=== PATIENT | female | born 1990 ===

== ENCOUNTER 2021-01-28 11:06 | Outpatient (CLI) | payer OTHER, MEDICAID ==
--- NOTE | 2021-01-28 15:09 | XRAY Report ---
PROCEDURE: Ankle 3 View RT INDICATIONS: R ANKLE PX TECHNIQUE: 3 views of the ankle were acquired. COMPARISON: None FINDINGS: Bones: No fractures or dislocations. Ankle mortise is normally aligned. No suspicious bony lesions . Tibiotalar and subtalar joint osteoarthritis. Calcaneal bone spurs. Soft tissues: No tibiotalar joint effusion. Achilles tendon appears normal. Heterotopic calcificati ons noted adjacent to the fibula and tibia. IMPRESSION: No fracture. No osseous lesion. If there are persistent symptoms or continued clinical concern for pa thology, then repeat plain film radiographs (7-10 days) or advanced imaging (CT, MR, bone scan) shoul d be considered for further evaluation. Acute Reviewed by: Cecilia Jaime MD, PhD on 01/28/2021 3:08 PM PDT Approved by: Cecilia Jaime MD, PhD on 01/28/2021 3:08 PM PDT Station ID: [id number]
== END 2021-01-28 23:59 | disposition home or self-care (01) ==
LOC: DI.N 11:06
PROVIDERS: ATTEND Family Medicine
DX: M25.571 Pain in right ankle and joints of right foot (principal)

== ENCOUNTER 2021-09-25 08:09 | Outpatient (CLI) | payer MEDICAID, OTHER ==
[2021-09-25] MEDS ORDERED: IOVERSOL 320 100 ML VIAL IVP ONE ×2 (08:35→09:01)
--- NOTE | 2021-09-25 14:04 | CT Report ---
PROCEDURE: ANGIO NECK W INDICATIONS: MIGRAINE, EPISTAXIS, MEMORY LOSS CONTRAST: IV CONTRAST: Optiray 320 ml: 80 PO CONTRAST: *NO PO CONTRAST TECHNIQUE: After the administration of intravenous contrast, 1.5 mm axial sections acquired from the aortic arch to the [place]. Coronal 3-D maximum intensity projection (MIP) and/or volume rendering ref ormats were then performed. For radiation dose reduction, the following was used: automated exposur e control, adjustment of mA and/or kV according to patient size. COMPARISON: None. FINDINGS: Image quality: Excellent. Carotid system: The great vessels demonstrate a conventional anatomy as they arise from the aortic a [facility]. The origins of the common carotid arteries appear patent. The common carotid arteries demonstr ate normal calibers and courses. The bifurcation regions appear normal bilaterally. The internal ca rotid arteries demonstrate normal caliber and course. Posterior circulation: The origins of the vertebral arteries appear patent. The more superior porti ons of the vertebral arteries demonstrate normal course and caliber. They join to form a normal appe aring basilar artery. Soft tissues: Visualized soft tissues demonstrate no mass or other significant abnormality. Parotid, semitubular, and thyroid glands are normal. No lymphadenopathy in the cervical or supraclavicular sta tions. Paranasal sinuses and mastoid air cells are clear. No gross orbital abnormality. No nasal cavi ty, oral cavity, or pharyngeal mass. Bones: No suspicious lytic or blastic osseous lesion. IMPRESSION: Normal CT angiogram of the neck. Reviewed by: Redd Ornelas MD on 09/25/2021 2:03 PM PDT Approved by: Redd Ornelas MD on 09/25/2021 2:03 PM PDT Station ID: [id number]
--- NOTE | 2021-09-25 14:05 | CT Report ---
PROCEDURE: ANGIO HEAD W/WO INDICATIONS: MIGRAINE, EPISTAXIS, MEMORY LOSS CONTRAST: IV CONTRAST: Optiray 320 ml: 80 PO CONTRAST: *NO PO CONTRAST TECHNIQUE: Precontrast 4.5 mm thick angled axial sections acquired from the foramen magnum to the vertex. Afte r the administration of intravenous contrast, 1 mm thick sections acquired through the [place] of [place] is. Postcontrast 4.5 mm thick sections then re-acquired from the foramen magnum to the vertex. 3-di mensional nhvonhr-zkqbhshoo-bqwtoepznv (MIP) and/or volume rendering reformats were acquired of the c entral intracranial vasculature. For radiation dose reduction, the following was used: automated ex posure control, adjustment of mA and/or kV according to patient size. COMPARISON: None. FINDINGS: Image quality: Excellent. Anterior circulation: Intracranial internal carotid arteries are normal in size and flow. The flow within the paired anterior cerebral arteries is normal and symmetric. The flow within the middle cer ebral arteries is normal and symmetric. The anterior communicating artery is seen. No aneurysms are seen. Posterior circulation: Visualized portions of the vertebral arteries demonstrate normal caliber, and join to form a normal appearing basilar artery. Flow within the posterior cerebral arteries is norm al and symmetric. No aneurysms are seen. CSF spaces: Ventricles are normal in size and shape. Basal cisterns are patent. No extra-axial flu id collections. Brain: No midline shift. No intracranial bleeds or masses. Lopez-white matter interface appears int act. Skull and face: Calvarium and facial bones appear intact, without suspicious lesions. Sinuses: Visualized sinuses and mastoids are clear. IMPRESSION: Normal CT of the head and CT angiogram of the head. Reviewed by: Redd Ornelas MD on 09/25/2021 2:04 PM PDT Approved by: Redd Ornelas MD on 09/25/2021 2:04 PM PDT Station ID: [id number]
== END 2021-09-25 08:10 | disposition home or self-care (01) ==
LOC: DI 08:09
PROVIDERS: ATTEND Physician Assistant
DX: G43.909 Migraine, unspecified, not intractable, without status migrainosus (principal); R04.0 Epistaxis; R41.3 Other amnesia
CPT/HCPCS: 70496; 70498; Q9967

== ENCOUNTER 2022-04-22 18:26 | Emergency (ER) | payer OTHER ==
--- OUTSIDE RECORDS SUMMARY | 2022-04-22 18:33 | EXTERNAL MEDICAL SUMMARY RPT | Continuity of Care Document ---
:1990 Author Organization [place] Address [address] [place] [address] Phone Allergies No information. Encounters No information. Functional Status No information. Immunizations No information. Medications No information. Problems No information. Procedures No information. Results/Labs test date author facility value unit interpret ation Result panel 1 (unknown) (no date) (unknown) (unknown) 698.8 miu/ml (unkn own) (unknown) (no date) (unknown) (unknown) 698.8 miu/ml (unkn own) Result panel 2 (unknown) (no date) (unknown) (unknown) 1376.4 miu/ml (unkn own) (unknown) (no date) (unknown) (unknown) 1376.4 miu/ml (unkn own) Social History No information. Vital Signs No information.
[2022-04-22 18:43] LABS: BASOPHILS % (AUTO) 0.2 %; EOSINOPHILS # (AUTO) 0.1 10^3/uL (0.0-0.7); EOSINOPHILS % (AUTO) 0.9 %; HCT - HEMATOCRIT 36.8 % (37.0-47.0); HGB - HEMOGLOBIN 12.2 g/dL (12.0-16.0); LYMPHOCYTES # (AUTO) 2.5 10^3/uL (1.5-3.5); LYMPHOCYTES % (AUTO) 23.6 %; MEAN CORPUSCULAR HEMOGLOBIN 28.8 pg (27.0-31.0); MEAN CORPUSCULAR HGB CONC 33.2 g/dL (32.0-36.0); MEAN CORPUSCULAR VOLUME 86.8 fL (81.0-99.0); MEAN PLATELET VOLUME 9.5 fL (7.9-10.8); MONOCYTES # (AUTO) 0.7 10^3/uL (0.0-1.0); MONOCYTES % (AUTO) 6.2 %; NEUTROPHILS # (AUTO) 7.4 10^3/uL (1.5-6.6); NEUTROPHILS % (AUTO) 68.6 %; PLT - PLATELET COUNT 264 10^3/uL (130-450); RED BLOOD COUNT 4.24 10^6/uL (4.20-5.40); RED CELL DISTRIBUTION WIDTH 13.8 % (12.0-15.0); WHITE BLOOD COUNT 10.7 x10^3/uL (4.8-10.8)
[2022-04-22 18:56] LABS: ALBUMIN 4.2 g/dL (3.2-5.5); ALBUMIN/GLOBULIN RATIO 1.4 (1.0-2.2); BILIRUBIN,TOTAL 0.5 mg/dL (0.2-1.0); CALCIUM 8.7 mg/dL (8.5-10.3); CREATININE 0.7 mg/dL (0.4-1.0); POTASSIUM 3.8 mmol/L (3.5-5.0); TOTAL PROTEIN 7.1 g/dL (6.7-8.2)
--- NOTE | 2022-04-22 20:00 | Ultrasound Report ---
PROCEDURE: OB First Trimester w/TV INDICATIONS: pelvic pain, 5 weeks preg OUTSIDE/PRIOR DATING DATA: Last menstrual period (LMP): Unknown. LMP-based estimated date of delivery (MADISYN): Unknown. First dating scan (date and location): 04/22/2022. Estimated date of delivery (MADISYN) from first dating scan: Estimated at 12/20/2022 based on mean gestati onal sac diameter. TECHNIQUE: Real-time scanning was performed of the fetus and maternal pelvic organs, with image documentation. Endovaginal scanning was also performed to better visualize the fetus and maternal ovaries. COMPARISON: None FINDINGS: Embryo: Intrauterine gestational sac measuring 0.68 cm. Corresponding to 5 weeks 3 days. No po le is demonstrated. Heart rate: Not detected at this time. Measurement variability in dating: +/- 4 weeks by LMP, +/- 7 days by mean sac diameter (use before 6 weeks gestation if crown-rump length not able to be measured), +/- 5 days by crown-rump length (6-12 weeks gestation). Maternal organs: Right corpus luteum. Left ovary is unremarkable. Uterine intramural fibroid measurin g 2.1 x 2 x 1.8 cm. Cervix is closed. Small nabothian cysts. IMPRESSION: 1. Intrauterine gestational sac. No pole this time. Recommend short-term follow-up OB ultrasound to document the crown-rump length. 2. No perigestational hemorrhage. 3. Right corpus luteum. Reviewed by: Master Kuo MD on 04/22/2022 7:58 PM PDT Approved by: Master Kuo MD on 04/22/2022 7:58 PM PDT Station ID: [id number]
[2022-04-22 21:37] LABS: BILIRUBIN,URINE NEGATIVE (NEGATIVE); GLUCOSE, URINE (UA) NEGATIVE (NEGATIVE); KETONES,URINE (UA) NEGATIVE (NEGATIVE); LEUKOCYTE ESTERASE, URINE NEGATIVE (NEGATIVE); NITRITE,URINE NEGATIVE (NEGATIVE); OCCULT BLOOD,URINE NEGATIVE (NEGATIVE); PH,URINE 6.5 PH (5.0-7.5); PROTEIN,URINE NEGATIVE (NEGATIVE); UROBILINOGEN,URINE 0.2 (NORMAL) E.U./dL (NORMAL)
[2022-04-22 21:38] LABS: CLARITY,URINE CLEAR (CLEAR)
--- NOTE | 2022-04-22 22:32 | ED Physician Documentation ---
History of Present Illness - Stated complaint Stated Complaint: ABD CRAMPING - Chief complaint Chief Complaint: Abd Pain - Additonal information Additional information: Patient is 31-year-old female presenting to the emergency department with abdominal cramping. Endorses for cramping along her flanks bilaterally.States recently found out she was . Endorses for some light vaginal spotting approximately 1 week ago. Denies nausea, vomiting, diarrhea, constipation. Reports a history of polycystic ovarian syndrome Review of Systems Ten Systems: 10 systems reviewed and negative Constitutional: denies: Fever Eyes: denies: Loss of vision Ears: denies: Loss of hearing Nose: denies: Rhinorrhea / runny nose Throat: denies: Dental pain / toothache Cardiac: denies: Chest pain / pressure Respiratory: denies: Dyspnea GI: reports: Abdominal Pain. denies: Nausea, Vomiting, Constipation : reports: Vaginal bleeding. denies: Dysuria PD PAST MEDICAL HISTORY - Present Medications Home Medications: Ambulatory Orders Medication Instructions Recorded Confirmed No Known Home Medications 04/22/22 04/22/22 - Allergies Allergies/Adverse Reactions: Allergies Allergy/AdvReac Type Severity Reaction Status Date / Time No Known Drug Allergies Allergy Verified 04/22/22 18:28 PD ED PE NORMAL - General General: Alert and oriented X 3, No acute distress, Well developed/nourished - HEENT HEENT: Atraumatic, PERRL, EOMI, Ears normal, Moist mucous membranes, Pharynx benign - Neck Neck: Supple, no meningeal sign, No bony TTP, No adenopathy, Thyroid normal, No JVD - Cardiac Cardiac: RRR, No gallop, Strong equal pulses - Respiratory Respiratory: No respiratory distress, Clear bilaterally - Abdomen Abdomen: Normal bowel sounds, Soft, Non tender, Non distended, No organomegaly - Female Female : Deferred - Back Back: No CVA TTP, No spinal TTP - Derm Derm: Normal color - Extremities Extremities: No deformity - Neuro Neuro: Alert and oriented X 3, system archive analyst 2-12 intact, No motor deficit, No sensory deficit, Normal speech Results - Vitals Vitals: Vital Signs - 24 hr 04/22/22 18:28 Temperature 36.5 C Heart Rate 73 Respiratory 18 Rate Blood Pressure 115/75 O2 Saturation 98 Oxygen O2 Source Room air - Labs Labs: Laboratory Tests 04/22/22 04/22/22 04/22/22 18:40 18:40 18:40 WBC 10.7 RBC 4.24 Hgb 12.2 Hct 36.8 L MCV 86.8 MCH 28.8 MCHC 33.2 RDW 13.8 Plt Count 264 MPV 9.5 Neut # (Auto) 7.4 H Lymph # (Auto) 2.5 [place] # (Auto) 0.7 Eos # (Auto) 0.1 Baso # (Auto) 0.0 Absolute Nucleated RBC 0.00 Nucleated RBC % 0.0 Sodium 133 L Potassium 3.8 Chloride 101 Carbon Dioxide 24 Anion Gap 8.0 BUN 20 Creatinine 0.7 Estimated GFR (MDRD) 97 Glucose 92 Calcium 8.7 Total Bilirubin 0.5 AST 15 ALT 19 Alkaline Phosphatase 53 Total Protein 7.1 Albumin 4.2 Globulin 2.9 Albumin/Globulin Ratio 1.4 Lipase 28 HCG, Quant 2865.00 Urine Color Urine Clarity Urine pH Ur Specific [place] Urine Protein Urine Glucose (UA) Urine Ketones Urine Occult Blood Urine Nitrite Urine Bilirubin Urine Urobilinogen Ur Leukocyte Esterase Ur Microscopic Review Urine Culture Comments 04/22/22 21:23 WBC RBC Hgb Hct MCV MCH MCHC RDW Plt Count MPV Neut # (Auto) Lymph # (Auto) [place] # (Auto) Eos # (Auto) Baso # (Auto) Absolute Nucleated RBC Nucleated RBC % Sodium Potassium Chloride Carbon Dioxide Anion Gap BUN Creatinine Estimated GFR (MDRD) Glucose Calcium Total Bilirubin AST ALT Alkaline Phosphatase Total Protein Albumin Globulin Albumin/Globulin Ratio Lipase HCG, Quant Urine Color YELLOW Urine Clarity CLEAR Urine pH 6.5 Ur Specific [place] 1.015 Urine Protein NEGATIVE Urine Glucose (UA) NEGATIVE Urine Ketones NEGATIVE Urine Occult Blood NEGATIVE Urine Nitrite NEGATIVE Urine Bilirubin NEGATIVE Urine Urobilinogen 0.2 (NORMAL) Ur Leukocyte Esterase NEGATIVE Ur Microscopic Review NOT INDICATED Urine Culture Comments NOT INDICATED PD MEDICAL DECISION MAKING - ED course Complexity details: reviewed results, d/w patient ED course: Patient 31-year-old femalePresenting withBilateral flank pain in setting of first trimester . Afebrile, hemodynamically stable. Labs obtained within normal limits or nonactionable. No specific abdominal point tenderness, specifically negative Perkins sign and no right upper quadrant tenderness appreciated on exam. Ultrasonography demonstrates a gestational sac without uterine pole. Patient monitored in the emergency department for several hours. Found to be resting comfortably and in no acute distress. Was offered medication for pain control which she declines. At this time will discharge for follow-up with [facility]. Encouraged use of acetaminophen as needed for pain control. Encouraged return to the emergency department for new or worsening symptoms. Departure - Departure Disposition: 01 Home, Self Care Clinical Impression: Threatened Instructions: ED Abdominal Pain Female Non-Specific Abdominal Pain, ED Miscarriage Poss Follow-Up: Vandana Her MD [Provider Admit Priv/Credential] - Comments: Thank you for allowing us to care for you today at [facility]. Today in the emergency department your evaluated for any possible life- threatening medical emergency. All of your blood work and your urine tests were very reassuring. There is no indication of infection, inflammation, organ dysfunction or electrolyte imbalance. Your ultrasound did show an intrauterine gestational sac However no pole or contents were identified. You early enough along in the that this is not an atypical finding however you will need very careful follow-up with [facility] and likely repeat ultrasonography in the near future. Please continue to work with your primary care doctor for referral to an [facility]. I have also included contact information for one of our local [facility] for your use as needed. I recommend regular acetaminophen at home for pain control. Please drink plenty of fluids. Please continue currently prescribed vitamin. If it anytime you develop any new or worsening symptoms please not hesitate to return.
[2022-04-22 22:51] VITALS: BP 116/72
== END 2022-04-22 22:50 | disposition home or self-care (01) ==
LOC: ED 18:26
DX: O20.0 Threatened abortion (principal); Z3A.00 Weeks of gestation of pregnancy not specified
CPT/HCPCS: 36415; 80053; 81001; 81003; 83690; 84702; 85025; 87086; 99282; 99284

== ENCOUNTER 2022-11-06 05:22 | Emergency (ER) | payer OTHER ==
--- OUTSIDE RECORDS SUMMARY | 2022-11-06 05:29 | EXTERNAL MEDICAL SUMMARY RPT | Continuity of Care Document ---
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 Role Phone Phoebe Callaway Unavailable Unavailable Allergies and Intolerances date description facility type (no date) No Known Drug Allergies [facility] ( unknown) Immunizations date description facility 2022-10-26 00:00 Tetanus, Diphtheria, Pertussis (Tdap) [facility] 2022-08-09 00:00 [place] Quad 18YR+ [facility] Medications date description facility 2022-08-12 00:00 Levothyroxine [facility] 2022-10-05 00:00 [facility] Problems date description facility 2022-08-09 08:19 Encounter for superv ision of other normal , [facility] 2022-08-09 08:19 20 weeks gestation of [facility] 2022-08-09 11:57 Encounter for superv ision of other normal , [facility] 2022-08-09 11:57 20 weeks gestation of [facility] 2022-10-07 10:08 Abnormal glucose complicating p regnancy [facility] 2022-10-10 00:00 Breech presentation [facility] 2022-10-26 10:47 Encounter for immunization [facility] Procedures date description facility 2022-08-09 00:00 Obstetrical ultrasou nd of uterus with single at 14 weeks gestation or [facility] Results/Labs test date author facility value unit interpretation Result panel 1 (unknown) (no date) (unknown) [facility] (no value) (units unknown) (unknown) Result panel 2 (unknown) (no date) (unknown) [facility] (no value) (units unknown) (unknown) Result panel 3 (unknown) (no date) (unknown) [facility] (no value) (units unknown) (unknown) Result panel 4 (unknown) (no date) (unknown) [facility] (no value) (units unknown) (unknown) Result panel 5 (unknown) (no date) (unknown) [facility] (no value) (units unknown) (unknown) Result panel 6 (unknown) (no date) (unknown) [facility] (no value) (units unknown) (unknown) Result panel 7 (unknown) (no date) (unknown) [facility] (no value) (units unknown) (unknown) Result panel 8 (unknown) (no date) (unknown) [facility] (no value) (units unknown) (unknown) Result panel 9 (unknown) (no date) (unknown) [facility] (no value) (units unknown) (unknown) Result panel 10 (unknown) (no date) (unknown) [facility] (no value) (units unknown) (unknown) Result panel 11 (unknown) (no date) (unknown) [facility] (no value) (units unknown) (unknown) Result panel 12 (unknown) (no date) (unknown) [facility] (no value) (units unknown) (unknown) Result panel 13 (unknown) (no date) (unknown) [facility] (no value) (units unknown) (unknown) Result panel 14 (unknown) (no date) (unknown) [facility] (no value) (units unknown) (unknown) Result panel 15 (unknown) (no date) (unknown) [facility] (no value) (units unknown) (unknown) Result panel 16 (unknown) (no date) (unknown) [facility] (no value) (units unknown) (unknown) Result panel 17 (unknown) (no date) (unknown) [facility] (no value) (units unknown) (unknown) Result panel 18 (unknown) (no date) (unknown) [facility] (no value) (units unknown) (unknown) Result panel 19 (unknown) (no date) (unknown) [facility] (no value) (units unknown) (unknown) Result panel 20 (unknown) (no date) (unknown) [facility] (no value) (units unknown) (unknown) Result panel 21 (unknown) (no date) (unknown) [facility] (no value) (units unknown) (unknown) Result panel 22 (unknown) (no date) (unknown) [facility] (no value) (units unknown) (unknown) Result panel 23 (unknown) (no date) (unknown) [facility] (no value) (units unknown) (unknown) Result panel 24 (unknown) (no date) (unknown) [facility] (no value) (units unknown) (unknown) Result panel 25 (unknown) (no date) (unknown) [facility] (no value) (units unknown) (unknown) Result panel 26 (unknown) (no date) (unknown) [facility] (no value) (units unknown) (unknown) Result panel 27 (unknown) (no date) (unknown) [facility] (no value) (units unknown) (unknown) Result panel 28 (unknown) (no date) (unknown) [facility] (no value) (units unknown) (unknown) Result panel 29 (unknown) (no date) (unknown) [facility] (no value) (units unknown) (unknown) Result panel 30 (unknown) (no date) (unknown) [facility] (no value) (units unknown) (unknown) Result panel 31 (unknown) (no date) (unknown) [facility] (no value) (units unknown) (unknown) Result panel 32 (unknown) (no date) (unknown) [facility] (no value) (units unknown) (unknown) Result panel 33 (unknown) (no date) (unknown) [facility] (no value) (units unknown) (unknown) Result panel 34 (unknown) (no date) (unknown) [facility] (no value) (units unknown) (unknown) Result panel 35 (unknown) (no date) (unknown) [facility] (no value) (units unknown) (unknown) Result panel 36 (unknown) (no date) (unknown) [facility] (no value) (units unknown) (unknown) Result panel 37 (unknown) (no date) (unknown) [facility] (no value) (units unknown) (unknown) Result panel 38 (unknown) (no date) (unknown) [facility] (no value) (units unknown) (unknown) Result panel 39 (unknown) (no date) (unknown) [facility] (no value) (units unknown) (unknown) Result panel 40 (unknown) (no date) (unknown) [facility] (no value) (units unknown) (unknown) Result panel 41 (unknown) (no date) (unknown) [facility] (no value) (units unknown) (unknown) Result panel 42 (unknown) (no date) (unknown) [facility] (no value) (units unknown) (unknown) Result panel 43 (unknown) (no date) (unknown) [facility] (no value) (units unknown) (unknown) Result panel 44 (unknown) (no date) (unknown) [facility] (no value) (units unknown) (unknown) Result panel 45 (unknown) (no date) (unknown) [facility] (no value) (units unknown) (unknown) Result panel 46 (unknown) (no date) (unknown) [facility] (no value) (units unknown) (unknown) Result panel 47 (unknown) (no date) (unknown) [facility] (no value) (units unknown) (unknown) Result panel 48 (unknown) (no date) (unknown) [facility] (no value) (units unknown) (unknown) Result panel 49 (unknown) (no date) (unknown) [facility] (no value) (units unknown) (unknown) Result panel 50 (unknown) (no date) (unknown) [facility] (no value) (units unknown) (unknown) Result panel 51 (unknown) (no date) (unknown) [facility] (no value) (units unknown) (unknown) Result panel 52 (unknown) (no date) (unknown) [facility] (no value) (units unknown) (unknown) Result panel 53 (unknown) (no date) (unknown) [facility] (no value) (units unknown) (unknown) Result panel 54 (unknown) (no date) (unknown) [facility] (no value) (units unknown) (unknown) Result panel 55 (unknown) (no date) (unknown) [facility] (no value) (units unknown) (unknown) Result panel 56 (unknown) (no date) (unknown) [facility] (no value) (units unknown) (unknown) Result panel 57 (unknown) (no date) (unknown) [facility] (no value) (units unknown) (unknown) Result panel 58 (unknown) (no date) (unknown) [facility] (no value) (units unknown) (unknown) Result panel 59 (unknown) (no date) (unknown) [facility] (no value) (units unknown) (unknown) Result panel 60 (unknown) (no date) (unknown) [facility] (no value) (units unknown) (unknown) Result panel 61 (unknown) (no date) (unknown) (unknown) (no value) (units unknown) (unknown) (unknown) (no date) (unknown) (unknown) 08/09/22 (units unknown) (unknown) (unknown) (no date) (unknown) (unknown) [address] (un its unknown) (unknown) (unknown) (no date) (unknown) (unknown) 7 mm in 3rd trimester. (units unknown) (unknown) (unknown) (no date) (unknown) (unknown) : [id number] (units unknown) (unknown) (unknown) (no date) (unknown) (unknown) Abdominal circumference: 14.9 cm, 20 weeks and 1 day (units unknown) (unknown) (unknown) (no date) (unknown) (unknown) Accession Numb er: [id number] (units unknown) (unknown) (unknown) (no date) (unknown) (unknown) Age/Sex: 32 / F Date of Service: (units unknown) (unknown) (unknown) (no date) (unknown) (unknown) Amniotic fluid index: 13.7 cm, normal range is 5-24 cm. (units unknown) (unknown) (unknown) (no date) (unknown) (unknown) [place] [address] (units unknown) (unknown) (unknown) (no date) (unknown) (unknown) Anatomic survey: (un its unknown) (unknown) (unknown) (no date) (unknown) (unknown) Anterior fibro id again seen measuring 2.4 x 2.9 cm. (units unknown) (unknown) (unknown) (no date) (unknown) (unknown) Approved by: Neelima Salcido M.D. on 08/09/2022 at 13:42 (units unknown) (unknown) (unknown) (no date) (unknown) (unknown) Biparietal diameter: 4.7 cm, 20 weeks and 2 days (units unknown) (unknown) (unknown) (no date) (unknown) (unknown) Bladder: Barbra l in size. (units unknown) (unknown) (unknown) (no date) (unknown) (unknown) COMPARISON: 04/28/2022, 05/08/2022 (units unknown) (unknown) (unknown) (no date) (unknown) (unknown) Clinically estimated gestational age: 20 weeks and 4 days (units unknown) (unknown) (unknown) (no date) (unknown) (unknown) Composite gestational age from present scan: 20 weeks and 2 days (units unknown) (unknown) (unknown) (no date) (unknown) (unknown) Consider follo w-up imaging to reassess. (units unknown) (unknown) (unknown) (no date) (unknown) (unknown) Cord: 3-vessel cord has orthotopic insertion. (units unknown) (unknown) (unknown) (no date) (unknown) (unknown) : 199 0 Acct:[id number] (units unknown) (unknown) (unknown) (no date) (unknown) (unknown) Diaphragm: Not well seen (units unknown) (unknown) (unknown) (no date) (unknown) (unknown) Dictated by: Neelima Salcido M.D. on 08/09/2022 at 13:33 (units unknown) (unknown) (unknown) (no date) (unknown) (unknown) Estimated date of delivery (MADISYN) from first dating scan: 12/23/2022. (units unknown) (unknown) (unknown) (no date) (unknown) (unknown) Estimated feta l weight and percentile: 28th percentile, 341 g (units unknown) (unknown) (unknown) (no date) (unknown) (unknown) Extremities: A ll 4 extremities identified. (units unknown) (unknown) (unknown) (no date) (unknown) (unknown) FINDINGS: (units unknown) (unknown) (unknown) (no date) (unknown) (unknown) Face: Nose lip s was not well seen. Profile within normal limits. (units unknown) (unknown) (unknown) (no date) (unknown) (unknown) Femur length: 3.3 cm, 20 weeks and 2 days (units unknown) (unknown) (unknown) (no date) (unknown) (unknown) biometrics: (u nits unknown) (unknown) (unknown) (no date) (unknown) (unknown) heart ra te: 152 beats per minute. (units unknown) (unknown) (unknown) (no date) (unknown) (unknown) First dating s can (date and location): 04/28/2022 (units unknown) (unknown) (unknown) (no date) (unknown) (unknown) General: A sin gle living intrauterine gestation is present. (units unknown) (unknown) (unknown) (no date) (unknown) (unknown) Head circumfer ence: 17.6 cm, 20 weeks and 1 day (units unknown) (unknown) (unknown) (no date) (unknown) (unknown) Heart: RVOT wa s not well seen. LVOT and four-chamber view within normal (units unknown) (unknown) (unknown) (no date) (unknown) (unknown) IMPRESSION: Intrauterine gestation at 20 weeks and 4 days. biometry (units unknown) (unknown) (unknown) (no date) (unknown) (unknown) INDICATIONS: 2 0 Week Anatomy Scan (units unknown) (unknown) (unknown) (no date) (unknown) (unknown) [facility] (uni ts unknown) (unknown) (unknown) (no date) (unknown) (unknown) Kidneys: No fe gerard hydronephrosis. Normal is less than 5 mm in 2nd trimester, (units unknown) (unknown) (unknown) (no date) (unknown) (unknown) Last menstrual period (LMP): Uncertain. (units unknown) (unknown) (unknown) (no date) (unknown) (unknown) Loc: [place] (units unknown) (unknown) (unknown) (no date) (unknown) (unknown) Maternal cervi renetta canal: 3.6 cm long. Normal lower limit is 2.5 cm. (units unknown) (unknown) (unknown) (no date) (unknown) (unknown) Multiple anato maureen structures not well seen on today's study, including RVOT, (units unknown) (unknown) (unknown) (no date) (unknown) (unknown) Neuro: Ventric les are non-dilated at less than 10 mm. Cisterna magna is (units unknown) (unknown) (unknown) (no date) (unknown) (unknown) Nuchal skin fo ld: Normal at less than 6 mm between 14-21 weeks gestational (units unknown) (unknown) (unknown) (no date) (unknown) (unknown) OUTSIDE/PRIOR DATING DATA: (units unknown) (unknown) (unknown) (no date) (unknown) (unknown) Ordering Provi bernardo: Olivia Marshall MD (units unknown) (unknown) (unknown) (no date) (unknown) (unknown) PROCEDURE: US OB >= 14 WEEKS FETUS (units unknown) (unknown) (unknown) (no date) (unknown) (unknown) Patient: Calin Godfrey MR# (units unknown) (unknown) (unknown) (no date) (unknown) (unknown) Placenta: Plac ental position is posterior. No previa. Placental edge is 2.8 (units unknown) (unknown) (unknown) (no date) (unknown) (unknown) Presentation: Vertex. (units unknown) (unknown) (unknown) (no date) (unknown) (unknown) Procedure: US OB >= 14 weeks Fetus (units unknown) (unknown) (unknown) (no date) (unknown) (unknown) Real-time scan raven was performed of the fetus, with image documentation and (units unknown) (unknown) (unknown) (no date) (unknown) (unknown) Signed (units unknown) (unknown) (unknown) (no date) (unknown) (unknown) Spine: Skin li ne overlying the sacrum not well seen. (units unknown) (unknown) (unknown) (no date) (unknown) (unknown) Stomach: Stoma ch appear mildly distended. (units unknown) (unknown) (unknown) (no date) (unknown) (unknown) TECHNIQUE: (units unknown) (unknown) (unknown) (no date) (unknown) (unknown) To assist (units unknown) (unknown) (unknown) (no date) (unknown) (unknown) Ultrasound Report (u nits unknown) (unknown) (unknown) (no date) (unknown) (unknown) We strive to produce accurate, complete, and clear reports of imaging services. (units unknown) (unknown) (unknown) (no date) (unknown) (unknown) age. (units unknown) (unknown) (unknown) (no date) (unknown) (unknown) and voice recognition software. Therefore, it may contain abnormal punctuation, (units unknown) (unknown) (unknown) (no date) (unknown) (unknown) biometric (units unknown) (unknown) (unknown) (no date) (unknown) (unknown) cm from (units unknown) (unknown) (unknown) (no date) (unknown) (unknown) concordant, wi th EFW at the 28th percentile. (units unknown) (unknown) (unknown) (no date) (unknown) (unknown) distended. (units unknown) (unknown) (unknown) (no date) (unknown) (unknown) inaccuracies. (units unknown) (unknown) (unknown) (no date) (unknown) (unknown) insertions and /or omissions. Occasional wrong-word or sound-alike substitutions (units unknown) (unknown) (unknown) (no date) (unknown) (unknown) less than (units unknown) (unknown) (unknown) (no date) (unknown) (unknown) limits. (units unknown) (unknown) (unknown) (no date) (unknown) (unknown) may (units unknown) (unknown) (unknown) (no date) (unknown) (unknown) measurements. (units unknown) (unknown) (unknown) (no date) (unknown) (unknown) mm. Cerebellum is normal in size and morphology. (units unknown) (unknown) (unknown) (no date) (unknown) (unknown) normal at 3-11 (unit s unknown) (unknown) (unknown) (no date) (unknown) (unknown) occur. Though we review the report and make efforts to correct it, we do (units unknown) (unknown) (unknown) (no date) (unknown) (unknown) recommend that (unit s unknown) (unknown) (unknown) (no date) (unknown) (unknown) sacral spine (units unknown) (unknown) (unknown) (no date) (unknown) (unknown) skin line, nos e lips, diaphragm. In addition, the stomach appear mildly (units unknown) (unknown) (unknown) (no date) (unknown) (unknown) templates (units unknown) (unknown) (unknown) (no date) (unknown) (unknown) the internal os. (un its unknown) (unknown) (unknown) (no date) (unknown) (unknown) the report be read carefully in proper context to recognize any text (units unknown) (unknown) (unknown) (no date) (unknown) (unknown) today is (units unknown) (unknown) (unknown) (no date) (unknown) (unknown) us in [facility] patient care, this report was composed using standard report (units unknown) (unknown) Result panel 62 (unknown) (no date) (unknown) (unknown) (no value) (units unknown) (unknown) (unknown) (no date) (unknown) (unknown) 'mama brain,' I'm worried I have early onset dementia.' Notably, pt is (units unknown) (unknown) (unknown) (no date) (unknown) (unknown) (+19 lb) 108/64 N (u nits unknown) (unknown) (unknown) (no date) (unknown) (unknown) (+26 lb) 116/64 N (u nits unknown) (unknown) (unknown) (no date) (unknown) (unknown) (+36 lb) 106/66 N (u nits unknown) (unknown) (unknown) (no date) (unknown) (unknown) (EG,TYPE 1 Diabetes, PKU), Denies Patient or baby's father had a child with (units unknown) (unknown) (unknown) (no date) (unknown) (unknown) Genetic Screening/Teratolog y Counseling - Includes patient, baby's father, or (units unknown) (unknown) (unknown) (no date) (unknown) (unknown) +CT, Tx'd. Nee ds FLETCHER. FLETCHER negative. (units unknown) (unknown) (unknown) (no date) (unknown) (unknown) -?-?-?-?-?-?-? -?-?- ?-?-? (units unknown) (unknown) (unknown) (no date) (unknown) (unknown) .COMPLEX 04/30 [History Confirmed 08/09/22] (units unknown) (unknown) (unknown) (no date) (unknown) (unknown) 07/12/22 (units unknown) (unknown) (unknown) (no date) (unknown) (unknown) 08/09/22 (units unknown) (unknown) (unknown) (no date) (unknown) (unknown) 08/09/22] (units unknown) (unknown) (unknown) (no date) (unknown) (unknown) 09/25/10 14 spontaneous (units unknown) (unknown) (unknown) (no date) (unknown) (unknown) 12/23/22 Ultra sound #2 20w 4d (units unknown) (unknown) (unknown) (no date) (unknown) (unknown) 02/25/15 41.3 5 9 lb 8 oz Male vaginal live - full term (units unknown) (unknown) (unknown) (no date) (unknown) (unknown) 10:55 (units unknown) (unknown) (unknown) (no date) (unknown) (unknown) 05/11/22 (units unknown) (unknown) (unknown) (no date) (unknown) (unknown) 11w 5d 226 lb (units unknown) (unknown) (unknown) (no date) (unknown) (unknown) 06/08/22 (units unknown) (unknown) (unknown) (no date) (unknown) (unknown) 16w 4d 236 lb (units unknown) (unknown) (unknown) (no date) (unknown) (unknown) 4 wks (units unknown) (unknown) (unknown) (no date) (unknown) (unknown) 7w 5d 219 lb (units unknown) (unknown) (unknown) (no date) (unknown) (unknown) Abnormal lab v alues 1st trimester: discussed (units unknown) (unknown) (unknown) (no date) (unknown) (unknown) Acne (units unknown) (unknown) (unknown) (no date) (unknown) (unknown) Add'l Plan Details ( units unknown) (unknown) (unknown) (no date) (unknown) (unknown) Additional Details:: Pt reports concerns about memory and word finding issues (units unknown) (unknown) (unknown) (no date) (unknown) (unknown) Additional Soc ial History (units unknown) (unknown) (unknown) (no date) (unknown) (unknown) Age/Sex: 32 / F Date of Service: (units unknown) (unknown) (unknown) (no date) (unknown) (unknown) Allergies (units unknown) (unknown) (unknown) (no date) (unknown) (unknown) [place] [address] (units unknown) (unknown) (unknown) (no date) (unknown) (unknown) Anemia (units unknown) (unknown) (unknown) (no date) (unknown) (unknown) Aneuploidy Screening Offered: Accepted (likely will do quad screen, undecided) (units unknown) (unknown) (unknown) (no date) (unknown) (unknown) Anticipated co urse of care: discussed (units unknown) (unknown) (unknown) (no date) (unknown) (unknown) Anxiety (units unknown) (unknown) (unknown) (no date) (unknown) (unknown) Anxiety/depres marcy not very well managed, has not tolerated meds in the past. (units unknown) (unknown) (unknown) (no date) (unknown) (unknown) Assessment and Plan (units unknown) (unknown) (unknown) (no date) (unknown) (unknown) Attending Dr: Frances Espinal P.A-C (units unknown) (unknown) (unknown) (no date) (unknown) (unknown) Plan/Preferences (units unknown) (unknown) (unknown) (no date) (unknown) (unknown) Planning (unit s unknown) (unknown) (unknown) (no date) (unknown) (unknown) Bleeding in fi rst trimester (units unknown) (unknown) (unknown) (no date) (unknown) (unknown) Blood transfusions?: yes (Never had but would accept) (units unknown) (unknown) (unknown) (no date) (unknown) (unknown) Breastfeed Pre g Comp Name (units unknown) (unknown) (unknown) (no date) (unknown) (unknown) Brother Alcoholism ( units unknown) (unknown) (unknown) (no date) (unknown) (unknown) Carpal tunnel syndrome (units unknown) (unknown) (unknown) (no date) (unknown) (unknown) Calin present s with her today for routine OB follow-up at 15 (units unknown) (unknown) (unknown) (no date) (unknown) (unknown) Confirmed 08/09/22] (units unknown) (unknown) (unknown) (no date) (unknown) (unknown) Current Estima te 12/23/22 Ultrasound #1 20w 4d (units unknown) (unknown) (unknown) (no date) (unknown) (unknown) Current Pregna ncy History (units unknown) (unknown) (unknown) (no date) (unknown) (unknown) : 0 Acct:[id number] (units unknown) (unknown) (unknown) (no date) (unknown) (unknown) Date of positi ve home test: 04/17/22 (units unknown) (unknown) (unknown) (no date) (unknown) (unknown) Date (units unknown) (unknown) (unknown) (no date) (unknown) (unknown) Del. Date GA/W eeks Labor Lgth Wt Sex Route Outcome Anesthesia Place (units unknown) (unknown) (unknown) (no date) (unknown) (unknown) Delivery Date: 09/25/10 Last Updated by: Krystina Lantigua RN (units unknown) (unknown) (unknown) (no date) (unknown) (unknown) Delv (units unknown) (unknown) (unknown) (no date) (unknown) (unknown) Denies Congeni gerard Heart Defect, Denies Down Syndrome, Denies Muscular Dystrophy, (units unknown) (unknown) (unknown) (no date) (unknown) (unknown) Denies Neural Tube Defect (Meningomyelocele, Spina Bifida, or Anencephaly), (units unknown) (unknown) (unknown) (no date) (unknown) (unknown) Denies Sickle Cell Disease or Trait (), Denies Hemophilia or other blood (units unknown) (unknown) (unknown) (no date) (unknown) (unknown) Denies Rodney-Sac hs (Ashkenazi Lutheran, [facility], [place]an), Denies Kayy (units unknown) (unknown) (unknown) (no date) (unknown) (unknown) Denies over th e counter medications, Reports alcohol (drank 2 bottles of wine (units unknown) (unknown) (unknown) (no date) (unknown) (unknown) Depression (units unknown) (unknown) (unknown) (no date) (unknown) (unknown) Depression: discussed (units unknown) (unknown) (unknown) (no date) (unknown) (unknown) Dept at . (units unknown) (unknown) (unknown) (no date) (unknown) (unknown) Diet and Exercise (u nits unknown) (unknown) (unknown) (no date) (unknown) (unknown) Disease (Ash[place] nazi Lutheran), Denies Familial Dysautonomia (Ashkenazi Lutheran), (units unknown) (unknown) (unknown) (no date) (unknown) (unknown) Documented By: Frances Espinal P.A-C 08/09/22 1054 (units unknown) (unknown) (unknown) (no date) (unknown) (unknown) Draft (units unknown) (unknown) (unknown) (no date) (unknown) (unknown) MADISYN Calculator (unit s unknown) (unknown) (unknown) (no date) (unknown) (unknown) EGA Weight BP UGlucose (units unknown) (unknown) (unknown) (no date) (unknown) (unknown) Eczema (units unknown) (unknown) (unknown) (no date) (unknown) (unknown) Estimated Deli very Date Method Current (units unknown) (unknown) (unknown) (no date) (unknown) (unknown) F/U 4 wks. War raven signs reviewed. (units unknown) (unknown) (unknown) (no date) (unknown) (unknown) Family History (Updated 04/30/22 @ 08:33 by Krystina Lantigua RN) (units unknown) (unknown) (unknown) (no date) (unknown) (unknown) Family/Other Neurological abnormality (units unknown) (unknown) (unknown) (no date) (unknown) (unknown) Family/Other Obsessive compulsive disorder (units unknown) (unknown) (unknown) (no date) (unknown) (unknown) Father d Alcoholism (units unknown) (unknown) (unknown) (no date) (unknown) (unknown) Father of Baby : same (units unknown) (unknown) (unknown) (no date) (unknown) (unknown) [facility] (units unknown) (unknown) (unknown) (no date) (unknown) (unknown) [facility] Education Checklist (units unknown) (unknown) (unknown) (no date) (unknown) (unknown) (units unknown) (unknown) (unknown) (no date) (unknown) (unknown) GERD (gastroesophageal reflux disease) (units unknown) (unknown) (unknown) (no date) (unknown) (unknown) Genetic Screen ing + Counseling (units unknown) (unknown) (unknown) (no date) (unknown) (unknown) Genetic Screening (u nits unknown) (unknown) (unknown) (no date) (unknown) (unknown) Grandfather No problems noted. (units unknown) (unknown) (unknown) (no date) (unknown) (unknown) Grandmother Coagulopathy (units unknown) (unknown) (unknown) (no date) (unknown) (unknown) Grandmother Leukemia (units unknown) (unknown) (unknown) (no date) (unknown) (unknown) 3 Mult iple births (units unknown) (unknown) (unknown) (no date) (unknown) (unknown) HIV risk evaluation: low risk (units unknown) (unknown) (unknown) (no date) (unknown) (unknown) HSV-1 infection (uni ts unknown) (unknown) (unknown) (no date) (unknown) (unknown) Headache (units unknown) (unknown) (unknown) (no date) (unknown) (unknown) Health Center Education (units unknown) (unknown) (unknown) (no date) (unknown) (unknown) Health center information: nature of practice discussed, personnel (units unknown) (unknown) (unknown) (no date) (unknown) (unknown) Height 5 ft 5 in (un its unknown) (unknown) (unknown) (no date) (unknown) (unknown) Hemorrhoids (units unknown) (unknown) (unknown) (no date) (unknown) (unknown) Hepatitis C ri sk evaluation: low risk (units unknown) (unknown) (unknown) (no date) (unknown) (unknown) History of Hepatitis B: No (units unknown) (unknown) (unknown) (no date) (unknown) (unknown) History of Hepatitis C: No (units unknown) (unknown) (unknown) (no date) (unknown) (unknown) History of rem oval of skin mole (units unknown) (unknown) (unknown) (no date) (unknown) (unknown) [facility] ([facility] (unknown) (unknown) (no date) (unknown) (unknown) [facility] (units unknown) (unknown) (unknown) (no date) (unknown) (unknown) Hx # Pregnancies 0 Elective abortions 0 (units unknown) (unknown) (unknown) (no date) (unknown) (unknown) Hx # Term Pregnancies 1 Ectopic pregnancies 0 (units unknown) (unknown) (unknown) (no date) (unknown) (unknown) Infant will be adopted?: no (units unknown) (unknown) (unknown) (no date) (unknown) (unknown) Infection History (u nits unknown) (unknown) (unknown) (no date) (unknown) (unknown) Infectious Dis ease Education (units unknown) (unknown) (unknown) (no date) (unknown) (unknown) Infectious dis ease exposure: chicken pox immunity discussed, hepatitis risk (units unknown) (unknown) (unknown) (no date) (unknown) (unknown) Influenza vacc ine (declines flu, undecided on Covid booster) (units unknown) (unknown) (unknown) (no date) (unknown) (unknown) Initial Weight : 200 lb (units unknown) (unknown) (unknown) (no date) (unknown) (unknown) Initials (units unknown) (unknown) (unknown) (no date) (unknown) (unknown) Intake Clinica l Staff (units unknown) (unknown) (unknown) (no date) (unknown) (unknown) Intake Note: (units unknown) (unknown) (unknown) (no date) (unknown) (unknown) Intake perform ed by: Yunier Kolb (units unknown) (unknown) (unknown) (no date) (unknown) (unknown) Intake (units unknown) (unknown) (unknown) (no date) (unknown) (unknown) LM (units unknown) (unknown) (unknown) (no date) (unknown) (unknown) Live with some one with TB or exposed to TB: No (units unknown) (unknown) (unknown) (no date) (unknown) (unknown) Loc: [facility] (units unknown) (unknown) (unknown) (no date) (unknown) (unknown) [id number] (units unknown) (unknown) (unknown) (no date) (unknown) (unknown) Marital status : (units unknown) (unknown) (unknown) (no date) (unknown) (unknown) Medical Histor y (Updated 06/07/22 @ 20:59 by Rosys Chaudhari) (units unknown) (unknown) (unknown) (no date) (unknown) (unknown) Medication use , Sauna/hot tub use, Dental care, Travel, Seatbelt use and (units unknown) (unknown) (unknown) (no date) (unknown) (unknown) Medications (units unknown) (unknown) (unknown) (no date) (unknown) (unknown) Migraine with aura ( units unknown) (unknown) (unknown) (no date) (unknown) (unknown) Migraines (units unknown) (unknown) (unknown) (no date) (unknown) (unknown) Mother d Alcoholism (units unknown) (unknown) (unknown) (no date) (unknown) (unknown) N No no 1,721 7 N/A absent long/closed (units unknown) (unknown) (unknown) (no date) (unknown) (unknown) N No no 166 12 N/A absent 4 wks (units unknown) (unknown) (unknown) (no date) (unknown) (unknown) N Yes no 151 1 8 N/A absent FLETCHER negative (units unknown) (unknown) (unknown) (no date) (unknown) (unknown) Nasal congestion (un its unknown) (unknown) (unknown) (no date) (unknown) (unknown) No Known Drug Allergies Allergy (Verified 08/09/22 10:55) (units unknown) (unknown) (unknown) (no date) (unknown) (unknown) Notes (units unknown) (unknown) (unknown) (no date) (unknown) (unknown) Number of Mandy ng Children 1 (units unknown) (unknown) (unknown) (no date) (unknown) (unknown) Number of fetu ses:: Single (units unknown) (unknown) (unknown) (no date) (unknown) (unknown) Nutrition and weight gain counseling: special diet: discussed (units unknown) (unknown) (unknown) (no date) (unknown) (unknown) OB Office Visit (uni ts unknown) (unknown) (unknown) (no date) (unknown) (unknown) OB Visit Log (units unknown) (unknown) (unknown) (no date) (unknown) (unknown) Other Estimate s 11/15/22 LMP (Uncertain) 26w 0d (units unknown) (unknown) (unknown) (no date) (unknown) (unknown) Other Substanc e abuse (units unknown) (unknown) (unknown) (no date) (unknown) (unknown) Ovarian cyst (units unknown) (unknown) (unknown) (no date) (unknown) (unknown) PCOS (polycyst ic ovarian syndrome) (units unknown) (unknown) (unknown) (no date) (unknown) (unknown) PFSH (units unknown) (unknown) (unknown) (no date) (unknown) (unknown) Painful menstr ual periods (units unknown) (unknown) (unknown) (no date) (unknown) (unknown) Para 1 Spontan eous abortions 1 (units unknown) (unknown) (unknown) (no date) (unknown) (unknown) Partner histor y of STD: denies hx (units unknown) (unknown) (unknown) (no date) (unknown) (unknown) Partner histor y of genital herpes: No (units unknown) (unknown) (unknown) (no date) (unknown) (unknown) Partner: Cheko (units unknown) (unknown) (unknown) (no date) (unknown) (unknown) Past Pregnancies (un its unknown) (unknown) (unknown) (no date) (unknown) (unknown) Patient opts f or a routine visit at 11 weeks 5 days. She is (units unknown) (unknown) (unknown) (no date) (unknown) (unknown) Patient presen ts for an NOB visit at 7 wks gestation. Had some bleeding (units unknown) (unknown) (unknown) (no date) (unknown) (unknown) Patient's age 35 years or older as of estimated date of delivery: No (units unknown) (unknown) (unknown) (no date) (unknown) (unknown) Patient: Calin Godfrey MR#: (units unknown) (unknown) (unknown) (no date) (unknown) (unknown) Technical Assistant: MELISSA Dallas (units unknown) (unknown) (unknown) (no date) (unknown) (unknown) Personal histo ry of STD: denies hx (units unknown) (unknown) (unknown) (no date) (unknown) (unknown) Personal histo ry of genital herpes: No (oral only) (units unknown) (unknown) (unknown) (no date) (unknown) (unknown) History (u nits unknown) (unknown) (unknown) (no date) (unknown) (unknown) type :: Other Normal (units unknown) (unknown) (unknown) (no date) (unknown) (unknown) Education ( units unknown) (unknown) (unknown) (no date) (unknown) (unknown) Initi al Assessment (units unknown) (unknown) (unknown) (no date) (unknown) (unknown) Speci fic Issues/Plans (units unknown) (unknown) (unknown) (no date) (unknown) (unknown) Testi ng: discussed (units unknown) (unknown) (unknown) (no date) (unknown) (unknown) Visit (unit s unknown) (unknown) (unknown) (no date) (unknown) (unknown) educa tion packet: symptoms, Vitamins and iron, Diet and (units unknown) (unknown) (unknown) (no date) (unknown) (unknown) Primary Care Provider: MELISSA Dallas (units unknown) (unknown) (unknown) (no date) (unknown) (unknown) Primary Ob Provider: Olivia Marshall (units unknown) (unknown) (unknown) (no date) (unknown) (unknown) Prior GBS-Infe cted child: No (units unknown) (unknown) (unknown) (no date) (unknown) (unknown) Providers (units unknown) (unknown) (unknown) (no date) (unknown) (unknown) Psoriasis (units unknown) (unknown) (unknown) (no date) (unknown) (unknown) Pt here for OB Check (units unknown) (unknown) (unknown) (no date) (unknown) (unknown) Rapid first delivery (units unknown) (unknown) (unknown) (no date) (unknown) (unknown) Rash or viral illness since last menstrual period: No (units unknown) (unknown) (unknown) (no date) (unknown) (unknown) Reason For Visit (un its unknown) (unknown) (unknown) (no date) (unknown) (unknown) Recent travel outside of country?: No (units unknown) (unknown) (unknown) (no date) (unknown) (unknown) Reports Mental Retardation/Autism (sister had three very disabled children); (units unknown) (unknown) (unknown) (no date) (unknown) (unknown) S/P ACL repair (unit s unknown) (unknown) (unknown) (no date) (unknown) (unknown) Safety (units unknown) (unknown) (unknown) (no date) (unknown) (unknown) Second child f or this couple (units unknown) (unknown) (unknown) (no date) (unknown) (unknown) Severe PCOS (units unknown) (unknown) (unknown) (no date) (unknown) (unknown) She reports so me right sided hip pain and sciatica. She has a history of left (units unknown) (unknown) (unknown) (no date) (unknown) (unknown) Shingles (units unknown) (unknown) (unknown) (no date) (unknown) (unknown) Shoulder pain (units unknown) (unknown) (unknown) (no date) (unknown) (unknown) Signed By: (units unknown) (unknown) (unknown) (no date) (unknown) (unknown) JAVIER Hussein 10 (u nits unknown) (unknown) (unknown) (no date) (unknown) (unknown) Smoking Status : Current some day smoker (units unknown) (unknown) (unknown) (no date) (unknown) (unknown) Social History (unit s unknown) (unknown) (unknown) (no date) (unknown) (unknown) Support Person (s):: Reagan (units unknown) (unknown) (unknown) (no date) (unknown) (unknown) Surgical Histo ry (Updated 04/30/22 @ 08:16 by Krystina Lantigua RN) (units unknown) (unknown) (unknown) (no date) (unknown) (unknown) Surrogate ?: no (units unknown) (unknown) (unknown) (no date) (unknown) (unknown) Symptoms come on randomly and based on her description seem to be related to (units unknown) (unknown) (unknown) (no date) (unknown) (unknown) Symptoms since LMP: Reports amenorrhea, nausea, fatigue, breast tenderness, (units unknown) (unknown) (unknown) (no date) (unknown) (unknown) Teratogen Expo sures since LMP/Conception: Denies prescription medications, (units unknown) (unknown) (unknown) (no date) (unknown) (unknown) Testing Education (u nits unknown) (unknown) (unknown) (no date) (unknown) (unknown) Testing educat ion completed: group B strep and Spina bifida testing (units unknown) (unknown) (unknown) (no date) (unknown) (unknown) This note may have been all or partially generated using voice recognition (units unknown) (unknown) (unknown) (no date) (unknown) (unknown) Tobacco + Subs tance Use (units unknown) (unknown) (unknown) (no date) (unknown) (unknown) Tobacco Status (unit s unknown) (unknown) (unknown) (no date) (unknown) (unknown) Trimester:: 2n d Trimester (14-<28wks) (units unknown) (unknown) (unknown) (no date) (unknown) (unknown) Type(s) of exercise: walking (-7 miles/day), weight lifting and yoga (units unknown) (unknown) (unknown) (no date) (unknown) (unknown) UProtein Movem ent PreLabor FHR Fndl Ht Pres Edema Cerv Exam US/Comment Next Appt (units unknown) (unknown) (unknown) (no date) (unknown) (unknown) Varicella/chic delonte pox status: immunized (Hx shingles) (units unknown) (unknown) (unknown) (no date) (unknown) (unknown) Vertigo (units unknown) (unknown) (unknown) (no date) (unknown) (unknown) Visit Date: 07/12/22 Last Updated by: Frances Espinal P.A-C (units unknown) (unknown) (unknown) (no date) (unknown) (unknown) Visit Date: 05/11/22 Last Updated by: Olivia Marshall MD (units unknown) (unknown) (unknown) (no date) (unknown) (unknown) Visit Date: 06/08/22 Last Updated by: Olivia Marshall MD (units unknown) (unknown) (unknown) (no date) (unknown) (unknown) Visit Reasons: OB ck (units unknown) (unknown) (unknown) (no date) (unknown) (unknown) Vitals (units unknown) (unknown) (unknown) (no date) (unknown) (unknown) WG (units unknown) (unknown) (unknown) (no date) (unknown) (unknown) Weeks gestatio n:: 20 (units unknown) (unknown) (unknown) (no date) (unknown) (unknown) Zika virus exposure: No (units unknown) (unknown) (unknown) (no date) (unknown) (unknown) [History Confi rmed 08/09/22] (units unknown) (unknown) (unknown) (no date) (unknown) (unknown) activity, work/environmental/ hazards, Sexual activity, X-ray exposure, (units unknown) (unknown) (unknown) (no date) (unknown) (unknown) additional soc ial history: Pt reports that she and her almost split up (units unknown) (unknown) (unknown) (no date) (unknown) (unknown) alcohol intake : former (very rarely when not ) (units unknown) (unknown) (unknown) (no date) (unknown) (unknown) and had an u/s on 05/08/22. Viable IUP at 7 wks. No further BRP. Plan: Pap, (units unknown) (unknown) (unknown) (no date) (unknown) (unknown) and is at a healthier size. Hx depression and anxiety, did not do well on (units unknown) (unknown) (unknown) (no date) (unknown) (unknown) antidepressant s, 'I was a zombie for a while.' Not currently medicated or (units unknown) (unknown) (unknown) (no date) (unknown) (unknown) anxiety is lik mali not particularly well controlled at present. (units unknown) (unknown) (unknown) (no date) (unknown) (unknown) anyone in [facility] family with: (units unknown) (unknown) (unknown) (no date) (unknown) (unknown) azithromycin 2 50 mg tablet 1,000 mg PO ONCE Chlamydia #4 tabs 05/17/22 [Rx (units unknown) (unknown) (unknown) (no date) (unknown) (unknown) bilingual; boby sangeeta language is Marshallese, has spoken Andorran for-18 years. Also (units unknown) (unknown) (unknown) (no date) (unknown) (unknown) defects not listed above and Denies Other (units unknown) (unknown) (unknown) (no date) (unknown) (unknown) c/o migraine w / aura 'I smell blood when I'm going to have a migraine. It used (units unknown) (unknown) (unknown) (no date) (unknown) (unknown) caffeine: Yes (aware of 200mg limit) (units unknown) (unknown) (unknown) (no date) (unknown) (unknown) carbon monox detector in home: Yes (units unknown) (unknown) (unknown) (no date) (unknown) (unknown) caregiver/supp ort person: Yes (units unknown) (unknown) (unknown) (no date) (unknown) (unknown) cf DNA and MSA FP ordered. (units unknown) (unknown) (unknown) (no date) (unknown) (unknown) cramping and contractions. Chlamydia test of cure from last visit was negative. (units unknown) (unknown) (unknown) (no date) (unknown) (unknown) current occupational exposures/hazards: No (units unknown) (unknown) (unknown) (no date) (unknown) (unknown) daily servings fruits/ve or more times/day (units unknown) (unknown) (unknown) (no date) (unknown) (unknown) described, vis it schedule reviewed, ultrasounds policy reviewed, coverage 24 (units unknown) (unknown) (unknown) (no date) (unknown) (unknown) desires to hav e genetic testing so cell free DNA testing and MSAFP were ordered (units unknown) (unknown) (unknown) (no date) (unknown) (unknown) discussed, tuberculosis exposure discussed, CMV discussed, Toxoplasmosis (units unknown) (unknown) (unknown) (no date) (unknown) (unknown) disorders, Den ies Cystic Fibrosis, Denies Terrell's Chorea, Denies Other (units unknown) (unknown) (unknown) (no date) (unknown) (unknown) do you feel sa fe at home: Yes (units unknown) (unknown) (unknown) (no date) (unknown) (unknown) does complain of left breast tenderness. Plan: Test of cure for chlamydia (units unknown) (unknown) (unknown) (no date) (unknown) (unknown) drug abuse and pt is very concerned about how this may affect her children. (units unknown) (unknown) (unknown) (no date) (unknown) (unknown) during the pas t year weight has: decreased > 10 lbs (intentional w/ diet and (units unknown) (unknown) (unknown) (no date) (unknown) (unknown) education leve l: college (some college) (units unknown) (unknown) (unknown) (no date) (unknown) (unknown) exercise) (units unknown) (unknown) (unknown) (no date) (unknown) (unknown) wali/religious : [place] (units unknown) (unknown) (unknown) (no date) (unknown) (unknown) ferrous sulfat e 325 mg (65 mg iron) tablet (Feosol) 325 mg PO DAILY 04/30/22 (units unknown) (unknown) (unknown) (no date) (unknown) (unknown) fire extinguis her in home: Yes (units unknown) (unknown) (unknown) (no date) (unknown) (unknown) firearms in ho me: No (units unknown) (unknown) (unknown) (no date) (unknown) (unknown) fluconazole 15 0 mg tablet (Diflucan) 150 mg PO DAILY #1 tab 07/30/22 [Rx (units unknown) (unknown) (unknown) (no date) (unknown) (unknown) folic acid 400 mcg tablet 0.4 mg PO DAILY 04/30/22 [History Confirmed 08/09/22] (units unknown) (unknown) (unknown) (no date) (unknown) (unknown) for about the last 3 years, has not ever discussed this w/ her PCP so far. (units unknown) (unknown) (unknown) (no date) (unknown) (unknown) frequency: daily (un its unknown) (unknown) (unknown) (no date) (unknown) (unknown) have occurred. If there are any questions, please contact the Medical Records (units unknown) (unknown) (unknown) (no date) (unknown) (unknown) home, no flo rns about violence or infidelity. Long family Hx of alcohol and (units unknown) (unknown) (unknown) (no date) (unknown) (unknown) hours a day an d participation of father in care and office visits (units unknown) (unknown) (unknown) (no date) (unknown) (unknown) household memb ers: spouse, family (brother) and children (units unknown) (unknown) (unknown) (no date) (unknown) (unknown) housing: apartment ( units unknown) (unknown) (unknown) (no date) (unknown) (unknown) inherited gene tic or chromosomal disorder, Denies Maternal Metabolic Disorder (units unknown) (unknown) (unknown) (no date) (unknown) (unknown) kag (units unknown) (unknown) (unknown) (no date) (unknown) (unknown) lives independently: Yes (units unknown) (unknown) (unknown) (no date) (unknown) (unknown) marital status : (units unknown) (unknown) (unknown) (no date) (unknown) (unknown) may occur. Occasional wrong-word or 'sound-alike' substitutions may have (units unknown) (unknown) (unknown) (no date) (unknown) (unknown) months none [place] ( units unknown) (unknown) (unknown) (no date) (unknown) (unknown) number of chil dren: 3 (includes 2 stepchildren) (units unknown) (unknown) (unknown) (no date) (unknown) (unknown) occupational status: employed (desk/office job) (units unknown) (unknown) (unknown) (no date) (unknown) (unknown) occurred due t o the inherent limitations of voice recognition software. Please (units unknown) (unknown) (unknown) (no date) (unknown) (unknown) omega 9-tjs-ozc-fish oil 100 mg-160 mg-1,000 mg capsule (Fish Oil) 1 cap PO (units unknown) (unknown) (unknown) (no date) (unknown) (unknown) oxymetazoline 0.05 % nasal spray 1 spray intranasal BID 04/30/22 [History (units unknown) (unknown) (unknown) (no date) (unknown) (unknown) pets and anima ls: No (units unknown) (unknown) (unknown) (no date) (unknown) (unknown) precautions, Listeriosis prevention and Rubella Immunization (units unknown) (unknown) (unknown) (no date) (unknown) (unknown) prenat.vits,ca l,min -iron-folic 1 tab PO DAILY 04/30/22 [History Confirmed (units unknown) (unknown) (unknown) (no date) (unknown) (unknown) read the note carefully and recognize, using context, where these substitutions (units unknown) (unknown) (unknown) (no date) (unknown) (unknown) recently but madi diana decided to stay together in light of this . She (units unknown) (unknown) (unknown) (no date) (unknown) (unknown) reports that is nervous and excited, confirms that she is safe in her (units unknown) (unknown) (unknown) (no date) (unknown) (unknown) required D+C (units unknown) (unknown) (unknown) (no date) (unknown) (unknown) reviewed. Foll ow-up in 4 weeks or as needed. (units unknown) (unknown) (unknown) (no date) (unknown) (unknown) seatbelt use: always (units unknown) (unknown) (unknown) (no date) (unknown) (unknown) second hand exposure: Yes ( also smokes) (units unknown) (unknown) (unknown) (no date) (unknown) (unknown) seeing funeral counselor or, although her affect during intake call indicates that her (units unknown) (unknown) (unknown) (no date) (unknown) (unknown) shot but we wi ll consider getting 1 next visit. Warning precautions were (units unknown) (unknown) (unknown) (no date) (unknown) (unknown) sided sciatica . She desires PT referral for hip pain. Referral sent. She (units unknown) (unknown) (unknown) (no date) (unknown) (unknown) software. Alth ough every effort is made to edit content, direct service professional errors (units unknown) (unknown) (unknown) (no date) (unknown) (unknown) special wali needs: No (units unknown) (unknown) (unknown) (no date) (unknown) (unknown) still having s ome nausea and vomiting. She does not want any medication for (units unknown) (unknown) (unknown) (no date) (unknown) (unknown) stress and anx iety. Worse since she has been , 'This is much worse than (units unknown) (unknown) (unknown) (no date) (unknown) (unknown) substance use type: does not use (units unknown) (unknown) (unknown) (no date) (unknown) (unknown) the week befor e she found out), Denies illicit drugs and Denies other (units unknown) (unknown) (unknown) (no date) (unknown) (unknown) this. Her Pap smear came back positive for chlamydia. She was treated. She (units unknown) (unknown) (unknown) (no date) (unknown) (unknown) to be a sweet smell, but the last few years it's been blood.' Migraines appear (units unknown) (unknown) (unknown) (no date) (unknown) (unknown) to be largely hormonal and are worse when pt is heavy than when she loses weight (units unknown) (unknown) (unknown) (no date) (unknown) (unknown) today. Follow- up in 4-5 weeks. Warning signs reviewed. (units unknown) (unknown) (unknown) (no date) (unknown) (unknown) today. Ordered 20 week anatomy ultrasound. She is unsure if she wants a flu (units unknown) (unknown) (unknown) (no date) (unknown) (unknown) travel history : recent (domestic only) (units unknown) (unknown) (unknown) (no date) (unknown) (unknown) urinary freque ncy, irritability and other (headaches, heartburn) (units unknown) (unknown) (unknown) (no date) (unknown) (unknown) water heater t emp set < 120 deg: Yes (units unknown) (unknown) (unknown) (no date) (unknown) (unknown) weeks 4 days. She reports some fluttering movement and denies VB, LOF, (units unknown) (unknown) (unknown) (no date) (unknown) (unknown) weight gain, F marci and mercury intake, Smoking, Caffeine use, Exercise and (units unknown) (unknown) (unknown) (no date) (unknown) (unknown) well-balanced diet: daily or most days (units unknown) (unknown) (unknown) (no date) (unknown) (unknown) working smoke detector in home: Yes (units unknown) (unknown) Result panel 63 (unknown) (no date) (unknown) (unknown) (no value) (units unknown) (unknown) (unknown) (no date) (unknown) (unknown) 'mama brain,' I'm worried I have early onset dementia.' Notably, pt is (units unknown) (unknown) (unknown) (no date) (unknown) (unknown) (+19 lb) 108/64 N (u nits unknown) (unknown) (unknown) (no date) (unknown) (unknown) (+26 lb) 116/64 N (u nits unknown) (unknown) (unknown) (no date) (unknown) (unknown) (+36 lb) 106/66 N (u nits unknown) (unknown) (unknown) (no date) (unknown) (unknown) (+42 lb) 120/66 N (u nits unknown) (unknown) (unknown) (no date) (unknown) (unknown) (EG,TYPE 1 Diabetes, PKU), Denies Patient or baby's father had a child with (units unknown) (unknown) (unknown) (no date) (unknown) (unknown) Genetic Screening/Teratolog y Counseling - Includes patient, baby's father, or (units unknown) (unknown) (unknown) (no date) (unknown) (unknown) +CT, Tx'd. Nee ds FLETCHER. FLETCHER negative. (units unknown) (unknown) (unknown) (no date) (unknown) (unknown) - Nonscarring hair loss, unspecified, R53.83 - Other fatigue (units unknown) (unknown) (unknown) (no date) (unknown) (unknown) -?-?-?-?-?-?-? -?-?- ?-?-? (units unknown) (unknown) (unknown) (no date) (unknown) (unknown) .COMPLEX 04/30 [History Confirmed 08/09/22] (units unknown) (unknown) (unknown) (no date) (unknown) (unknown) 0.5 mL IM Righ t Deltoid [id number] 12/24/22 [id number] SANOFI-PASTEUR (units unknown) (unknown) (unknown) (no date) (unknown) (unknown) 07/12/22 (units unknown) (unknown) (unknown) (no date) (unknown) (unknown) 08/09/22 Singl e Vaccine 21 (units unknown) (unknown) (unknown) (no date) (unknown) (unknown) 08/09/22 (units unknown) (unknown) (unknown) (no date) (unknown) (unknown) 08/09/22] (units unknown) (unknown) (unknown) (no date) (unknown) (unknown) 09/25/10 14 spontaneous (units unknown) (unknown) (unknown) (no date) (unknown) (unknown) 12/23/22 Ultra sound #2 20w 4d (units unknown) (unknown) (unknown) (no date) (unknown) (unknown) 02/25/15 41.3 5 9 lb 8 oz Male vaginal live - full term (units unknown) (unknown) (unknown) (no date) (unknown) (unknown) 10:55 (units unknown) (unknown) (unknown) (no date) (unknown) (unknown) 05/11/22 (units unknown) (unknown) (unknown) (no date) (unknown) (unknown) 11w 5d 226 lb (units unknown) (unknown) (unknown) (no date) (unknown) (unknown) 06/08/22 (units unknown) (unknown) (unknown) (no date) (unknown) (unknown) 16w 4d 236 lb (units unknown) (unknown) (unknown) (no date) (unknown) (unknown) 20w 4d 242 lb (units unknown) (unknown) (unknown) (no date) (unknown) (unknown) 4 wks (units unknown) (unknown) (unknown) (no date) (unknown) (unknown) 7w 5d 219 lb (units unknown) (unknown) (unknown) (no date) (unknown) (unknown) Abnormal lab v alues 1st trimester: discussed (units unknown) (unknown) (unknown) (no date) (unknown) (unknown) Acne (units unknown) (unknown) (unknown) (no date) (unknown) (unknown) Add'l Plan Details ( units unknown) (unknown) (unknown) (no date) (unknown) (unknown) Additional Details:: Pt reports concerns about memory and word finding issues (units unknown) (unknown) (unknown) (no date) (unknown) (unknown) Additional Soc ial History (units unknown) (unknown) (unknown) (no date) (unknown) (unknown) Administered b y: Noelle Cain MA on 08/09/22 11:39 (units unknown) (unknown) (unknown) (no date) (unknown) (unknown) Age/Sex: 32 / F Date of Service: (units unknown) (unknown) (unknown) (no date) (unknown) (unknown) Allergies (units unknown) (unknown) (unknown) (no date) (unknown) (unknown) [place] [address] (units unknown) (unknown) (unknown) (no date) (unknown) (unknown) Anemia (units unknown) (unknown) (unknown) (no date) (unknown) (unknown) Aneuploidy Screening Offered: Accepted (likely will do quad screen, undecided) (units unknown) (unknown) (unknown) (no date) (unknown) (unknown) Anticipated co urse of care: discussed (units unknown) (unknown) (unknown) (no date) (unknown) (unknown) Anxiety (units unknown) (unknown) (unknown) (no date) (unknown) (unknown) Anxiety/depres marcy not very well managed, has not tolerated meds in the past. (units unknown) (unknown) (unknown) (no date) (unknown) (unknown) Assessment and Plan (units unknown) (unknown) (unknown) (no date) (unknown) (unknown) Attending Dr: Frances Espinal P.A-C (units unknown) (unknown) (unknown) (no date) (unknown) (unknown) BMI 40.2 (units unknown) (unknown) (unknown) (no date) (unknown) (unknown) BP 120/66 (units unknown) (unknown) (unknown) (no date) (unknown) (unknown) Plan/Preferences (units unknown) (unknown) (unknown) (no date) (unknown) (unknown) Planning (unit s unknown) (unknown) (unknown) (no date) (unknown) (unknown) Bleeding in fi rst trimester (units unknown) (unknown) (unknown) (no date) (unknown) (unknown) Blood Pressure Location Rt brachial (units unknown) (unknown) (unknown) (no date) (unknown) (unknown) Blood transfusions?: yes (Never had but would accept) (units unknown) (unknown) (unknown) (no date) (unknown) (unknown) Breastfeed Pre g Comp Name (units unknown) (unknown) (unknown) (no date) (unknown) (unknown) Brother Alcoholism ( units unknown) (unknown) (unknown) (no date) (unknown) (unknown) Carpal tunnel syndrome (units unknown) (unknown) (unknown) (no date) (unknown) (unknown) Calin present s with her today for routine OB follow-up at 15 (units unknown) (unknown) (unknown) (no date) (unknown) (unknown) Complete Blood Count AUTO DIFF 1 Day E04.9 - Nontoxic goiter, unspecified, 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 (units unknown) (unknown) (unknown) (no date) (unknown) (unknown) Confirmed 08/09/22] (units unknown) (unknown) (unknown) (no date) (unknown) (unknown) Current Estima te 12/23/22 Ultrasound #1 20w 4d (units unknown) (unknown) (unknown) (no date) (unknown) (unknown) Current Pregna ncy History (units unknown) (unknown) (unknown) (no date) (unknown) (unknown) : 199 0 Acct:[id number] (units unknown) (unknown) (unknown) (no date) (unknown) (unknown) Date of positi ve home test: 04/17/22 (units unknown) (unknown) (unknown) (no date) (unknown) (unknown) Date (units unknown) (unknown) (unknown) (no date) (unknown) (unknown) Del. Date GA/W eeks Labor Lgth Wt Sex Route Outcome Anesthesia Place (units unknown) (unknown) (unknown) (no date) (unknown) (unknown) Delivery Date: 09/25/10 Last Updated by: Krystina Lantigua RN (units unknown) (unknown) (unknown) (no date) (unknown) (unknown) Delv (units unknown) (unknown) (unknown) (no date) (unknown) (unknown) Denies Congeni gerard Heart Defect, Denies Down Syndrome, Denies Muscular Dystrophy, (units unknown) (unknown) (unknown) (no date) (unknown) (unknown) Denies Neural Tube Defect (Meningomyelocele, Spina Bifida, or Anencephaly), (units unknown) (unknown) (unknown) (no date) (unknown) (unknown) Denies Sickle Cell Disease or Trait (), Denies Hemophilia or other blood (units unknown) (unknown) (unknown) (no date) (unknown) (unknown) Denies Rodney-Sac hs (Ashkenazi Lutheran, Cajun, [place] Islander Singaporean), Denies Kayy (units unknown) (unknown) (unknown) (no date) (unknown) (unknown) Denies over th e counter medications, Reports alcohol (drank 2 bottles of wine (units unknown) (unknown) (unknown) (no date) (unknown) (unknown) Depression (units unknown) (unknown) (unknown) (no date) (unknown) (unknown) Depression: discussed (units unknown) (unknown) (unknown) (no date) (unknown) (unknown) Dept at . (units unknown) (unknown) (unknown) (no date) (unknown) (unknown) Diet and Exercise (u nits unknown) (unknown) (unknown) (no date) (unknown) (unknown) Disease (Ashke nazi Lutheran), Denies Familial Dysautonomia (Ashkenazi Lutheran), (units unknown) (unknown) (unknown) (no date) (unknown) (unknown) Documented By: Frances Espinal P.A-C 08/09/22 1054 (units unknown) (unknown) (unknown) (no date) (unknown) (unknown) Dose Route Adm in Location Lot Number Expiration Date NDC (units unknown) (unknown) (unknown) (no date) (unknown) (unknown) Draft (units unknown) (unknown) (unknown) (no date) (unknown) (unknown) MADISYN Calculator (unit s unknown) (unknown) (unknown) (no date) (unknown) (unknown) EGA Weight BP UGlucose (units unknown) (unknown) (unknown) (no date) (unknown) (unknown) Eczema (units unknown) (unknown) (unknown) (no date) (unknown) (unknown) Eligibility Eligibility Date Funding Source (units unknown) (unknown) (unknown) (no date) (unknown) (unknown) Estimated Deli very Date Method Current (units unknown) (unknown) (unknown) (no date) (unknown) (unknown) F/U 4 wks. Haresh carbajal signs reviewed. (units unknown) (unknown) (unknown) (no date) (unknown) (unknown) Family History (Updated 04/30/22 @ 08:33 by Krystina Lantigua RN) (units unknown) (unknown) (unknown) (no date) (unknown) (unknown) Family/Other Neurological abnormality (units unknown) (unknown) (unknown) (no date) (unknown) (unknown) Family/Other Obsessive compulsive disorder (units unknown) (unknown) (unknown) (no date) (unknown) (unknown) Father d Alcoholism (units unknown) (unknown) (unknown) (no date) (unknown) (unknown) Father of Baby : same (units unknown) (unknown) (unknown) (no date) (unknown) (unknown) [facility] (units unknown) (unknown) (unknown) (no date) (unknown) (unknown) [employer] [place] [employer] Education Checklist (units unknown) (unknown) (unknown) (no date) (unknown) (unknown) Noé Today Z23 - Encounter for immunization (units unknown) (unknown) (unknown) (no date) (unknown) (unknown) (units unknown) (unknown) (unknown) (no date) (unknown) (unknown) GERD (gastroesophageal reflux disease) (units unknown) (unknown) (unknown) (no date) (unknown) (unknown) Genetic Screen ing + Counseling (units unknown) (unknown) (unknown) (no date) (unknown) (unknown) Genetic Screening (u nits unknown) (unknown) (unknown) (no date) (unknown) (unknown) Grandfather No problems noted. (units unknown) (unknown) (unknown) (no date) (unknown) (unknown) Grandmother Coagulopathy (units unknown) (unknown) (unknown) (no date) (unknown) (unknown) Grandmother Leukemia (units unknown) (unknown) (unknown) (no date) (unknown) (unknown) 3 Mult iple births (units unknown) (unknown) (unknown) (no date) (unknown) (unknown) HIV risk evaluation: low risk (units unknown) (unknown) (unknown) (no date) (unknown) (unknown) HSV-1 infection (uni ts unknown) (unknown) (unknown) (no date) (unknown) (unknown) Headache (units unknown) (unknown) (unknown) (no date) (unknown) (unknown) Health Center Education (units unknown) (unknown) (unknown) (no date) (unknown) (unknown) Health center information: nature of practice discussed, personnel (units unknown) (unknown) (unknown) (no date) (unknown) (unknown) Height 5 ft 5 in (un its unknown) (unknown) (unknown) (no date) (unknown) (unknown) Hemorrhoids (units unknown) (unknown) (unknown) (no date) (unknown) (unknown) Hepatitis C ri sk evaluation: low risk (units unknown) (unknown) (unknown) (no date) (unknown) (unknown) History of Hepatitis B: No (units unknown) (unknown) (unknown) (no date) (unknown) (unknown) History of Hepatitis C: No (units unknown) (unknown) (unknown) (no date) (unknown) (unknown) History of rem oval of skin mole (units unknown) (unknown) (unknown) (no date) (unknown) (unknown) [facility] ([facility] unknown) (unknown) (unknown) (no date) (unknown) (unknown) [facility] (units unknown) (unknown) (unknown) (no date) (unknown) (unknown) Hx # Pregnancies 0 Elective abortions 0 (units unknown) (unknown) (unknown) (no date) (unknown) (unknown) Hx # Term Pregnancies 1 Ectopic pregnancies 0 (units unknown) (unknown) (unknown) (no date) (unknown) (unknown) Immunizations (units unknown) (unknown) (unknown) (no date) (unknown) (unknown) will be adopted?: no (units unknown) (unknown) (unknown) (no date) (unknown) (unknown) Infection History (u nits unknown) (unknown) (unknown) (no date) (unknown) (unknown) Infectious Dis ease Education (units unknown) (unknown) (unknown) (no date) (unknown) (unknown) Infectious dis ease exposure: chicken pox immunity discussed, hepatitis risk (units unknown) (unknown) (unknown) (no date) (unknown) (unknown) Influenza vacc ine (declines flu, undecided on Covid booster) (units unknown) (unknown) (unknown) (no date) (unknown) (unknown) Initial Weight : 200 lb (units unknown) (unknown) (unknown) (no date) (unknown) (unknown) Initials (units unknown) (unknown) (unknown) (no date) (unknown) (unknown) Intake Clinica l Staff (units unknown) (unknown) (unknown) (no date) (unknown) (unknown) Intake Note: (units unknown) (unknown) (unknown) (no date) (unknown) (unknown) Intake perform ed by: Yunier Kolb (units unknown) (unknown) (unknown) (no date) (unknown) (unknown) Intake (units unknown) (unknown) (unknown) (no date) (unknown) (unknown) LM (units unknown) (unknown) (unknown) (no date) (unknown) (unknown) Live with some one with TB or exposed to TB: No (units unknown) (unknown) (unknown) (no date) (unknown) (unknown) Loc: [facility] (units unknown) (unknown) (unknown) (no date) (unknown) (unknown) [id number] (units unknown) (unknown) (unknown) (no date) (unknown) (unknown) Manager Nicu (units unknown) (unknown) (unknown) (no date) (unknown) (unknown) Marital status : (units unknown) (unknown) (unknown) (no date) (unknown) (unknown) Medical Histor y (Updated 06/07/22 @ 20:59 by Rossy Chaudhari) (units unknown) (unknown) (unknown) (no date) (unknown) (unknown) Medication use , Sauna/hot tub use, Dental care, Travel, Seatbelt use and (units unknown) (unknown) (unknown) (no date) (unknown) (unknown) Medications (units unknown) (unknown) (unknown) (no date) (unknown) (unknown) Migraine with aura ( units unknown) (unknown) (unknown) (no date) (unknown) (unknown) Migraines (units unknown) (unknown) (unknown) (no date) (unknown) (unknown) Mother d Alcoholism (units unknown) (unknown) (unknown) (no date) (unknown) (unknown) N No no 1,661 7 N/A absent long/closed (units unknown) (unknown) (unknown) (no date) (unknown) (unknown) N No no 166 12 N/A absent 4 wks (units unknown) (unknown) (unknown) (no date) (unknown) (unknown) N Yes no 151 1 8 N/A absent FLETCHER negative (units unknown) (unknown) (unknown) (no date) (unknown) (unknown) N (units unknown) (unknown) (unknown) (no date) (unknown) (unknown) Nasal congestion (un its unknown) (unknown) (unknown) (no date) (unknown) (unknown) No Known Drug Allergies Allergy (Verified 08/09/22 10:55) (units unknown) (unknown) (unknown) (no date) (unknown) (unknown) Nonscarring reich ir loss, unspecified, R53.83 - Other fatigue (units unknown) (unknown) (unknown) (no date) (unknown) (unknown) Not VFC Elib le 08/09/22 Private Funds (units unknown) (unknown) (unknown) (no date) (unknown) (unknown) Notes (units unknown) (unknown) (unknown) (no date) (unknown) (unknown) Number of Mandy ng Children 1 (units unknown) (unknown) (unknown) (no date) (unknown) (unknown) Number of fetu ses:: Single (units unknown) (unknown) (unknown) (no date) (unknown) (unknown) Nutrition and weight gain counseling: special diet: discussed (units unknown) (unknown) (unknown) (no date) (unknown) (unknown) OB Office Visit (uni ts unknown) (unknown) (unknown) (no date) (unknown) (unknown) OB Visit Log (units unknown) (unknown) (unknown) (no date) (unknown) (unknown) Orders (units unknown) (unknown) (unknown) (no date) (unknown) (unknown) Orders: (units unknown) (unknown) (unknown) (no date) (unknown) (unknown) Other Estimate s 11/15/22 LMP (Uncertain) 26w 0d (units unknown) (unknown) (unknown) (no date) (unknown) (unknown) Other Substanc e abuse (units unknown) (unknown) (unknown) (no date) (unknown) (unknown) Ovarian cyst (units unknown) (unknown) (unknown) (no date) (unknown) (unknown) PCOS (polycyst ic ovarian syndrome) (units unknown) (unknown) (unknown) (no date) (unknown) (unknown) PFSH (units unknown) (unknown) (unknown) (no date) (unknown) (unknown) Painful menstr ual periods (units unknown) (unknown) (unknown) (no date) (unknown) (unknown) Para 1 Spontan eous abortions 1 (units unknown) (unknown) (unknown) (no date) (unknown) (unknown) Partner histor y of STD: denies hx (units unknown) (unknown) (unknown) (no date) (unknown) (unknown) Partner histor y of genital herpes: No (units unknown) (unknown) (unknown) (no date) (unknown) (unknown) Partner: Cheko (units unknown) (unknown) (unknown) (no date) (unknown) (unknown) Past Pregnancies (un its unknown) (unknown) (unknown) (no date) (unknown) (unknown) Patient opts f or a routine visit at 11 weeks 5 days. She is (units unknown) (unknown) (unknown) (no date) (unknown) (unknown) Patient presen ts for an NOB visit at 7 wks gestation. Had some bleeding (units unknown) (unknown) (unknown) (no date) (unknown) (unknown) Patient's age 35 years or older as of estimated date of delivery: No (units unknown) (unknown) (unknown) (no date) (unknown) (unknown) Patient: Calin Godfrey MR#: (units unknown) (unknown) (unknown) (no date) (unknown) (unknown) Technical Assistant: MELISSA Dallas (units unknown) (unknown) (unknown) (no date) (unknown) (unknown) Performing Provider: Frances Espinal PA-C (units unknown) (unknown) (unknown) (no date) (unknown) (unknown) Personal histo ry of STD: denies hx (units unknown) (unknown) (unknown) (no date) (unknown) (unknown) Personal histo ry of genital herpes: No (oral only) (units unknown) (unknown) (unknown) (no date) (unknown) (unknown) Position Sitting (un its unknown) (unknown) (unknown) (no date) (unknown) (unknown) History (u nits unknown) (unknown) (unknown) (no date) (unknown) (unknown) type :: Other Normal (units unknown) (unknown) (unknown) (no date) (unknown) (unknown) Education ( units unknown) (unknown) (unknown) (no date) (unknown) (unknown) Initi al Assessment (units unknown) (unknown) (unknown) (no date) (unknown) (unknown) Speci fic Issues/Plans (units unknown) (unknown) (unknown) (no date) (unknown) (unknown) Testi ng: discussed (units unknown) (unknown) (unknown) (no date) (unknown) (unknown) Visit (unit s unknown) (unknown) (unknown) (no date) (unknown) (unknown) educa tion packet: symptoms, Vitamins and iron, Diet and (units unknown) (unknown) (unknown) (no date) (unknown) (unknown) Primary Care Provider: MELISSA Dallas (units unknown) (unknown) (unknown) (no date) (unknown) (unknown) Primary Ob Provider: Olivia Marshall (units unknown) (unknown) (unknown) (no date) (unknown) (unknown) Prior GBS-Infe cted child: No (units unknown) (unknown) (unknown) (no date) (unknown) (unknown) Providers (units unknown) (unknown) (unknown) (no date) (unknown) (unknown) Psoriasis (units unknown) (unknown) (unknown) (no date) (unknown) (unknown) Pt here for OB Check (units unknown) (unknown) (unknown) (no date) (unknown) (unknown) Rapid first delivery (units unknown) (unknown) (unknown) (no date) (unknown) (unknown) Rash or viral illness since last menstrual period: No (units unknown) (unknown) (unknown) (no date) (unknown) (unknown) Reason For Visit (un its unknown) (unknown) (unknown) (no date) (unknown) (unknown) Recent travel outside of country?: No (units unknown) (unknown) (unknown) (no date) (unknown) (unknown) Reports Mental Retardation/Autism (sister had three very disabled children); (units unknown) (unknown) (unknown) (no date) (unknown) (unknown) S/P ACL repair (unit s unknown) (unknown) (unknown) (no date) (unknown) (unknown) Safety (units unknown) (unknown) (unknown) (no date) (unknown) (unknown) Second child f or this couple (units unknown) (unknown) (unknown) (no date) (unknown) (unknown) Severe PCOS (units unknown) (unknown) (unknown) (no date) (unknown) (unknown) She reports so me right sided hip pain and sciatica. She has a history of left (units unknown) (unknown) (unknown) (no date) (unknown) (unknown) Shingles (units unknown) (unknown) (unknown) (no date) (unknown) (unknown) Shoulder pain (units unknown) (unknown) (unknown) (no date) (unknown) (unknown) Signed By: (units unknown) (unknown) (unknown) (no date) (unknown) (unknown) JAVIER Hussein 10 (u nits unknown) (unknown) (unknown) (no date) (unknown) (unknown) Smoking Status : Current some day smoker (units unknown) (unknown) (unknown) (no date) (unknown) (unknown) Social History (unit s unknown) (unknown) (unknown) (no date) (unknown) (unknown) Support Person (s):: Reagan (units unknown) (unknown) (unknown) (no date) (unknown) (unknown) Surgical Histo ry (Updated 04/30/22 @ 08:16 by Krystina Lantigua RN) (units unknown) (unknown) (unknown) (no date) (unknown) (unknown) Surrogate ?: no (units unknown) (unknown) (unknown) (no date) (unknown) (unknown) Symptoms come on randomly and based on her description seem to be related to (units unknown) (unknown) (unknown) (no date) (unknown) (unknown) Symptoms since LMP: Reports amenorrhea, nausea, fatigue, breast tenderness, (units unknown) (unknown) (unknown) (no date) (unknown) (unknown) TSH w/ Reflex to FT4 1 Day E04.9 - Nontoxic goiter, unspecified, 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 (units unknown) (unknown) (unknown) (no date) (unknown) (unknown) Teratogen Expo sures since LMP/Conception: Denies prescription medications, (units unknown) (unknown) (unknown) (no date) (unknown) (unknown) Testing Education (u nits unknown) (unknown) (unknown) (no date) (unknown) (unknown) Testing educat ion completed: group B strep and Spina bifida testing (units unknown) (unknown) (unknown) (no date) (unknown) (unknown) This note may have been all or partially generated using voice recognition (units unknown) (unknown) (unknown) (no date) (unknown) (unknown) Tobacco + Subs tance Use (units unknown) (unknown) (unknown) (no date) (unknown) (unknown) Tobacco Status (unit s unknown) (unknown) (unknown) (no date) (unknown) (unknown) Trimester:: 2n d Trimester (14-<28wks) (units unknown) (unknown) (unknown) (no date) (unknown) (unknown) Type(s) of exercise: walking (-7 miles/day), weight lifting and yoga (units unknown) (unknown) (unknown) (no date) (unknown) (unknown) UProtein Movem ent PreLabor FHR Fndl Ht Pres Edema Cerv Exam US/Comment Next Appt (units unknown) (unknown) (unknown) (no date) (unknown) (unknown) VIS Given Date VIS Provided VIS Publication Date (units unknown) (unknown) (unknown) (no date) (unknown) (unknown) Varicella/chic delonte pox status: immunized (Hx shingles) (units unknown) (unknown) (unknown) (no date) (unknown) (unknown) Vertigo (units unknown) (unknown) (unknown) (no date) (unknown) (unknown) Visit Date: 07/12/22 Last Updated by: Frances Espinal P.A-C (units unknown) (unknown) (unknown) (no date) (unknown) (unknown) Visit Date: 05/11/22 Last Updated by: Olivia Marsahll MD (units unknown) (unknown) (unknown) (no date) (unknown) (unknown) Visit Date: 06/08/22 Last Updated by: Olivia Marshall MD (units unknown) (unknown) (unknown) (no date) (unknown) (unknown) Visit Reasons: OB ck (units unknown) (unknown) (unknown) (no date) (unknown) (unknown) Vitals (units unknown) (unknown) (unknown) (no date) (unknown) (unknown) WG (units unknown) (unknown) (unknown) (no date) (unknown) (unknown) Weeks gestatio n:: 20 (units unknown) (unknown) (unknown) (no date) (unknown) (unknown) Weight 242 lb (units unknown) (unknown) (unknown) (no date) (unknown) (unknown) Zika virus exposure: No (units unknown) (unknown) (unknown) (no date) (unknown) (unknown) [History Confi rmed 08/09/22] (units unknown) (unknown) (unknown) (no date) (unknown) (unknown) activity, work/environmental/ hazards, Sexual activity, X-ray exposure, (units unknown) (unknown) (unknown) (no date) (unknown) (unknown) additional soc ial history: Pt reports that she and her almost split up (units unknown) (unknown) (unknown) (no date) (unknown) (unknown) alcohol intake : former (very rarely when not ) (units unknown) (unknown) (unknown) (no date) (unknown) (unknown) and had an u/s on 05/08/22. Viable IUP at 7 wks. No further BRP. Plan: Pap, (units unknown) (unknown) (unknown) (no date) (unknown) (unknown) and is at a healthier size. Hx depression and anxiety, did not do well on (units unknown) (unknown) (unknown) (no date) (unknown) (unknown) antidepressant s, 'I was a zombie for a while.' Not currently medicated or (units unknown) (unknown) (unknown) (no date) (unknown) (unknown) anxiety is lik mali not particularly well controlled at present. (units unknown) (unknown) (unknown) (no date) (unknown) (unknown) [facility] with: (units unknown) (unknown) (unknown) (no date) (unknown) (unknown) azithromycin 2 50 mg tablet 1,000 mg PO ONCE Chlamydia #4 tabs 05/17/22 [Rx (units unknown) (unknown) (unknown) (no date) (unknown) (unknown) bilingual; boby [place] language is Marshallese, has spoken Andorran for-18 years. Also (units unknown) (unknown) (unknown) (no date) (unknown) (unknown) defects not listed above and Denies Other (units unknown) (unknown) (unknown) (no date) (unknown) (unknown) c/o migraine w / aura 'I smell blood when I'm going to have a migraine. It used (units unknown) (unknown) (unknown) (no date) (unknown) (unknown) caffeine: Yes (aware of 200mg limit) (units unknown) (unknown) (unknown) (no date) (unknown) (unknown) carbon monox detector in home: Yes (units unknown) (unknown) (unknown) (no date) (unknown) (unknown) caregiver/supp ort person: Yes (units unknown) (unknown) (unknown) (no date) (unknown) (unknown) cf DNA and MSA FP ordered. (units unknown) (unknown) (unknown) (no date) (unknown) (unknown) cramping and contractions. Chlamydia test of cure from last visit was negative. (units unknown) (unknown) (unknown) (no date) (unknown) (unknown) current occupational exposures/hazards: No (units unknown) (unknown) (unknown) (no date) (unknown) (unknown) daily servings fruits/ve or more times/day (units unknown) (unknown) (unknown) (no date) (unknown) (unknown) described, vis it schedule reviewed, ultrasounds policy reviewed, coverage 24 (units unknown) (unknown) (unknown) (no date) (unknown) (unknown) desires to hav e genetic testing so cell free DNA testing and MSAFP were ordered (units unknown) (unknown) (unknown) (no date) (unknown) (unknown) discussed, tuberculosis exposure discussed, CMV discussed, Toxoplasmosis (units unknown) (unknown) (unknown) (no date) (unknown) (unknown) disorders, Den ies Cystic Fibrosis, Denies Terrell's Chorea, Denies Other (units unknown) (unknown) (unknown) (no date) (unknown) (unknown) do you feel sa fe at home: Yes (units unknown) (unknown) (unknown) (no date) (unknown) (unknown) does complain of left breast tenderness. Plan: Test of cure for chlamydia (units unknown) (unknown) (unknown) (no date) (unknown) (unknown) drug abuse and pt is very concerned about how this may affect her children. (units unknown) (unknown) (unknown) (no date) (unknown) (unknown) during the pas t year weight has: decreased > 10 lbs (intentional w/ diet and (units unknown) (unknown) (unknown) (no date) (unknown) (unknown) education leve l: college (some college) (units unknown) (unknown) (unknown) (no date) (unknown) (unknown) exercise) (units unknown) (unknown) (unknown) (no date) (unknown) (unknown) wali/religious : [place] (units unknown) (unknown) (unknown) (no date) (unknown) (unknown) ferrous sulfat e 325 mg (65 mg iron) tablet (Feosol) 325 mg PO DAILY 04/30/22 (units unknown) (unknown) (unknown) (no date) (unknown) (unknown) fire extinguis her in home: Yes (units unknown) (unknown) (unknown) (no date) (unknown) (unknown) firearms in ho me: No (units unknown) (unknown) (unknown) (no date) (unknown) (unknown) flu vac qv 2021(18yr up)rcm-PF (units unknown) (unknown) (unknown) (no date) (unknown) (unknown) fluconazole 15 0 mg tablet (Diflucan) 150 mg PO DAILY #1 tab 07/30/22 [Rx (units unknown) (unknown) (unknown) (no date) (unknown) (unknown) folic acid 400 mcg tablet 0.4 mg PO DAILY 04/30/22 [History Confirmed 08/09/22] (units unknown) (unknown) (unknown) (no date) (unknown) (unknown) for about the last 3 years, has not ever discussed this w/ her PCP so far. (units unknown) (unknown) (unknown) (no date) (unknown) (unknown) frequency: daily (un its unknown) (unknown) (unknown) (no date) (unknown) (unknown) have occurred. If there are any questions, please contact the Medical Records (units unknown) (unknown) (unknown) (no date) (unknown) (unknown) home, no flo rns about violence or infidelity. Long family Hx of alcohol and (units unknown) (unknown) (unknown) (no date) (unknown) (unknown) hours a day an d participation of father in care and office visits (units unknown) (unknown) (unknown) (no date) (unknown) (unknown) household memb ers: spouse, family (brother) and children (units unknown) (unknown) (unknown) (no date) (unknown) (unknown) housing: apartment ( units unknown) (unknown) (unknown) (no date) (unknown) (unknown) inherited gene tic or chromosomal disorder, Denies Maternal Metabolic Disorder (units unknown) (unknown) (unknown) (no date) (unknown) (unknown) kag (units unknown) (unknown) (unknown) (no date) (unknown) (unknown) lives independently: Yes (units unknown) (unknown) (unknown) (no date) (unknown) (unknown) marital status : (units unknown) (unknown) (unknown) (no date) (unknown) (unknown) may occur. Occasional wrong-word or 'sound-alike' substitutions may have (units unknown) (unknown) (unknown) (no date) (unknown) (unknown) months none [place] ( units unknown) (unknown) (unknown) (no date) (unknown) (unknown) number of chil dren: 3 (includes 2 stepchildren) (units unknown) (unknown) (unknown) (no date) (unknown) (unknown) occupational status: employed (desk/office job) (units unknown) (unknown) (unknown) (no date) (unknown) (unknown) occurred due t o the inherent limitations of voice recognition software. Please (units unknown) (unknown) (unknown) (no date) (unknown) (unknown) omega 0-hsg-okf-fish oil 100 mg-160 mg-1,000 mg capsule (Fish Oil) 1 cap PO (units unknown) (unknown) (unknown) (no date) (unknown) (unknown) oxymetazoline 0.05 % nasal spray 1 spray intranasal BID 04/30/22 [History (units unknown) (unknown) (unknown) (no date) (unknown) (unknown) pets and anima ls: No (units unknown) (unknown) (unknown) (no date) (unknown) (unknown) precautions, Listeriosis prevention and Rubella Immunization (units unknown) (unknown) (unknown) (no date) (unknown) (unknown) prenat.vits,ca l,min -iron-folic 1 tab PO DAILY 04/30/22 [History Confirmed (units unknown) (unknown) (unknown) (no date) (unknown) (unknown) read the note carefully and recognize, using context, where these substitutions (units unknown) (unknown) (unknown) (no date) (unknown) (unknown) recently but madi carranzauri decided to stay together in light of this . She (units unknown) (unknown) (unknown) (no date) (unknown) (unknown) reports that is nervous and excited, confirms that she is safe in her (units unknown) (unknown) (unknown) (no date) (unknown) (unknown) required D+C (units unknown) (unknown) (unknown) (no date) (unknown) (unknown) reviewed. Foll ow-up in 4 weeks or as needed. (units unknown) (unknown) (unknown) (no date) (unknown) (unknown) seatbelt use: always (units unknown) (unknown) (unknown) (no date) (unknown) (unknown) second hand exposure: Yes ( also smokes) (units unknown) (unknown) (unknown) (no date) (unknown) (unknown) seeing funeral counselor or, although her affect during intake call indicates that her (units unknown) (unknown) (unknown) (no date) (unknown) (unknown) shot but we wi ll consider getting 1 next visit. Warning precautions were (units unknown) (unknown) (unknown) (no date) (unknown) (unknown) sided sciatica . She desires PT referral for hip pain. Referral sent. She (units unknown) (unknown) (unknown) (no date) (unknown) (unknown) software. Alth ough every effort is made to edit content, direct service professional errors (units unknown) (unknown) (unknown) (no date) (unknown) (unknown) special wali needs: No (units unknown) (unknown) (unknown) (no date) (unknown) (unknown) still having s ome nausea and vomiting. She does not want any medication for (units unknown) (unknown) (unknown) (no date) (unknown) (unknown) stress and anx iety. Worse since she has been , 'This is much worse than (units unknown) (unknown) (unknown) (no date) (unknown) (unknown) substance use type: does not use (units unknown) (unknown) (unknown) (no date) (unknown) (unknown) the week befor e she found out), Denies illicit drugs and Denies other (units unknown) (unknown) (unknown) (no date) (unknown) (unknown) this. Her Pap smear came back positive for chlamydia. She was treated. She (units unknown) (unknown) (unknown) (no date) (unknown) (unknown) to be a sweet smell, but the last few years it's been blood.' Migraines appear (units unknown) (unknown) (unknown) (no date) (unknown) (unknown) to be largely hormonal and are worse when pt is heavy than when she loses weight (units unknown) (unknown) (unknown) (no date) (unknown) (unknown) today. Follow- up in 4-5 weeks. Warning signs reviewed. (units unknown) (unknown) (unknown) (no date) (unknown) (unknown) today. Ordered 20 week anatomy ultrasound. She is unsure if she wants a flu (units unknown) (unknown) (unknown) (no date) (unknown) (unknown) travel history : recent (domestic only) (units unknown) (unknown) (unknown) (no date) (unknown) (unknown) urinary freque ncy, irritability and other (headaches, heartburn) (units unknown) (unknown) (unknown) (no date) (unknown) (unknown) water heater t emp set < 120 deg: Yes (units unknown) (unknown) (unknown) (no date) (unknown) (unknown) weeks 4 days. She reports some fluttering movement and denies VB, LOF, (units unknown) (unknown) (unknown) (no date) (unknown) (unknown) weight gain, F marci and mercury intake, Smoking, Caffeine use, Exercise and (units unknown) (unknown) (unknown) (no date) (unknown) (unknown) well-balanced diet: daily or most days (units unknown) (unknown) (unknown) (no date) (unknown) (unknown) working smoke detector in home: Yes (units unknown) (unknown) Result panel 64 (unknown) (no date) (unknown) (unknown) 0 /ul (unknown ) (unknown) (no date) (unknown) (unknown) 0.1 % (unknown ) (unknown) (no date) (unknown) (unknown) 1.1 % (unknown ) (unknown) (no date) (unknown) (unknown) 100 /ul (unknown ) (unknown) (no date) (unknown) (unknown) 12.3 g/dl (unknown ) (unknown) (no date) (unknown) (unknown) 13.3 % (unknown ) (unknown) (no date) (unknown) (unknown) 1500 /ul (unknown ) (unknown) (no date) (unknown) (unknown) 16.4 % (unknown ) (unknown) (no date) (unknown) (unknown) 213 x10 3/ul (unknow n) (unknown) (no date) (unknown) (unknown) 29.7 pg (unknown ) (unknown) (no date) (unknown) (unknown) 35.0 % (unknown ) (unknown) (no date) (unknown) (unknown) 35.0 % (unknown ) (unknown) (no date) (unknown) (unknown) 4.12 x10 6/ul (unknow n) (unknown) (no date) (unknown) (unknown) 4.5 % (unknown ) (unknown) (no date) (unknown) (unknown) 400 /ul (unknown ) (unknown) (no date) (unknown) (unknown) 7100 /ul (unknown ) (unknown) (no date) (unknown) (unknown) 77.9 % (unknown ) (unknown) (no date) (unknown) (unknown) 84.8 fl (unknown ) (unknown) (no date) (unknown) (unknown) 9.1 x10 3/ul (unknow n) Result panel 65 (unknown) (no date) (unknown) (unknown) (no value) (units unknown) (unknown) (unknown) (no date) (unknown) (unknown) 'mama brain,' I'm worried I have early onset dementia.' Notably, pt is (units unknown) (unknown) (unknown) (no date) (unknown) (unknown) (+19 lb) 108/64 N (u nits unknown) (unknown) (unknown) (no date) (unknown) (unknown) (+26 lb) 116/64 N (u nits unknown) (unknown) (unknown) (no date) (unknown) (unknown) (+36 lb) 106/66 N (u nits unknown) (unknown) (unknown) (no date) (unknown) (unknown) (+42 lb) 120/66 N (u nits unknown) (unknown) (unknown) (no date) (unknown) (unknown) (1) 20 weeks gestation of : (units unknown) (unknown) (unknown) (no date) (unknown) (unknown) (2) Thyromegaly: (un its unknown) (unknown) (unknown) (no date) (unknown) (unknown) (3) Fatigue: (units unknown) (unknown) (unknown) (no date) (unknown) (unknown) (4) Hair loss: (unit s unknown) (unknown) (unknown) (no date) (unknown) (unknown) (5) Right flan k pain: (units unknown) (unknown) (unknown) (no date) (unknown) (unknown) (EG,TYPE 1 Diabetes, PKU), Denies Patient or baby's father had a child with (units unknown) (unknown) (unknown) (no date) (unknown) (unknown) Genetic Screening/Teratolog y Counseling - Includes patient, baby's father, or (units unknown) (unknown) (unknown) (no date) (unknown) (unknown) +CTElizabeth ds FLETCHER. FLETCHER negative. (units unknown) (unknown) (unknown) (no date) (unknown) (unknown) - Nonscarring hair loss, unspecified, R53.83 - Other fatigue (units unknown) (unknown) (unknown) (no date) (unknown) (unknown) -?-?-?-?-?-?-? -?-?- ?-?-? (units unknown) (unknown) (unknown) (no date) (unknown) (unknown) .COMPLEX 04/30 [History Confirmed 08/09/22] (units unknown) (unknown) (unknown) (no date) (unknown) (unknown) 0.5 mL IM Righ t Deltoid [id number] 12/24/22 [id number] SANOFI-PASTEUR (units unknown) (unknown) (unknown) (no date) (unknown) (unknown) 07/12/22 (units unknown) (unknown) (unknown) (no date) (unknown) (unknown) 08/09/22 1253 (units unknown) (unknown) (unknown) (no date) (unknown) (unknown) 08/09/22 Singl e Vaccine 21 (units unknown) (unknown) (unknown) (no date) (unknown) (unknown) 08/09/22 (units unknown) (unknown) (unknown) (no date) (unknown) (unknown) 08/09/22] (units unknown) (unknown) (unknown) (no date) (unknown) (unknown) 09/25/10 14 spontaneous (units unknown) (unknown) (unknown) (no date) (unknown) (unknown) 12/23/22 Ultra sound #2 20w 4d (units unknown) (unknown) (unknown) (no date) (unknown) (unknown) 02/25/15 41.3 5 9 lb 8 oz Male vaginal live - full term (units unknown) (unknown) (unknown) (no date) (unknown) (unknown) 10:55 (units unknown) (unknown) (unknown) (no date) (unknown) (unknown) 05/11/22 (units unknown) (unknown) (unknown) (no date) (unknown) (unknown) 11w 5d 226 lb (units unknown) (unknown) (unknown) (no date) (unknown) (unknown) 06/08/22 (units unknown) (unknown) (unknown) (no date) (unknown) (unknown) 16w 4d 236 lb (units unknown) (unknown) (unknown) (no date) (unknown) (unknown) 20w 4d 242 lb (units unknown) (unknown) (unknown) (no date) (unknown) (unknown) 4 wks (units unknown) (unknown) (unknown) (no date) (unknown) (unknown) 7w 5d 219 lb (units unknown) (unknown) (unknown) (no date) (unknown) (unknown) Abnormal lab v alues 1st trimester: discussed (units unknown) (unknown) (unknown) (no date) (unknown) (unknown) Acne (units unknown) (unknown) (unknown) (no date) (unknown) (unknown) Add'l Plan Details ( units unknown) (unknown) (unknown) (no date) (unknown) (unknown) Additional Details:: Pt reports concerns about memory and word finding issues (units unknown) (unknown) (unknown) (no date) (unknown) (unknown) Additional Soc ial History (units unknown) (unknown) (unknown) (no date) (unknown) (unknown) Administered b y: Noelle Cain MA on 08/09/22 11:39 (units unknown) (unknown) (unknown) (no date) (unknown) (unknown) Age/Sex: 32 / F Date of Service: (units unknown) (unknown) (unknown) (no date) (unknown) (unknown) Allergies (units unknown) (unknown) (unknown) (no date) (unknown) (unknown) JAVIER Harding [id number] (units unknown) (unknown) (unknown) (no date) (unknown) (unknown) Anemia (units unknown) (unknown) (unknown) (no date) (unknown) (unknown) Aneuploidy Screening Offered: Accepted (likely will do quad screen, undecided) (units unknown) (unknown) (unknown) (no date) (unknown) (unknown) Anticipated co urse of care: discussed (units unknown) (unknown) (unknown) (no date) (unknown) (unknown) Anxiety (units unknown) (unknown) (unknown) (no date) (unknown) (unknown) Anxiety/depres marcy not very well managed, has not tolerated meds in the past. (units unknown) (unknown) (unknown) (no date) (unknown) (unknown) Assessment and Plan (units unknown) (unknown) (unknown) (no date) (unknown) (unknown) Attending Dr: Frances Espinal P.A-C (units unknown) (unknown) (unknown) (no date) (unknown) (unknown) BMI 40.2 (units unknown) (unknown) (unknown) (no date) (unknown) (unknown) BP 120/66 (units unknown) (unknown) (unknown) (no date) (unknown) (unknown) Plan/Preferences (units unknown) (unknown) (unknown) (no date) (unknown) (unknown) Planning (unit s unknown) (unknown) (unknown) (no date) (unknown) (unknown) Bleeding in fi rst trimester (units unknown) (unknown) (unknown) (no date) (unknown) (unknown) Blood Pressure Location Rt brachial (units unknown) (unknown) (unknown) (no date) (unknown) (unknown) Blood transfusions?: yes (Never had but would accept) (units unknown) (unknown) (unknown) (no date) (unknown) (unknown) Breastfeed Pre g Comp Name (units unknown) (unknown) (unknown) (no date) (unknown) (unknown) Brother Alcoholism ( units unknown) (unknown) (unknown) (no date) (unknown) (unknown) Carpal tunnel syndrome (units unknown) (unknown) (unknown) (no date) (unknown) (unknown) Calin present s today for routine OB f/u at 20w4d. She reports good (units unknown) (unknown) (unknown) (no date) (unknown) (unknown) Calin present s with her today for routine OB follow-up at 16 (units unknown) (unknown) (unknown) (no date) (unknown) (unknown) Code(s): O26.8 12 - related exhaustion and fatigue, second trimester (units unknown) (unknown) (unknown) (no date) (unknown) (unknown) Complete Blood Count AUTO DIFF Today E04.9 - Nontoxic goiter, unspecified, L65.9 (units unknown) (unknown) (unknown) (no date) (unknown) (unknown) Confirmed 08/09/22] (units unknown) (unknown) (unknown) (no date) (unknown) (unknown) Current Estima te 12/23/22 Ultrasound #1 20w 4d (units unknown) (unknown) (unknown) (no date) (unknown) (unknown) Current Pregna ncy History (units unknown) (unknown) (unknown) (no date) (unknown) (unknown) : 0 Acct:[id number] (units unknown) (unknown) (unknown) (no date) (unknown) (unknown) Date of positi ve home test: 04/17/22 (units unknown) (unknown) (unknown) (no date) (unknown) (unknown) Date (units unknown) (unknown) (unknown) (no date) (unknown) (unknown) Del. Date GA/W eeks Labor Lgth Wt Sex Route Outcome Anesthesia Place (units unknown) (unknown) (unknown) (no date) (unknown) (unknown) Delivery Date: 09/25/10 Last Updated by: Krystina Lantigua RN (units unknown) (unknown) (unknown) (no date) (unknown) (unknown) Delv (units unknown) (unknown) (unknown) (no date) (unknown) (unknown) Denies Congeni gerard Heart Defect, Denies Down Syndrome, Denies Muscular Dystrophy, (units unknown) (unknown) (unknown) (no date) (unknown) (unknown) Denies Neural Tube Defect (Meningomyelocele, Spina Bifida, or Anencephaly), (units unknown) (unknown) (unknown) (no date) (unknown) (unknown) Denies Sickle Cell Disease or Trait (), Denies Hemophilia or other blood (units unknown) (unknown) (unknown) (no date) (unknown) (unknown) Denies Rodney-Sac hs (Ashkenazi Lutheran, Cajun, [place] Islander Singaporean), Denies Kayy (units unknown) (unknown) (unknown) (no date) (unknown) (unknown) Denies over th e counter medications, Reports alcohol (drank 2 bottles of wine (units unknown) (unknown) (unknown) (no date) (unknown) (unknown) Depression (units unknown) (unknown) (unknown) (no date) (unknown) (unknown) Depression: discussed (units unknown) (unknown) (unknown) (no date) (unknown) (unknown) Dept at . (units unknown) (unknown) (unknown) (no date) (unknown) (unknown) Diet and Exercise (u nits unknown) (unknown) (unknown) (no date) (unknown) (unknown) Diflucan. cfDN A and AFP were normal. Anatomy US was done today, but report not (units unknown) (unknown) (unknown) (no date) (unknown) (unknown) Disease (Ashke nazi Lutheran), Denies Familial Dysautonomia (Ashkenazi Lutheran), (units unknown) (unknown) (unknown) (no date) (unknown) (unknown) Documented By: Frances Espinal P.A-C 08/09/22 1054 (units unknown) (unknown) (unknown) (no date) (unknown) (unknown) Dose Route Adm in Location Lot Number Expiration Date NDC (units unknown) (unknown) (unknown) (no date) (unknown) (unknown) MADISYN Calculator (unit s unknown) (unknown) (unknown) (no date) (unknown) (unknown) EGA Weight BP UGlucose (units unknown) (unknown) (unknown) (no date) (unknown) (unknown) Eczema (units unknown) (unknown) (unknown) (no date) (unknown) (unknown) Eligibility Eligibility Date Funding Source (units unknown) (unknown) (unknown) (no date) (unknown) (unknown) Estimated Deli very Date Method Current (units unknown) (unknown) (unknown) (no date) (unknown) (unknown) F/U 4 wks. War raven signs reviewed. (units unknown) (unknown) (unknown) (no date) (unknown) (unknown) Family History (Updated 04/30/22 @ 08:33 by Krystina Lantigua RN) (units unknown) (unknown) (unknown) (no date) (unknown) (unknown) Family/Other Neurological abnormality (units unknown) (unknown) (unknown) (no date) (unknown) (unknown) Family/Other Obsessive compulsive disorder (units unknown) (unknown) (unknown) (no date) (unknown) (unknown) Father d Alcoholism (units unknown) (unknown) (unknown) (no date) (unknown) (unknown) Father of Baby : same (units unknown) (unknown) (unknown) (no date) (unknown) (unknown) Fatigue type: -related Trimester: second trimester Qualified (units unknown) (unknown) (unknown) (no date) (unknown) (unknown) [facility] (units unknown) (unknown) (unknown) (no date) (unknown) (unknown) First Trimeste r Education Checklist (units unknown) (unknown) (unknown) (no date) (unknown) (unknown) Noé Today Z23 - Encounter for immunization (units unknown) (unknown) (unknown) (no date) (unknown) (unknown) (units unknown) (unknown) (unknown) (no date) (unknown) (unknown) GERD (gastroesophageal reflux disease) (units unknown) (unknown) (unknown) (no date) (unknown) (unknown) Genetic Screen ing + Counseling (units unknown) (unknown) (unknown) (no date) (unknown) (unknown) Genetic Screening (u nits unknown) (unknown) (unknown) (no date) (unknown) (unknown) Grandfather No problems noted. (units unknown) (unknown) (unknown) (no date) (unknown) (unknown) Grandmother Coagulopathy (units unknown) (unknown) (unknown) (no date) (unknown) (unknown) Grandmother Leukemia (units unknown) (unknown) (unknown) (no date) (unknown) (unknown) 3 Mult iple births (units unknown) (unknown) (unknown) (no date) (unknown) (unknown) HIV risk evaluation: low risk (units unknown) (unknown) (unknown) (no date) (unknown) (unknown) HSV-1 infection (uni ts unknown) (unknown) (unknown) (no date) (unknown) (unknown) Headache (units unknown) (unknown) (unknown) (no date) (unknown) (unknown) Health Center Education (units unknown) (unknown) (unknown) (no date) (unknown) (unknown) Health center information: nature of practice discussed, personnel (units unknown) (unknown) (unknown) (no date) (unknown) (unknown) Height 5 ft 5 in (un its unknown) (unknown) (unknown) (no date) (unknown) (unknown) Hemorrhoids (units unknown) (unknown) (unknown) (no date) (unknown) (unknown) Hepatitis C ri sk evaluation: low risk (units unknown) (unknown) (unknown) (no date) (unknown) (unknown) History of Hepatitis B: No (units unknown) (unknown) (unknown) (no date) (unknown) (unknown) History of Hepatitis C: No (units unknown) (unknown) (unknown) (no date) (unknown) (unknown) History of rem oval of skin mole (units unknown) (unknown) (unknown) (no date) (unknown) (unknown) Hospital: [facility] (units unknown) (unknown) (unknown) (no date) (unknown) (unknown) [facility] (units unknown) (unknown) (unknown) (no date) (unknown) (unknown) Hx # Pregnancies 0 Elective abortions 0 (units unknown) (unknown) (unknown) (no date) (unknown) (unknown) Hx # Term Pregnancies 1 Ectopic pregnancies 0 (units unknown) (unknown) (unknown) (no date) (unknown) (unknown) Immunizations (units unknown) (unknown) (unknown) (no date) (unknown) (unknown) will be adopted?: no (units unknown) (unknown) (unknown) (no date) (unknown) (unknown) Infection History (u nits unknown) (unknown) (unknown) (no date) (unknown) (unknown) Infectious Dis ease Education (units unknown) (unknown) (unknown) (no date) (unknown) (unknown) Infectious dis ease exposure: chicken pox immunity discussed, hepatitis risk (units unknown) (unknown) (unknown) (no date) (unknown) (unknown) Initial Weight : 200 lb (units unknown) (unknown) (unknown) (no date) (unknown) (unknown) Initials (units unknown) (unknown) (unknown) (no date) (unknown) (unknown) Intake Clinica l Staff (units unknown) (unknown) (unknown) (no date) (unknown) (unknown) Intake Note: (units unknown) (unknown) (unknown) (no date) (unknown) (unknown) Intake perform ed by: Yunier Kolb (units unknown) (unknown) (unknown) (no date) (unknown) (unknown) Intake (units unknown) (unknown) (unknown) (no date) (unknown) (unknown) LM (units unknown) (unknown) (unknown) (no date) (unknown) (unknown) Live with some one with TB or exposed to TB: No (units unknown) (unknown) (unknown) (no date) (unknown) (unknown) Loc: [facility] (units unknown) (unknown) (unknown) (no date) (unknown) (unknown) [id number] (units unknown) (unknown) (unknown) (no date) (unknown) (unknown) Manager Nicu (units unknown) (unknown) (unknown) (no date) (unknown) (unknown) Marital status : (units unknown) (unknown) (unknown) (no date) (unknown) (unknown) Medical Histor y (Updated 06/07/22 @ 20:59 by Rossy Chaudhari) (units unknown) (unknown) (unknown) (no date) (unknown) (unknown) Medications (units unknown) (unknown) (unknown) (no date) (unknown) (unknown) Migraine with aura ( units unknown) (unknown) (unknown) (no date) (unknown) (unknown) Migraines (units unknown) (unknown) (unknown) (no date) (unknown) (unknown) Mother d Alcoholism (units unknown) (unknown) (unknown) (no date) (unknown) (unknown) N No no 1,661 7 N/A absent long/closed (units unknown) (unknown) (unknown) (no date) (unknown) (unknown) N No no 166 12 N/A absent 4 wks (units unknown) (unknown) (unknown) (no date) (unknown) (unknown) N Yes no 146 2 0 N/A absent flu shot given (units unknown) (unknown) (unknown) (no date) (unknown) (unknown) N Yes no 151 1 8 N/A absent FLETCHER negative (units unknown) (unknown) (unknown) (no date) (unknown) (unknown) Nasal congestion (un its unknown) (unknown) (unknown) (no date) (unknown) (unknown) No Known Drug Allergies Allergy (Verified 08/09/22 10:55) (units unknown) (unknown) (unknown) (no date) (unknown) (unknown) Nonscarring reich ir loss, unspecified, R53.83 - Other fatigue (units unknown) (unknown) (unknown) (no date) (unknown) (unknown) Not VFC Eligib le 08/09/22 Private Funds (units unknown) (unknown) (unknown) (no date) (unknown) (unknown) Notes (units unknown) (unknown) (unknown) (no date) (unknown) (unknown) Number of Mandy ng Children 1 (units unknown) (unknown) (unknown) (no date) (unknown) (unknown) Number of fetu ses:: Single (units unknown) (unknown) (unknown) (no date) (unknown) (unknown) Nutrition and weight gain counseling: special diet: discussed (units unknown) (unknown) (unknown) (no date) (unknown) (unknown) OB Office Visit (uni ts unknown) (unknown) (unknown) (no date) (unknown) (unknown) OB Visit Log (units unknown) (unknown) (unknown) (no date) (unknown) (unknown) Orders (units unknown) (unknown) (unknown) (no date) (unknown) (unknown) Orders: (units unknown) (unknown) (unknown) (no date) (unknown) (unknown) Other Estimate s 11/15/22 LMP (Uncertain) 26w 0d (units unknown) (unknown) (unknown) (no date) (unknown) (unknown) Other Substanc e abuse (units unknown) (unknown) (unknown) (no date) (unknown) (unknown) Ovarian cyst (units unknown) (unknown) (unknown) (no date) (unknown) (unknown) PCOS (polycyst ic ovarian syndrome) (units unknown) (unknown) (unknown) (no date) (unknown) (unknown) PFSH (units unknown) (unknown) (unknown) (no date) (unknown) (unknown) Painful menstr ual periods (units unknown) (unknown) (unknown) (no date) (unknown) (unknown) Para 1 Spontan eous abortions 1 (units unknown) (unknown) (unknown) (no date) (unknown) (unknown) Partner histor y of STD: denies hx (units unknown) (unknown) (unknown) (no date) (unknown) (unknown) Partner histor y of genital herpes: No (units unknown) (unknown) (unknown) (no date) (unknown) (unknown) Partner: Cheko (units unknown) (unknown) (unknown) (no date) (unknown) (unknown) Past Pregnancies (un its unknown) (unknown) (unknown) (no date) (unknown) (unknown) Patient opts f or a routine visit at 11 weeks 5 days. She is (units unknown) (unknown) (unknown) (no date) (unknown) (unknown) Patient presen ts for an NOB visit at 7 wks gestation. Had some bleeding (units unknown) (unknown) (unknown) (no date) (unknown) (unknown) Patient's age 35 years or older as of estimated date of delivery: No (units unknown) (unknown) (unknown) (no date) (unknown) (unknown) Patient: Calin Godfrey MR#: (units unknown) (unknown) (unknown) (no date) (unknown) (unknown) Technical Assistant: MELISSA [place] (units unknown) (unknown) (unknown) (no date) (unknown) (unknown) Performing Provider: Frances Espinal PA-C (units unknown) (unknown) (unknown) (no date) (unknown) (unknown) Personal histo ry of STD: denies hx (units unknown) (unknown) (unknown) (no date) (unknown) (unknown) Personal histo ry of genital herpes: No (oral only) (units unknown) (unknown) (unknown) (no date) (unknown) (unknown) Position Sitting (un its unknown) (unknown) (unknown) (no date) (unknown) (unknown) History (u nits unknown) (unknown) (unknown) (no date) (unknown) (unknown) type :: Other Normal (units unknown) (unknown) (unknown) (no date) (unknown) (unknown) Education ( units unknown) (unknown) (unknown) (no date) (unknown) (unknown) Initi al Assessment (units unknown) (unknown) (unknown) (no date) (unknown) (unknown) Speci fic Issues/Plans (units unknown) (unknown) (unknown) (no date) (unknown) (unknown) Testi ng: discussed (units unknown) (unknown) (unknown) (no date) (unknown) (unknown) Visit (unit s unknown) (unknown) (unknown) (no date) (unknown) (unknown) educa tion packet: symptoms, Vitamins and iron, Diet and (units unknown) (unknown) (unknown) (no date) (unknown) (unknown) Primary Care Provider: MELISSA [place] (units unknown) (unknown) (unknown) (no date) (unknown) (unknown) Primary Ob Provider: Olivia Marshall (units unknown) (unknown) (unknown) (no date) (unknown) (unknown) Prior GBS-Infe cted child: No (units unknown) (unknown) (unknown) (no date) (unknown) (unknown) Providers (units unknown) (unknown) (unknown) (no date) (unknown) (unknown) Psoriasis (units unknown) (unknown) (unknown) (no date) (unknown) (unknown) Pt here for OB Check (units unknown) (unknown) (unknown) (no date) (unknown) (unknown) Qualifiers: (units unknown) (unknown) (unknown) (no date) (unknown) (unknown) Rapid first delivery (units unknown) (unknown) (unknown) (no date) (unknown) (unknown) Rash or viral illness since last menstrual period: No (units unknown) (unknown) (unknown) (no date) (unknown) (unknown) Reason For Visit (un its unknown) (unknown) (unknown) (no date) (unknown) (unknown) Recent travel outside of country?: No (units unknown) (unknown) (unknown) (no date) (unknown) (unknown) Reports Mental Retardation/Autism (sister had three very disabled children); (units unknown) (unknown) (unknown) (no date) (unknown) (unknown) S/P ACL repair (unit s unknown) (unknown) (unknown) (no date) (unknown) (unknown) Safety (units unknown) (unknown) (unknown) (no date) (unknown) (unknown) Second child f or this couple (units unknown) (unknown) (unknown) (no date) (unknown) (unknown) Severe PCOS (units unknown) (unknown) (unknown) (no date) (unknown) (unknown) She reports so me right sided hip pain and sciatica. She has a history of left (units unknown) (unknown) (unknown) (no date) (unknown) (unknown) She reports ur inary frequency, but denies painful urination, bladder pain, (units unknown) (unknown) (unknown) (no date) (unknown) (unknown) Shingles (units unknown) (unknown) (unknown) (no date) (unknown) (unknown) Shoulder pain (units unknown) (unknown) (unknown) (no date) (unknown) (unknown) Signed By: <Electronically signed by Frances Espinal> (units unknown) (unknown) (unknown) (no date) (unknown) (unknown) Signed (units unknown) (unknown) (unknown) (no date) (unknown) (unknown) [place] 10 (u nits unknown) (unknown) (unknown) (no date) (unknown) (unknown) Smoking Status : Current some day smoker (units unknown) (unknown) (unknown) (no date) (unknown) (unknown) Social History (unit s unknown) (unknown) (unknown) (no date) (unknown) (unknown) Support Person (s):: Reagan (units unknown) (unknown) (unknown) (no date) (unknown) (unknown) Surgical Histo ry (Updated 04/30/22 @ 08:16 by Krystina Lantigua RN) (units unknown) (unknown) (unknown) (no date) (unknown) (unknown) Surrogate ?: no (units unknown) (unknown) (unknown) (no date) (unknown) (unknown) Symptoms come on randomly and based on her description seem to be related to (units unknown) (unknown) (unknown) (no date) (unknown) (unknown) Symptoms since LMP: Reports amenorrhea, nausea, fatigue, breast tenderness, (units unknown) (unknown) (unknown) (no date) (unknown) (unknown) TSH w/ Reflex to FT4 Today E04.9 - Nontoxic goiter, unspecified, 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 (units unknown) (unknown) (unknown) (no date) (unknown) (unknown) Teratogen Expo sures since LMP/Conception: Denies prescription medications, (units unknown) (unknown) (unknown) (no date) (unknown) (unknown) Testing Education (u nits unknown) (unknown) (unknown) (no date) (unknown) (unknown) Testing educat ion completed: group B strep and Spina bifida testing (units unknown) (unknown) (unknown) (no date) (unknown) (unknown) This note may have been all or partially generated using voice recognition (units unknown) (unknown) (unknown) (no date) (unknown) (unknown) Tobacco + Subs tance Use (units unknown) (unknown) (unknown) (no date) (unknown) (unknown) Tobacco Status (unit s unknown) (unknown) (unknown) (no date) (unknown) (unknown) Trimester:: 2n d Trimester (14-<28wks) (units unknown) (unknown) (unknown) (no date) (unknown) (unknown) Type(s) of exercise: walking (-7 miles/day), weight lifting and yoga (units unknown) (unknown) (unknown) (no date) (unknown) (unknown) UProtein Movem ent PreLabor FHR Fndl Ht Pres Edema Cerv Exam US/Comment Next Appt (units unknown) (unknown) (unknown) (no date) (unknown) (unknown) VIS Given Date VIS Provided VIS Publication Date (units unknown) (unknown) (unknown) (no date) (unknown) (unknown) Varicella/[place] pox status: immunized (Hx shingles) (units unknown) (unknown) (unknown) (no date) (unknown) (unknown) Vertigo (units unknown) (unknown) (unknown) (no date) (unknown) (unknown) Visit Date: 07/12/22 Last Updated by: Frances Espinal P.A-C (units unknown) (unknown) (unknown) (no date) (unknown) (unknown) Visit Date: 08/09/22 Last Updated by: Frances Espinal P.A-C (units unknown) (unknown) (unknown) (no date) (unknown) (unknown) Visit Date: 05/11/22 Last Updated by: Olivia Marshall MD (units unknown) (unknown) (unknown) (no date) (unknown) (unknown) Visit Date: 06/08/22 Last Updated by: Olivia Marshall MD (units unknown) (unknown) (unknown) (no date) (unknown) (unknown) Visit Reasons: OB ck (units unknown) (unknown) (unknown) (no date) (unknown) (unknown) Vitals (units unknown) (unknown) (unknown) (no date) (unknown) (unknown) WG (units unknown) (unknown) (unknown) (no date) (unknown) (unknown) Weeks gestatio n:: 20 (units unknown) (unknown) (unknown) (no date) (unknown) (unknown) Weight 242 lb (units unknown) (unknown) (unknown) (no date) (unknown) (unknown) Zika virus exposure: No (units unknown) (unknown) (unknown) (no date) (unknown) (unknown) [History Confi rmed 08/09/22] (units unknown) (unknown) (unknown) (no date) (unknown) (unknown) activity, work/environmental/ hazards, Sexual activity, X-ray exposure, Medi (units unknown) (unknown) (unknown) (no date) (unknown) (unknown) additional soc ial history: Pt reports that she and her almost split up (units unknown) (unknown) (unknown) (no date) (unknown) (unknown) alcohol intake : former (very rarely when not ) (units unknown) (unknown) (unknown) (no date) (unknown) (unknown) and had an u/s on 05/08/22. Viable IUP at 7 wks. No further BRP. Plan: Pap, (units unknown) (unknown) (unknown) (no date) (unknown) (unknown) and is at a healthier size. Hx depression and anxiety, did not do well on (units unknown) (unknown) (unknown) (no date) (unknown) (unknown) antidepressant s, 'I was a zombie for a while.' Not currently medicated or (units unknown) (unknown) (unknown) (no date) (unknown) (unknown) anxiety is lik mali not particularly well controlled at present. (units unknown) (unknown) (unknown) (no date) (unknown) (unknown) [facility] in [facility] family with: (units unknown) (unknown) (unknown) (no date) (unknown) (unknown) azithromycin 2 50 mg tablet 1,000 mg PO ONCE Chlamydia #4 tabs 05/17/22 [Rx (units unknown) (unknown) (unknown) (no date) (unknown) (unknown) bilingual; boby sangeeta language is Marshallese, has spoken Andorran for-18 years. Also (units unknown) (unknown) (unknown) (no date) (unknown) (unknown) defects not listed above and Denies Other (units unknown) (unknown) (unknown) (no date) (unknown) (unknown) c/o migraine w / aura 'I smell blood when I'm going to have a migraine. It used (units unknown) (unknown) (unknown) (no date) (unknown) (unknown) caffeine: Yes (aware of 200mg limit) (units unknown) (unknown) (unknown) (no date) (unknown) (unknown) carbon monox detector in home: Yes (units unknown) (unknown) (unknown) (no date) (unknown) (unknown) caregiver/supp ort person: Yes (units unknown) (unknown) (unknown) (no date) (unknown) (unknown) cation use, Sauna/hot tub use, Dental care, Travel, Seatbelt use and Influenza (units unknown) (unknown) (unknown) (no date) (unknown) (unknown) cf DNA and MSA FP ordered. NRL female, AFP negative (units unknown) (unknown) (unknown) (no date) (unknown) (unknown) cramping and contractions. Chlamydia test of cure from last visit was negative. (units unknown) (unknown) (unknown) (no date) (unknown) (unknown) current occupational exposures/hazards: No (units unknown) (unknown) (unknown) (no date) (unknown) (unknown) daily servings fruits/ve or more times/day (units unknown) (unknown) (unknown) (no date) (unknown) (unknown) described, vis it schedule reviewed, ultrasounds policy reviewed, coverage 24 (units unknown) (unknown) (unknown) (no date) (unknown) (unknown) desires to hav e genetic testing so cell free DNA testing and MSAFP were ordered (units unknown) (unknown) (unknown) (no date) (unknown) (unknown) discussed, tuberculosis exposure discussed, CMV discussed, Toxoplasmosis (units unknown) (unknown) (unknown) (no date) (unknown) (unknown) disorders, Den ies Cystic Fibrosis, Denies Brynn's Chorea, Denies Other (units unknown) (unknown) (unknown) (no date) (unknown) (unknown) do you feel sa fe at home: Yes (units unknown) (unknown) (unknown) (no date) (unknown) (unknown) does complain of left breast tenderness. Plan: Test of cure for chlamydia (units unknown) (unknown) (unknown) (no date) (unknown) (unknown) drug abuse and pt is very concerned about how this may affect her children. (units unknown) (unknown) (unknown) (no date) (unknown) (unknown) during the pas t year weight has: decreased > 10 lbs (intentional w/ diet and (units unknown) (unknown) (unknown) (no date) (unknown) (unknown) education leve l: college (some college) (units unknown) (unknown) (unknown) (no date) (unknown) (unknown) exercise) (units unknown) (unknown) (unknown) (no date) (unknown) (unknown) wali/religious : U[place] (units unknown) (unknown) (unknown) (no date) (unknown) (unknown) ferrous sulfat e 325 mg (65 mg iron) tablet (Feosol) 325 mg PO DAILY 04/30/22 (units unknown) (unknown) (unknown) (no date) (unknown) (unknown) fevers. UA was normal in the office today. No nit or leuks. Very mild CVAT on (units unknown) (unknown) (unknown) (no date) (unknown) (unknown) fire extinguis her in home: Yes (units unknown) (unknown) (unknown) (no date) (unknown) (unknown) firearms in me: No (units unknown) (unknown) (unknown) (no date) (unknown) (unknown) flu vac qv 2021(18yr up)rcm-PF (units unknown) (unknown) (unknown) (no date) (unknown) (unknown) fluconazole 15 0 mg tablet (Diflucan) 150 mg PO DAILY #1 tab 07/30/22 [Rx (units unknown) (unknown) (unknown) (no date) (unknown) (unknown) folic acid 400 mcg tablet 0.4 mg PO DAILY 04/30/22 [History Confirmed 08/09/22] (units unknown) (unknown) (unknown) (no date) (unknown) (unknown) for about the last 3 years, has not ever discussed this w/ her PCP so far. (units unknown) (unknown) (unknown) (no date) (unknown) (unknown) frequency: daily (un its unknown) (unknown) (unknown) (no date) (unknown) (unknown) have occurred. If there are any questions, please contact the Medical Records (units unknown) (unknown) (unknown) (no date) (unknown) (unknown) home, no flo rns about violence or infidelity. Long family Hx of alcohol and (units unknown) (unknown) (unknown) (no date) (unknown) (unknown) hours a day an d participation of father in care and office visits (units unknown) (unknown) (unknown) (no date) (unknown) (unknown) household memb ers: spouse, family (brother) and children (units unknown) (unknown) (unknown) (no date) (unknown) (unknown) housing: apartment ( units unknown) (unknown) (unknown) (no date) (unknown) (unknown) inherited gene tic or chromosomal disorder, Denies Maternal Metabolic Disorder (units unknown) (unknown) (unknown) (no date) (unknown) (unknown) intake. Kathie berman precautions reviewed. F/u in 4 wks. (units unknown) (unknown) (unknown) (no date) (unknown) (unknown) kag (units unknown) (unknown) (unknown) (no date) (unknown) (unknown) lives independently: Yes (units unknown) (unknown) (unknown) (no date) (unknown) (unknown) marital status : (units unknown) (unknown) (unknown) (no date) (unknown) (unknown) may occur. Occasional wrong-word or 'sound-alike' substitutions may have (units unknown) (unknown) (unknown) (no date) (unknown) (unknown) months none [place] ( units unknown) (unknown) (unknown) (no date) (unknown) (unknown) movement and d enies VB, LOF, cramping, contractions and abnormal discharge. She (units unknown) (unknown) (unknown) (no date) (unknown) (unknown) number of chil dren: 3 (includes 2 stepchildren) (units unknown) (unknown) (unknown) (no date) (unknown) (unknown) occupational status: employed (desk/office job) (units unknown) (unknown) (unknown) (no date) (unknown) (unknown) occurred due t o the inherent limitations of voice recognition software. Please (units unknown) (unknown) (unknown) (no date) (unknown) (unknown) omega 0-lvq-evk-fish oil 100 mg-160 mg-1,000 mg capsule (Fish Oil) 1 cap PO (units unknown) (unknown) (unknown) (no date) (unknown) (unknown) oxymetazoline 0.05 % nasal spray 1 spray intranasal BID 04/30/22 [History (units unknown) (unknown) (unknown) (no date) (unknown) (unknown) pets and anima ls: No (units unknown) (unknown) (unknown) (no date) (unknown) (unknown) precautions, Listeriosis prevention and Rubella Immunization (units unknown) (unknown) (unknown) (no date) (unknown) (unknown) prenat.vits,ca l,min -iron-folic 1 tab PO DAILY 04/30/22 [History Confirmed (units unknown) (unknown) (unknown) (no date) (unknown) (unknown) r/o kidney pathology. ED precautions reviewed. Advised to increase fluid (units unknown) (unknown) (unknown) (no date) (unknown) (unknown) read the note carefully and recognize, using context, where these substitutions (units unknown) (unknown) (unknown) (no date) (unknown) (unknown) recently but madi diana decided to stay together in light of this . She (units unknown) (unknown) (unknown) (no date) (unknown) (unknown) reports some r ight sided flank pain x 4 days. She reports it is achy and dull. (units unknown) (unknown) (unknown) (no date) (unknown) (unknown) reports that is nervous and excited, confirms that she is safe in her (units unknown) (unknown) (unknown) (no date) (unknown) (unknown) required D+C (units unknown) (unknown) (unknown) (no date) (unknown) (unknown) reviewed. Foll ow-up in 4 weeks or as needed. (units unknown) (unknown) (unknown) (no date) (unknown) (unknown) seatbelt use: always (units unknown) (unknown) (unknown) (no date) (unknown) (unknown) second hand exposure: Yes ( also smokes) (units unknown) (unknown) (unknown) (no date) (unknown) (unknown) seeing funeral counselor or, although her affect during intake call indicates that her (units unknown) (unknown) (unknown) (no date) (unknown) (unknown) shot but we wi ll consider getting 1 next visit. Warning precautions were (units unknown) (unknown) (unknown) (no date) (unknown) (unknown) sided sciatica . She desires PT referral for hip pain. Referral sent. She (units unknown) (unknown) (unknown) (no date) (unknown) (unknown) skin and scalp . Slightly enlarged thyroid on exam. CBC and TSH refulx to T4 (units unknown) (unknown) (unknown) (no date) (unknown) (unknown) software. Alth ough every effort is made to edit content, direct service professional errors (units unknown) (unknown) (unknown) (no date) (unknown) (unknown) special wali needs: No (units unknown) (unknown) (unknown) (no date) (unknown) (unknown) still having s ome nausea and vomiting. She does not want any medication for (units unknown) (unknown) (unknown) (no date) (unknown) (unknown) stress and anx iety. Worse since she has been , 'This is much worse than (units unknown) (unknown) (unknown) (no date) (unknown) (unknown) substance use type: does not use (units unknown) (unknown) (unknown) (no date) (unknown) (unknown) the right on e xam. Discussed MSK cause vs kidney stones. Ordered kidney US to (units unknown) (unknown) (unknown) (no date) (unknown) (unknown) the week befor e she found out), Denies illicit drugs and Denies other (units unknown) (unknown) (unknown) (no date) (unknown) (unknown) this. Her Pap smear came back positive for chlamydia. She was treated. She (units unknown) (unknown) (unknown) (no date) (unknown) (unknown) to be a sweet smell, but the last few years it's been blood.' Migraines appear (units unknown) (unknown) (unknown) (no date) (unknown) (unknown) to be largely hormonal and are worse when pt is heavy than when she loses weight (units unknown) (unknown) (unknown) (no date) (unknown) (unknown) today. Follow- up in 4-5 weeks. Warning signs reviewed. (units unknown) (unknown) (unknown) (no date) (unknown) (unknown) today. Ordered 20 week anatomy ultrasound. She is unsure if she wants a flu (units unknown) (unknown) (unknown) (no date) (unknown) (unknown) travel history : recent (domestic only) (units unknown) (unknown) (unknown) (no date) (unknown) (unknown) urinary freque ncy, irritability and other (headaches, heartburn) (units unknown) (unknown) (unknown) (no date) (unknown) (unknown) vaccine (decli so flu, undecided on Covid booster) (units unknown) (unknown) (unknown) (no date) (unknown) (unknown) was recently treated for a yeast infection and reports it resolved with (units unknown) (unknown) (unknown) (no date) (unknown) (unknown) water heater t emp set < 120 deg: Yes (units unknown) (unknown) (unknown) (no date) (unknown) (unknown) weeks 4 days. She reports some fluttering movement and denies VB, LOF, (units unknown) (unknown) (unknown) (no date) (unknown) (unknown) weight gain, F marci and mercury intake, Smoking, Caffeine use, Exercise and (units unknown) (unknown) (unknown) (no date) (unknown) (unknown) well-balanced diet: daily or most days (units unknown) (unknown) (unknown) (no date) (unknown) (unknown) were ordered. Pt will have labs drawn after the visit. Flu shot given. She also (units unknown) (unknown) (unknown) (no date) (unknown) (unknown) working smoke detector in home: Yes (units unknown) (unknown) (unknown) (no date) (unknown) (unknown) yet available. She reports hair loss, brittle hair and nails, fatigue, and dry (units unknown) (unknown) Result panel 66 (unknown) (no date) (unknown) (unknown) 0.44 uiu/ml (unknown ) Result panel 67 (unknown) (no date) (unknown) (unknown) 0.44 uiu/ml (unknown ) (unknown) (no date) (unknown) (unknown) 0.73 ng/dl (unknown ) Result panel 68 (unknown) (no date) (unknown) (unknown) (no value) (units unknown) (unknown) (unknown) (no date) (unknown) (unknown) 'mama brain,' I'm worried I have early onset dementia.' Notably, pt is (units unknown) (unknown) (unknown) (no date) (unknown) (unknown) (+19 lb) 108/64 N (u nits unknown) (unknown) (unknown) (no date) (unknown) (unknown) (+26 lb) 116/64 N (u nits unknown) (unknown) (unknown) (no date) (unknown) (unknown) (+36 lb) 106/66 N (u nits unknown) (unknown) (unknown) (no date) (unknown) (unknown) (+42 lb) 120/66 N (u nits unknown) (unknown) (unknown) (no date) (unknown) (unknown) (EG,TYPE 1 Diabetes, PKU), Denies Patient or baby's father had a child with (units unknown) (unknown) (unknown) (no date) (unknown) (unknown) Genetic Screening/Teratolog y Counseling - Includes patient, baby's father, or (units unknown) (unknown) (unknown) (no date) (unknown) (unknown) +CT, Tx'd. Nee ds FLETCHER. FLETCHER negative. (units unknown) (unknown) (unknown) (no date) (unknown) (unknown) -?-?-?-?-?-?-? -?-?- ?-?-? (units unknown) (unknown) (unknown) (no date) (unknown) (unknown) .COMPLEX 04/30 [History Confirmed 08/31/22] (units unknown) (unknown) (unknown) (no date) (unknown) (unknown) 07/12/22 (units unknown) (unknown) (unknown) (no date) (unknown) (unknown) 08/09/22 (units unknown) (unknown) (unknown) (no date) (unknown) (unknown) 08/31/22 (units unknown) (unknown) (unknown) (no date) (unknown) (unknown) 08/31/22] (units unknown) (unknown) (unknown) (no date) (unknown) (unknown) 09/25/10 14 spontaneous (units unknown) (unknown) (unknown) (no date) (unknown) (unknown) 12/23/22 Ultra sound #2 23w 5d (units unknown) (unknown) (unknown) (no date) (unknown) (unknown) 08:23 (units unknown) (unknown) (unknown) (no date) (unknown) (unknown) 02/25/15 41.3 5 9 lb 8 oz Male vaginal live - full term (units unknown) (unknown) (unknown) (no date) (unknown) (unknown) 05/11/22 (units unknown) (unknown) (unknown) (no date) (unknown) (unknown) 11w 5d 226 lb (units unknown) (unknown) (unknown) (no date) (unknown) (unknown) 06/08/22 (units unknown) (unknown) (unknown) (no date) (unknown) (unknown) 16w 4d 236 lb (units unknown) (unknown) (unknown) (no date) (unknown) (unknown) 20w 4d 242 lb (units unknown) (unknown) (unknown) (no date) (unknown) (unknown) 4 wks (units unknown) (unknown) (unknown) (no date) (unknown) (unknown) 7w 5d 219 lb (units unknown) (unknown) (unknown) (no date) (unknown) (unknown) Abnormal lab v alues 1st trimester: discussed (units unknown) (unknown) (unknown) (no date) (unknown) (unknown) Acne (units unknown) (unknown) (unknown) (no date) (unknown) (unknown) Add'l Plan Details ( units unknown) (unknown) (unknown) (no date) (unknown) (unknown) Additional Details:: Pt reports concerns about memory and word finding issues (units unknown) (unknown) (unknown) (no date) (unknown) (unknown) Additional Soc ial History (units unknown) (unknown) (unknown) (no date) (unknown) (unknown) Age/Sex: 32 / F Date of Service: (units unknown) (unknown) (unknown) (no date) (unknown) (unknown) Allergies (units unknown) (unknown) (unknown) (no date) (unknown) (unknown) JAVIER Harding [id number] (units unknown) (unknown) (unknown) (no date) (unknown) (unknown) Anemia (units unknown) (unknown) (unknown) (no date) (unknown) (unknown) Aneuploidy Screening Offered: Accepted (likely will do quad screen, undecided) (units unknown) (unknown) (unknown) (no date) (unknown) (unknown) Anticipated co urse of care: discussed (units unknown) (unknown) (unknown) (no date) (unknown) (unknown) Anxiety (units unknown) (unknown) (unknown) (no date) (unknown) (unknown) Anxiety/depres marcy not very well managed, has not tolerated meds in the past. (units unknown) (unknown) (unknown) (no date) (unknown) (unknown) Assessment and Plan (units unknown) (unknown) (unknown) (no date) (unknown) (unknown) Attending Dr: Bert Roque MD (units unknown) (unknown) (unknown) (no date) (unknown) (unknown) BMI 41.2 (units unknown) (unknown) (unknown) (no date) (unknown) (unknown) BP 118/72 (units unknown) (unknown) (unknown) (no date) (unknown) (unknown) Plan/Preferences (units unknown) (unknown) (unknown) (no date) (unknown) (unknown) Planning (unit s unknown) (unknown) (unknown) (no date) (unknown) (unknown) Bleeding in fi rst trimester (units unknown) (unknown) (unknown) (no date) (unknown) (unknown) Blood Pressure Location Rt brachial (units unknown) (unknown) (unknown) (no date) (unknown) (unknown) Blood transfusions?: yes (Never had but would accept) (units unknown) (unknown) (unknown) (no date) (unknown) (unknown) Breastfeed Pre g Comp Name (units unknown) (unknown) (unknown) (no date) (unknown) (unknown) Brother Alcoholism ( units unknown) (unknown) (unknown) (no date) (unknown) (unknown) Carpal tunnel syndrome (units unknown) (unknown) (unknown) (no date) (unknown) (unknown) Calin present s today for routine OB f/u at 20w4d. She reports good (units unknown) (unknown) (unknown) (no date) (unknown) (unknown) Calin present s with her today for routine OB follow-up at 16 (units unknown) (unknown) (unknown) (no date) (unknown) (unknown) Confirmed 08/31/22] (units unknown) (unknown) (unknown) (no date) (unknown) (unknown) Current Estima te 12/23/22 Ultrasound #1 23w 5d (units unknown) (unknown) (unknown) (no date) (unknown) (unknown) Current Pregna ncy History (units unknown) (unknown) (unknown) (no date) (unknown) (unknown) : 0 Acct:[id number] (units unknown) (unknown) (unknown) (no date) (unknown) (unknown) Date of positi ve home test: 04/17/22 (units unknown) (unknown) (unknown) (no date) (unknown) (unknown) Date (units unknown) (unknown) (unknown) (no date) (unknown) (unknown) Del. Date GA/W eeks Labor Lgth Wt Sex Route Outcome Anesthesia Place (units unknown) (unknown) (unknown) (no date) (unknown) (unknown) Delivery Date: 09/25/10 Last Updated by: Krystina Lantigua RN (units unknown) (unknown) (unknown) (no date) (unknown) (unknown) Delv (units unknown) (unknown) (unknown) (no date) (unknown) (unknown) Denies Congeni gerard Heart Defect, Denies Down Syndrome, Denies Muscular Dystrophy, (units unknown) (unknown) (unknown) (no date) (unknown) (unknown) Denies Neural Tube Defect (Meningomyelocele, Spina Bifida, or Anencephaly), (units unknown) (unknown) (unknown) (no date) (unknown) (unknown) Denies Sickle Cell Disease or Trait (), Denies Hemophilia or other blood (units unknown) (unknown) (unknown) (no date) (unknown) (unknown) Denies Rodney-Sac hs (Ashkenazi Lutheran, Cajun, [place] Islander Singaporean), Denies Kayy (units unknown) (unknown) (unknown) (no date) (unknown) (unknown) Denies over th e counter medications, Reports alcohol (drank 2 bottles of wine (units unknown) (unknown) (unknown) (no date) (unknown) (unknown) Depression (units unknown) (unknown) (unknown) (no date) (unknown) (unknown) Depression: discussed (units unknown) (unknown) (unknown) (no date) (unknown) (unknown) Dept at . (units unknown) (unknown) (unknown) (no date) (unknown) (unknown) Diet and Exercise (u nits unknown) (unknown) (unknown) (no date) (unknown) (unknown) Diflucan. cfDN A and AFP were normal. Anatomy US was done today, but report not (units unknown) (unknown) (unknown) (no date) (unknown) (unknown) Disease (Ashke nazi Lutheran), Denies Familial Dysautonomia (Ashkenazi Lutheran), (units unknown) (unknown) (unknown) (no date) (unknown) (unknown) Documented By: Bert Roque MD 08/31/22 0822 (units unknown) (unknown) (unknown) (no date) (unknown) (unknown) Draft (units unknown) (unknown) (unknown) (no date) (unknown) (unknown) MADISYN Calculator (unit s unknown) (unknown) (unknown) (no date) (unknown) (unknown) EGA Weight BP UGlucose (units unknown) (unknown) (unknown) (no date) (unknown) (unknown) Eczema (units unknown) (unknown) (unknown) (no date) (unknown) (unknown) Estimated Deli very Date Method Current (units unknown) (unknown) (unknown) (no date) (unknown) (unknown) F/U 4 wks. War raven signs reviewed. (units unknown) (unknown) (unknown) (no date) (unknown) (unknown) Family History (Updated 04/30/22 @ 08:33 by Krystina Lantigua RN) (units unknown) (unknown) (unknown) (no date) (unknown) (unknown) Family/Other Neurological abnormality (units unknown) (unknown) (unknown) (no date) (unknown) (unknown) Family/Other Obsessive compulsive disorder (units unknown) (unknown) (unknown) (no date) (unknown) (unknown) Father d Alcoholism (units unknown) (unknown) (unknown) (no date) (unknown) (unknown) Father of Baby : same (units unknown) (unknown) (unknown) (no date) (unknown) (unknown) [facility] (units unknown) (unknown) (unknown) (no date) (unknown) (unknown) First Trimeste r Education Checklist (units unknown) (unknown) (unknown) (no date) (unknown) (unknown) (units unknown) (unknown) (unknown) (no date) (unknown) (unknown) GERD (gastroesophageal reflux disease) (units unknown) (unknown) (unknown) (no date) (unknown) (unknown) GTT (PREG) 1 H our PP 50gm Dose 4 Weeks Z34.82 - Encounter for supervision of (units unknown) (unknown) (unknown) (no date) (unknown) (unknown) Joanna pt here for OB Check (units unknown) (unknown) (unknown) (no date) (unknown) (unknown) Genetic Screen ing + Counseling (units unknown) (unknown) (unknown) (no date) (unknown) (unknown) Genetic Screening (u nits unknown) (unknown) (unknown) (no date) (unknown) (unknown) Grandfather No problems noted. (units unknown) (unknown) (unknown) (no date) (unknown) (unknown) Grandmother Coagulopathy (units unknown) (unknown) (unknown) (no date) (unknown) (unknown) Grandmother Leukemia (units unknown) (unknown) (unknown) (no date) (unknown) (unknown) 3 Mult iple births (units unknown) (unknown) (unknown) (no date) (unknown) (unknown) HIV risk evaluation: low risk (units unknown) (unknown) (unknown) (no date) (unknown) (unknown) HSV-1 infection (uni ts unknown) (unknown) (unknown) (no date) (unknown) (unknown) Headache (units unknown) (unknown) (unknown) (no date) (unknown) (unknown) Health Center Education (units unknown) (unknown) (unknown) (no date) (unknown) (unknown) Health center information: nature of practice discussed, personnel (units unknown) (unknown) (unknown) (no date) (unknown) (unknown) Height 5 ft 5 in (un its unknown) (unknown) (unknown) (no date) (unknown) (unknown) Hemoglobin and Hematocrit 4 Weeks Z34.82 - Encounter for supervision of other (units unknown) (unknown) (unknown) (no date) (unknown) (unknown) Hemorrhoids (units unknown) (unknown) (unknown) (no date) (unknown) (unknown) Hepatitis C ri sk evaluation: low risk (units unknown) (unknown) (unknown) (no date) (unknown) (unknown) History of Hepatitis B: No (units unknown) (unknown) (unknown) (no date) (unknown) (unknown) History of Hepatitis C: No (units unknown) (unknown) (unknown) (no date) (unknown) (unknown) History of rem oval of skin mole (units unknown) (unknown) (unknown) (no date) (unknown) (unknown) [facility] ([facility]) (unknown) (unknown) (no date) (unknown) (unknown) [facility] (units unknown) (unknown) (unknown) (no date) (unknown) (unknown) Hx # Pregnancies 0 Elective abortions 0 (units unknown) (unknown) (unknown) (no date) (unknown) (unknown) Hx # Term Pregnancies 1 Ectopic pregnancies 0 (units unknown) (unknown) (unknown) (no date) (unknown) (unknown) Infant will be adopted?: no (units unknown) (unknown) (unknown) (no date) (unknown) (unknown) Infection History (u nits unknown) (unknown) (unknown) (no date) (unknown) (unknown) Infectious Dis ease Education (units unknown) (unknown) (unknown) (no date) (unknown) (unknown) Infectious dis ease exposure: chicken pox immunity discussed, hepatitis risk (units unknown) (unknown) (unknown) (no date) (unknown) (unknown) Initial Weight : 200 lb (units unknown) (unknown) (unknown) (no date) (unknown) (unknown) Initials (units unknown) (unknown) (unknown) (no date) (unknown) (unknown) Intake Clinica l Staff (units unknown) (unknown) (unknown) (no date) (unknown) (unknown) Intake Note: (units unknown) (unknown) (unknown) (no date) (unknown) (unknown) Intake perform ed by: Yunier Kolb (units unknown) (unknown) (unknown) (no date) (unknown) (unknown) Intake (units unknown) (unknown) (unknown) (no date) (unknown) (unknown) LM (units unknown) (unknown) (unknown) (no date) (unknown) (unknown) Live with some one with TB or exposed to TB: No (units unknown) (unknown) (unknown) (no date) (unknown) (unknown) Loc: [facility] (units unknown) (unknown) (unknown) (no date) (unknown) (unknown) [id number] (units unknown) (unknown) (unknown) (no date) (unknown) (unknown) Marital status : (units unknown) (unknown) (unknown) (no date) (unknown) (unknown) Medical Histor y (Updated 06/07/22 @ 20:59 by Rossy Chaudhari) (units unknown) (unknown) (unknown) (no date) (unknown) (unknown) Medications (units unknown) (unknown) (unknown) (no date) (unknown) (unknown) Migraine with aura ( units unknown) (unknown) (unknown) (no date) (unknown) (unknown) Migraines (units unknown) (unknown) (unknown) (no date) (unknown) (unknown) Mother d Alcoholism (units unknown) (unknown) (unknown) (no date) (unknown) (unknown) N No no 1,661 7 N/A absent long/closed (units unknown) (unknown) (unknown) (no date) (unknown) (unknown) N No no 166 12 N/A absent 4 wks (units unknown) (unknown) (unknown) (no date) (unknown) (unknown) N Yes no 146 2 0 N/A absent flu shot given (units unknown) (unknown) (unknown) (no date) (unknown) (unknown) N Yes no 151 1 8 N/A absent FLETCHER negative (units unknown) (unknown) (unknown) (no date) (unknown) (unknown) Nasal congestion (un its unknown) (unknown) (unknown) (no date) (unknown) (unknown) No Known Drug Allergies Allergy (Verified 08/31/22 08:23) (units unknown) (unknown) (unknown) (no date) (unknown) (unknown) Notes (units unknown) (unknown) (unknown) (no date) (unknown) (unknown) Number of Mandy ng Children 1 (units unknown) (unknown) (unknown) (no date) (unknown) (unknown) Number of fetu ses:: Single (units unknown) (unknown) (unknown) (no date) (unknown) (unknown) Nutrition and weight gain counseling: special diet: discussed (units unknown) (unknown) (unknown) (no date) (unknown) (unknown) OB Office Visit (uni ts unknown) (unknown) (unknown) (no date) (unknown) (unknown) OB Visit Log (units unknown) (unknown) (unknown) (no date) (unknown) (unknown) Orders (units unknown) (unknown) (unknown) (no date) (unknown) (unknown) Orders: (units unknown) (unknown) (unknown) (no date) (unknown) (unknown) Other Estimate s 11/15/22 LMP (Uncertain) 29w 1d (units unknown) (unknown) (unknown) (no date) (unknown) (unknown) Other Substanc e abuse (units unknown) (unknown) (unknown) (no date) (unknown) (unknown) Ovarian cyst (units unknown) (unknown) (unknown) (no date) (unknown) (unknown) PCOS (polycyst ic ovarian syndrome) (units unknown) (unknown) (unknown) (no date) (unknown) (unknown) PFSH (units unknown) (unknown) (unknown) (no date) (unknown) (unknown) Painful menstr ual periods (units unknown) (unknown) (unknown) (no date) (unknown) (unknown) Para 1 Spontan eous abortions 1 (units unknown) (unknown) (unknown) (no date) (unknown) (unknown) Partner histor y of STD: denies hx (units unknown) (unknown) (unknown) (no date) (unknown) (unknown) Partner histor y of genital herpes: No (units unknown) (unknown) (unknown) (no date) (unknown) (unknown) Partner: Cheko (units unknown) (unknown) (unknown) (no date) (unknown) (unknown) Past Pregnancies (un its unknown) (unknown) (unknown) (no date) (unknown) (unknown) Patient opts f or a routine visit at 11 weeks 5 days. She is (units unknown) (unknown) (unknown) (no date) (unknown) (unknown) Patient presen ts for an NOB visit at 7 wks gestation. Had some bleeding (units unknown) (unknown) (unknown) (no date) (unknown) (unknown) Patient's age 35 years or older as of estimated date of delivery: No (units unknown) (unknown) (unknown) (no date) (unknown) (unknown) Patient: Calin Godfrey MR#: (units unknown) (unknown) (unknown) (no date) (unknown) (unknown) Technical Assistant: MELISSA [place] (units unknown) (unknown) (unknown) (no date) (unknown) (unknown) Personal histo ry of STD: denies hx (units unknown) (unknown) (unknown) (no date) (unknown) (unknown) Personal histo ry of genital herpes: No (oral only) (units unknown) (unknown) (unknown) (no date) (unknown) (unknown) Position Sitting (un its unknown) (unknown) (unknown) (no date) (unknown) (unknown) History (u nits unknown) (unknown) (unknown) (no date) (unknown) (unknown) type :: Other Normal (units unknown) (unknown) (unknown) (no date) (unknown) (unknown) Education ( units unknown) (unknown) (unknown) (no date) (unknown) (unknown) Initi al Assessment (units unknown) (unknown) (unknown) (no date) (unknown) (unknown) Speci fic Issues/Plans (units unknown) (unknown) (unknown) (no date) (unknown) (unknown) Testi ng: discussed (units unknown) (unknown) (unknown) (no date) (unknown) (unknown) Visit (unit s unknown) (unknown) (unknown) (no date) (unknown) (unknown) educa tion packet: symptoms, Vitamins and iron, Diet and (units unknown) (unknown) (unknown) (no date) (unknown) (unknown) Primary Care Provider: MELISSA [place] (units unknown) (unknown) (unknown) (no date) (unknown) (unknown) Primary Ob Provider: Olivia Marshall (units unknown) (unknown) (unknown) (no date) (unknown) (unknown) Prior GBS-Infe cted child: No (units unknown) (unknown) (unknown) (no date) (unknown) (unknown) Providers (units unknown) (unknown) (unknown) (no date) (unknown) (unknown) Psoriasis (units unknown) (unknown) (unknown) (no date) (unknown) (unknown) Rapid first delivery (units unknown) (unknown) (unknown) (no date) (unknown) (unknown) Rash or viral illness since last menstrual period: No (units unknown) (unknown) (unknown) (no date) (unknown) (unknown) Reason For Visit (un its unknown) (unknown) (unknown) (no date) (unknown) (unknown) Recent travel outside of country?: No (units unknown) (unknown) (unknown) (no date) (unknown) (unknown) Reports Mental Retardation/Autism (sister had three very disabled children); (units unknown) (unknown) (unknown) (no date) (unknown) (unknown) S/P ACL repair (unit s unknown) (unknown) (unknown) (no date) (unknown) (unknown) Safety (units unknown) (unknown) (unknown) (no date) (unknown) (unknown) Second child f or this couple (units unknown) (unknown) (unknown) (no date) (unknown) (unknown) Severe PCOS (units unknown) (unknown) (unknown) (no date) (unknown) (unknown) She reports so me right sided hip pain and sciatica. She has a history of left (units unknown) (unknown) (unknown) (no date) (unknown) (unknown) She reports ur inary frequency, but denies painful urination, bladder pain, (units unknown) (unknown) (unknown) (no date) (unknown) (unknown) Shingles (units unknown) (unknown) (unknown) (no date) (unknown) (unknown) Shoulder pain (units unknown) (unknown) (unknown) (no date) (unknown) (unknown) Signed By: (units unknown) (unknown) (unknown) (no date) (unknown) (unknown) [place], [place] [address] (u nits unknown) (unknown) (unknown) (no date) (unknown) (unknown) Smoking Status : Current some day smoker (units unknown) (unknown) (unknown) (no date) (unknown) (unknown) Social History (unit s unknown) (unknown) (unknown) (no date) (unknown) (unknown) Support Person (s):: Reagan (units unknown) (unknown) (unknown) (no date) (unknown) (unknown) Surgical Histo ry (Updated 04/30/22 @ 08:16 by Krystina Lantigua RN) (units unknown) (unknown) (unknown) (no date) (unknown) (unknown) Surrogate ?: no (units unknown) (unknown) (unknown) (no date) (unknown) (unknown) Symptoms come on randomly and based on her description seem to be related to (units unknown) (unknown) (unknown) (no date) (unknown) (unknown) Symptoms since LMP: Reports amenorrhea, nausea, fatigue, breast tenderness, (units unknown) (unknown) (unknown) (no date) (unknown) (unknown) Teratogen Expo sures since LMP/Conception: Denies prescription medications, (units unknown) (unknown) (unknown) (no date) (unknown) (unknown) Testing Education (u nits unknown) (unknown) (unknown) (no date) (unknown) (unknown) Testing educat ion completed: group B strep and Spina bifida testing (units unknown) (unknown) (unknown) (no date) (unknown) (unknown) This note may have been all or partially generated using voice recognition (units unknown) (unknown) (unknown) (no date) (unknown) (unknown) Tobacco + Subs tance Use (units unknown) (unknown) (unknown) (no date) (unknown) (unknown) Tobacco Status (unit s unknown) (unknown) (unknown) (no date) (unknown) (unknown) Trimester:: 2n d Trimester (14-<28wks) (units unknown) (unknown) (unknown) (no date) (unknown) (unknown) Type(s) of exercise: walking (-7 miles/day), weight lifting and yoga (units unknown) (unknown) (unknown) (no date) (unknown) (unknown) UProtein Movem ent PreLabor FHR Fndl Ht Pres Edema Cerv Exam US/Comment Next Appt (units unknown) (unknown) (unknown) (no date) (unknown) (unknown) Varicella/chic delonte pox status: immunized (Hx shingles) (units unknown) (unknown) (unknown) (no date) (unknown) (unknown) Vertigo (units unknown) (unknown) (unknown) (no date) (unknown) (unknown) Visit Date: 07/12/22 Last Updated by: Frances Espinal P.A-C (units unknown) (unknown) (unknown) (no date) (unknown) (unknown) Visit Date: 08/09/22 Last Updated by: Frances Espinal P.A-C (units unknown) (unknown) (unknown) (no date) (unknown) (unknown) Visit Date: 05/11/22 Last Updated by: Olivia Marshall MD (units unknown) (unknown) (unknown) (no date) (unknown) (unknown) Visit Date: 06/08/22 Last Updated by: Olivia Marshall MD (units unknown) (unknown) (unknown) (no date) (unknown) (unknown) Visit Reasons: OB *Garde (units unknown) (unknown) (unknown) (no date) (unknown) (unknown) Vitals (units unknown) (unknown) (unknown) (no date) (unknown) (unknown) WG (units unknown) (unknown) (unknown) (no date) (unknown) (unknown) Weeks gestatio n:: 23 (units unknown) (unknown) (unknown) (no date) (unknown) (unknown) Weight 248 lb (units unknown) (unknown) (unknown) (no date) (unknown) (unknown) Zika virus exposure: No (units unknown) (unknown) (unknown) (no date) (unknown) (unknown) [History Confi rmed 08/31/22] (units unknown) (unknown) (unknown) (no date) (unknown) (unknown) activity, work/environmental/ hazards, Sexual activity, X-ray exposure, Medi (units unknown) (unknown) (unknown) (no date) (unknown) (unknown) additional soc ial history: Pt reports that she and her almost split up (units unknown) (unknown) (unknown) (no date) (unknown) (unknown) alcohol intake : former (very rarely when not ) (units unknown) (unknown) (unknown) (no date) (unknown) (unknown) and had an u/s on 05/08/22. Viable IUP at 7 wks. No further BRP. Plan: Pap, (units unknown) (unknown) (unknown) (no date) (unknown) (unknown) and is at a healthier size. Hx depression and anxiety, did not do well on (units unknown) (unknown) (unknown) (no date) (unknown) (unknown) antidepressant s, 'I was a zombie for a while.' Not currently medicated or (units unknown) (unknown) (unknown) (no date) (unknown) (unknown) anxiety is lik mali not particularly well controlled at present. (units unknown) (unknown) (unknown) (no date) (unknown) (unknown) [facility] with: (units unknown) (unknown) (unknown) (no date) (unknown) (unknown) azithromycin 2 50 mg tablet 1,000 mg PO ONCE Chlamydia #4 tabs 05/17/22 [Rx (units unknown) (unknown) (unknown) (no date) (unknown) (unknown) bilingual; boby [place] language is Marshallese, has spoken Andorran for-18 years. Also (units unknown) (unknown) (unknown) (no date) (unknown) (unknown) defects not listed above and Denies Other (units unknown) (unknown) (unknown) (no date) (unknown) (unknown) c/o migraine w / aura 'I smell blood when I'm going to have a migraine. It used (units unknown) (unknown) (unknown) (no date) (unknown) (unknown) caffeine: Yes (aware of 200mg limit) (units unknown) (unknown) (unknown) (no date) (unknown) (unknown) carbon monox detector in home: Yes (units unknown) (unknown) (unknown) (no date) (unknown) (unknown) caregiver/supp ort person: Yes (units unknown) (unknown) (unknown) (no date) (unknown) (unknown) cation use, Sauna/hot tub use, Dental care, Travel, Seatbelt use and Influenza (units unknown) (unknown) (unknown) (no date) (unknown) (unknown) cf DNA and MSA FP ordered. NRL female, AFP negative (units unknown) (unknown) (unknown) (no date) (unknown) (unknown) cramping and contractions. Chlamydia test of cure from last visit was negative. (units unknown) (unknown) (unknown) (no date) (unknown) (unknown) current occupational exposures/hazards: No (units unknown) (unknown) (unknown) (no date) (unknown) (unknown) daily servings fruits/ve or more times/day (units unknown) (unknown) (unknown) (no date) (unknown) (unknown) described, vis it schedule reviewed, ultrasounds policy reviewed, coverage 24 (units unknown) (unknown) (unknown) (no date) (unknown) (unknown) desires to hav e genetic testing so cell free DNA testing and MSAFP were ordered (units unknown) (unknown) (unknown) (no date) (unknown) (unknown) discussed, tuberculosis exposure discussed, CMV discussed, Toxoplasmosis (units unknown) (unknown) (unknown) (no date) (unknown) (unknown) disorders, Den ies Cystic Fibrosis, Denies Terrell's Chorea, Denies Other (units unknown) (unknown) (unknown) (no date) (unknown) (unknown) do you feel sa fe at home: Yes (units unknown) (unknown) (unknown) (no date) (unknown) (unknown) does complain of left breast tenderness. Plan: Test of cure for chlamydia (units unknown) (unknown) (unknown) (no date) (unknown) (unknown) drug abuse and pt is very concerned about how this may affect her children. (units unknown) (unknown) (unknown) (no date) (unknown) (unknown) during the pas t year weight has: decreased > 10 lbs (intentional w/ diet and (units unknown) (unknown) (unknown) (no date) (unknown) (unknown) education leve l: college (some college) (units unknown) (unknown) (unknown) (no date) (unknown) (unknown) exercise) (units unknown) (unknown) (unknown) (no date) (unknown) (unknown) wali/religious : [place] (units unknown) (unknown) (unknown) (no date) (unknown) (unknown) ferrous sulfat e 325 mg (65 mg iron) tablet (Feosol) 325 mg PO DAILY 04/30/22 (units unknown) (unknown) (unknown) (no date) (unknown) (unknown) fevers. UA was normal in the office today. No nit or leuks. Very mild CVAT on (units unknown) (unknown) (unknown) (no date) (unknown) (unknown) fire extinguis her in home: Yes (units unknown) (unknown) (unknown) (no date) (unknown) (unknown) firearms in me: No (units unknown) (unknown) (unknown) (no date) (unknown) (unknown) fluconazole 15 0 mg tablet (Diflucan) 150 mg PO DAILY #1 tab 07/30/22 [Rx (units unknown) (unknown) (unknown) (no date) (unknown) (unknown) folic acid 400 mcg tablet 0.4 mg PO DAILY 04/30/22 [History Confirmed 08/31/22] (units unknown) (unknown) (unknown) (no date) (unknown) (unknown) for about the last 3 years, has not ever discussed this w/ her PCP so far. (units unknown) (unknown) (unknown) (no date) (unknown) (unknown) frequency: daily (un its unknown) (unknown) (unknown) (no date) (unknown) (unknown) have occurred. If there are any questions, please contact the Medical Records (units unknown) (unknown) (unknown) (no date) (unknown) (unknown) home, no flo rns about violence or infidelity. Long family Hx of alcohol and (units unknown) (unknown) (unknown) (no date) (unknown) (unknown) hours a day an d participation of father in care and office visits (units unknown) (unknown) (unknown) (no date) (unknown) (unknown) household memb ers: spouse, family (brother) and children (units unknown) (unknown) (unknown) (no date) (unknown) (unknown) housing: apartment ( units unknown) (unknown) (unknown) (no date) (unknown) (unknown) inherited gene tic or chromosomal disorder, Denies Maternal Metabolic Disorder (units unknown) (unknown) (unknown) (no date) (unknown) (unknown) intake. Kathie berman precautions reviewed. F/u in 4 wks. (units unknown) (unknown) (unknown) (no date) (unknown) (unknown) kag (units unknown) (unknown) (unknown) (no date) (unknown) (unknown) levothyroxine 50 mcg capsule 50 mcg PO DAILY #90 caps 08/12/22 [Rx Confirmed (units unknown) (unknown) (unknown) (no date) (unknown) (unknown) lives independently: Yes (units unknown) (unknown) (unknown) (no date) (unknown) (unknown) marital status : (units unknown) (unknown) (unknown) (no date) (unknown) (unknown) may occur. Occasional wrong-word or 'sound-alike' substitutions may have (units unknown) (unknown) (unknown) (no date) (unknown) (unknown) months none [place] ( units unknown) (unknown) (unknown) (no date) (unknown) (unknown) movement and d enies VB, LOF, cramping, contractions and abnormal discharge. She (units unknown) (unknown) (unknown) (no date) (unknown) (unknown) normal pregnan cy, second trimester, Z3A.23 - 23 weeks gestation of (units unknown) (unknown) (unknown) (no date) (unknown) (unknown) number of chil dren: 3 (includes 2 stepchildren) (units unknown) (unknown) (unknown) (no date) (unknown) (unknown) occupational status: employed (desk/office job) (units unknown) (unknown) (unknown) (no date) (unknown) (unknown) occurred due t o the inherent limitations of voice recognition software. Please (units unknown) (unknown) (unknown) (no date) (unknown) (unknown) omega 0-gch-sps-fish oil 100 mg-160 mg-1,000 mg capsule (Fish Oil) 1 cap PO (units unknown) (unknown) (unknown) (no date) (unknown) (unknown) other normal , second trimester, Z3A.23 - 23 weeks gestation of (units unknown) (unknown) (unknown) (no date) (unknown) (unknown) oxymetazoline 0.05 % nasal spray 1 spray intranasal BID 04/30/22 [History (units unknown) (unknown) (unknown) (no date) (unknown) (unknown) pets and anima ls: No (units unknown) (unknown) (unknown) (no date) (unknown) (unknown) precautions, Listeriosis prevention and Rubella Immunization (units unknown) (unknown) (unknown) (no date) (unknown) (unknown) (units unknown) (unknown) (unknown) (no date) (unknown) (unknown) prenat.vits,ca l,min -iron-folic 1 tab PO DAILY 04/30/22 [History Confirmed (units unknown) (unknown) (unknown) (no date) (unknown) (unknown) r/o kidney pathology. ED precautions reviewed. Advised to increase fluid (units unknown) (unknown) (unknown) (no date) (unknown) (unknown) read the note carefully and recognize, using context, where these substitutions (units unknown) (unknown) (unknown) (no date) (unknown) (unknown) recently but madi diana decided to stay together in light of this . She (units unknown) (unknown) (unknown) (no date) (unknown) (unknown) reports some r ight sided flank pain x 4 days. She reports it is achy and dull. (units unknown) (unknown) (unknown) (no date) (unknown) (unknown) reports that is nervous and excited, confirms that she is safe in her (units unknown) (unknown) (unknown) (no date) (unknown) (unknown) required D+C (units unknown) (unknown) (unknown) (no date) (unknown) (unknown) reviewed. Foll ow-up in 4 weeks or as needed. (units unknown) (unknown) (unknown) (no date) (unknown) (unknown) seatbelt use: always (units unknown) (unknown) (unknown) (no date) (unknown) (unknown) second hand exposure: Yes ( also smokes) (units unknown) (unknown) (unknown) (no date) (unknown) (unknown) seeing funeral counselor or, although her affect during intake call indicates that her (units unknown) (unknown) (unknown) (no date) (unknown) (unknown) shot but we wi ll consider getting 1 next visit. Warning precautions were (units unknown) (unknown) (unknown) (no date) (unknown) (unknown) sided sciatica . She desires PT referral for hip pain. Referral sent. She (units unknown) (unknown) (unknown) (no date) (unknown) (unknown) skin and scalp . Slightly enlarged thyroid on exam. CBC and TSH refulx to T4 (units unknown) (unknown) (unknown) (no date) (unknown) (unknown) software. Alth ough every effort is made to edit content, direct service professional errors (units unknown) (unknown) (unknown) (no date) (unknown) (unknown) special wali needs: No (units unknown) (unknown) (unknown) (no date) (unknown) (unknown) still having s ome nausea and vomiting. She does not want any medication for (units unknown) (unknown) (unknown) (no date) (unknown) (unknown) stress and anx iety. Worse since she has been , 'This is much worse than (units unknown) (unknown) (unknown) (no date) (unknown) (unknown) substance use type: does not use (units unknown) (unknown) (unknown) (no date) (unknown) (unknown) the right on e xam. Discussed MSK cause vs kidney stones. Ordered kidney US to (units unknown) (unknown) (unknown) (no date) (unknown) (unknown) the week befor e she found out), Denies illicit drugs and Denies other (units unknown) (unknown) (unknown) (no date) (unknown) (unknown) this. Her Pap smear came back positive for chlamydia. She was treated. She (units unknown) (unknown) (unknown) (no date) (unknown) (unknown) to be a sweet smell, but the last few years it's been blood.' Migraines appear (units unknown) (unknown) (unknown) (no date) (unknown) (unknown) to be largely hormonal and are worse when pt is heavy than when she loses weight (units unknown) (unknown) (unknown) (no date) (unknown) (unknown) today. Follow- up in 4-5 weeks. Warning signs reviewed. (units unknown) (unknown) (unknown) (no date) (unknown) (unknown) today. Ordered 20 week anatomy ultrasound. She is unsure if she wants a flu (units unknown) (unknown) (unknown) (no date) (unknown) (unknown) travel history : recent (domestic only) (units unknown) (unknown) (unknown) (no date) (unknown) (unknown) urinary freque ncy, irritability and other (headaches, heartburn) (units unknown) (unknown) (unknown) (no date) (unknown) (unknown) vaccine (decli so flu, undecided on Covid booster) (units unknown) (unknown) (unknown) (no date) (unknown) (unknown) was recently treated for a yeast infection and reports it resolved with (units unknown) (unknown) (unknown) (no date) (unknown) (unknown) water heater t emp set < 120 deg: Yes (units unknown) (unknown) (unknown) (no date) (unknown) (unknown) weeks 4 days. She reports some fluttering movement and denies VB, LOF, (units unknown) (unknown) (unknown) (no date) (unknown) (unknown) weight gain, F marci and mercury intake, Smoking, Caffeine use, Exercise and (units unknown) (unknown) (unknown) (no date) (unknown) (unknown) well-balanced diet: daily or most days (units unknown) (unknown) (unknown) (no date) (unknown) (unknown) were ordered. Pt will have labs drawn after the visit. Flu shot given. She also (units unknown) (unknown) (unknown) (no date) (unknown) (unknown) working smoke detector in home: Yes (units unknown) (unknown) (unknown) (no date) (unknown) (unknown) yet available. She reports hair loss, brittle hair and nails, fatigue, and dry (units unknown) (unknown) Result panel 69 (unknown) (no date) (unknown) (unknown) (no value) (units unknown) (unknown) (unknown) (no date) (unknown) (unknown) 'mama brain,' I'm worried I have early onset dementia.' Notably, pt is (units unknown) (unknown) (unknown) (no date) (unknown) (unknown) (+19 lb) 108/64 N (u nits unknown) (unknown) (unknown) (no date) (unknown) (unknown) (+26 lb) 116/64 N (u nits unknown) (unknown) (unknown) (no date) (unknown) (unknown) (+36 lb) 106/66 N (u nits unknown) (unknown) (unknown) (no date) (unknown) (unknown) (+42 lb) 120/66 N (u nits unknown) (unknown) (unknown) (no date) (unknown) (unknown) (EG,TYPE 1 Diabetes, PKU), Denies Patient or baby's father had a child with (units unknown) (unknown) (unknown) (no date) (unknown) (unknown) Genetic Screening/Teratolog y Counseling - Includes patient, baby's father, or (units unknown) (unknown) (unknown) (no date) (unknown) (unknown) +CT, Tx'd. Nee ds FLETCHER. FLETCHER negative. (units unknown) (unknown) (unknown) (no date) (unknown) (unknown) -?-?-?-?-?-?-? -?-?- ?-?-? (units unknown) (unknown) (unknown) (no date) (unknown) (unknown) .COMPLEX 04/30 [History Confirmed 08/31/22] (units unknown) (unknown) (unknown) (no date) (unknown) (unknown) 07/12/22 (units unknown) (unknown) (unknown) (no date) (unknown) (unknown) 08/09/22 (units unknown) (unknown) (unknown) (no date) (unknown) (unknown) 08/31/22 (units unknown) (unknown) (unknown) (no date) (unknown) (unknown) 08/31/22] (units unknown) (unknown) (unknown) (no date) (unknown) (unknown) 09/25/10 14 spontaneous (units unknown) (unknown) (unknown) (no date) (unknown) (unknown) 12/23/22 Ultra sound #2 23w 5d (units unknown) (unknown) (unknown) (no date) (unknown) (unknown) 08:23 (units unknown) (unknown) (unknown) (no date) (unknown) (unknown) 02/25/15 41.3 5 9 lb 8 oz Male vaginal live - full term (units unknown) (unknown) (unknown) (no date) (unknown) (unknown) 05/11/22 (units unknown) (unknown) (unknown) (no date) (unknown) (unknown) 11w 5d 226 lb (units unknown) (unknown) (unknown) (no date) (unknown) (unknown) 06/08/ (units unknown) (unknown) (unknown) (no date) (unknown) (unknown) 16w 4d 236 lb (units unknown) (unknown) (unknown) (no date) (unknown) (unknown) 20w 4d 242 lb (units unknown) (unknown) (unknown) (no date) (unknown) (unknown) 4 wks (units unknown) (unknown) (unknown) (no date) (unknown) (unknown) 7w 5d 219 lb (units unknown) (unknown) (unknown) (no date) (unknown) (unknown) Abnormal lab v alues 1st trimester: discussed (units unknown) (unknown) (unknown) (no date) (unknown) (unknown) Acne (units unknown) (unknown) (unknown) (no date) (unknown) (unknown) Add'l Plan Details ( units unknown) (unknown) (unknown) (no date) (unknown) (unknown) Additional Details:: Pt reports concerns about memory and word finding issues (units unknown) (unknown) (unknown) (no date) (unknown) (unknown) Additional Soc ial History (units unknown) (unknown) (unknown) (no date) (unknown) (unknown) Age/Sex: 32 / F Date of Service: (units unknown) (unknown) (unknown) (no date) (unknown) (unknown) Allergies (units unknown) (unknown) (unknown) (no date) (unknown) (unknown) [place] [id number] (units unknown) (unknown) (unknown) (no date) (unknown) (unknown) Anemia (units unknown) (unknown) (unknown) (no date) (unknown) (unknown) Aneuploidy Screening Offered: Accepted (likely will do quad screen, undecided) (units unknown) (unknown) (unknown) (no date) (unknown) (unknown) Anticipated co urse of care: discussed (units unknown) (unknown) (unknown) (no date) (unknown) (unknown) Anxiety (units unknown) (unknown) (unknown) (no date) (unknown) (unknown) Anxiety/depres marcy not very well managed, has not tolerated meds in the past. (units unknown) (unknown) (unknown) (no date) (unknown) (unknown) Assessment and Plan (units unknown) (unknown) (unknown) (no date) (unknown) (unknown) Attending Dr: Bert Roque MD (units unknown) (unknown) (unknown) (no date) (unknown) (unknown) BMI 41.2 (units unknown) (unknown) (unknown) (no date) (unknown) (unknown) BP 118/72 (units unknown) (unknown) (unknown) (no date) (unknown) (unknown) Plan/Preferences (units unknown) (unknown) (unknown) (no date) (unknown) (unknown) Planning (unit s unknown) (unknown) (unknown) (no date) (unknown) (unknown) Bleeding in fi rst trimester (units unknown) (unknown) (unknown) (no date) (unknown) (unknown) Blood Pressure Location Rt brachial (units unknown) (unknown) (unknown) (no date) (unknown) (unknown) Blood transfusions?: yes (Never had but would accept) (units unknown) (unknown) (unknown) (no date) (unknown) (unknown) Breastfeed Pre g Comp Name (units unknown) (unknown) (unknown) (no date) (unknown) (unknown) Brother Alcoholism ( units unknown) (unknown) (unknown) (no date) (unknown) (unknown) Carpal tunnel syndrome (units unknown) (unknown) (unknown) (no date) (unknown) (unknown) Calin present s today for routine OB f/u at 20w4d. She reports good (units unknown) (unknown) (unknown) (no date) (unknown) (unknown) Calin present s with her today for routine OB follow-up at 16 (units unknown) (unknown) (unknown) (no date) (unknown) (unknown) Confirmed 08/31/22] (units unknown) (unknown) (unknown) (no date) (unknown) (unknown) Current Estima te 12/23/22 Ultrasound #1 23w 5d (units unknown) (unknown) (unknown) (no date) (unknown) (unknown) Current Pregna ncy History (units unknown) (unknown) (unknown) (no date) (unknown) (unknown) : 199 0 Acct:[id number] (units unknown) (unknown) (unknown) (no date) (unknown) (unknown) Date of positi ve home test: 04/17/22 (units unknown) (unknown) (unknown) (no date) (unknown) (unknown) Date (units unknown) (unknown) (unknown) (no date) (unknown) (unknown) Del. Date GA/W eeks Labor Lgth Wt Sex Route Outcome Anesthesia Place (units unknown) (unknown) (unknown) (no date) (unknown) (unknown) Delivery Date: 09/25/10 Last Updated by: Krystina Lantigua RN (units unknown) (unknown) (unknown) (no date) (unknown) (unknown) Delv (units unknown) (unknown) (unknown) (no date) (unknown) (unknown) Denies Congeni gerard Heart Defect, Denies Down Syndrome, Denies Muscular Dystrophy, (units unknown) (unknown) (unknown) (no date) (unknown) (unknown) Denies Neural Tube Defect (Meningomyelocele, Spina Bifida, or Anencephaly), (units unknown) (unknown) (unknown) (no date) (unknown) (unknown) Denies Sickle Cell Disease or Trait (), Denies Hemophilia or other blood (units unknown) (unknown) (unknown) (no date) (unknown) (unknown) Denies Rodney-Sac hs (Ashkenazi Lutheran, [facility], [place] Island[place]an), Denies Kayy (units unknown) (unknown) (unknown) (no date) (unknown) (unknown) Denies over th e counter medications, Reports alcohol (drank 2 bottles of wine (units unknown) (unknown) (unknown) (no date) (unknown) (unknown) Depression (units unknown) (unknown) (unknown) (no date) (unknown) (unknown) Depression: discussed (units unknown) (unknown) (unknown) (no date) (unknown) (unknown) Dept at . (units unknown) (unknown) (unknown) (no date) (unknown) (unknown) Diet and Exercise (u nits unknown) (unknown) (unknown) (no date) (unknown) (unknown) Diflucan. cfDN A and AFP were normal. Anatomy US was done today, but report not (units unknown) (unknown) (unknown) (no date) (unknown) (unknown) Disease (Ash[place] nazi Lutheran), Denies Familial Dysautonomia (Ashkenazi Lutheran), (units unknown) (unknown) (unknown) (no date) (unknown) (unknown) Documented By: Bert Roque MD 08/31/22 0822 (units unknown) (unknown) (unknown) (no date) (unknown) (unknown) Draft (units unknown) (unknown) (unknown) (no date) (unknown) (unknown) MADISYN Calculator (unit s unknown) (unknown) (unknown) (no date) (unknown) (unknown) EGA Weight BP UGlucose (units unknown) (unknown) (unknown) (no date) (unknown) (unknown) Eczema (units unknown) (unknown) (unknown) (no date) (unknown) (unknown) Estimated Deli very Date Method Current (units unknown) (unknown) (unknown) (no date) (unknown) (unknown) F/U 4 wks. Haresh carbajal signs reviewed. (units unknown) (unknown) (unknown) (no date) (unknown) (unknown) Family History (Updated 04/30/22 @ 08:33 by Krystina Lantigua RN) (units unknown) (unknown) (unknown) (no date) (unknown) (unknown) Family/Other Neurological abnormality (units unknown) (unknown) (unknown) (no date) (unknown) (unknown) Family/Other Obsessive compulsive disorder (units unknown) (unknown) (unknown) (no date) (unknown) (unknown) Father d Alcoholism (units unknown) (unknown) (unknown) (no date) (unknown) (unknown) Father of Baby : same (units unknown) (unknown) (unknown) (no date) (unknown) (unknown) [facility] (units unknown) (unknown) (unknown) (no date) (unknown) (unknown) First Trimeste r Education Checklist (units unknown) (unknown) (unknown) (no date) (unknown) (unknown) (units unknown) (unknown) (unknown) (no date) (unknown) (unknown) GERD (gastroesophageal reflux disease) (units unknown) (unknown) (unknown) (no date) (unknown) (unknown) GTT (PREG) 1 H our PP 50gm Dose 4 Weeks Z34.82 - Encounter for supervision of (units unknown) (unknown) (unknown) (no date) (unknown) (unknown) Garde pt here for OB Check (units unknown) (unknown) (unknown) (no date) (unknown) (unknown) Genetic Screen ing + Counseling (units unknown) (unknown) (unknown) (no date) (unknown) (unknown) Genetic Screening (u nits unknown) (unknown) (unknown) (no date) (unknown) (unknown) Grandfather No problems noted. (units unknown) (unknown) (unknown) (no date) (unknown) (unknown) Grandmother Coagulopathy (units unknown) (unknown) (unknown) (no date) (unknown) (unknown) Grandmother Leukemia (units unknown) (unknown) (unknown) (no date) (unknown) (unknown) 3 Mult iple births (units unknown) (unknown) (unknown) (no date) (unknown) (unknown) HIV risk evaluation: low risk (units unknown) (unknown) (unknown) (no date) (unknown) (unknown) HSV-1 infection (uni ts unknown) (unknown) (unknown) (no date) (unknown) (unknown) Headache (units unknown) (unknown) (unknown) (no date) (unknown) (unknown) Health Center Education (units unknown) (unknown) (unknown) (no date) (unknown) (unknown) Health center information: nature of practice discussed, personnel (units unknown) (unknown) (unknown) (no date) (unknown) (unknown) Height 5 ft 5 in (un its unknown) (unknown) (unknown) (no date) (unknown) (unknown) Hemoglobin and Hematocrit 4 Weeks Z34.82 - Encounter for supervision of other (units unknown) (unknown) (unknown) (no date) (unknown) (unknown) Hemorrhoids (units unknown) (unknown) (unknown) (no date) (unknown) (unknown) Hepatitis C ri sk evaluation: low risk (units unknown) (unknown) (unknown) (no date) (unknown) (unknown) History of Hepatitis B: No (units unknown) (unknown) (unknown) (no date) (unknown) (unknown) History of Hepatitis C: No (units unknown) (unknown) (unknown) (no date) (unknown) (unknown) History of rem oval of skin mole (units unknown) (unknown) (unknown) (no date) (unknown) (unknown) Hospital: [facility] (units unknown) (unknown) (unknown) (no date) (unknown) (unknown) [facility] (units unknown) (unknown) (unknown) (no date) (unknown) (unknown) Hx # Pregnancies 0 Elective abortions 0 (units unknown) (unknown) (unknown) (no date) (unknown) (unknown) Hx # Term Pregnancies 1 Ectopic pregnancies 0 (units unknown) (unknown) (unknown) (no date) (unknown) (unknown) will be adopted?: no (units unknown) (unknown) (unknown) (no date) (unknown) (unknown) Infection History (u nits unknown) (unknown) (unknown) (no date) (unknown) (unknown) Infectious Dis ease Education (units unknown) (unknown) (unknown) (no date) (unknown) (unknown) Infectious dis ease exposure: chicken pox immunity discussed, hepatitis risk (units unknown) (unknown) (unknown) (no date) (unknown) (unknown) Initial Weight : 200 lb (units unknown) (unknown) (unknown) (no date) (unknown) (unknown) Initials (units unknown) (unknown) (unknown) (no date) (unknown) (unknown) Intake Clinica l Staff (units unknown) (unknown) (unknown) (no date) (unknown) (unknown) Intake Note: (units unknown) (unknown) (unknown) (no date) (unknown) (unknown) Intake perform ed by: Yunier Kolb (units unknown) (unknown) (unknown) (no date) (unknown) (unknown) Intake (units unknown) (unknown) (unknown) (no date) (unknown) (unknown) LM (units unknown) (unknown) (unknown) (no date) (unknown) (unknown) Live with some one with TB or exposed to TB: No (units unknown) (unknown) (unknown) (no date) (unknown) (unknown) Loc: [facility] (units unknown) (unknown) (unknown) (no date) (unknown) (unknown) [id number] (units unknown) (unknown) (unknown) (no date) (unknown) (unknown) Marital status : (units unknown) (unknown) (unknown) (no date) (unknown) (unknown) Medical Histor y (Updated 06/07/22 @ 20:59 by Rossy Chaudhari) (units unknown) (unknown) (unknown) (no date) (unknown) (unknown) Medications (units unknown) (unknown) (unknown) (no date) (unknown) (unknown) Migraine with aura ( units unknown) (unknown) (unknown) (no date) (unknown) (unknown) Migraines (units unknown) (unknown) (unknown) (no date) (unknown) (unknown) Mother d Alcoholism (units unknown) (unknown) (unknown) (no date) (unknown) (unknown) N No no 1,661 7 N/A absent long/closed (units unknown) (unknown) (unknown) (no date) (unknown) (unknown) N No no 166 12 N/A absent 4 wks (units unknown) (unknown) (unknown) (no date) (unknown) (unknown) N Yes no 146 2 0 N/A absent flu shot given (units unknown) (unknown) (unknown) (no date) (unknown) (unknown) N Yes no 151 1 8 N/A absent FLETCHER negative (units unknown) (unknown) (unknown) (no date) (unknown) (unknown) Nasal congestion (un its unknown) (unknown) (unknown) (no date) (unknown) (unknown) No Known Drug Allergies Allergy (Verified 08/31/22 08:23) (units unknown) (unknown) (unknown) (no date) (unknown) (unknown) Notes (units unknown) (unknown) (unknown) (no date) (unknown) (unknown) Number of Mandy ng Children 1 (units unknown) (unknown) (unknown) (no date) (unknown) (unknown) Number of fetu ses:: Single (units unknown) (unknown) (unknown) (no date) (unknown) (unknown) Nutrition and weight gain counseling: special diet: discussed (units unknown) (unknown) (unknown) (no date) (unknown) (unknown) OB Office Visit (uni ts unknown) (unknown) (unknown) (no date) (unknown) (unknown) OB Visit Log (units unknown) (unknown) (unknown) (no date) (unknown) (unknown) Orders (units unknown) (unknown) (unknown) (no date) (unknown) (unknown) Orders: (units unknown) (unknown) (unknown) (no date) (unknown) (unknown) Other Estimate s 11/15/22 LMP (Uncertain) 29w 1d (units unknown) (unknown) (unknown) (no date) (unknown) (unknown) Other Substanc e abuse (units unknown) (unknown) (unknown) (no date) (unknown) (unknown) Ovarian cyst (units unknown) (unknown) (unknown) (no date) (unknown) (unknown) PCOS (polycyst ic ovarian syndrome) (units unknown) (unknown) (unknown) (no date) (unknown) (unknown) PFSH (units unknown) (unknown) (unknown) (no date) (unknown) (unknown) Painful menstr ual periods (units unknown) (unknown) (unknown) (no date) (unknown) (unknown) Para 1 Spontan eous abortions 1 (units unknown) (unknown) (unknown) (no date) (unknown) (unknown) Partner histor y of STD: denies hx (units unknown) (unknown) (unknown) (no date) (unknown) (unknown) Partner histor y of genital herpes: No (units unknown) (unknown) (unknown) (no date) (unknown) (unknown) Partner: Cheko (units unknown) (unknown) (unknown) (no date) (unknown) (unknown) Past Pregnancies (un its unknown) (unknown) (unknown) (no date) (unknown) (unknown) Patient opts f or a routine visit at 11 weeks 5 days. She is (units unknown) (unknown) (unknown) (no date) (unknown) (unknown) Patient presen ts for an NOB visit at 7 wks gestation. Had some bleeding (units unknown) (unknown) (unknown) (no date) (unknown) (unknown) Patient's age 35 years or older as of estimated date of delivery: No (units unknown) (unknown) (unknown) (no date) (unknown) (unknown) Patient: Calin Godfrey MR#: (units unknown) (unknown) (unknown) (no date) (unknown) (unknown) Technical Assistant: MELISSA [place] (units unknown) (unknown) (unknown) (no date) (unknown) (unknown) Personal histo ry of STD: denies hx (units unknown) (unknown) (unknown) (no date) (unknown) (unknown) Personal histo ry of genital herpes: No (oral only) (units unknown) (unknown) (unknown) (no date) (unknown) (unknown) Position Sitting (un its unknown) (unknown) (unknown) (no date) (unknown) (unknown) History (u nits unknown) (unknown) (unknown) (no date) (unknown) (unknown) type :: Other Normal (units unknown) (unknown) (unknown) (no date) (unknown) (unknown) Education ( units unknown) (unknown) (unknown) (no date) (unknown) (unknown) Initi al Assessment (units unknown) (unknown) (unknown) (no date) (unknown) (unknown) Speci fic Issues/Plans (units unknown) (unknown) (unknown) (no date) (unknown) (unknown) Testi ng: discussed (units unknown) (unknown) (unknown) (no date) (unknown) (unknown) Visit (unit s unknown) (unknown) (unknown) (no date) (unknown) (unknown) educa tion packet: symptoms, Vitamins and iron, Diet and (units unknown) (unknown) (unknown) (no date) (unknown) (unknown) Primary Care Provider: MELISSA [place] (units unknown) (unknown) (unknown) (no date) (unknown) (unknown) Primary Ob Provider: Olivia Marshall (units unknown) (unknown) (unknown) (no date) (unknown) (unknown) Prior GBS-Infe cted child: No (units unknown) (unknown) (unknown) (no date) (unknown) (unknown) Providers (units unknown) (unknown) (unknown) (no date) (unknown) (unknown) Psoriasis (units unknown) (unknown) (unknown) (no date) (unknown) (unknown) Rapid first delivery (units unknown) (unknown) (unknown) (no date) (unknown) (unknown) Rash or viral illness since last menstrual period: No (units unknown) (unknown) (unknown) (no date) (unknown) (unknown) Reason For Visit (un its unknown) (unknown) (unknown) (no date) (unknown) (unknown) Recent travel outside of country?: No (units unknown) (unknown) (unknown) (no date) (unknown) (unknown) Reports Mental Retardation/Autism (sister had three very disabled children); (units unknown) (unknown) (unknown) (no date) (unknown) (unknown) S/P ACL repair (unit s unknown) (unknown) (unknown) (no date) (unknown) (unknown) Safety (units unknown) (unknown) (unknown) (no date) (unknown) (unknown) Second child f or this couple (units unknown) (unknown) (unknown) (no date) (unknown) (unknown) Severe PCOS (units unknown) (unknown) (unknown) (no date) (unknown) (unknown) She reports so me right sided hip pain and sciatica. She has a history of left (units unknown) (unknown) (unknown) (no date) (unknown) (unknown) She reports ur inary frequency, but denies painful urination, bladder pain, (units unknown) (unknown) (unknown) (no date) (unknown) (unknown) Shingles (units unknown) (unknown) (unknown) (no date) (unknown) (unknown) Shoulder pain (units unknown) (unknown) (unknown) (no date) (unknown) (unknown) Signed By: (units unknown) (unknown) (unknown) (no date) (unknown) (unknown) JAVIER Hussein 10 (u nits unknown) (unknown) (unknown) (no date) (unknown) (unknown) Smoking Status : Current some day smoker (units unknown) (unknown) (unknown) (no date) (unknown) (unknown) Social History (unit s unknown) (unknown) (unknown) (no date) (unknown) (unknown) Support Person (s):: Reagan (units unknown) (unknown) (unknown) (no date) (unknown) (unknown) Surgical Histo ry (Updated 04/30/22 @ 08:16 by Krystina Lantigua RN) (units unknown) (unknown) (unknown) (no date) (unknown) (unknown) Surrogate ?: no (units unknown) (unknown) (unknown) (no date) (unknown) (unknown) Symptoms come on randomly and based on her description seem to be related to (units unknown) (unknown) (unknown) (no date) (unknown) (unknown) Symptoms since LMP: Reports amenorrhea, nausea, fatigue, breast tenderness, (units unknown) (unknown) (unknown) (no date) (unknown) (unknown) Teratogen Expo sures since LMP/Conception: Denies prescription medications, (units unknown) (unknown) (unknown) (no date) (unknown) (unknown) Testing Education (u nits unknown) (unknown) (unknown) (no date) (unknown) (unknown) Testing educat ion completed: group B strep and Spina bifida testing (units unknown) (unknown) (unknown) (no date) (unknown) (unknown) This note may have been all or partially generated using voice recognition (units unknown) (unknown) (unknown) (no date) (unknown) (unknown) Tobacco + Subs tance Use (units unknown) (unknown) (unknown) (no date) (unknown) (unknown) Tobacco Status (unit s unknown) (unknown) (unknown) (no date) (unknown) (unknown) Trimester:: 2n d Trimester (14-<28wks) (units unknown) (unknown) (unknown) (no date) (unknown) (unknown) Type(s) of exercise: walking (-7 miles/day), weight lifting and yoga (units unknown) (unknown) (unknown) (no date) (unknown) (unknown) UProtein Movem ent PreLabor FHR Fndl Ht Pres Edema Cerv Exam US/Comment Next Appt (units unknown) (unknown) (unknown) (no date) (unknown) (unknown) Varicella/chic [place] pox status: immunized (Hx shingles) (units unknown) (unknown) (unknown) (no date) (unknown) (unknown) Vertigo (units unknown) (unknown) (unknown) (no date) (unknown) (unknown) Visit Date: 07/12/22 Last Updated by: Frances Espinal P.A-C (units unknown) (unknown) (unknown) (no date) (unknown) (unknown) Visit Date: 08/09/22 Last Updated by: Frances Espinal P.A-C (units unknown) (unknown) (unknown) (no date) (unknown) (unknown) Visit Date: 05/11/22 Last Updated by: Olivia Marshall MD (units unknown) (unknown) (unknown) (no date) (unknown) (unknown) Visit Date: 06/08/22 Last Updated by: Olivia Marshall MD (units unknown) (unknown) (unknown) (no date) (unknown) (unknown) Visit Reasons: OB *Joanna (units unknown) (unknown) (unknown) (no date) (unknown) (unknown) Vitals (units unknown) (unknown) (unknown) (no date) (unknown) (unknown) WG (units unknown) (unknown) (unknown) (no date) (unknown) (unknown) Weeks gestatio n:: 23 (units unknown) (unknown) (unknown) (no date) (unknown) (unknown) Weight 248 lb (units unknown) (unknown) (unknown) (no date) (unknown) (unknown) Zika virus exposure: No (units unknown) (unknown) (unknown) (no date) (unknown) (unknown) [History Confi rmed 08/31/22] (units unknown) (unknown) (unknown) (no date) (unknown) (unknown) activity, work/environmental/ hazards, Sexual activity, X-ray exposure, Medi (units unknown) (unknown) (unknown) (no date) (unknown) (unknown) additional soc ial history: Pt reports that she and her almost split up (units unknown) (unknown) (unknown) (no date) (unknown) (unknown) alcohol intake : former (very rarely when not ) (units unknown) (unknown) (unknown) (no date) (unknown) (unknown) and had an u/s on 05/08/22. Viable IUP at 7 wks. No further BRP. Plan: Pap, (units unknown) (unknown) (unknown) (no date) (unknown) (unknown) and is at a healthier size. Hx depression and anxiety, did not do well on (units unknown) (unknown) (unknown) (no date) (unknown) (unknown) antidepressant s, 'I was a zombie for a while.' Not currently medicated or (units unknown) (unknown) (unknown) (no date) (unknown) (unknown) anxiety is lik mali not particularly well controlled at present. (units unknown) (unknown) (unknown) (no date) (unknown) (unknown) anyone in eith er family with: (units unknown) (unknown) (unknown) (no date) (unknown) (unknown) azithromycin 2 50 mg tablet 1,000 mg PO ONCE Chlamydia #4 tabs 05/17/22 [Rx (units unknown) (unknown) (unknown) (no date) (unknown) (unknown) bilingual; boby sangeeta language is Marshallese, has spoken Andorran for-18 years. Also (units unknown) (unknown) (unknown) (no date) (unknown) (unknown) defects not listed above and Denies Other (units unknown) (unknown) (unknown) (no date) (unknown) (unknown) c/o migraine w / aura 'I smell blood when I'm going to have a migraine. It used (units unknown) (unknown) (unknown) (no date) (unknown) (unknown) caffeine: Yes (aware of 200mg limit) (units unknown) (unknown) (unknown) (no date) (unknown) (unknown) carbon monox detector in home: Yes (units unknown) (unknown) (unknown) (no date) (unknown) (unknown) caregiver/supp ort person: Yes (units unknown) (unknown) (unknown) (no date) (unknown) (unknown) cation use, Sauna/hot tub use, Dental care, Travel, Seatbelt use and Influenza (units unknown) (unknown) (unknown) (no date) (unknown) (unknown) cf DNA and MSA FP ordered. NRL female, AFP negative (units unknown) (unknown) (unknown) (no date) (unknown) (unknown) cramping and contractions. Chlamydia test of cure from last visit was negative. (units unknown) (unknown) (unknown) (no date) (unknown) (unknown) current occupational exposures/hazards: No (units unknown) (unknown) (unknown) (no date) (unknown) (unknown) daily servings fruits/ve or more times/day (units unknown) (unknown) (unknown) (no date) (unknown) (unknown) described, vis it schedule reviewed, ultrasounds policy reviewed, coverage 24 (units unknown) (unknown) (unknown) (no date) (unknown) (unknown) desires to hav e genetic testing so cell free DNA testing and MSAFP were ordered (units unknown) (unknown) (unknown) (no date) (unknown) (unknown) discussed, tuberculosis exposure discussed, CMV discussed, Toxoplasmosis (units unknown) (unknown) (unknown) (no date) (unknown) (unknown) disorders, Den ies Cystic Fibrosis, Denies Terrell's Chorea, Denies Other (units unknown) (unknown) (unknown) (no date) (unknown) (unknown) do you feel sa fe at home: Yes (units unknown) (unknown) (unknown) (no date) (unknown) (unknown) does complain of left breast tenderness. Plan: Test of cure for chlamydia (units unknown) (unknown) (unknown) (no date) (unknown) (unknown) drug abuse and pt is very concerned about how this may affect her children. (units unknown) (unknown) (unknown) (no date) (unknown) (unknown) during the pas t year weight has: decreased > 10 lbs (intentional w/ diet and (units unknown) (unknown) (unknown) (no date) (unknown) (unknown) education leve l: college (some college) (units unknown) (unknown) (unknown) (no date) (unknown) (unknown) exercise) (units unknown) (unknown) (unknown) (no date) (unknown) (unknown) wali/religious : U[place]din (units unknown) (unknown) (unknown) (no date) (unknown) (unknown) ferrous sulfat e 325 mg (65 mg iron) tablet (Feosol) 325 mg PO DAILY 04/30/22 (units unknown) (unknown) (unknown) (no date) (unknown) (unknown) fevers. UA was normal in the office today. No nit or leuks. Very mild CVAT on (units unknown) (unknown) (unknown) (no date) (unknown) (unknown) fire extinguis her in home: Yes (units unknown) (unknown) (unknown) (no date) (unknown) (unknown) firearms in ho me: No (units unknown) (unknown) (unknown) (no date) (unknown) (unknown) fluconazole 15 0 mg tablet (Diflucan) 150 mg PO DAILY #1 tab 07/30/22 [Rx (units unknown) (unknown) (unknown) (no date) (unknown) (unknown) folic acid 400 mcg tablet 0.4 mg PO DAILY 04/30/22 [History Confirmed 08/31/22] (units unknown) (unknown) (unknown) (no date) (unknown) (unknown) for about the last 3 years, has not ever discussed this w/ her PCP so far. (units unknown) (unknown) (unknown) (no date) (unknown) (unknown) frequency: daily (un its unknown) (unknown) (unknown) (no date) (unknown) (unknown) have occurred. If there are any questions, please contact the Medical Records (units unknown) (unknown) (unknown) (no date) (unknown) (unknown) home, no flo rns about violence or infidelity. Long family Hx of alcohol and (units unknown) (unknown) (unknown) (no date) (unknown) (unknown) hours a day an d participation of father in care and office visits (units unknown) (unknown) (unknown) (no date) (unknown) (unknown) household memb ers: spouse, family (brother) and children (units unknown) (unknown) (unknown) (no date) (unknown) (unknown) housing: apartment ( units unknown) (unknown) (unknown) (no date) (unknown) (unknown) inherited gene tic or chromosomal disorder, Denies Maternal Metabolic Disorder (units unknown) (unknown) (unknown) (no date) (unknown) (unknown) intake. Kathie berman precautions reviewed. F/u in 4 wks. (units unknown) (unknown) (unknown) (no date) (unknown) (unknown) kag (units unknown) (unknown) (unknown) (no date) (unknown) (unknown) levothyroxine 50 mcg capsule 50 mcg PO DAILY #90 caps 08/12/22 [Rx Confirmed (units unknown) (unknown) (unknown) (no date) (unknown) (unknown) lives independently: Yes (units unknown) (unknown) (unknown) (no date) (unknown) (unknown) marital status : (units unknown) (unknown) (unknown) (no date) (unknown) (unknown) may occur. Occasional wrong-word or 'sound-alike' substitutions may have (units unknown) (unknown) (unknown) (no date) (unknown) (unknown) months none [place] ( units unknown) (unknown) (unknown) (no date) (unknown) (unknown) movement and d enies VB, LOF, cramping, contractions and abnormal discharge. She (units unknown) (unknown) (unknown) (no date) (unknown) (unknown) normal pregnan cy, second trimester, Z3A.23 - 23 weeks gestation of (units unknown) (unknown) (unknown) (no date) (unknown) (unknown) number of chil dren: 3 (includes 2 stepchildren) (units unknown) (unknown) (unknown) (no date) (unknown) (unknown) occupational status: employed (desk/office job) (units unknown) (unknown) (unknown) (no date) (unknown) (unknown) occurred due t o the inherent limitations of voice recognition software. Please (units unknown) (unknown) (unknown) (no date) (unknown) (unknown) omega 6-rtg-maf-fish oil 100 mg-160 mg-1,000 mg capsule (Fish Oil) 1 cap PO (units unknown) (unknown) (unknown) (no date) (unknown) (unknown) other normal , second trimester, Z3A.23 - 23 weeks gestation of (units unknown) (unknown) (unknown) (no date) (unknown) (unknown) oxymetazoline 0.05 % nasal spray 1 spray intranasal BID 04/30/22 [History (units unknown) (unknown) (unknown) (no date) (unknown) (unknown) pets and anima ls: No (units unknown) (unknown) (unknown) (no date) (unknown) (unknown) precautions, Listeriosis prevention and Rubella Immunization (units unknown) (unknown) (unknown) (no date) (unknown) (unknown) (units unknown) (unknown) (unknown) (no date) (unknown) (unknown) prenat.vits,ca l,min -iron-folic 1 tab PO DAILY 04/30/22 [History Confirmed (units unknown) (unknown) (unknown) (no date) (unknown) (unknown) r/o kidney pathology. ED precautions reviewed. Advised to increase fluid (units unknown) (unknown) (unknown) (no date) (unknown) (unknown) read the note carefully and recognize, using context, where these substitutions (units unknown) (unknown) (unknown) (no date) (unknown) (unknown) recently but madi diana decided to stay together in light of this . She (units unknown) (unknown) (unknown) (no date) (unknown) (unknown) reports some r ight sided flank pain x 4 days. She reports it is achy and dull. (units unknown) (unknown) (unknown) (no date) (unknown) (unknown) reports that is nervous and excited, confirms that she is safe in her (units unknown) (unknown) (unknown) (no date) (unknown) (unknown) required D+C (units unknown) (unknown) (unknown) (no date) (unknown) (unknown) reviewed. Foll ow-up in 4 weeks or as needed. (units unknown) (unknown) (unknown) (no date) (unknown) (unknown) seatbelt use: always (units unknown) (unknown) (unknown) (no date) (unknown) (unknown) second hand exposure: Yes ( also smokes) (units unknown) (unknown) (unknown) (no date) (unknown) (unknown) seeing funeral counselor or, although her affect during intake call indicates that her (units unknown) (unknown) (unknown) (no date) (unknown) (unknown) shot but we wi ll consider getting 1 next visit. Warning precautions were (units unknown) (unknown) (unknown) (no date) (unknown) (unknown) sided sciatica . She desires PT referral for hip pain. Referral sent. She (units unknown) (unknown) (unknown) (no date) (unknown) (unknown) skin and scalp . Slightly enlarged thyroid on exam. CBC and TSH refulx to T4 (units unknown) (unknown) (unknown) (no date) (unknown) (unknown) software. Alth ough every effort is made to edit content, direct service professional errors (units unknown) (unknown) (unknown) (no date) (unknown) (unknown) special wali needs: No (units unknown) (unknown) (unknown) (no date) (unknown) (unknown) still having s ome nausea and vomiting. She does not want any medication for (units unknown) (unknown) (unknown) (no date) (unknown) (unknown) stress and anx iety. Worse since she has been , 'This is much worse than (units unknown) (unknown) (unknown) (no date) (unknown) (unknown) substance use type: does not use (units unknown) (unknown) (unknown) (no date) (unknown) (unknown) the right on e xam. Discussed MSK cause vs kidney stones. Ordered kidney US to (units unknown) (unknown) (unknown) (no date) (unknown) (unknown) the week befor e she found out), Denies illicit drugs and Denies other (units unknown) (unknown) (unknown) (no date) (unknown) (unknown) this. Her Pap smear came back positive for chlamydia. She was treated. She (units unknown) (unknown) (unknown) (no date) (unknown) (unknown) to be a sweet smell, but the last few years it's been blood.' Migraines appear (units unknown) (unknown) (unknown) (no date) (unknown) (unknown) to be largely hormonal and are worse when pt is heavy than when she loses weight (units unknown) (unknown) (unknown) (no date) (unknown) (unknown) today. Follow- up in 4-5 weeks. Warning signs reviewed. (units unknown) (unknown) (unknown) (no date) (unknown) (unknown) today. Ordered 20 week anatomy ultrasound. She is unsure if she wants a flu (units unknown) (unknown) (unknown) (no date) (unknown) (unknown) travel history : recent (domestic only) (units unknown) (unknown) (unknown) (no date) (unknown) (unknown) urinary freque ncy, irritability and other (headaches, heartburn) (units unknown) (unknown) (unknown) (no date) (unknown) (unknown) vaccine (decli so flu, undecided on Covid booster) (units unknown) (unknown) (unknown) (no date) (unknown) (unknown) was recently treated for a yeast infection and reports it resolved with (units unknown) (unknown) (unknown) (no date) (unknown) (unknown) water heater t emp set < 120 deg: Yes (units unknown) (unknown) (unknown) (no date) (unknown) (unknown) weeks 4 days. She reports some fluttering movement and denies VB, LOF, (units unknown) (unknown) (unknown) (no date) (unknown) (unknown) weight gain, F marci and mercury intake, Smoking, Caffeine use, Exercise and (units unknown) (unknown) (unknown) (no date) (unknown) (unknown) well-balanced diet: daily or most days (units unknown) (unknown) (unknown) (no date) (unknown) (unknown) were ordered. Pt will have labs drawn after the visit. Flu shot given. She also (units unknown) (unknown) (unknown) (no date) (unknown) (unknown) working smoke detector in home: Yes (units unknown) (unknown) (unknown) (no date) (unknown) (unknown) yet available. She reports hair loss, brittle hair and nails, fatigue, and dry (units unknown) (unknown) Result panel 70 (unknown) (no date) (unknown) (unknown) (no value) (units unknown) (unknown) (unknown) (no date) (unknown) (unknown) 'mama brain,' I'm worried I have early onset dementia.' Notably, pt is (units unknown) (unknown) (unknown) (no date) (unknown) (unknown) (+19 lb) 108/64 N (u nits unknown) (unknown) (unknown) (no date) (unknown) (unknown) (+26 lb) 116/64 N (u nits unknown) (unknown) (unknown) (no date) (unknown) (unknown) (+36 lb) 106/66 N (u nits unknown) (unknown) (unknown) (no date) (unknown) (unknown) (+42 lb) 120/66 N (u nits unknown) (unknown) (unknown) (no date) (unknown) (unknown) (+48 lb) 118/72 (uni ts unknown) (unknown) (unknown) (no date) (unknown) (unknown) (EG,TYPE 1 Diabetes, PKU), Denies Patient or baby's father had a child with (units unknown) (unknown) (unknown) (no date) (unknown) (unknown) Genetic Screening/Teratolog y Counseling - Includes patient, baby's father, or (units unknown) (unknown) (unknown) (no date) (unknown) (unknown) +CT, Tx'd. Nee ds FLETCHER. FLETCHER negative. (units unknown) (unknown) (unknown) (no date) (unknown) (unknown) -?-?-?-?-?-?-? -?-?- ?-?-? (units unknown) (unknown) (unknown) (no date) (unknown) (unknown) .COMPLEX 04/30 [History Confirmed 08/31/22] (units unknown) (unknown) (unknown) (no date) (unknown) (unknown) 07/12/22 (units unknown) (unknown) (unknown) (no date) (unknown) (unknown) 08/09/22 (units unknown) (unknown) (unknown) (no date) (unknown) (unknown) 08/31/22 0903 (units unknown) (unknown) (unknown) (no date) (unknown) (unknown) 08/31/22 (units unknown) (unknown) (unknown) (no date) (unknown) (unknown) 08/31/22] (units unknown) (unknown) (unknown) (no date) (unknown) (unknown) 09/25/10 14 spontaneous (units unknown) (unknown) (unknown) (no date) (unknown) (unknown) 12/23/22 Ultra sound #2 23w 5d (units unknown) (unknown) (unknown) (no date) (unknown) (unknown) 08:23 (units unknown) (unknown) (unknown) (no date) (unknown) (unknown) 02/25/15 41.3 5 9 lb 8 oz Male vaginal live - full term (units unknown) (unknown) (unknown) (no date) (unknown) (unknown) 05/11/22 (units unknown) (unknown) (unknown) (no date) (unknown) (unknown) 11w 5d 226 lb (units unknown) (unknown) (unknown) (no date) (unknown) (unknown) 06/08/22 (units unknown) (unknown) (unknown) (no date) (unknown) (unknown) 16w 4d 236 lb (units unknown) (unknown) (unknown) (no date) (unknown) (unknown) 20w 4d 242 lb (units unknown) (unknown) (unknown) (no date) (unknown) (unknown) 23w 5d 248 lb (units unknown) (unknown) (unknown) (no date) (unknown) (unknown) 39 weeks and t hat this can be most likely arranged closer to her due date (units unknown) (unknown) (unknown) (no date) (unknown) (unknown) 4 wks (units unknown) (unknown) (unknown) (no date) (unknown) (unknown) 7w 5d 219 lb (units unknown) (unknown) (unknown) (no date) (unknown) (unknown) Abnormal lab v alues 1st trimester: discussed (units unknown) (unknown) (unknown) (no date) (unknown) (unknown) Acne (units unknown) (unknown) (unknown) (no date) (unknown) (unknown) Add'l Plan Details ( units unknown) (unknown) (unknown) (no date) (unknown) (unknown) Additional Details:: Pt reports concerns about memory and word finding issues (units unknown) (unknown) (unknown) (no date) (unknown) (unknown) Additional Soc ial History (units unknown) (unknown) (unknown) (no date) (unknown) (unknown) Age/Sex: 32 / F Date of Service: (units unknown) (unknown) (unknown) (no date) (unknown) (unknown) Allergies (units unknown) (unknown) (unknown) (no date) (unknown) (unknown) [place] [address] (units unknown) (unknown) (unknown) (no date) (unknown) (unknown) Anemia (units unknown) (unknown) (unknown) (no date) (unknown) (unknown) Aneuploidy Screening Offered: Accepted (likely will do quad screen, undecided) (units unknown) (unknown) (unknown) (no date) (unknown) (unknown) Anticipated co urse of care: discussed (units unknown) (unknown) (unknown) (no date) (unknown) (unknown) Anxiety (units unknown) (unknown) (unknown) (no date) (unknown) (unknown) Anxiety/depres marcy not very well managed, has not tolerated meds in the past. (units unknown) (unknown) (unknown) (no date) (unknown) (unknown) Assessment and Plan (units unknown) (unknown) (unknown) (no date) (unknown) (unknown) Attending Dr: Bert Roque MD (units unknown) (unknown) (unknown) (no date) (unknown) (unknown) BMI 41.2 (units unknown) (unknown) (unknown) (no date) (unknown) (unknown) BP 118/72 (units unknown) (unknown) (unknown) (no date) (unknown) (unknown) Plan/Preferences (units unknown) (unknown) (unknown) (no date) (unknown) (unknown) Planning (unit s unknown) (unknown) (unknown) (no date) (unknown) (unknown) Bleeding in fi rst trimester (units unknown) (unknown) (unknown) (no date) (unknown) (unknown) Blood Pressure Location Rt brachial (units unknown) (unknown) (unknown) (no date) (unknown) (unknown) Blood transfusions?: yes (Never had but would accept) (units unknown) (unknown) (unknown) (no date) (unknown) (unknown) Breastfeed Pre g Comp Name (units unknown) (unknown) (unknown) (no date) (unknown) (unknown) Brother Alcoholism ( units unknown) (unknown) (unknown) (no date) (unknown) (unknown) Carpal tunnel syndrome (units unknown) (unknown) (unknown) (no date) (unknown) (unknown) Calin present s today for routine OB f/u at 20w4d. She reports good (units unknown) (unknown) (unknown) (no date) (unknown) (unknown) Calin present s with her today for routine OB follow-up at 16 (units unknown) (unknown) (unknown) (no date) (unknown) (unknown) Confirmed 08/31/22] (units unknown) (unknown) (unknown) (no date) (unknown) (unknown) Current Estima te 12/23/22 Ultrasound #1 23w 5d (units unknown) (unknown) (unknown) (no date) (unknown) (unknown) Current Pregna ncy History (units unknown) (unknown) (unknown) (no date) (unknown) (unknown) : 199 0 Acct:[id number] (units unknown) (unknown) (unknown) (no date) (unknown) (unknown) Date of positi ve home test: 04/17/22 (units unknown) (unknown) (unknown) (no date) (unknown) (unknown) Date (units unknown) (unknown) (unknown) (no date) (unknown) (unknown) Del. Date GA/W eeks Labor Lgth Wt Sex Route Outcome Anesthesia Place (units unknown) (unknown) (unknown) (no date) (unknown) (unknown) Delivery Date: 09/25/10 Last Updated by: Krystina Lantigua RN (units unknown) (unknown) (unknown) (no date) (unknown) (unknown) Delv (units unknown) (unknown) (unknown) (no date) (unknown) (unknown) Denies Congeni gerard Heart Defect, Denies Down Syndrome, Denies Muscular Dystrophy, (units unknown) (unknown) (unknown) (no date) (unknown) (unknown) Denies Neural Tube Defect (Meningomyelocele, Spina Bifida, or Anencephaly), (units unknown) (unknown) (unknown) (no date) (unknown) (unknown) Denies Sickle Cell Disease or Trait (), Denies Hemophilia or other blood (units unknown) (unknown) (unknown) (no date) (unknown) (unknown) Denies Rodney-Sac hs (Ashkenazi Lutheran, [facility], [place] Islander Singaporean), Denies Kayy (units unknown) (unknown) (unknown) (no date) (unknown) (unknown) Denies over th e counter medications, Reports alcohol (drank 2 bottles of wine (units unknown) (unknown) (unknown) (no date) (unknown) (unknown) Depression (units unknown) (unknown) (unknown) (no date) (unknown) (unknown) Depression: discussed (units unknown) (unknown) (unknown) (no date) (unknown) (unknown) Dept at . (units unknown) (unknown) (unknown) (no date) (unknown) (unknown) Diet and Exercise (u nits unknown) (unknown) (unknown) (no date) (unknown) (unknown) Diflucan. cfDN A and AFP were normal. Anatomy US was done today, but report not (units unknown) (unknown) (unknown) (no date) (unknown) (unknown) Disease (Ashke nazi Lutheran), Denies Familial Dysautonomia (Ashkenazi Lutheran), (units unknown) (unknown) (unknown) (no date) (unknown) (unknown) Documented By: Bert Rouqe MD 08/31/22 0822 (units unknown) (unknown) (unknown) (no date) (unknown) (unknown) MADISYN Calculator (unit s unknown) (unknown) (unknown) (no date) (unknown) (unknown) EGA Weight BP UGlucose (units unknown) (unknown) (unknown) (no date) (unknown) (unknown) Eczema (units unknown) (unknown) (unknown) (no date) (unknown) (unknown) Estimated Deli very Date Method Current (units unknown) (unknown) (unknown) (no date) (unknown) (unknown) F/U 4 wks. War raven signs reviewed. (units unknown) (unknown) (unknown) (no date) (unknown) (unknown) Family History (Updated 04/30/22 @ 08:33 by Krystina Lantigua RN) (units unknown) (unknown) (unknown) (no date) (unknown) (unknown) Family/Other Neurological abnormality (units unknown) (unknown) (unknown) (no date) (unknown) (unknown) Family/Other Obsessive compulsive disorder (units unknown) (unknown) (unknown) (no date) (unknown) (unknown) Father d Alcoholism (units unknown) (unknown) (unknown) (no date) (unknown) (unknown) Father of Baby : same (units unknown) (unknown) (unknown) (no date) (unknown) (unknown) [facility] (units unknown) (unknown) (unknown) (no date) (unknown) (unknown) First Trimeste r Education Checklist (units unknown) (unknown) (unknown) (no date) (unknown) (unknown) (units unknown) (unknown) (unknown) (no date) (unknown) (unknown) GERD (gastroesophageal reflux disease) (units unknown) (unknown) (unknown) (no date) (unknown) (unknown) GTT (PREG) 1 H our PP 50gm Dose 4 Weeks Z34.82 - Encounter for supervision of (units unknown) (unknown) (unknown) (no date) (unknown) (unknown) Joanna pt here for OB Check (units unknown) (unknown) (unknown) (no date) (unknown) (unknown) Genetic Screen ing + Counseling (units unknown) (unknown) (unknown) (no date) (unknown) (unknown) Genetic Screening (u nits unknown) (unknown) (unknown) (no date) (unknown) (unknown) Grandfather No problems noted. (units unknown) (unknown) (unknown) (no date) (unknown) (unknown) Grandmother Coagulopathy (units unknown) (unknown) (unknown) (no date) (unknown) (unknown) Grandmother Leukemia (units unknown) (unknown) (unknown) (no date) (unknown) (unknown) 3 Mult iple births (units unknown) (unknown) (unknown) (no date) (unknown) (unknown) HIV risk evaluation: low risk (units unknown) (unknown) (unknown) (no date) (unknown) (unknown) HSV-1 infection (uni ts unknown) (unknown) (unknown) (no date) (unknown) (unknown) Headache (units unknown) (unknown) (unknown) (no date) (unknown) (unknown) Health Center Education (units unknown) (unknown) (unknown) (no date) (unknown) (unknown) Health center information: nature of practice discussed, personnel (units unknown) (unknown) (unknown) (no date) (unknown) (unknown) Height 5 ft 5 in (un its unknown) (unknown) (unknown) (no date) (unknown) (unknown) Hemoglobin and Hematocrit 4 Weeks Z34.82 - Encounter for supervision of other (units unknown) (unknown) (unknown) (no date) (unknown) (unknown) Hemorrhoids (units unknown) (unknown) (unknown) (no date) (unknown) (unknown) Hepatitis C ri sk evaluation: low risk (units unknown) (unknown) (unknown) (no date) (unknown) (unknown) History of Hepatitis B: No (units unknown) (unknown) (unknown) (no date) (unknown) (unknown) History of Hepatitis C: No (units unknown) (unknown) (unknown) (no date) (unknown) (unknown) History of rem oval of skin mole (units unknown) (unknown) (unknown) (no date) (unknown) (unknown) Hospital: (units unknown) (unknown) (unknown) (no date) (unknown) (unknown) Reagan stationed in [facility], and requests IOL between 39-40 wks, so (units unknown) (unknown) (unknown) (no date) (unknown) (unknown) Hx # Pregnancies 0 Elective abortions 0 (units unknown) (unknown) (unknown) (no date) (unknown) (unknown) Hx # Term Pregnancies 1 Ectopic pregnancies 0 (units unknown) (unknown) (unknown) (no date) (unknown) (unknown) Infant will be adopted?: no (units unknown) (unknown) (unknown) (no date) (unknown) (unknown) Infection History (u nits unknown) (unknown) (unknown) (no date) (unknown) (unknown) Infectious Dis ease Education (units unknown) (unknown) (unknown) (no date) (unknown) (unknown) Infectious dis ease exposure: chicken pox immunity discussed, hepatitis risk (units unknown) (unknown) (unknown) (no date) (unknown) (unknown) Influenza vacc ine (declines flu, undecided on Covid booster) (units unknown) (unknown) (unknown) (no date) (unknown) (unknown) Initial Weight : 200 lb (units unknown) (unknown) (unknown) (no date) (unknown) (unknown) Initials (units unknown) (unknown) (unknown) (no date) (unknown) (unknown) Intake Clinica l Staff (units unknown) (unknown) (unknown) (no date) (unknown) (unknown) Intake Note: (units unknown) (unknown) (unknown) (no date) (unknown) (unknown) Intake perform ed by: Yunier Kolb (units unknown) (unknown) (unknown) (no date) (unknown) (unknown) Intake (units unknown) (unknown) (unknown) (no date) (unknown) (unknown) LM (units unknown) (unknown) (unknown) (no date) (unknown) (unknown) Live with some one with TB or exposed to TB: No (units unknown) (unknown) (unknown) (no date) (unknown) (unknown) Loc: [facility] (units unknown) (unknown) (unknown) (no date) (unknown) (unknown) [id number] (units unknown) (unknown) (unknown) (no date) (unknown) (unknown) Marital status : (units unknown) (unknown) (unknown) (no date) (unknown) (unknown) Medical Histor y (Updated 06/07/22 @ 20:59 by Rossy Chaudhari) (units unknown) (unknown) (unknown) (no date) (unknown) (unknown) Medication use , Sauna/hot tub use, Dental care, Travel, Seatbelt use and (units unknown) (unknown) (unknown) (no date) (unknown) (unknown) Medications (units unknown) (unknown) (unknown) (no date) (unknown) (unknown) Migraine with aura ( units unknown) (unknown) (unknown) (no date) (unknown) (unknown) Migraines (units unknown) (unknown) (unknown) (no date) (unknown) (unknown) Mother d Alcoholism (units unknown) (unknown) (unknown) (no date) (unknown) (unknown) N No no 1,661 7 N/A absent long/closed (units unknown) (unknown) (unknown) (no date) (unknown) (unknown) N No no 166 12 N/A absent 4 wks (units unknown) (unknown) (unknown) (no date) (unknown) (unknown) N Yes no 146 2 0 N/A absent flu shot given (units unknown) (unknown) (unknown) (no date) (unknown) (unknown) N Yes no 151 1 8 N/A absent FLETCHER negative (units unknown) (unknown) (unknown) (no date) (unknown) (unknown) Nasal congestion (un its unknown) (unknown) (unknown) (no date) (unknown) (unknown) No Known Drug Allergies Allergy (Verified 08/31/22 08:23) (units unknown) (unknown) (unknown) (no date) (unknown) (unknown) Notes (units unknown) (unknown) (unknown) (no date) (unknown) (unknown) Number of Mandy ng Children 1 (units unknown) (unknown) (unknown) (no date) (unknown) (unknown) Number of fetu ses:: Single (units unknown) (unknown) (unknown) (no date) (unknown) (unknown) Nutrition and weight gain counseling: special diet: discussed (units unknown) (unknown) (unknown) (no date) (unknown) (unknown) OB Office Visit (uni ts unknown) (unknown) (unknown) (no date) (unknown) (unknown) OB Visit Log (units unknown) (unknown) (unknown) (no date) (unknown) (unknown) Orders (units unknown) (unknown) (unknown) (no date) (unknown) (unknown) Orders: (units unknown) (unknown) (unknown) (no date) (unknown) (unknown) Other Estimate s 11/15/22 LMP (Uncertain) 29w 1d (units unknown) (unknown) (unknown) (no date) (unknown) (unknown) Other Substanc e abuse (units unknown) (unknown) (unknown) (no date) (unknown) (unknown) Ovarian cyst (units unknown) (unknown) (unknown) (no date) (unknown) (unknown) PCOS (polycyst ic ovarian syndrome) (units unknown) (unknown) (unknown) (no date) (unknown) (unknown) PFSH (units unknown) (unknown) (unknown) (no date) (unknown) (unknown) Painful menstr ual periods (units unknown) (unknown) (unknown) (no date) (unknown) (unknown) Para 1 Spontan eous abortions 1 (units unknown) (unknown) (unknown) (no date) (unknown) (unknown) Partner histor y of STD: denies hx (units unknown) (unknown) (unknown) (no date) (unknown) (unknown) Partner histor y of genital herpes: No (units unknown) (unknown) (unknown) (no date) (unknown) (unknown) Partner: Cheko (units unknown) (unknown) (unknown) (no date) (unknown) (unknown) Past Pregnancies (un its unknown) (unknown) (unknown) (no date) (unknown) (unknown) Patient has be en on levothyroxine 50 mcg now for 2-1/2 weeks and is (units unknown) (unknown) (unknown) (no date) (unknown) (unknown) Patient is bhargavi y concerned about having a scheduled induction of labor as (units unknown) (unknown) (unknown) (no date) (unknown) (unknown) Patient opts f or a routine visit at 11 weeks 5 days. She is (units unknown) (unknown) (unknown) (no date) (unknown) (unknown) Patient presen ts for an NOB visit at 7 wks gestation. Had some bleeding (units unknown) (unknown) (unknown) (no date) (unknown) (unknown) Patient's age 35 years or older as of estimated date of delivery: No (units unknown) (unknown) (unknown) (no date) (unknown) (unknown) Patient: ShalomirmaFennimore M MR#: (units unknown) (unknown) (unknown) (no date) (unknown) (unknown) Technical Assistant: MELISSA Dallas (units unknown) (unknown) (unknown) (no date) (unknown) (unknown) Personal histo ry of STD: denies hx (units unknown) (unknown) (unknown) (no date) (unknown) (unknown) Personal histo ry of genital herpes: No (oral only) (units unknown) (unknown) (unknown) (no date) (unknown) (unknown) Position Sitting (un its unknown) (unknown) (unknown) (no date) (unknown) (unknown) History (u nits unknown) (unknown) (unknown) (no date) (unknown) (unknown) type :: Other Normal (units unknown) (unknown) (unknown) (no date) (unknown) (unknown) Education ( units unknown) (unknown) (unknown) (no date) (unknown) (unknown) Initi al Assessment (units unknown) (unknown) (unknown) (no date) (unknown) (unknown) Speci fic Issues/Plans (units unknown) (unknown) (unknown) (no date) (unknown) (unknown) Testi ng: discussed (units unknown) (unknown) (unknown) (no date) (unknown) (unknown) Visit (unit s unknown) (unknown) (unknown) (no date) (unknown) (unknown) educa tion packet: symptoms, Vitamins and iron, Diet and (units unknown) (unknown) (unknown) (no date) (unknown) (unknown) Primary Care Provider: MELISSA Dallas (units unknown) (unknown) (unknown) (no date) (unknown) (unknown) Primary Ob Provider: Olivia Marshall (units unknown) (unknown) (unknown) (no date) (unknown) (unknown) Prior GBS-Infe cted child: No (units unknown) (unknown) (unknown) (no date) (unknown) (unknown) Providers (units unknown) (unknown) (unknown) (no date) (unknown) (unknown) Psoriasis (units unknown) (unknown) (unknown) (no date) (unknown) (unknown) Rapid first delivery (units unknown) (unknown) (unknown) (no date) (unknown) (unknown) Rash or viral illness since last menstrual period: No (units unknown) (unknown) (unknown) (no date) (unknown) (unknown) Reason For Visit (un its unknown) (unknown) (unknown) (no date) (unknown) (unknown) Recent travel outside of country?: No (units unknown) (unknown) (unknown) (no date) (unknown) (unknown) Reports Mental Retardation/Autism (sister had three very disabled children); (units unknown) (unknown) (unknown) (no date) (unknown) (unknown) S/P ACL repair (unit s unknown) (unknown) (unknown) (no date) (unknown) (unknown) Safety (units unknown) (unknown) (unknown) (no date) (unknown) (unknown) Second child f or this couple (units unknown) (unknown) (unknown) (no date) (unknown) (unknown) Severe PCOS (units unknown) (unknown) (unknown) (no date) (unknown) (unknown) She reports so me right sided hip pain and sciatica. She has a history of left (units unknown) (unknown) (unknown) (no date) (unknown) (unknown) She reports ur inary frequency, but denies painful urination, bladder pain, (units unknown) (unknown) (unknown) (no date) (unknown) (unknown) Shingles (units unknown) (unknown) (unknown) (no date) (unknown) (unknown) Shoulder pain (units unknown) (unknown) (unknown) (no date) (unknown) (unknown) Signed By: <Electronically signed by Bert Roque MD> (units unknown) (unknown) (unknown) (no date) (unknown) (unknown) Signed (units unknown) (unknown) (unknown) (no date) (unknown) (unknown) JAVIER Hussein 10 (u nits unknown) (unknown) (unknown) (no date) (unknown) (unknown) Smoking Status : Current some day smoker (units unknown) (unknown) (unknown) (no date) (unknown) (unknown) Social History (unit s unknown) (unknown) (unknown) (no date) (unknown) (unknown) Support Person (s):: Reagan (units unknown) (unknown) (unknown) (no date) (unknown) (unknown) Surgical Histo ry (Updated 04/30/22 @ 08:16 by Krystina Lantigua RN) (units unknown) (unknown) (unknown) (no date) (unknown) (unknown) Surrogate ?: no (units unknown) (unknown) (unknown) (no date) (unknown) (unknown) Symptoms come on randomly and based on her description seem to be related to (units unknown) (unknown) (unknown) (no date) (unknown) (unknown) Symptoms since LMP: Reports amenorrhea, nausea, fatigue, breast tenderness, (units unknown) (unknown) (unknown) (no date) (unknown) (unknown) Teratogen Expo sures since LMP/Conception: Denies prescription medications, (units unknown) (unknown) (unknown) (no date) (unknown) (unknown) Testing Education (u nits unknown) (unknown) (unknown) (no date) (unknown) (unknown) Testing educat ion completed: group B strep and Spina bifida testing (units unknown) (unknown) (unknown) (no date) (unknown) (unknown) This note may have been all or partially generated using voice recognition (units unknown) (unknown) (unknown) (no date) (unknown) (unknown) Tobacco + Subs tance Use (units unknown) (unknown) (unknown) (no date) (unknown) (unknown) Tobacco Status (unit s unknown) (unknown) (unknown) (no date) (unknown) (unknown) Trimester:: 2n d Trimester (14-<28wks) (units unknown) (unknown) (unknown) (no date) (unknown) (unknown) Type(s) of exercise: walking (-7 miles/day), weight lifting and yoga (units unknown) (unknown) (unknown) (no date) (unknown) (unknown) UProtein Movem ent PreLabor FHR Fndl Ht Pres Edema Cerv Exam US/Comment Next Appt (units unknown) (unknown) (unknown) (no date) (unknown) (unknown) Varicella/chic delonte pox status: immunized (Hx shingles) (units unknown) (unknown) (unknown) (no date) (unknown) (unknown) Vertigo (units unknown) (unknown) (unknown) (no date) (unknown) (unknown) Visit Date: 07/12/22 Last Updated by: Frances Espinal P.A-C (units unknown) (unknown) (unknown) (no date) (unknown) (unknown) Visit Date: 08/09/22 Last Updated by: Frances Espinal P.A-C (units unknown) (unknown) (unknown) (no date) (unknown) (unknown) Visit Date: 08/31/22 Last Updated by: Bert Roque MD (units unknown) (unknown) (unknown) (no date) (unknown) (unknown) Visit Date: 05/11/22 Last Updated by: Olivia Marshall MD (units unknown) (unknown) (unknown) (no date) (unknown) (unknown) Visit Date: 06/08/22 Last Updated by: Olivia Marshall MD (units unknown) (unknown) (unknown) (no date) (unknown) (unknown) Visit Reasons: OB *Garde (units unknown) (unknown) (unknown) (no date) (unknown) (unknown) Vitals (units unknown) (unknown) (unknown) (no date) (unknown) (unknown) WG (units unknown) (unknown) (unknown) (no date) (unknown) (unknown) Weeks gestatio n:: 23 (units unknown) (unknown) (unknown) (no date) (unknown) (unknown) Weight 248 lb (units unknown) (unknown) (unknown) (no date) (unknown) (unknown) Yes no 144 25 Breech 1+ Feels better since (units unknown) (unknown) (unknown) (no date) (unknown) (unknown) Zika virus exposure: No (units unknown) (unknown) (unknown) (no date) (unknown) (unknown) [History Confi rmed 08/31/22] (units unknown) (unknown) (unknown) (no date) (unknown) (unknown) activity, work/environmental/ hazards, Sexual activity, X-ray exposure, (units unknown) (unknown) (unknown) (no date) (unknown) (unknown) additional soc ial history: Pt reports that she and her almost split up (units unknown) (unknown) (unknown) (no date) (unknown) (unknown) alcohol intake : former (very rarely when not ) (units unknown) (unknown) (unknown) (no date) (unknown) (unknown) and had an u/s on 05/08/22. Viable IUP at 7 wks. No further BRP. Plan: Pap, (units unknown) (unknown) (unknown) (no date) (unknown) (unknown) and is at a healthier size. Hx depression and anxiety, did not do well on (units unknown) (unknown) (unknown) (no date) (unknown) (unknown) antidepressant s, 'I was a zombie for a while.' Not currently medicated or (units unknown) (unknown) (unknown) (no date) (unknown) (unknown) anxiety is lik mali not particularly well controlled at present. (units unknown) (unknown) (unknown) (no date) (unknown) (unknown) [facility] family with: (units unknown) (unknown) (unknown) (no date) (unknown) (unknown) azithromycin 2 50 mg tablet 1,000 mg PO ONCE Chlamydia #4 tabs 05/17/22 [Rx (units unknown) (unknown) (unknown) (no date) (unknown) (unknown) bilingual; boby sangeeta language is Marshallese, has spoken Andorran for-18 years. Also (units unknown) (unknown) (unknown) (no date) (unknown) (unknown) defects not listed above and Denies Other (units unknown) (unknown) (unknown) (no date) (unknown) (unknown) c/o migraine w / aura 'I smell blood when I'm going to have a migraine. It used (units unknown) (unknown) (unknown) (no date) (unknown) (unknown) cab attend (units unknown) (unknown) (unknown) (no date) (unknown) (unknown) caffeine: Yes (aware of 200mg limit) (units unknown) (unknown) (unknown) (no date) (unknown) (unknown) carbon monox detector in home: Yes (units unknown) (unknown) (unknown) (no date) (unknown) (unknown) caregiver/supp ort person: Yes (units unknown) (unknown) (unknown) (no date) (unknown) (unknown) cf DNA and MSA FP ordered. NRL female, AFP negative (units unknown) (unknown) (unknown) (no date) (unknown) (unknown) cramping and contractions. Chlamydia test of cure from last visit was negative. (units unknown) (unknown) (unknown) (no date) (unknown) (unknown) current occupational exposures/hazards: No (units unknown) (unknown) (unknown) (no date) (unknown) (unknown) daily servings fruits/ve or more times/day (units unknown) (unknown) (unknown) (no date) (unknown) (unknown) described, vis it schedule reviewed, ultrasounds policy reviewed, coverage 24 (units unknown) (unknown) (unknown) (no date) (unknown) (unknown) desires to hav e genetic testing so cell free DNA testing and MSAFP were ordered (units unknown) (unknown) (unknown) (no date) (unknown) (unknown) discussed, tuberculosis exposure discussed, CMV discussed, Toxoplasmosis (units unknown) (unknown) (unknown) (no date) (unknown) (unknown) disorders, Den ies Cystic Fibrosis, Denies Terrell's Chorea, Denies Other (units unknown) (unknown) (unknown) (no date) (unknown) (unknown) do you feel sa fe at home: Yes (units unknown) (unknown) (unknown) (no date) (unknown) (unknown) does complain of left breast tenderness. Plan: Test of cure for chlamydia (units unknown) (unknown) (unknown) (no date) (unknown) (unknown) drug abuse and pt is very concerned about how this may affect her children. (units unknown) (unknown) (unknown) (no date) (unknown) (unknown) during the pas t year weight has: decreased > 10 lbs (intentional w/ diet and (units unknown) (unknown) (unknown) (no date) (unknown) (unknown) education leve l: college (some college) (units unknown) (unknown) (unknown) (no date) (unknown) (unknown) erk (units unknown) (unknown) (unknown) (no date) (unknown) (unknown) exercise) (units unknown) (unknown) (unknown) (no date) (unknown) (unknown) wali/religious : U[place]din (units unknown) (unknown) (unknown) (no date) (unknown) (unknown) feeling much b vikas with less hair loss fatigue and dry skin (units unknown) (unknown) (unknown) (no date) (unknown) (unknown) ferrous sulfat e 325 mg (65 mg iron) tablet (Feosol) 325 mg PO DAILY 04/30/22 (units unknown) (unknown) (unknown) (no date) (unknown) (unknown) fevers. UA was normal in the office today. No nit or leuks. Very mild CVAT on (units unknown) (unknown) (unknown) (no date) (unknown) (unknown) fire extinguis her in home: Yes (units unknown) (unknown) (unknown) (no date) (unknown) (unknown) firearms in me: No (units unknown) (unknown) (unknown) (no date) (unknown) (unknown) fluconazole 15 0 mg tablet (Diflucan) 150 mg PO DAILY #1 tab 07/30/22 [Rx (units unknown) (unknown) (unknown) (no date) (unknown) (unknown) folic acid 400 mcg tablet 0.4 mg PO DAILY 04/30/22 [History Confirmed 08/31/22] (units unknown) (unknown) (unknown) (no date) (unknown) (unknown) for about the last 3 years, has not ever discussed this w/ her PCP so far. (units unknown) (unknown) (unknown) (no date) (unknown) (unknown) frequency: daily (un its unknown) (unknown) (unknown) (no date) (unknown) (unknown) have occurred. If there are any questions, please contact the Medical Records (units unknown) (unknown) (unknown) (no date) (unknown) (unknown) her wi ll be stationed in [facility]. We discussed that she would need to be (units unknown) (unknown) (unknown) (no date) (unknown) (unknown) home, no flo rns about violence or infidelity. Long family Hx of alcohol and (units unknown) (unknown) (unknown) (no date) (unknown) (unknown) hours a day an d participation of father in care and office visits (units unknown) (unknown) (unknown) (no date) (unknown) (unknown) household memb ers: spouse, family (brother) and children (units unknown) (unknown) (unknown) (no date) (unknown) (unknown) housing: apartment ( units unknown) (unknown) (unknown) (no date) (unknown) (unknown) inherited gene tic or chromosomal disorder, Denies Maternal Metabolic Disorder (units unknown) (unknown) (unknown) (no date) (unknown) (unknown) intake. Kathie berman precautions reviewed. F/u in 4 wks. (units unknown) (unknown) (unknown) (no date) (unknown) (unknown) kag (units unknown) (unknown) (unknown) (no date) (unknown) (unknown) levothyroxine 50 mcg capsule 50 mcg PO DAILY #90 caps 08/12/22 [Rx Confirmed (units unknown) (unknown) (unknown) (no date) (unknown) (unknown) lives independently: Yes (units unknown) (unknown) (unknown) (no date) (unknown) (unknown) marital status : (units unknown) (unknown) (unknown) (no date) (unknown) (unknown) may occur. Occasional wrong-word or 'sound-alike' substitutions may have (units unknown) (unknown) (unknown) (no date) (unknown) (unknown) months none [place] ( units unknown) (unknown) (unknown) (no date) (unknown) (unknown) movement and d enies VB, LOF, cramping, contractions and abnormal discharge. She (units unknown) (unknown) (unknown) (no date) (unknown) (unknown) normal pregnan cy, second trimester, Z3A.23 - 23 weeks gestation of (units unknown) (unknown) (unknown) (no date) (unknown) (unknown) number of chil dren: 3 (includes 2 stepchildren) (units unknown) (unknown) (unknown) (no date) (unknown) (unknown) occupational status: employed (desk/office job) (units unknown) (unknown) (unknown) (no date) (unknown) (unknown) occurred due t o the inherent limitations of voice recognition software. Please (units unknown) (unknown) (unknown) (no date) (unknown) (unknown) omega 1-sso-pmw-fish oil 100 mg-160 mg-1,000 mg capsule (Fish Oil) 1 cap PO (units unknown) (unknown) (unknown) (no date) (unknown) (unknown) other normal , second trimester, Z3A.23 - 23 weeks gestation of (units unknown) (unknown) (unknown) (no date) (unknown) (unknown) oxymetazoline 0.05 % nasal spray 1 spray intranasal BID 04/30/22 [History (units unknown) (unknown) (unknown) (no date) (unknown) (unknown) pets and anima ls: No (units unknown) (unknown) (unknown) (no date) (unknown) (unknown) precautions, Listeriosis prevention and Rubella Immunization (units unknown) (unknown) (unknown) (no date) (unknown) (unknown) (units unknown) (unknown) (unknown) (no date) (unknown) (unknown) prenat.vits,ca l,min -iron-folic 1 tab PO DAILY 04/30/22 [History Confirmed (units unknown) (unknown) (unknown) (no date) (unknown) (unknown) r/o kidney pathology. ED precautions reviewed. Advised to increase fluid (units unknown) (unknown) (unknown) (no date) (unknown) (unknown) read the note carefully and recognize, using context, where these substitutions (units unknown) (unknown) (unknown) (no date) (unknown) (unknown) recently but madi lebron decided to stay together in light of this . She (units unknown) (unknown) (unknown) (no date) (unknown) (unknown) reports some r ight sided flank pain x 4 days. She reports it is achy and dull. (units unknown) (unknown) (unknown) (no date) (unknown) (unknown) reports that is nervous and excited, confirms that she is safe in her (units unknown) (unknown) (unknown) (no date) (unknown) (unknown) required D+C (units unknown) (unknown) (unknown) (no date) (unknown) (unknown) reviewed. Foll ow-up in 4 weeks or as needed. (units unknown) (unknown) (unknown) (no date) (unknown) (unknown) s 4wks (units unknown) (unknown) (unknown) (no date) (unknown) (unknown) seatbelt use: always (units unknown) (unknown) (unknown) (no date) (unknown) (unknown) second hand exposure: Yes ( also smokes) (units unknown) (unknown) (unknown) (no date) (unknown) (unknown) seeing funeral counselor or, although her affect during intake call indicates that her (units unknown) (unknown) (unknown) (no date) (unknown) (unknown) shot but we wi ll consider getting 1 next visit. Warning precautions were (units unknown) (unknown) (unknown) (no date) (unknown) (unknown) sided sciatica . She desires PT referral for hip pain. Referral sent. She (units unknown) (unknown) (unknown) (no date) (unknown) (unknown) skin and scalp . Slightly enlarged thyroid on exam. CBC and TSH refulx to T4 (units unknown) (unknown) (unknown) (no date) (unknown) (unknown) software. Alth ough every effort is made to edit content, direct service professional errors (units unknown) (unknown) (unknown) (no date) (unknown) (unknown) special wali needs: No (units unknown) (unknown) (unknown) (no date) (unknown) (unknown) still having s ome nausea and vomiting. She does not want any medication for (units unknown) (unknown) (unknown) (no date) (unknown) (unknown) stress and anx iety. Worse since she has been , 'This is much worse than (units unknown) (unknown) (unknown) (no date) (unknown) (unknown) substance use type: does not use (units unknown) (unknown) (unknown) (no date) (unknown) (unknown) the right on e xam. Discussed MSK cause vs kidney stones. Ordered kidney US to (units unknown) (unknown) (unknown) (no date) (unknown) (unknown) the week befor e she found out), Denies illicit drugs and Denies other (units unknown) (unknown) (unknown) (no date) (unknown) (unknown) this. Her Pap smear came back positive for chlamydia. She was treated. She (units unknown) (unknown) (unknown) (no date) (unknown) (unknown) to be a sweet smell, but the last few years it's been blood.' Migraines appear (units unknown) (unknown) (unknown) (no date) (unknown) (unknown) to be largely hormonal and are worse when pt is heavy than when she loses weight (units unknown) (unknown) (unknown) (no date) (unknown) (unknown) today. Follow- up in 4-5 weeks. Warning signs reviewed. (units unknown) (unknown) (unknown) (no date) (unknown) (unknown) today. Ordered 20 week anatomy ultrasound. She is unsure if she wants a flu (units unknown) (unknown) (unknown) (no date) (unknown) (unknown) travel history : recent (domestic only) (units unknown) (unknown) (unknown) (no date) (unknown) (unknown) urinary freque ncy, irritability and other (headaches, heartburn) (units unknown) (unknown) (unknown) (no date) (unknown) (unknown) was recently treated for a yeast infection and reports it resolved with (units unknown) (unknown) (unknown) (no date) (unknown) (unknown) water heater t emp set < 120 deg: Yes (units unknown) (unknown) (unknown) (no date) (unknown) (unknown) weeks 4 days. She reports some fluttering movement and denies VB, LOF, (units unknown) (unknown) (unknown) (no date) (unknown) (unknown) weight gain, F marci and mercury intake, Smoking, Caffeine use, Exercise and (units unknown) (unknown) (unknown) (no date) (unknown) (unknown) well-balanced diet: daily or most days (units unknown) (unknown) (unknown) (no date) (unknown) (unknown) were ordered. Pt will have labs drawn after the visit. Flu shot given. She also (units unknown) (unknown) (unknown) (no date) (unknown) (unknown) working smoke detector in home: Yes (units unknown) (unknown) (unknown) (no date) (unknown) (unknown) yet available. She reports hair loss, brittle hair and nails, fatigue, and dry (units unknown) (unknown) Result panel 71 (unknown) (no date) (unknown) (unknown) (no value) (units unknown) (unknown) (unknown) (no date) (unknown) (unknown) 'mama brain,' I'm worried I have early onset dementia.' Notably, pt is (units unknown) (unknown) (unknown) (no date) (unknown) (unknown) (+19 lb) 108/64 N (u nits unknown) (unknown) (unknown) (no date) (unknown) (unknown) (+26 lb) 116/64 N (u nits unknown) (unknown) (unknown) (no date) (unknown) (unknown) (+36 lb) 106/66 N (u nits unknown) (unknown) (unknown) (no date) (unknown) (unknown) (+42 lb) 120/66 N (u nits unknown) (unknown) (unknown) (no date) (unknown) (unknown) (+48 lb) 118/72 (uni ts unknown) (unknown) (unknown) (no date) (unknown) (unknown) (EG,TYPE 1 Diabetes, PKU), Denies Patient or baby's father had a child with (units unknown) (unknown) (unknown) (no date) (unknown) (unknown) ADDENDUM (units unknown) (unknown) (unknown) (no date) (unknown) (unknown) Genetic Screening/Teratolog y Counseling - Includes patient, baby's father, or (units unknown) (unknown) (unknown) (no date) (unknown) (unknown) +CT, Tx'd. Nee ds FLETCHER. FLETCHER negative. (units unknown) (unknown) (unknown) (no date) (unknown) (unknown) -?-?-?-?-?-?-? -?-?- ?-?-? (units unknown) (unknown) (unknown) (no date) (unknown) (unknown) .COMPLEX 04/30 [History Confirmed 08/31/22] (units unknown) (unknown) (unknown) (no date) (unknown) (unknown) 07/12/22 (units unknown) (unknown) (unknown) (no date) (unknown) (unknown) 08/09/22 (units unknown) (unknown) (unknown) (no date) (unknown) (unknown) 08/31/22 0903 (units unknown) (unknown) (unknown) (no date) (unknown) (unknown) 08/31/22 0905 (units unknown) (unknown) (unknown) (no date) (unknown) (unknown) 08/31/22 (units unknown) (unknown) (unknown) (no date) (unknown) (unknown) 08/31/22] (units unknown) (unknown) (unknown) (no date) (unknown) (unknown) 09/25/10 14 spontaneous (units unknown) (unknown) (unknown) (no date) (unknown) (unknown) 12/23/22 Ultra sound #2 23w 5d (units unknown) (unknown) (unknown) (no date) (unknown) (unknown) 08:23 (units unknown) (unknown) (unknown) (no date) (unknown) (unknown) 02/25/15 41.3 5 9 lb 8 oz Male vaginal live - full term (units unknown) (unknown) (unknown) (no date) (unknown) (unknown) 05/11/22 (units unknown) (unknown) (unknown) (no date) (unknown) (unknown) 11w 5d 226 lb (units unknown) (unknown) (unknown) (no date) (unknown) (unknown) 06/08/22 (units unknown) (unknown) (unknown) (no date) (unknown) (unknown) 16w 4d 236 lb (units unknown) (unknown) (unknown) (no date) (unknown) (unknown) 20w 4d 242 lb (units unknown) (unknown) (unknown) (no date) (unknown) (unknown) 23w 5d 248 lb (units unknown) (unknown) (unknown) (no date) (unknown) (unknown) 39 weeks and t hat this can be most likely arranged closer to her due date (units unknown) (unknown) (unknown) (no date) (unknown) (unknown) 4 wks (units unknown) (unknown) (unknown) (no date) (unknown) (unknown) 7w 5d 219 lb (units unknown) (unknown) (unknown) (no date) (unknown) (unknown) Abnormal lab v alues 1st trimester: discussed (units unknown) (unknown) (unknown) (no date) (unknown) (unknown) Acne (units unknown) (unknown) (unknown) (no date) (unknown) (unknown) Add'l Plan Details ( units unknown) (unknown) (unknown) (no date) (unknown) (unknown) Addendum Docum ented By: Bert Roque MD (units unknown) (unknown) (unknown) (no date) (unknown) (unknown) Addendum Shira d By: <Electronically signed by Bert Roque MD> (units unknown) (unknown) (unknown) (no date) (unknown) (unknown) Additional Details:: Pt reports concerns about memory and word finding issues (units unknown) (unknown) (unknown) (no date) (unknown) (unknown) Additional Soc ial History (units unknown) (unknown) (unknown) (no date) (unknown) (unknown) Age/Sex: 32 / F Date of Service: (units unknown) (unknown) (unknown) (no date) (unknown) (unknown) Allergies (units unknown) (unknown) (unknown) (no date) (unknown) (unknown) [place] [id number] (units unknown) (unknown) (unknown) (no date) (unknown) (unknown) Anemia (units unknown) (unknown) (unknown) (no date) (unknown) (unknown) Aneuploidy Screening Offered: Accepted (likely will do quad screen, undecided) (units unknown) (unknown) (unknown) (no date) (unknown) (unknown) Anticipated co urse of care: discussed (units unknown) (unknown) (unknown) (no date) (unknown) (unknown) Anxiety (units unknown) (unknown) (unknown) (no date) (unknown) (unknown) Anxiety/depres marcy not very well managed, has not tolerated meds in the past. (units unknown) (unknown) (unknown) (no date) (unknown) (unknown) Assessment and Plan (units unknown) (unknown) (unknown) (no date) (unknown) (unknown) Attending Dr: Bert Roque MD (units unknown) (unknown) (unknown) (no date) (unknown) (unknown) BMI 41.2 (units unknown) (unknown) (unknown) (no date) (unknown) (unknown) BP 118/72 (units unknown) (unknown) (unknown) (no date) (unknown) (unknown) Plan/Preferences (units unknown) (unknown) (unknown) (no date) (unknown) (unknown) Planning (unit s unknown) (unknown) (unknown) (no date) (unknown) (unknown) Bleeding in fi rst trimester (units unknown) (unknown) (unknown) (no date) (unknown) (unknown) Blood Pressure Location Rt brachial (units unknown) (unknown) (unknown) (no date) (unknown) (unknown) Blood transfusions?: yes (Never had but would accept) (units unknown) (unknown) (unknown) (no date) (unknown) (unknown) Breastfeed Pre g Comp Name (units unknown) (unknown) (unknown) (no date) (unknown) (unknown) Brother Alcoholism ( units unknown) (unknown) (unknown) (no date) (unknown) (unknown) Carpal tunnel syndrome (units unknown) (unknown) (unknown) (no date) (unknown) (unknown) Calin present s today for routine OB f/u at 20w4d. She reports good (units unknown) (unknown) (unknown) (no date) (unknown) (unknown) Calin present s with her today for routine OB follow-up at 16 (units unknown) (unknown) (unknown) (no date) (unknown) (unknown) Confirmed 08/31/22] (units unknown) (unknown) (unknown) (no date) (unknown) (unknown) Current Estima te 12/23/22 Ultrasound #1 23w 5d (units unknown) (unknown) (unknown) (no date) (unknown) (unknown) Current Pregna ncy History (units unknown) (unknown) (unknown) (no date) (unknown) (unknown) : 199 0 Acct:[id number] (units unknown) (unknown) (unknown) (no date) (unknown) (unknown) Date of positi ve home test: 04/17/22 (units unknown) (unknown) (unknown) (no date) (unknown) (unknown) Date (units unknown) (unknown) (unknown) (no date) (unknown) (unknown) Del. Date GA/W eeks Labor Lgth Wt Sex Route Outcome Anesthesia Place (units unknown) (unknown) (unknown) (no date) (unknown) (unknown) Delivery Date: 09/25/10 Last Updated by: Krystina Lantigua RN (units unknown) (unknown) (unknown) (no date) (unknown) (unknown) Delv (units unknown) (unknown) (unknown) (no date) (unknown) (unknown) Denies Congeni gerard Heart Defect, Denies Down Syndrome, Denies Muscular Dystrophy, (units unknown) (unknown) (unknown) (no date) (unknown) (unknown) Denies Neural Tube Defect (Meningomyelocele, Spina Bifida, or Anencephaly), (units unknown) (unknown) (unknown) (no date) (unknown) (unknown) Denies Sickle Cell Disease or Trait (), Denies Hemophilia or other blood (units unknown) (unknown) (unknown) (no date) (unknown) (unknown) Denies Rodney-Sac hs (Ashkenazi Lutheran, Cajun, [place] Islander Singaporean), Denies Kayy (units unknown) (unknown) (unknown) (no date) (unknown) (unknown) Denies over th e counter medications, Reports alcohol (drank 2 bottles of wine (units unknown) (unknown) (unknown) (no date) (unknown) (unknown) Depression (units unknown) (unknown) (unknown) (no date) (unknown) (unknown) Depression: discussed (units unknown) (unknown) (unknown) (no date) (unknown) (unknown) Dept at . (units unknown) (unknown) (unknown) (no date) (unknown) (unknown) Diagnosis toda y is 23 week gestation (units unknown) (unknown) (unknown) (no date) (unknown) (unknown) Diet and Exercise (u nits unknown) (unknown) (unknown) (no date) (unknown) (unknown) Diflucan. cfDN A and AFP were normal. Anatomy US was done today, but report not (units unknown) (unknown) (unknown) (no date) (unknown) (unknown) Disease (Ashke nazi Lutheran), Denies Familial Dysautonomia (Ashkenazi Lutheran), (units unknown) (unknown) (unknown) (no date) (unknown) (unknown) Documented By: Bert Roque MD 08/31/22 0822 (units unknown) (unknown) (unknown) (no date) (unknown) (unknown) MADISYN Calculator (unit s unknown) (unknown) (unknown) (no date) (unknown) (unknown) EGA Weight BP UGlucose (units unknown) (unknown) (unknown) (no date) (unknown) (unknown) Eczema (units unknown) (unknown) (unknown) (no date) (unknown) (unknown) Estimated Deli very Date Method Current (units unknown) (unknown) (unknown) (no date) (unknown) (unknown) F/U 4 wks. War raven signs reviewed. (units unknown) (unknown) (unknown) (no date) (unknown) (unknown) Family History (Updated 04/30/22 @ 08:33 by Krystina Lantigua RN) (units unknown) (unknown) (unknown) (no date) (unknown) (unknown) Family/Other Neurological abnormality (units unknown) (unknown) (unknown) (no date) (unknown) (unknown) Family/Other Obsessive compulsive disorder (units unknown) (unknown) (unknown) (no date) (unknown) (unknown) Father d Alcoholism (units unknown) (unknown) (unknown) (no date) (unknown) (unknown) Father of Baby : same (units unknown) (unknown) (unknown) (no date) (unknown) (unknown) [facility] (units unknown) (unknown) (unknown) (no date) (unknown) (unknown) First Trimeste r Education Checklist (units unknown) (unknown) (unknown) (no date) (unknown) (unknown) (units unknown) (unknown) (unknown) (no date) (unknown) (unknown) GERD (gastroesophageal reflux disease) (units unknown) (unknown) (unknown) (no date) (unknown) (unknown) GTT (PREG) 1 H our PP 50gm Dose 4 Weeks Z34.82 - Encounter for supervision of (units unknown) (unknown) (unknown) (no date) (unknown) (unknown) Joanna pt here for OB Check (units unknown) (unknown) (unknown) (no date) (unknown) (unknown) Genetic Screen ing + Counseling (units unknown) (unknown) (unknown) (no date) (unknown) (unknown) Genetic Screening (u nits unknown) (unknown) (unknown) (no date) (unknown) (unknown) Grandfather No problems noted. (units unknown) (unknown) (unknown) (no date) (unknown) (unknown) Grandmother Coagulopathy (units unknown) (unknown) (unknown) (no date) (unknown) (unknown) Grandmother Leukemia (units unknown) (unknown) (unknown) (no date) (unknown) (unknown) 3 Mult iple births (units unknown) (unknown) (unknown) (no date) (unknown) (unknown) HIV risk evaluation: low risk (units unknown) (unknown) (unknown) (no date) (unknown) (unknown) HSV-1 infection (uni ts unknown) (unknown) (unknown) (no date) (unknown) (unknown) Headache (units unknown) (unknown) (unknown) (no date) (unknown) (unknown) Health Center Education (units unknown) (unknown) (unknown) (no date) (unknown) (unknown) Health center information: nature of practice discussed, personnel (units unknown) (unknown) (unknown) (no date) (unknown) (unknown) Height 5 ft 5 in (un its unknown) (unknown) (unknown) (no date) (unknown) (unknown) Hemoglobin and Hematocrit 4 Weeks Z34.82 - Encounter for supervision of other (units unknown) (unknown) (unknown) (no date) (unknown) (unknown) Hemorrhoids (units unknown) (unknown) (unknown) (no date) (unknown) (unknown) Hepatitis C ri sk evaluation: low risk (units unknown) (unknown) (unknown) (no date) (unknown) (unknown) History of Hepatitis B: No (units unknown) (unknown) (unknown) (no date) (unknown) (unknown) History of Hepatitis C: No (units unknown) (unknown) (unknown) (no date) (unknown) (unknown) History of rem oval of skin mole (units unknown) (unknown) (unknown) (no date) (unknown) (unknown) [facility] (units unknown) (unknown) (unknown) (no date) (unknown) (unknown) Reagan stationed in [facility], and requests IOL between 39-40 wks, so (units unknown) (unknown) (unknown) (no date) (unknown) (unknown) Hx # Pregnancies 0 Elective abortions 0 (units unknown) (unknown) (unknown) (no date) (unknown) (unknown) Hx # Term Pregnancies 1 Ectopic pregnancies 0 (units unknown) (unknown) (unknown) (no date) (unknown) (unknown) Infant will be adopted?: no (units unknown) (unknown) (unknown) (no date) (unknown) (unknown) Infection History (u nits unknown) (unknown) (unknown) (no date) (unknown) (unknown) Infectious Dis ease Education (units unknown) (unknown) (unknown) (no date) (unknown) (unknown) Infectious dis ease exposure: chicken pox immunity discussed, hepatitis risk (units unknown) (unknown) (unknown) (no date) (unknown) (unknown) Influenza vacc ine (declines flu, undecided on Covid booster) (units unknown) (unknown) (unknown) (no date) (unknown) (unknown) Initial Weight : 200 lb (units unknown) (unknown) (unknown) (no date) (unknown) (unknown) Initials (units unknown) (unknown) (unknown) (no date) (unknown) (unknown) Intake Clinica l Staff (units unknown) (unknown) (unknown) (no date) (unknown) (unknown) Intake Note: (units unknown) (unknown) (unknown) (no date) (unknown) (unknown) Intake perform ed by: Yunier Kolb (units unknown) (unknown) (unknown) (no date) (unknown) (unknown) Intake (units unknown) (unknown) (unknown) (no date) (unknown) (unknown) LM (units unknown) (unknown) (unknown) (no date) (unknown) (unknown) Live with some one with TB or exposed to TB: No (units unknown) (unknown) (unknown) (no date) (unknown) (unknown) Loc: [facility] (units unknown) (unknown) (unknown) (no date) (unknown) (unknown) [id number] (units unknown) (unknown) (unknown) (no date) (unknown) (unknown) Marital status : (units unknown) (unknown) (unknown) (no date) (unknown) (unknown) Medical Histor y (Updated 06/07/22 @ 20:59 by Rossy Chaudhari) (units unknown) (unknown) (unknown) (no date) (unknown) (unknown) Medication use , Sauna/hot tub use, Dental care, Travel, Seatbelt use and (units unknown) (unknown) (unknown) (no date) (unknown) (unknown) Medications (units unknown) (unknown) (unknown) (no date) (unknown) (unknown) Migraine with aura ( units unknown) (unknown) (unknown) (no date) (unknown) (unknown) Migraines (units unknown) (unknown) (unknown) (no date) (unknown) (unknown) Mother d Alcoholism (units unknown) (unknown) (unknown) (no date) (unknown) (unknown) N No no 1,661 7 N/A absent long/closed (units unknown) (unknown) (unknown) (no date) (unknown) (unknown) N No no 166 12 N/A absent 4 wks (units unknown) (unknown) (unknown) (no date) (unknown) (unknown) N Yes no 146 2 0 N/A absent flu shot given (units unknown) (unknown) (unknown) (no date) (unknown) (unknown) N Yes no 151 1 8 N/A absent FLETCHER negative (units unknown) (unknown) (unknown) (no date) (unknown) (unknown) Nasal congestion (un its unknown) (unknown) (unknown) (no date) (unknown) (unknown) No Known Drug Allergies Allergy (Verified 08/31/22 08:23) (units unknown) (unknown) (unknown) (no date) (unknown) (unknown) Notes (units unknown) (unknown) (unknown) (no date) (unknown) (unknown) Number of Mandy ng Children 1 (units unknown) (unknown) (unknown) (no date) (unknown) (unknown) Number of fetu ses:: Single (units unknown) (unknown) (unknown) (no date) (unknown) (unknown) Nutrition and weight gain counseling: special diet: discussed (units unknown) (unknown) (unknown) (no date) (unknown) (unknown) OB Office Visit (uni ts unknown) (unknown) (unknown) (no date) (unknown) (unknown) OB Visit Log (units unknown) (unknown) (unknown) (no date) (unknown) (unknown) Orders (units unknown) (unknown) (unknown) (no date) (unknown) (unknown) Orders: (units unknown) (unknown) (unknown) (no date) (unknown) (unknown) Other Estimate s 11/15/22 LMP (Uncertain) 29w 1d (units unknown) (unknown) (unknown) (no date) (unknown) (unknown) Other Substanc e abuse (units unknown) (unknown) (unknown) (no date) (unknown) (unknown) Ovarian cyst (units unknown) (unknown) (unknown) (no date) (unknown) (unknown) PCOS (polycyst ic ovarian syndrome) (units unknown) (unknown) (unknown) (no date) (unknown) (unknown) PFSH (units unknown) (unknown) (unknown) (no date) (unknown) (unknown) Painful menstr ual periods (units unknown) (unknown) (unknown) (no date) (unknown) (unknown) Para 1 Spontan eous abortions 1 (units unknown) (unknown) (unknown) (no date) (unknown) (unknown) Partner histor y of STD: denies hx (units unknown) (unknown) (unknown) (no date) (unknown) (unknown) Partner histor y of genital herpes: No (units unknown) (unknown) (unknown) (no date) (unknown) (unknown) Partner: [employer] (units unknown) (unknown) (unknown) (no date) (unknown) (unknown) Past Pregnancies (un its unknown) (unknown) (unknown) (no date) (unknown) (unknown) Patient has be en on levothyroxine 50 mcg now for 2-1/2 weeks and is (units unknown) (unknown) (unknown) (no date) (unknown) (unknown) Patient is bhargavi y concerned about having a scheduled induction of labor as (units unknown) (unknown) (unknown) (no date) (unknown) (unknown) Patient opts f or a routine visit at 11 weeks 5 days. She is (units unknown) (unknown) (unknown) (no date) (unknown) (unknown) Patient presen ts for an NOB visit at 7 wks gestation. Had some bleeding (units unknown) (unknown) (unknown) (no date) (unknown) (unknown) Patient's age 35 years or older as of estimated date of delivery: No (units unknown) (unknown) (unknown) (no date) (unknown) (unknown) Patient: Calin Godfrey MR#: (units unknown) (unknown) (unknown) (no date) (unknown) (unknown) Technical Assistant: MELISSA Dallas (units unknown) (unknown) (unknown) (no date) (unknown) (unknown) Personal histo ry of STD: denies hx (units unknown) (unknown) (unknown) (no date) (unknown) (unknown) Personal histo ry of genital herpes: No (oral only) (units unknown) (unknown) (unknown) (no date) (unknown) (unknown) Position Sitting (un its unknown) (unknown) (unknown) (no date) (unknown) (unknown) History (u nits unknown) (unknown) (unknown) (no date) (unknown) (unknown) type :: Other Normal (units unknown) (unknown) (unknown) (no date) (unknown) (unknown) Education ( units unknown) (unknown) (unknown) (no date) (unknown) (unknown) Initi al Assessment (units unknown) (unknown) (unknown) (no date) (unknown) (unknown) Speci fic Issues/Plans (units unknown) (unknown) (unknown) (no date) (unknown) (unknown) Testi ng: discussed (units unknown) (unknown) (unknown) (no date) (unknown) (unknown) Visit (unit s unknown) (unknown) (unknown) (no date) (unknown) (unknown) educa tion packet: symptoms, Vitamins and iron, Diet and (units unknown) (unknown) (unknown) (no date) (unknown) (unknown) Primary Care Provider: [facility] (units unknown) (unknown) (unknown) (no date) (unknown) (unknown) Primary Ob Provider: Olivia Marshall (units unknown) (unknown) (unknown) (no date) (unknown) (unknown) Prior GBS-Infe cted child: No (units unknown) (unknown) (unknown) (no date) (unknown) (unknown) Providers (units unknown) (unknown) (unknown) (no date) (unknown) (unknown) Psoriasis (units unknown) (unknown) (unknown) (no date) (unknown) (unknown) Rapid first delivery (units unknown) (unknown) (unknown) (no date) (unknown) (unknown) Rash or viral illness since last menstrual period: No (units unknown) (unknown) (unknown) (no date) (unknown) (unknown) Reason For Visit (un its unknown) (unknown) (unknown) (no date) (unknown) (unknown) Recent travel outside of country?: No (units unknown) (unknown) (unknown) (no date) (unknown) (unknown) Reports Mental Retardation/Autism (sister had three very disabled children); (units unknown) (unknown) (unknown) (no date) (unknown) (unknown) S/P ACL repair (unit s unknown) (unknown) (unknown) (no date) (unknown) (unknown) Safety (units unknown) (unknown) (unknown) (no date) (unknown) (unknown) Second child f or this couple (units unknown) (unknown) (unknown) (no date) (unknown) (unknown) Severe PCOS (units unknown) (unknown) (unknown) (no date) (unknown) (unknown) She reports so me right sided hip pain and sciatica. She has a history of left (units unknown) (unknown) (unknown) (no date) (unknown) (unknown) She reports ur inary frequency, but denies painful urination, bladder pain, (units unknown) (unknown) (unknown) (no date) (unknown) (unknown) Shingles (units unknown) (unknown) (unknown) (no date) (unknown) (unknown) Shoulder pain (units unknown) (unknown) (unknown) (no date) (unknown) (unknown) Signed By: <Electronically signed by Bert Roque MD> (units unknown) (unknown) (unknown) (no date) (unknown) (unknown) Signed with Adriano (units unknown) (unknown) (unknown) (no date) (unknown) (unknown) [place] 10 (u nits unknown) (unknown) (unknown) (no date) (unknown) (unknown) Smoking Status : Current some day smoker (units unknown) (unknown) (unknown) (no date) (unknown) (unknown) Social History (unit s unknown) (unknown) (unknown) (no date) (unknown) (unknown) Support Person (s):: Reagan (units unknown) (unknown) (unknown) (no date) (unknown) (unknown) Surgical Histo ry (Updated 04/30/22 @ 08:16 by Krystina Lantigua RN) (units unknown) (unknown) (unknown) (no date) (unknown) (unknown) Surrogate ?: no (units unknown) (unknown) (unknown) (no date) (unknown) (unknown) Symptoms come on randomly and based on her description seem to be related to (units unknown) (unknown) (unknown) (no date) (unknown) (unknown) Symptoms since LMP: Reports amenorrhea, nausea, fatigue, breast tenderness, (units unknown) (unknown) (unknown) (no date) (unknown) (unknown) Teratogen Expo sures since LMP/Conception: Denies prescription medications, (units unknown) (unknown) (unknown) (no date) (unknown) (unknown) Testing Education (u nits unknown) (unknown) (unknown) (no date) (unknown) (unknown) Testing educat ion completed: group B strep and Spina bifida testing (units unknown) (unknown) (unknown) (no date) (unknown) (unknown) This note may have been all or partially generated using voice recognition (units unknown) (unknown) (unknown) (no date) (unknown) (unknown) Tobacco + Subs tance Use (units unknown) (unknown) (unknown) (no date) (unknown) (unknown) Tobacco Status (unit s unknown) (unknown) (unknown) (no date) (unknown) (unknown) Trimester:: 2n d Trimester (14-<28wks) (units unknown) (unknown) (unknown) (no date) (unknown) (unknown) Type(s) of exercise: walking (-7 miles/day), weight lifting and yoga (units unknown) (unknown) (unknown) (no date) (unknown) (unknown) UProtein Movem ent PreLabor FHR Fndl Ht Pres Edema Cerv Exam US/Comment Next Appt (units unknown) (unknown) (unknown) (no date) (unknown) (unknown) Varicella/chic delonte pox status: immunized (Hx shingles) (units unknown) (unknown) (unknown) (no date) (unknown) (unknown) Vertigo (units unknown) (unknown) (unknown) (no date) (unknown) (unknown) Visit Date: 07/12/22 Last Updated by: Frances Espinal P.A-C (units unknown) (unknown) (unknown) (no date) (unknown) (unknown) Visit Date: 08/09/22 Last Updated by: Frances Espinal P.A-C (units unknown) (unknown) (unknown) (no date) (unknown) (unknown) Visit Date: 08/31/22 Last Updated by: Bert Roque MD (units unknown) (unknown) (unknown) (no date) (unknown) (unknown) Visit Date: 05/11/22 Last Updated by: Olivia Marshall MD (units unknown) (unknown) (unknown) (no date) (unknown) (unknown) Visit Date: 06/08/22 Last Updated by: Olivia Marshall MD (units unknown) (unknown) (unknown) (no date) (unknown) (unknown) Visit Reasons: OB *Joanna (units unknown) (unknown) (unknown) (no date) (unknown) (unknown) Vitals (units unknown) (unknown) (unknown) (no date) (unknown) (unknown) WG (units unknown) (unknown) (unknown) (no date) (unknown) (unknown) Weeks gestatio n:: 23 (units unknown) (unknown) (unknown) (no date) (unknown) (unknown) Weight 248 lb (units unknown) (unknown) (unknown) (no date) (unknown) (unknown) Yes no 144 25 Breech 1+ Feels better since (units unknown) (unknown) (unknown) (no date) (unknown) (unknown) Zika virus exposure: No (units unknown) (unknown) (unknown) (no date) (unknown) (unknown) [History Confi rmed 08/31/22] (units unknown) (unknown) (unknown) (no date) (unknown) (unknown) activity, work/environmental/ hazards, Sexual activity, X-ray exposure, (units unknown) (unknown) (unknown) (no date) (unknown) (unknown) additional soc ial history: Pt reports that she and her almost split up (units unknown) (unknown) (unknown) (no date) (unknown) (unknown) alcohol intake : former (very rarely when not ) (units unknown) (unknown) (unknown) (no date) (unknown) (unknown) and had an u/s on 05/08/22. Viable IUP at 7 wks. No further BRP. Plan: Pap, (units unknown) (unknown) (unknown) (no date) (unknown) (unknown) and is at a healthier size. Hx depression and anxiety, did not do well on (units unknown) (unknown) (unknown) (no date) (unknown) (unknown) antidepressant s, 'I was a zombie for a while.' Not currently medicated or (units unknown) (unknown) (unknown) (no date) (unknown) (unknown) anxiety is lik mali not particularly well controlled at present. (units unknown) (unknown) (unknown) (no date) (unknown) (unknown) [facility] with: (units unknown) (unknown) (unknown) (no date) (unknown) (unknown) azithromycin 2 50 mg tablet 1,000 mg PO ONCE Chlamydia #4 tabs 05/17/22 [Rx (units unknown) (unknown) (unknown) (no date) (unknown) (unknown) bilingual; boby sangeeta language is Marshallese, has spoken Andorran for-18 years. Also (units unknown) (unknown) (unknown) (no date) (unknown) (unknown) defects not listed above and Denies Other (units unknown) (unknown) (unknown) (no date) (unknown) (unknown) c/o migraine w / aura 'I smell blood when I'm going to have a migraine. It used (units unknown) (unknown) (unknown) (no date) (unknown) (unknown) cab attend (units unknown) (unknown) (unknown) (no date) (unknown) (unknown) caffeine: Yes (aware of 200mg limit) (units unknown) (unknown) (unknown) (no date) (unknown) (unknown) carbon monox detector in home: Yes (units unknown) (unknown) (unknown) (no date) (unknown) (unknown) caregiver/supp ort person: Yes (units unknown) (unknown) (unknown) (no date) (unknown) (unknown) cf DNA and MSA FP ordered. NRL female, AFP negative (units unknown) (unknown) (unknown) (no date) (unknown) (unknown) cramping and contractions. Chlamydia test of cure from last visit was negative. (units unknown) (unknown) (unknown) (no date) (unknown) (unknown) current occupational exposures/hazards: No (units unknown) (unknown) (unknown) (no date) (unknown) (unknown) daily servings fruits/ve or more times/day (units unknown) (unknown) (unknown) (no date) (unknown) (unknown) described, vis it schedule reviewed, ultrasounds policy reviewed, coverage 24 (units unknown) (unknown) (unknown) (no date) (unknown) (unknown) desires to hav e genetic testing so cell free DNA testing and MSAFP were ordered (units unknown) (unknown) (unknown) (no date) (unknown) (unknown) discussed, tuberculosis exposure discussed, CMV discussed, Toxoplasmosis (units unknown) (unknown) (unknown) (no date) (unknown) (unknown) disorders, Den ies Cystic Fibrosis, Denies Brynn's Chorea, Denies Other (units unknown) (unknown) (unknown) (no date) (unknown) (unknown) do you feel sa fe at home: Yes (units unknown) (unknown) (unknown) (no date) (unknown) (unknown) does complain of left breast tenderness. Plan: Test of cure for chlamydia (units unknown) (unknown) (unknown) (no date) (unknown) (unknown) drug abuse and pt is very concerned about how this may affect her children. (units unknown) (unknown) (unknown) (no date) (unknown) (unknown) during the pas t year weight has: decreased > 10 lbs (intentional w/ diet and (units unknown) (unknown) (unknown) (no date) (unknown) (unknown) education leve l: college (some college) (units unknown) (unknown) (unknown) (no date) (unknown) (unknown) erk (units unknown) (unknown) (unknown) (no date) (unknown) (unknown) exercise) (units unknown) (unknown) (unknown) (no date) (unknown) (unknown) wali/religious : Uatsdin (units unknown) (unknown) (unknown) (no date) (unknown) (unknown) feeling much b vikas with less hair loss fatigue and dry skin (units unknown) (unknown) (unknown) (no date) (unknown) (unknown) ferrous sulfat e 325 mg (65 mg iron) tablet (Feosol) 325 mg PO DAILY 04/30/22 (units unknown) (unknown) (unknown) (no date) (unknown) (unknown) fevers. UA was normal in the office today. No nit or leuks. Very mild CVAT on (units unknown) (unknown) (unknown) (no date) (unknown) (unknown) fire extinguis her in home: Yes (units unknown) (unknown) (unknown) (no date) (unknown) (unknown) firearms in ho me: No (units unknown) (unknown) (unknown) (no date) (unknown) (unknown) fluconazole 15 0 mg tablet (Diflucan) 150 mg PO DAILY #1 tab 07/30/22 [Rx (units unknown) (unknown) (unknown) (no date) (unknown) (unknown) folic acid 400 mcg tablet 0.4 mg PO DAILY 04/30/22 [History Confirmed 08/31/22] (units unknown) (unknown) (unknown) (no date) (unknown) (unknown) for about the last 3 years, has not ever discussed this w/ her PCP so far. (units unknown) (unknown) (unknown) (no date) (unknown) (unknown) frequency: daily (un its unknown) (unknown) (unknown) (no date) (unknown) (unknown) have occurred. If there are any questions, please contact the Medical Records (units unknown) (unknown) (unknown) (no date) (unknown) (unknown) her wi ll be stationed in [facility]. We discussed that she would need to be (units unknown) (unknown) (unknown) (no date) (unknown) (unknown) home, no flo rns about violence or infidelity. Long family Hx of alcohol and (units unknown) (unknown) (unknown) (no date) (unknown) (unknown) hours a day an d participation of father in care and office visits (units unknown) (unknown) (unknown) (no date) (unknown) (unknown) household memb ers: spouse, family (brother) and children (units unknown) (unknown) (unknown) (no date) (unknown) (unknown) housing: apartment ( units unknown) (unknown) (unknown) (no date) (unknown) (unknown) inherited gene tic or chromosomal disorder, Denies Maternal Metabolic Disorder (units unknown) (unknown) (unknown) (no date) (unknown) (unknown) intake. Kathie berman precautions reviewed. F/u in 4 wks. (units unknown) (unknown) (unknown) (no date) (unknown) (unknown) kag (units unknown) (unknown) (unknown) (no date) (unknown) (unknown) levothyroxine 50 mcg capsule 50 mcg PO DAILY #90 caps 08/12/22 [Rx Confirmed (units unknown) (unknown) (unknown) (no date) (unknown) (unknown) lives independently: Yes (units unknown) (unknown) (unknown) (no date) (unknown) (unknown) marital status : (units unknown) (unknown) (unknown) (no date) (unknown) (unknown) may occur. Occasional wrong-word or 'sound-alike' substitutions may have (units unknown) (unknown) (unknown) (no date) (unknown) (unknown) months none [place] ( units unknown) (unknown) (unknown) (no date) (unknown) (unknown) movement and d enies VB, LOF, cramping, contractions and abnormal discharge. She (units unknown) (unknown) (unknown) (no date) (unknown) (unknown) normal pregnan cy, second trimester, Z3A.23 - 23 weeks gestation of (units unknown) (unknown) (unknown) (no date) (unknown) (unknown) number of chil dren: 3 (includes 2 stepchildren) (units unknown) (unknown) (unknown) (no date) (unknown) (unknown) occupational status: employed (desk/office job) (units unknown) (unknown) (unknown) (no date) (unknown) (unknown) occurred due t o the inherent limitations of voice recognition software. Please (units unknown) (unknown) (unknown) (no date) (unknown) (unknown) omega 8-cin-vir-fish oil 100 mg-160 mg-1,000 mg capsule (Fish Oil) 1 cap PO (units unknown) (unknown) (unknown) (no date) (unknown) (unknown) other normal , second trimester, Z3A.23 - 23 weeks gestation of (units unknown) (unknown) (unknown) (no date) (unknown) (unknown) oxymetazoline 0.05 % nasal spray 1 spray intranasal BID 04/30/22 [History (units unknown) (unknown) (unknown) (no date) (unknown) (unknown) pets and anima ls: No (units unknown) (unknown) (unknown) (no date) (unknown) (unknown) precautions, Listeriosis prevention and Rubella Immunization (units unknown) (unknown) (unknown) (no date) (unknown) (unknown) (units unknown) (unknown) (unknown) (no date) (unknown) (unknown) prenat.vits,ca l,min -iron-folic 1 tab PO DAILY 04/30/22 [History Confirmed (units unknown) (unknown) (unknown) (no date) (unknown) (unknown) r/o kidney pathology. ED precautions reviewed. Advised to increase fluid (units unknown) (unknown) (unknown) (no date) (unknown) (unknown) read the note carefully and recognize, using context, where these substitutions (units unknown) (unknown) (unknown) (no date) (unknown) (unknown) recently but madi diana decided to stay together in light of this . She (units unknown) (unknown) (unknown) (no date) (unknown) (unknown) reports some r ight sided flank pain x 4 days. She reports it is achy and dull. (units unknown) (unknown) (unknown) (no date) (unknown) (unknown) reports that is nervous and excited, confirms that she is safe in her (units unknown) (unknown) (unknown) (no date) (unknown) (unknown) required D+C (units unknown) (unknown) (unknown) (no date) (unknown) (unknown) reviewed. Foll ow-up in 4 weeks or as needed. (units unknown) (unknown) (unknown) (no date) (unknown) (unknown) s 4wks (units unknown) (unknown) (unknown) (no date) (unknown) (unknown) seatbelt use: always (units unknown) (unknown) (unknown) (no date) (unknown) (unknown) second hand exposure: Yes ( also smokes) (units unknown) (unknown) (unknown) (no date) (unknown) (unknown) seeing funeral counselor or, although her affect during intake call indicates that her (units unknown) (unknown) (unknown) (no date) (unknown) (unknown) shot but we wi ll consider getting 1 next visit. Warning precautions were (units unknown) (unknown) (unknown) (no date) (unknown) (unknown) sided sciatica . She desires PT referral for hip pain. Referral sent. She (units unknown) (unknown) (unknown) (no date) (unknown) (unknown) skin and scalp . Slightly enlarged thyroid on exam. CBC and TSH refulx to T4 (units unknown) (unknown) (unknown) (no date) (unknown) (unknown) software. Alth ough every effort is made to edit content, direct service professional errors (units unknown) (unknown) (unknown) (no date) (unknown) (unknown) special wali needs: No (units unknown) (unknown) (unknown) (no date) (unknown) (unknown) still having s ome nausea and vomiting. She does not want any medication for (units unknown) (unknown) (unknown) (no date) (unknown) (unknown) stress and anx iety. Worse since she has been , 'This is much worse than (units unknown) (unknown) (unknown) (no date) (unknown) (unknown) substance use type: does not use (units unknown) (unknown) (unknown) (no date) (unknown) (unknown) the right on e xam. Discussed MSK cause vs kidney stones. Ordered kidney US to (units unknown) (unknown) (unknown) (no date) (unknown) (unknown) the week befor e she found out), Denies illicit drugs and Denies other (units unknown) (unknown) (unknown) (no date) (unknown) (unknown) this. Her Pap smear came back positive for chlamydia. She was treated. She (units unknown) (unknown) (unknown) (no date) (unknown) (unknown) to be a sweet smell, but the last few years it's been blood.' Migraines appear (units unknown) (unknown) (unknown) (no date) (unknown) (unknown) to be largely hormonal and are worse when pt is heavy than when she loses weight (units unknown) (unknown) (unknown) (no date) (unknown) (unknown) today. Follow- up in 4-5 weeks. Warning signs reviewed. (units unknown) (unknown) (unknown) (no date) (unknown) (unknown) today. Ordered 20 week anatomy ultrasound. She is unsure if she wants a flu (units unknown) (unknown) (unknown) (no date) (unknown) (unknown) travel history : recent (domestic only) (units unknown) (unknown) (unknown) (no date) (unknown) (unknown) urinary freque ncy, irritability and other (headaches, heartburn) (units unknown) (unknown) (unknown) (no date) (unknown) (unknown) was recently treated for a yeast infection and reports it resolved with (units unknown) (unknown) (unknown) (no date) (unknown) (unknown) water heater t emp set < 120 deg: Yes (units unknown) (unknown) (unknown) (no date) (unknown) (unknown) weeks 4 days. She reports some fluttering movement and denies VB, LOF, (units unknown) (unknown) (unknown) (no date) (unknown) (unknown) weight gain, F marci and mercury intake, Smoking, Caffeine use, Exercise and (units unknown) (unknown) (unknown) (no date) (unknown) (unknown) well-balanced diet: daily or most days (units unknown) (unknown) (unknown) (no date) (unknown) (unknown) were ordered. Pt will have labs drawn after the visit. Flu shot given. She also (units unknown) (unknown) (unknown) (no date) (unknown) (unknown) working smoke detector in home: Yes (units unknown) (unknown) (unknown) (no date) (unknown) (unknown) yet available. She reports hair loss, brittle hair and nails, fatigue, and dry (units unknown) (unknown) Result panel 72 (unknown) (no date) (unknown) (unknown) (no value) (units unknown) (unknown) (unknown) (no date) (unknown) (unknown) 'mama brain,' I'm worried I have early onset dementia.' Notably, pt is (units unknown) (unknown) (unknown) (no date) (unknown) (unknown) (+19 lb) 108/64 N (u nits unknown) (unknown) (unknown) (no date) (unknown) (unknown) (+26 lb) 116/64 N (u nits unknown) (unknown) (unknown) (no date) (unknown) (unknown) (+36 lb) 106/66 N (u nits unknown) (unknown) (unknown) (no date) (unknown) (unknown) (+42 lb) 120/66 N (u nits unknown) (unknown) (unknown) (no date) (unknown) (unknown) (+48 lb) 118/72 N (u nits unknown) (unknown) (unknown) (no date) (unknown) (unknown) (EG,TYPE 1 Diabetes, PKU), Denies Patient or baby's father had a child with (units unknown) (unknown) (unknown) (no date) (unknown) (unknown) Genetic Screening/Teratolog y Counseling - Includes patient, baby's father, or (units unknown) (unknown) (unknown) (no date) (unknown) (unknown) +CT, Elizabeth Dill ds FLETCHER. FLETCHER negative. (units unknown) (unknown) (unknown) (no date) (unknown) (unknown) -?-?-?-?-?-?-? -?-?- ?-?-? (units unknown) (unknown) (unknown) (no date) (unknown) (unknown) .COMPLEX 04/30 [History Confirmed 10/05/22] (units unknown) (unknown) (unknown) (no date) (unknown) (unknown) /U 4 wks. Warn ing signs reviewed. (units unknown) (unknown) (unknown) (no date) (unknown) (unknown) 07/12/22 (units unknown) (unknown) (unknown) (no date) (unknown) (unknown) 08/09/22 (units unknown) (unknown) (unknown) (no date) (unknown) (unknown) 08/31/22 (units unknown) (unknown) (unknown) (no date) (unknown) (unknown) 09/25/10 14 spontaneous (units unknown) (unknown) (unknown) (no date) (unknown) (unknown) 10/05/22 (units unknown) (unknown) (unknown) (no date) (unknown) (unknown) 10/05/22] (units unknown) (unknown) (unknown) (no date) (unknown) (unknown) 12/23/22 Ultra sound #2 28w 5d (units unknown) (unknown) (unknown) (no date) (unknown) (unknown) 02/25/15 41.3 5 9 lb 8 oz Male vaginal live - full term (units unknown) (unknown) (unknown) (no date) (unknown) (unknown) 09:48 (units unknown) (unknown) (unknown) (no date) (unknown) (unknown) 05/11/22 (units unknown) (unknown) (unknown) (no date) (unknown) (unknown) 11w 5d 226 lb (units unknown) (unknown) (unknown) (no date) (unknown) (unknown) 06/08/22 (units unknown) (unknown) (unknown) (no date) (unknown) (unknown) 16w 4d 236 lb (units unknown) (unknown) (unknown) (no date) (unknown) (unknown) 20w 4d 242 lb (units unknown) (unknown) (unknown) (no date) (unknown) (unknown) 23w 5d 248 lb (units unknown) (unknown) (unknown) (no date) (unknown) (unknown) 39 weeks and t hat this can be most likely arranged closer to her due date (units unknown) (unknown) (unknown) (no date) (unknown) (unknown) 4 wks (units unknown) (unknown) (unknown) (no date) (unknown) (unknown) 7w 5d 219 lb (units unknown) (unknown) (unknown) (no date) (unknown) (unknown) Abnormal lab v alues 1st trimester: discussed (units unknown) (unknown) (unknown) (no date) (unknown) (unknown) Acne (units unknown) (unknown) (unknown) (no date) (unknown) (unknown) Add'l Plan Details ( units unknown) (unknown) (unknown) (no date) (unknown) (unknown) Additional Details:: Pt reports concerns about memory and word finding issues (units unknown) (unknown) (unknown) (no date) (unknown) (unknown) Additional Soc ial History (units unknown) (unknown) (unknown) (no date) (unknown) (unknown) Age/Sex: 32 / F Date of Service: (units unknown) (unknown) (unknown) (no date) (unknown) (unknown) Allergies (units unknown) (unknown) (unknown) (no date) (unknown) (unknown) [place] [id number] (units unknown) (unknown) (unknown) (no date) (unknown) (unknown) Anemia (units unknown) (unknown) (unknown) (no date) (unknown) (unknown) Aneuploidy Screening Offered: Accepted (likely will do quad screen, undecided) (units unknown) (unknown) (unknown) (no date) (unknown) (unknown) Anticipated co urse of care: discussed (units unknown) (unknown) (unknown) (no date) (unknown) (unknown) Anxiety (units unknown) (unknown) (unknown) (no date) (unknown) (unknown) Anxiety/depres marcy not very well managed, has not tolerated meds in the past. (units unknown) (unknown) (unknown) (no date) (unknown) (unknown) Assessment and Plan (units unknown) (unknown) (unknown) (no date) (unknown) (unknown) Attending Dr: Olivia Marshall MD (units unknown) (unknown) (unknown) (no date) (unknown) (unknown) BMI 42.7 (units unknown) (unknown) (unknown) (no date) (unknown) (unknown) BP 112/72 (units unknown) (unknown) (unknown) (no date) (unknown) (unknown) Plan/Preferences (units unknown) (unknown) (unknown) (no date) (unknown) (unknown) Planning (unit s unknown) (unknown) (unknown) (no date) (unknown) (unknown) Bleeding in fi rst trimester (units unknown) (unknown) (unknown) (no date) (unknown) (unknown) Blood Pressure Location Lt brachial (units unknown) (unknown) (unknown) (no date) (unknown) (unknown) Blood transfusions?: yes (Never had but would accept) (units unknown) (unknown) (unknown) (no date) (unknown) (unknown) Breastfeed Pre g Comp Name (units unknown) (unknown) (unknown) (no date) (unknown) (unknown) Brother Alcoholism ( units unknown) (unknown) (unknown) (no date) (unknown) (unknown) Carpal tunnel syndrome (units unknown) (unknown) (unknown) (no date) (unknown) (unknown) Calin present s today for routine OB f/u at 20w4d. She reports good (units unknown) (unknown) (unknown) (no date) (unknown) (unknown) Calin present s with her today for routine OB follow-up at 16 (units unknown) (unknown) (unknown) (no date) (unknown) (unknown) Confirmed 10/05/22] (units unknown) (unknown) (unknown) (no date) (unknown) (unknown) Current Estima te 12/23/22 Ultrasound #1 28w 5d (units unknown) (unknown) (unknown) (no date) (unknown) (unknown) Current Pregna ncy History (units unknown) (unknown) (unknown) (no date) (unknown) (unknown) : 199 0 Acct:[id number] (units unknown) (unknown) (unknown) (no date) (unknown) (unknown) Date of positi ve home test: 04/17/22 (units unknown) (unknown) (unknown) (no date) (unknown) (unknown) Date (units unknown) (unknown) (unknown) (no date) (unknown) (unknown) Del. Date GA/W eeks Labor Lgth Wt Sex Route Outcome Anesthesia Place (units unknown) (unknown) (unknown) (no date) (unknown) (unknown) Delivery Date: 09/25/10 Last Updated by: Krystina Lantigua RN (units unknown) (unknown) (unknown) (no date) (unknown) (unknown) Delv (units unknown) (unknown) (unknown) (no date) (unknown) (unknown) Denies Congeni gerard Heart Defect, Denies Down Syndrome, Denies Muscular Dystrophy, (units unknown) (unknown) (unknown) (no date) (unknown) (unknown) Denies Neural Tube Defect (Meningomyelocele, Spina Bifida, or Anencephaly), (units unknown) (unknown) (unknown) (no date) (unknown) (unknown) Denies Sickle Cell Disease or Trait (), Denies Hemophilia or other blood (units unknown) (unknown) (unknown) (no date) (unknown) (unknown) Denies Rodney-Sac hs (Ashkenazi Lutheran, Cajun, [place] Islander Singaporean), Denies Kayy (units unknown) (unknown) (unknown) (no date) (unknown) (unknown) Denies over th e counter medications, Reports alcohol (drank 2 bottles of wine (units unknown) (unknown) (unknown) (no date) (unknown) (unknown) Depression (units unknown) (unknown) (unknown) (no date) (unknown) (unknown) Depression: discussed (units unknown) (unknown) (unknown) (no date) (unknown) (unknown) Dept at . (units unknown) (unknown) (unknown) (no date) (unknown) (unknown) Diet and Exercise (u nits unknown) (unknown) (unknown) (no date) (unknown) (unknown) Diflucan. cfDN A and AFP were normal. Anatomy US was done today, but report not (units unknown) (unknown) (unknown) (no date) (unknown) (unknown) Disease (Ashke nazi Lutheran), Denies Familial Dysautonomia (Ashkenazi Lutheran), (units unknown) (unknown) (unknown) (no date) (unknown) (unknown) Documented By: Olivia Marshall MD 10/05/22 0946 (units unknown) (unknown) (unknown) (no date) (unknown) (unknown) Draft (units unknown) (unknown) (unknown) (no date) (unknown) (unknown) MADISYN Calculator (unit s unknown) (unknown) (unknown) (no date) (unknown) (unknown) EGA Weight BP UGlucose (units unknown) (unknown) (unknown) (no date) (unknown) (unknown) Eczema (units unknown) (unknown) (unknown) (no date) (unknown) (unknown) Estimated Deli very Date Method Current (units unknown) (unknown) (unknown) (no date) (unknown) (unknown) Family History (Updated 04/30/22 @ 08:33 by Krystina Lantigua RN) (units unknown) (unknown) (unknown) (no date) (unknown) (unknown) Family/Other Neurological abnormality (units unknown) (unknown) (unknown) (no date) (unknown) (unknown) Family/Other Obsessive compulsive disorder (units unknown) (unknown) (unknown) (no date) (unknown) (unknown) Father d Alcoholism (units unknown) (unknown) (unknown) (no date) (unknown) (unknown) Father of Baby : same (units unknown) (unknown) (unknown) (no date) (unknown) (unknown) [facility] (units unknown) (unknown) (unknown) (no date) (unknown) (unknown) First Trimeste r Education Checklist (units unknown) (unknown) (unknown) (no date) (unknown) (unknown) (units unknown) (unknown) (unknown) (no date) (unknown) (unknown) GERD (gastroesophageal reflux disease) (units unknown) (unknown) (unknown) (no date) (unknown) (unknown) Genetic Screen ing + Counseling (units unknown) (unknown) (unknown) (no date) (unknown) (unknown) Genetic Screening (u nits unknown) (unknown) (unknown) (no date) (unknown) (unknown) Grandfather No problems noted. (units unknown) (unknown) (unknown) (no date) (unknown) (unknown) Grandmother Coagulopathy (units unknown) (unknown) (unknown) (no date) (unknown) (unknown) Grandmother Leukemia (units unknown) (unknown) (unknown) (no date) (unknown) (unknown) 3 Mult iple births (units unknown) (unknown) (unknown) (no date) (unknown) (unknown) HIV risk evaluation: low risk (units unknown) (unknown) (unknown) (no date) (unknown) (unknown) HSV-1 infection (uni ts unknown) (unknown) (unknown) (no date) (unknown) (unknown) Headache (units unknown) (unknown) (unknown) (no date) (unknown) (unknown) Health Center Education (units unknown) (unknown) (unknown) (no date) (unknown) (unknown) Health center information: nature of practice discussed, personnel (units unknown) (unknown) (unknown) (no date) (unknown) (unknown) Height 5 ft 5 in (un its unknown) (unknown) (unknown) (no date) (unknown) (unknown) Hemorrhoids (units unknown) (unknown) (unknown) (no date) (unknown) (unknown) Hepatitis C ri sk evaluation: low risk (units unknown) (unknown) (unknown) (no date) (unknown) (unknown) History of Hepatitis B: No (units unknown) (unknown) (unknown) (no date) (unknown) (unknown) History of Hepatitis C: No (units unknown) (unknown) (unknown) (no date) (unknown) (unknown) History of rem oval of skin mole (units unknown) (unknown) (unknown) (no date) (unknown) (unknown) [facility] ([facility]) (unknown) (unknown) (no date) (unknown) (unknown) Reagan stationed in [facility], and requests IOL between 39-40 wks, so (units unknown) (unknown) (unknown) (no date) (unknown) (unknown) Hx # Pregnancies 0 Elective abortions 0 (units unknown) (unknown) (unknown) (no date) (unknown) (unknown) Hx # Term Pregnancies 1 Ectopic pregnancies 0 (units unknown) (unknown) (unknown) (no date) (unknown) (unknown) will be adopted?: no (units unknown) (unknown) (unknown) (no date) (unknown) (unknown) Infection History (u nits unknown) (unknown) (unknown) (no date) (unknown) (unknown) Infectious Dis ease Education (units unknown) (unknown) (unknown) (no date) (unknown) (unknown) Infectious dis ease exposure: chicken pox immunity discussed, hepatitis risk (units unknown) (unknown) (unknown) (no date) (unknown) (unknown) Influenza vacc ine (declines flu, undecided on Covid booster) (units unknown) (unknown) (unknown) (no date) (unknown) (unknown) Initial Weight : 200 lb (units unknown) (unknown) (unknown) (no date) (unknown) (unknown) Initials (units unknown) (unknown) (unknown) (no date) (unknown) (unknown) Intake Clinica l Staff (units unknown) (unknown) (unknown) (no date) (unknown) (unknown) Intake Note: (units unknown) (unknown) (unknown) (no date) (unknown) (unknown) Intake perform ed by: Noelle Cain (units unknown) (unknown) (unknown) (no date) (unknown) (unknown) Intake (units unknown) (unknown) (unknown) (no date) (unknown) (unknown) LM (units unknown) (unknown) (unknown) (no date) (unknown) (unknown) Live with some one with TB or exposed to TB: No (units unknown) (unknown) (unknown) (no date) (unknown) (unknown) Loc: [facility] (units unknown) (unknown) (unknown) (no date) (unknown) (unknown) [id number] (units unknown) (unknown) (unknown) (no date) (unknown) (unknown) Marital status : (units unknown) (unknown) (unknown) (no date) (unknown) (unknown) Medical Histor y (Updated 06/07/22 @ 20:59 by Rossy Chaudhari) (units unknown) (unknown) (unknown) (no date) (unknown) (unknown) Medication use , Sauna/hot tub use, Dental care, Travel, Seatbelt use and (units unknown) (unknown) (unknown) (no date) (unknown) (unknown) Medications (units unknown) (unknown) (unknown) (no date) (unknown) (unknown) Migraine with aura ( units unknown) (unknown) (unknown) (no date) (unknown) (unknown) Migraines (units unknown) (unknown) (unknown) (no date) (unknown) (unknown) Mother d Alcoholism (units unknown) (unknown) (unknown) (no date) (unknown) (unknown) N No no 1,661 7 N/A absent long/closed (units unknown) (unknown) (unknown) (no date) (unknown) (unknown) N No no 166 12 N/A absent 4 wks (units unknown) (unknown) (unknown) (no date) (unknown) (unknown) N Yes no 144 2 5 Breech 1+ Feels better sin (units unknown) (unknown) (unknown) (no date) (unknown) (unknown) N Yes no 146 2 0 N/A absent flu shot given (units unknown) (unknown) (unknown) (no date) (unknown) (unknown) N Yes no 151 1 8 N/A absent FLETCHER negative (units unknown) (unknown) (unknown) (no date) (unknown) (unknown) Nasal congestion (un its unknown) (unknown) (unknown) (no date) (unknown) (unknown) No Known Drug Allergies Allergy (Verified 10/05/22 09:48) (units unknown) (unknown) (unknown) (no date) (unknown) (unknown) Notes (units unknown) (unknown) (unknown) (no date) (unknown) (unknown) Number of Mandy ng Children 1 (units unknown) (unknown) (unknown) (no date) (unknown) (unknown) Number of fetu ses:: Single (units unknown) (unknown) (unknown) (no date) (unknown) (unknown) Nutrition and weight gain counseling: special diet: discussed (units unknown) (unknown) (unknown) (no date) (unknown) (unknown) OB Office Visit (uni ts unknown) (unknown) (unknown) (no date) (unknown) (unknown) OB Visit Log (units unknown) (unknown) (unknown) (no date) (unknown) (unknown) OB check (units unknown) (unknown) (unknown) (no date) (unknown) (unknown) Other Estimate s 11/15/22 LMP (Uncertain) 34w 1d (units unknown) (unknown) (unknown) (no date) (unknown) (unknown) Other Substanc e abuse (units unknown) (unknown) (unknown) (no date) (unknown) (unknown) Ovarian cyst (units unknown) (unknown) (unknown) (no date) (unknown) (unknown) PCOS (polycyst ic ovarian syndrome) (units unknown) (unknown) (unknown) (no date) (unknown) (unknown) PFSH (units unknown) (unknown) (unknown) (no date) (unknown) (unknown) Painful menstr ual periods (units unknown) (unknown) (unknown) (no date) (unknown) (unknown) Pap performed?: No ( units unknown) (unknown) (unknown) (no date) (unknown) (unknown) Para 1 Spontan eous abortions 1 (units unknown) (unknown) (unknown) (no date) (unknown) (unknown) Partner histor y of STD: denies hx (units unknown) (unknown) (unknown) (no date) (unknown) (unknown) Partner histor y of genital herpes: No (units unknown) (unknown) (unknown) (no date) (unknown) (unknown) Partner: Cheko (units unknown) (unknown) (unknown) (no date) (unknown) (unknown) Past Pregnancies (un its unknown) (unknown) (unknown) (no date) (unknown) (unknown) Patient has be en on levothyroxine 50 mcg now for 2-1/2 weeks and is (units unknown) (unknown) (unknown) (no date) (unknown) (unknown) Patient is bhargavi y concerned about having a scheduled induction of labor as (units unknown) (unknown) (unknown) (no date) (unknown) (unknown) Patient opts f or a routine visit at 11 weeks 5 days. She is (units unknown) (unknown) (unknown) (no date) (unknown) (unknown) Patient presen ts for an NOB visit at 7 wks gestation. Had some bleeding (units unknown) (unknown) (unknown) (no date) (unknown) (unknown) Patient's age 35 years or older as of estimated date of delivery: No (units unknown) (unknown) (unknown) (no date) (unknown) (unknown) Patient: Calin Godfrey MR#: (units unknown) (unknown) (unknown) (no date) (unknown) (unknown) Technical Assistant: [place]ELISSA [place] (units unknown) (unknown) (unknown) (no date) (unknown) (unknown) Personal histo ry of STD: denies hx (units unknown) (unknown) (unknown) (no date) (unknown) (unknown) Personal histo ry of genital herpes: No (oral only) (units unknown) (unknown) (unknown) (no date) (unknown) (unknown) Position Sitting (un its unknown) (unknown) (unknown) (no date) (unknown) (unknown) History (u nits unknown) (unknown) (unknown) (no date) (unknown) (unknown) type :: Other Normal (units unknown) (unknown) (unknown) (no date) (unknown) (unknown) Education ( units unknown) (unknown) (unknown) (no date) (unknown) (unknown) Initi al Assessment (units unknown) (unknown) (unknown) (no date) (unknown) (unknown) Speci fic Issues/Plans (units unknown) (unknown) (unknown) (no date) (unknown) (unknown) Testi ng: discussed (units unknown) (unknown) (unknown) (no date) (unknown) (unknown) Visit (unit s unknown) (unknown) (unknown) (no date) (unknown) (unknown) educa tion packet: symptoms, Vitamins and iron, Diet and (units unknown) (unknown) (unknown) (no date) (unknown) (unknown) Primary Care Provider: [facility] (units unknown) (unknown) (unknown) (no date) (unknown) (unknown) Primary Ob Provider: Olivia Marshall (units unknown) (unknown) (unknown) (no date) (unknown) (unknown) Prior GBS-Infe cted child: No (units unknown) (unknown) (unknown) (no date) (unknown) (unknown) Providers (units unknown) (unknown) (unknown) (no date) (unknown) (unknown) Psoriasis (units unknown) (unknown) (unknown) (no date) (unknown) (unknown) Rapid first delivery (units unknown) (unknown) (unknown) (no date) (unknown) (unknown) Rash or viral illness since last menstrual period: No (units unknown) (unknown) (unknown) (no date) (unknown) (unknown) Reason For Visit (un its unknown) (unknown) (unknown) (no date) (unknown) (unknown) Recent travel outside of country?: No (units unknown) (unknown) (unknown) (no date) (unknown) (unknown) Reports Mental Retardation/Autism (sister had three very disabled children); (units unknown) (unknown) (unknown) (no date) (unknown) (unknown) S/P ACL repair (unit s unknown) (unknown) (unknown) (no date) (unknown) (unknown) Safety (units unknown) (unknown) (unknown) (no date) (unknown) (unknown) Second child f or this couple (units unknown) (unknown) (unknown) (no date) (unknown) (unknown) Severe PCOS (units unknown) (unknown) (unknown) (no date) (unknown) (unknown) She reports so me right sided hip pain and sciatica. She has a history of left (units unknown) (unknown) (unknown) (no date) (unknown) (unknown) She reports ur inary frequency, but denies painful urination, bladder pain, (units unknown) (unknown) (unknown) (no date) (unknown) (unknown) Shingles (units unknown) (unknown) (unknown) (no date) (unknown) (unknown) Shoulder pain (units unknown) (unknown) (unknown) (no date) (unknown) (unknown) Signed By: (units unknown) (unknown) (unknown) (no date) (unknown) (unknown) JAVIER Hussein 10 (u nits unknown) (unknown) (unknown) (no date) (unknown) (unknown) Smoking Status : Current some day smoker (units unknown) (unknown) (unknown) (no date) (unknown) (unknown) Social History (unit s unknown) (unknown) (unknown) (no date) (unknown) (unknown) Support Person (s):: Reagan (units unknown) (unknown) (unknown) (no date) (unknown) (unknown) Surgical Histo ry (Updated 04/30/22 @ 08:16 by Krystina Lantigua RN) (units unknown) (unknown) (unknown) (no date) (unknown) (unknown) Surrogate ?: no (units unknown) (unknown) (unknown) (no date) (unknown) (unknown) Symptoms come on randomly and based on her description seem to be related to (units unknown) (unknown) (unknown) (no date) (unknown) (unknown) Symptoms since LMP: Reports amenorrhea, nausea, fatigue, breast tenderness, (units unknown) (unknown) (unknown) (no date) (unknown) (unknown) Teratogen Expo sures since LMP/Conception: Denies prescription medications, (units unknown) (unknown) (unknown) (no date) (unknown) (unknown) Testing Education (u nits unknown) (unknown) (unknown) (no date) (unknown) (unknown) Testing educat ion completed: group B strep and Spina bifida testing (units unknown) (unknown) (unknown) (no date) (unknown) (unknown) This note may have been all or partially generated using voice recognition (units unknown) (unknown) (unknown) (no date) (unknown) (unknown) Tobacco + Subs tance Use (units unknown) (unknown) (unknown) (no date) (unknown) (unknown) Tobacco Status (unit s unknown) (unknown) (unknown) (no date) (unknown) (unknown) Trimester:: 3r d Trimester (28wks-Del) (units unknown) (unknown) (unknown) (no date) (unknown) (unknown) Type(s) of exercise: walking (-7 miles/day), weight lifting and yoga (units unknown) (unknown) (unknown) (no date) (unknown) (unknown) UProtein Movem ent PreLabor FHR Fndl Ht Pres Edema Cerv Exam US/Comment Next Appt (units unknown) (unknown) (unknown) (no date) (unknown) (unknown) Ultrasound performed?: Yes (units unknown) (unknown) (unknown) (no date) (unknown) (unknown) Varicella/chic delonte pox status: immunized (Hx shingles) (units unknown) (unknown) (unknown) (no date) (unknown) (unknown) Vertigo (units unknown) (unknown) (unknown) (no date) (unknown) (unknown) Visit Date: 07/12/22 Last Updated by: Frances Espinal P.A-C (units unknown) (unknown) (unknown) (no date) (unknown) (unknown) Visit Date: 08/09/22 Last Updated by: Frances Espinal P.A-C (units unknown) (unknown) (unknown) (no date) (unknown) (unknown) Visit Date: 08/31/22 Last Updated by: Bert Roque MD (units unknown) (unknown) (unknown) (no date) (unknown) (unknown) Visit Date: 05/11/22 Last Updated by: Olivia Marshall MD (units unknown) (unknown) (unknown) (no date) (unknown) (unknown) Visit Date: 06/08/22 Last Updated by: Olivia Marshall MD (units unknown) (unknown) (unknown) (no date) (unknown) (unknown) Visit Reasons: OB w/3D (units unknown) (unknown) (unknown) (no date) (unknown) (unknown) Vitals (units unknown) (unknown) (unknown) (no date) (unknown) (unknown) WG (units unknown) (unknown) (unknown) (no date) (unknown) (unknown) Weeks gestatio n:: 28 (units unknown) (unknown) (unknown) (no date) (unknown) (unknown) Weight 257 lb (units unknown) (unknown) (unknown) (no date) (unknown) (unknown) Zika virus exposure: No (units unknown) (unknown) (unknown) (no date) (unknown) (unknown) [History Confi rmed 10/05/22] (units unknown) (unknown) (unknown) (no date) (unknown) (unknown) activity, work/environmental/ hazards, Sexual activity, X-ray exposure, (units unknown) (unknown) (unknown) (no date) (unknown) (unknown) additional soc ial history: Pt reports that she and her almost split up (units unknown) (unknown) (unknown) (no date) (unknown) (unknown) alcohol intake : former (very rarely when not ) (units unknown) (unknown) (unknown) (no date) (unknown) (unknown) and had an u/s on 05/08/22. Viable IUP at 7 wks. No further BRP. Plan: Pap, F (units unknown) (unknown) (unknown) (no date) (unknown) (unknown) and is at a healthier size. Hx depression and anxiety, did not do well on (units unknown) (unknown) (unknown) (no date) (unknown) (unknown) antidepressant s, 'I was a zombie for a while.' Not currently medicated or (units unknown) (unknown) (unknown) (no date) (unknown) (unknown) anxiety is lik mali not particularly well controlled at present. (units unknown) (unknown) (unknown) (no date) (unknown) (unknown) [facility] family with: (units unknown) (unknown) (unknown) (no date) (unknown) (unknown) azithromycin 2 50 mg tablet 1,000 mg PO ONCE Chlamydia #4 tabs 05/17/22 [Rx (units unknown) (unknown) (unknown) (no date) (unknown) (unknown) bilingual; boby s[place] language is Marshallese, has spoken Andorran for-18 years. Also (units unknown) (unknown) (unknown) (no date) (unknown) (unknown) defects not listed above and Denies Other (units unknown) (unknown) (unknown) (no date) (unknown) (unknown) c/o migraine w / aura 'I smell blood when I'm going to have a migraine. It used (units unknown) (unknown) (unknown) (no date) (unknown) (unknown) cab attend (units unknown) (unknown) (unknown) (no date) (unknown) (unknown) caffeine: Yes (aware of 200mg limit) (units unknown) (unknown) (unknown) (no date) (unknown) (unknown) carbon monox detector in home: Yes (units unknown) (unknown) (unknown) (no date) (unknown) (unknown) caregiver/supp ort person: Yes (units unknown) (unknown) (unknown) (no date) (unknown) (unknown) ce s 4wks (units unknown) (unknown) (unknown) (no date) (unknown) (unknown) cf DNA and MSA FP ordered. NRL female, AFP negative (units unknown) (unknown) (unknown) (no date) (unknown) (unknown) cramping and contractions. Chlamydia test of cure from last visit was negative. (units unknown) (unknown) (unknown) (no date) (unknown) (unknown) current occupational exposures/hazards: No (units unknown) (unknown) (unknown) (no date) (unknown) (unknown) daily servings fruits/ve or more times/day (units unknown) (unknown) (unknown) (no date) (unknown) (unknown) described, vis it schedule reviewed, ultrasounds policy reviewed, coverage 24 (units unknown) (unknown) (unknown) (no date) (unknown) (unknown) desires to hav e genetic testing so cell free DNA testing and MSAFP were ordered (units unknown) (unknown) (unknown) (no date) (unknown) (unknown) discussed, tuberculosis exposure discussed, CMV discussed, Toxoplasmosis (units unknown) (unknown) (unknown) (no date) (unknown) (unknown) disorders, Den ies Cystic Fibrosis, Denies Terrell's Chorea, Denies Other (units unknown) (unknown) (unknown) (no date) (unknown) (unknown) do you feel sa fe at home: Yes (units unknown) (unknown) (unknown) (no date) (unknown) (unknown) does complain of left breast tenderness. Plan: Test of cure for chlamydia (units unknown) (unknown) (unknown) (no date) (unknown) (unknown) drug abuse and pt is very concerned about how this may affect her children. (units unknown) (unknown) (unknown) (no date) (unknown) (unknown) during the pas t year weight has: decreased > 10 lbs (intentional w/ diet and (units unknown) (unknown) (unknown) (no date) (unknown) (unknown) education leve l: college (some college) (units unknown) (unknown) (unknown) (no date) (unknown) (unknown) erk (units unknown) (unknown) (unknown) (no date) (unknown) (unknown) exercise) (units unknown) (unknown) (unknown) (no date) (unknown) (unknown) wali/religious : [place] (units unknown) (unknown) (unknown) (no date) (unknown) (unknown) feeling much b vikas with less hair loss fatigue and dry skin (units unknown) (unknown) (unknown) (no date) (unknown) (unknown) ferrous sulfat e 325 mg (65 mg iron) tablet (Feosol) 325 mg PO DAILY 04/30/22 (units unknown) (unknown) (unknown) (no date) (unknown) (unknown) fevers. UA was normal in the office today. No nit or leuks. Very mild CVAT on (units unknown) (unknown) (unknown) (no date) (unknown) (unknown) fire extinguis her in home: Yes (units unknown) (unknown) (unknown) (no date) (unknown) (unknown) firearms in me: No (units unknown) (unknown) (unknown) (no date) (unknown) (unknown) fluconazole 15 0 mg tablet (Diflucan) 150 mg PO DAILY #1 tab 07/30/22 [Rx (units unknown) (unknown) (unknown) (no date) (unknown) (unknown) folic acid 400 mcg tablet 0.4 mg PO DAILY 04/30/22 [History Confirmed 10/05/22] (units unknown) (unknown) (unknown) (no date) (unknown) (unknown) for about the last 3 years, has not ever discussed this w/ her PCP so far. (units unknown) (unknown) (unknown) (no date) (unknown) (unknown) frequency: daily (un its unknown) (unknown) (unknown) (no date) (unknown) (unknown) have occurred. If there are any questions, please contact the Medical Records (units unknown) (unknown) (unknown) (no date) (unknown) (unknown) her wi ll be stationed in [facility]. We discussed that she would need to be (units unknown) (unknown) (unknown) (no date) (unknown) (unknown) home, no flo rns about violence or infidelity. Long family Hx of alcohol and (units unknown) (unknown) (unknown) (no date) (unknown) (unknown) hours a day an d participation of father in care and office visits (units unknown) (unknown) (unknown) (no date) (unknown) (unknown) household memb ers: spouse, family (brother) and children (units unknown) (unknown) (unknown) (no date) (unknown) (unknown) housing: apartment ( units unknown) (unknown) (unknown) (no date) (unknown) (unknown) inherited gene tic or chromosomal disorder, Denies Maternal Metabolic Disorder (units unknown) (unknown) (unknown) (no date) (unknown) (unknown) intake. Kathie berman precautions reviewed. F/u in 4 wks. (units unknown) (unknown) (unknown) (no date) (unknown) (unknown) kag (units unknown) (unknown) (unknown) (no date) (unknown) (unknown) levothyroxine 50 mcg capsule 50 mcg PO DAILY #90 caps 08/12/22 [Rx Confirmed (units unknown) (unknown) (unknown) (no date) (unknown) (unknown) lives independently: Yes (units unknown) (unknown) (unknown) (no date) (unknown) (unknown) marital status : (units unknown) (unknown) (unknown) (no date) (unknown) (unknown) may occur. Occasional wrong-word or 'sound-alike' substitutions may have (units unknown) (unknown) (unknown) (no date) (unknown) (unknown) months none [place] ( units unknown) (unknown) (unknown) (no date) (unknown) (unknown) movement and d enies VB, LOF, cramping, contractions and abnormal discharge. She (units unknown) (unknown) (unknown) (no date) (unknown) (unknown) number of chil dren: 3 (includes 2 stepchildren) (units unknown) (unknown) (unknown) (no date) (unknown) (unknown) occupational status: employed (desk/office job) (units unknown) (unknown) (unknown) (no date) (unknown) (unknown) occurred due t o the inherent limitations of voice recognition software. Please (units unknown) (unknown) (unknown) (no date) (unknown) (unknown) omega 6-sed-ilu-fish oil 100 mg-160 mg-1,000 mg capsule (Fish Oil) 1 cap PO (units unknown) (unknown) (unknown) (no date) (unknown) (unknown) oxymetazoline 0.05 % nasal spray 1 spray intranasal BID 04/30/22 [History (units unknown) (unknown) (unknown) (no date) (unknown) (unknown) pets and anima ls: No (units unknown) (unknown) (unknown) (no date) (unknown) (unknown) precautions, Listeriosis prevention and Rubella Immunization (units unknown) (unknown) (unknown) (no date) (unknown) (unknown) prenat.vits,ca l,min -iron-folic 1 tab PO DAILY 04/30/22 [History Confirmed (units unknown) (unknown) (unknown) (no date) (unknown) (unknown) r/o kidney pathology. ED precautions reviewed. Advised to increase fluid (units unknown) (unknown) (unknown) (no date) (unknown) (unknown) read the note carefully and recognize, using context, where these substitutions (units unknown) (unknown) (unknown) (no date) (unknown) (unknown) recently but madi diana decided to stay together in light of this . She (units unknown) (unknown) (unknown) (no date) (unknown) (unknown) reports some r ight sided flank pain x 4 days. She reports it is achy and dull. (units unknown) (unknown) (unknown) (no date) (unknown) (unknown) reports that is nervous and excited, confirms that she is safe in her (units unknown) (unknown) (unknown) (no date) (unknown) (unknown) required D+C (units unknown) (unknown) (unknown) (no date) (unknown) (unknown) reviewed. Foll ow-up in 4 weeks or as needed. (units unknown) (unknown) (unknown) (no date) (unknown) (unknown) seatbelt use: always (units unknown) (unknown) (unknown) (no date) (unknown) (unknown) second hand exposure: Yes ( also smokes) (units unknown) (unknown) (unknown) (no date) (unknown) (unknown) seeing funeral counselor or, although her affect during intake call indicates that her (units unknown) (unknown) (unknown) (no date) (unknown) (unknown) shot but we wi ll consider getting 1 next visit. Warning precautions were (units unknown) (unknown) (unknown) (no date) (unknown) (unknown) sided sciatica . She desires PT referral for hip pain. Referral sent. She (units unknown) (unknown) (unknown) (no date) (unknown) (unknown) skin and scalp . Slightly enlarged thyroid on exam. CBC and TSH refulx to T4 (units unknown) (unknown) (unknown) (no date) (unknown) (unknown) software. Alth ough every effort is made to edit content, direct service professional errors (units unknown) (unknown) (unknown) (no date) (unknown) (unknown) special wali needs: No (units unknown) (unknown) (unknown) (no date) (unknown) (unknown) still having s ome nausea and vomiting. She does not want any medication for (units unknown) (unknown) (unknown) (no date) (unknown) (unknown) stress and anx iety. Worse since she has been , 'This is much worse than (units unknown) (unknown) (unknown) (no date) (unknown) (unknown) substance use type: does not use (units unknown) (unknown) (unknown) (no date) (unknown) (unknown) the right on e xam. Discussed MSK cause vs kidney stones. Ordered kidney US to (units unknown) (unknown) (unknown) (no date) (unknown) (unknown) the week befor e she found out), Denies illicit drugs and Denies other (units unknown) (unknown) (unknown) (no date) (unknown) (unknown) this. Her Pap smear came back positive for chlamydia. She was treated. She (units unknown) (unknown) (unknown) (no date) (unknown) (unknown) to be a sweet smell, but the last few years it's been blood.' Migraines appear (units unknown) (unknown) (unknown) (no date) (unknown) (unknown) to be largely hormonal and are worse when pt is heavy than when she loses weight (units unknown) (unknown) (unknown) (no date) (unknown) (unknown) today. Follow- up in 4-5 weeks. Warning signs reviewed. (units unknown) (unknown) (unknown) (no date) (unknown) (unknown) today. Ordered 20 week anatomy ultrasound. She is unsure if she wants a flu (units unknown) (unknown) (unknown) (no date) (unknown) (unknown) travel history : recent (domestic only) (units unknown) (unknown) (unknown) (no date) (unknown) (unknown) urinary freque ncy, irritability and other (headaches, heartburn) (units unknown) (unknown) (unknown) (no date) (unknown) (unknown) was recently treated for a yeast infection and reports it resolved with (units unknown) (unknown) (unknown) (no date) (unknown) (unknown) water heater t emp set < 120 deg: Yes (units unknown) (unknown) (unknown) (no date) (unknown) (unknown) weeks 4 days. She reports some fluttering movement and denies VB, LOF, (units unknown) (unknown) (unknown) (no date) (unknown) (unknown) weight gain, F marci and mercury intake, Smoking, Caffeine use, Exercise and (units unknown) (unknown) (unknown) (no date) (unknown) (unknown) well-balanced diet: daily or most days (units unknown) (unknown) (unknown) (no date) (unknown) (unknown) were ordered. Pt will have labs drawn after the visit. Flu shot given. She also (units unknown) (unknown) (unknown) (no date) (unknown) (unknown) working smoke detector in home: Yes (units unknown) (unknown) (unknown) (no date) (unknown) (unknown) yet available. She reports hair loss, brittle hair and nails, fatigue, and dry (units unknown) (unknown) Result panel 73 (unknown) (no date) (unknown) (unknown) 10.9 g/dl (unknown ) (unknown) (no date) (unknown) (unknown) 31.4 % (unknown ) Result panel 74 (unknown) (no date) (unknown) (unknown) 140 mg/dl (unknown ) (unknown) (no date) (unknown) (unknown) 140 mg/dl (unknown ) Result panel 75 (unknown) (no date) (unknown) (unknown) 0.73 ng/dl (unknown ) Result panel 76 (unknown) (no date) (unknown) (unknown) 0.070 uiu/ml (unknown ) (unknown) (no date) (unknown) (unknown) 0.73 ng/dl (unknown ) Result panel 77 (unknown) (no date) (unknown) (unknown) 75 mg/dl (unknown ) (unknown) (no date) (unknown) (unknown) 75 mg/dl (unknown ) Result panel 78 (unknown) (no date) (unknown) (unknown) 169 mg/dl (unknown ) (unknown) (no date) (unknown) (unknown) 169 mg/dl (unknown ) Result panel 79 (unknown) (no date) (unknown) (unknown) INTERPRETATION (unit s unknown) (unknown) (unknown) (no date) (unknown) (unknown) INTERPRETATION (unit s unknown) (unknown) Result panel 80 (unknown) (no date) (unknown) (unknown) 88 mg/dl (unknown ) (unknown) (no date) (unknown) (unknown) 88 mg/dl (unknown ) (unknown) (no date) (unknown) (unknown) INTERPRETATION (unit s unknown) (unknown) (unknown) (no date) (unknown) (unknown) INTERPRETATION (unit s unknown) (unknown) Result panel 81 (unknown) (no date) (unknown) (unknown) 154 mg/dl (unknown ) (unknown) (no date) (unknown) (unknown) 154 mg/dl (unknown ) Result panel 82 (unknown) (no date) (unknown) (unknown) (no value) (units unknown) (unknown) (unknown) (no date) (unknown) (unknown) 'mama brain,' I'm worried I have early onset dementia.' Notably, pt is (units unknown) (unknown) (unknown) (no date) (unknown) (unknown) (+19 lb) 108/64 N (u nits unknown) (unknown) (unknown) (no date) (unknown) (unknown) (+26 lb) 116/64 N (u nits unknown) (unknown) (unknown) (no date) (unknown) (unknown) (+36 lb) 106/66 N (u nits unknown) (unknown) (unknown) (no date) (unknown) (unknown) (+42 lb) 120/66 N (u nits unknown) (unknown) (unknown) (no date) (unknown) (unknown) (+48 lb) 118/72 N (u nits unknown) (unknown) (unknown) (no date) (unknown) (unknown) (+57 lb) 112/72 N (u nits unknown) (unknown) (unknown) (no date) (unknown) (unknown) (1) Breech presentation: (units unknown) (unknown) (unknown) (no date) (unknown) (unknown) (2) 29 weeks gestation of : (units unknown) (unknown) (unknown) (no date) (unknown) (unknown) (EG,TYPE 1 Diabetes, PKU), Denies Patient or baby's father had a child with (units unknown) (unknown) (unknown) (no date) (unknown) (unknown) Genetic Screening/Teratolog y Counseling - Includes patient, baby's father, or (units unknown) (unknown) (unknown) (no date) (unknown) (unknown) +CT, Tx'd. Nee ds FLETCHER. FLETCHER negative. (units unknown) (unknown) (unknown) (no date) (unknown) (unknown) -?-?-?-?-?-?-? -?-?- ?-?-? (units unknown) (unknown) (unknown) (no date) (unknown) (unknown) .COMPLEX 04/30 [History Confirmed 10/05/22] (units unknown) (unknown) (unknown) (no date) (unknown) (unknown) 07/12/22 (units unknown) (unknown) (unknown) (no date) (unknown) (unknown) 08/09/22 (units unknown) (unknown) (unknown) (no date) (unknown) (unknown) 08/31/22 (units unknown) (unknown) (unknown) (no date) (unknown) (unknown) 09/25/10 14 spontaneous (units unknown) (unknown) (unknown) (no date) (unknown) (unknown) 10/05/22 (units unknown) (unknown) (unknown) (no date) (unknown) (unknown) 10/05/22] (units unknown) (unknown) (unknown) (no date) (unknown) (unknown) 10/10/22 1402 (units unknown) (unknown) (unknown) (no date) (unknown) (unknown) 12/23/22 Ultra sound #2 29w 3d (units unknown) (unknown) (unknown) (no date) (unknown) (unknown) 02/25/15 41.3 5 9 lb 8 oz Male vaginal live - full term (units unknown) (unknown) (unknown) (no date) (unknown) (unknown) 09:48 (units unknown) (unknown) (unknown) (no date) (unknown) (unknown) 05/11/22 (units unknown) (unknown) (unknown) (no date) (unknown) (unknown) 11w 5d 226 lb (units unknown) (unknown) (unknown) (no date) (unknown) (unknown) 06/08/ (units unknown) (unknown) (unknown) (no date) (unknown) (unknown) 16w 4d 236 lb (units unknown) (unknown) (unknown) (no date) (unknown) (unknown) 20w 4d 242 lb (units unknown) (unknown) (unknown) (no date) (unknown) (unknown) 23w 5d 248 lb (units unknown) (unknown) (unknown) (no date) (unknown) (unknown) 28w 5d 257 lb (units unknown) (unknown) (unknown) (no date) (unknown) (unknown) 39 weeks and t hat this can be most likely arranged closer to her due date (units unknown) (unknown) (unknown) (no date) (unknown) (unknown) 4 wks (units unknown) (unknown) (unknown) (no date) (unknown) (unknown) 7w 5d 219 lb (units unknown) (unknown) (unknown) (no date) (unknown) (unknown) Abnormal lab v alues 1st trimester: discussed (units unknown) (unknown) (unknown) (no date) (unknown) (unknown) Acne (units unknown) (unknown) (unknown) (no date) (unknown) (unknown) Add'l Plan Details ( units unknown) (unknown) (unknown) (no date) (unknown) (unknown) Additional Details:: Pt reports concerns about memory and word finding issues (units unknown) (unknown) (unknown) (no date) (unknown) (unknown) Additional Soc ial History (units unknown) (unknown) (unknown) (no date) (unknown) (unknown) Age/Sex: 32 / F Date of Service: (units unknown) (unknown) (unknown) (no date) (unknown) (unknown) Allergies (units unknown) (unknown) (unknown) (no date) (unknown) (unknown) JAVIER Harding [id number] (units unknown) (unknown) (unknown) (no date) (unknown) (unknown) Anemia (units unknown) (unknown) (unknown) (no date) (unknown) (unknown) Aneuploidy Screening Offered: Accepted (likely will do quad screen, undecided) (units unknown) (unknown) (unknown) (no date) (unknown) (unknown) Anticipated co urse of care: discussed (units unknown) (unknown) (unknown) (no date) (unknown) (unknown) Anxiety (units unknown) (unknown) (unknown) (no date) (unknown) (unknown) Anxiety/depres marcy not very well managed, has not tolerated meds in the past. (units unknown) (unknown) (unknown) (no date) (unknown) (unknown) Assessment and Plan (units unknown) (unknown) (unknown) (no date) (unknown) (unknown) Attending Dr: Olivia Marshall MD (units unknown) (unknown) (unknown) (no date) (unknown) (unknown) BMI 42.7 (units unknown) (unknown) (unknown) (no date) (unknown) (unknown) BP 112/72 (units unknown) (unknown) (unknown) (no date) (unknown) (unknown) Plan/Preferences (units unknown) (unknown) (unknown) (no date) (unknown) (unknown) Planning (unit s unknown) (unknown) (unknown) (no date) (unknown) (unknown) Bleeding in fi rst trimester (units unknown) (unknown) (unknown) (no date) (unknown) (unknown) Blood Pressure Location Lt brachial (units unknown) (unknown) (unknown) (no date) (unknown) (unknown) Blood transfusions?: yes (Never had but would accept) (units unknown) (unknown) (unknown) (no date) (unknown) (unknown) Breastfeed Pre g Comp Name (units unknown) (unknown) (unknown) (no date) (unknown) (unknown) Brother Alcoholism ( units unknown) (unknown) (unknown) (no date) (unknown) (unknown) Carpal tunnel syndrome (units unknown) (unknown) (unknown) (no date) (unknown) (unknown) Calin present s today for routine OB f/u at 20w4d. She reports good (units unknown) (unknown) (unknown) (no date) (unknown) (unknown) Calin present s with her today for routine OB follow-up at 16 (units unknown) (unknown) (unknown) (no date) (unknown) (unknown) Confirmed 10/05/22] (units unknown) (unknown) (unknown) (no date) (unknown) (unknown) Current Estima te 12/23/22 Ultrasound #1 29w 3d (units unknown) (unknown) (unknown) (no date) (unknown) (unknown) Current Pregna ncy History (units unknown) (unknown) (unknown) (no date) (unknown) (unknown) : 0 Acct:[id number] (units unknown) (unknown) (unknown) (no date) (unknown) (unknown) Date of positi ve home test: 04/17/22 (units unknown) (unknown) (unknown) (no date) (unknown) (unknown) Date (units unknown) (unknown) (unknown) (no date) (unknown) (unknown) Del. Date GA/W eeks Labor Lgth Wt Sex Route Outcome Anesthesia Place (units unknown) (unknown) (unknown) (no date) (unknown) (unknown) Delivery Date: 09/25/10 Last Updated by: Krystina Lantigua RN (units unknown) (unknown) (unknown) (no date) (unknown) (unknown) Delv (units unknown) (unknown) (unknown) (no date) (unknown) (unknown) Denies Congeni gerard Heart Defect, Denies Down Syndrome, Denies Muscular Dystrophy, (units unknown) (unknown) (unknown) (no date) (unknown) (unknown) Denies Neural Tube Defect (Meningomyelocele, Spina Bifida, or Anencephaly), (units unknown) (unknown) (unknown) (no date) (unknown) (unknown) Denies Sickle Cell Disease or Trait (), Denies Hemophilia or other blood (units unknown) (unknown) (unknown) (no date) (unknown) (unknown) Denies Rodney-Sac hs (Ashkenazi Lutheran, Cajun, [place] Islander Singaporean), Denies Kayy (units unknown) (unknown) (unknown) (no date) (unknown) (unknown) Denies over th e counter medications, Reports alcohol (drank 2 bottles of wine (units unknown) (unknown) (unknown) (no date) (unknown) (unknown) Depression (units unknown) (unknown) (unknown) (no date) (unknown) (unknown) Depression: discussed (units unknown) (unknown) (unknown) (no date) (unknown) (unknown) Dept at . (units unknown) (unknown) (unknown) (no date) (unknown) (unknown) Diet and Exercise (u nits unknown) (unknown) (unknown) (no date) (unknown) (unknown) Diflucan. cfDN A and AFP were normal. Anatomy US was done today, but report not (units unknown) (unknown) (unknown) (no date) (unknown) (unknown) Disease (Ashke nazi Lutheran), Denies Familial Dysautonomia (Ashkenazi Lutheran), (units unknown) (unknown) (unknown) (no date) (unknown) (unknown) Documented By: Olivia Marshall MD 10/05/22 0935 (units unknown) (unknown) (unknown) (no date) (unknown) (unknown) MADISYN Calculator (unit s unknown) (unknown) (unknown) (no date) (unknown) (unknown) EGA Weight BP UGlucose (units unknown) (unknown) (unknown) (no date) (unknown) (unknown) Eczema (units unknown) (unknown) (unknown) (no date) (unknown) (unknown) Estimated Deli very Date Method Current (units unknown) (unknown) (unknown) (no date) (unknown) (unknown) F/U 4 wks. War raven signs reviewed. (units unknown) (unknown) (unknown) (no date) (unknown) (unknown) Family History (Updated 04/30/22 @ 08:33 by Krystina Lantigua RN) (units unknown) (unknown) (unknown) (no date) (unknown) (unknown) Family/Other Neurological abnormality (units unknown) (unknown) (unknown) (no date) (unknown) (unknown) Family/Other Obsessive compulsive disorder (units unknown) (unknown) (unknown) (no date) (unknown) (unknown) Father d Alcoholism (units unknown) (unknown) (unknown) (no date) (unknown) (unknown) Father of Baby : same (units unknown) (unknown) (unknown) (no date) (unknown) (unknown) Fetus number: single or unspecified fetus Qualified Code(s): O32.1XX0 (units unknown) (unknown) (unknown) (no date) (unknown) (unknown) [facility] (units unknown) (unknown) (unknown) (no date) (unknown) (unknown) First Trimeste r Education Checklist (units unknown) (unknown) (unknown) (no date) (unknown) (unknown) (units unknown) (unknown) (unknown) (no date) (unknown) (unknown) GERD (gastroesophageal reflux disease) (units unknown) (unknown) (unknown) (no date) (unknown) (unknown) Genetic Screen ing + Counseling (units unknown) (unknown) (unknown) (no date) (unknown) (unknown) Genetic Screening (u nits unknown) (unknown) (unknown) (no date) (unknown) (unknown) Good movement. No leakage of fluid or vaginal bleeding. She requests (units unknown) (unknown) (unknown) (no date) (unknown) (unknown) Grandfather No problems noted. (units unknown) (unknown) (unknown) (no date) (unknown) (unknown) Grandmother Coagulopathy (units unknown) (unknown) (unknown) (no date) (unknown) (unknown) Grandmother Leukemia (units unknown) (unknown) (unknown) (no date) (unknown) (unknown) 3 Mult iple births (units unknown) (unknown) (unknown) (no date) (unknown) (unknown) HIV risk evaluation: low risk (units unknown) (unknown) (unknown) (no date) (unknown) (unknown) HSV-1 infection (uni ts unknown) (unknown) (unknown) (no date) (unknown) (unknown) Headache (units unknown) (unknown) (unknown) (no date) (unknown) (unknown) Health Center Education (units unknown) (unknown) (unknown) (no date) (unknown) (unknown) Health center information: nature of practice discussed, personnel (units unknown) (unknown) (unknown) (no date) (unknown) (unknown) Height 5 ft 5 in (un its unknown) (unknown) (unknown) (no date) (unknown) (unknown) Hemorrhoids (units unknown) (unknown) (unknown) (no date) (unknown) (unknown) Hepatitis C ri sk evaluation: low risk (units unknown) (unknown) (unknown) (no date) (unknown) (unknown) History of Hepatitis B: No (units unknown) (unknown) (unknown) (no date) (unknown) (unknown) History of Hepatitis C: No (units unknown) (unknown) (unknown) (no date) (unknown) (unknown) History of rem oval of skin mole (units unknown) (unknown) (unknown) (no date) (unknown) (unknown) Hospital: [facility] (units unknown) (unknown) (unknown) (no date) (unknown) (unknown) Reagan stationed in [facility], and requests IOL between 39-40 wks, so (units unknown) (unknown) (unknown) (no date) (unknown) (unknown) Hx # Pregnancies 0 Elective abortions 0 (units unknown) (unknown) (unknown) (no date) (unknown) (unknown) Hx # Term Pregnancies 1 Ectopic pregnancies 0 (units unknown) (unknown) (unknown) (no date) (unknown) (unknown) Hypothyroid, Levothyroxine 25mcg (units unknown) (unknown) (unknown) (no date) (unknown) (unknown) Infant will be adopted?: no (units unknown) (unknown) (unknown) (no date) (unknown) (unknown) Infection History (u nits unknown) (unknown) (unknown) (no date) (unknown) (unknown) Infectious Dis ease Education (units unknown) (unknown) (unknown) (no date) (unknown) (unknown) Infectious dis ease exposure: chicken pox immunity discussed, hepatitis risk (units unknown) (unknown) (unknown) (no date) (unknown) (unknown) Influenza vacc ine (declines flu, undecided on Covid booster) (units unknown) (unknown) (unknown) (no date) (unknown) (unknown) Initial Weight : 200 lb (units unknown) (unknown) (unknown) (no date) (unknown) (unknown) Initials (units unknown) (unknown) (unknown) (no date) (unknown) (unknown) Intake Clinica l Staff (units unknown) (unknown) (unknown) (no date) (unknown) (unknown) Intake Note: (units unknown) (unknown) (unknown) (no date) (unknown) (unknown) Intake perform ed by: Noelle Cain (units unknown) (unknown) (unknown) (no date) (unknown) (unknown) Intake (units unknown) (unknown) (unknown) (no date) (unknown) (unknown) LM (units unknown) (unknown) (unknown) (no date) (unknown) (unknown) Live with some one with TB or exposed to TB: No (units unknown) (unknown) (unknown) (no date) (unknown) (unknown) Loc: [facility] (units unknown) (unknown) (unknown) (no date) (unknown) (unknown) [id number] (units unknown) (unknown) (unknown) (no date) (unknown) (unknown) Marital status : (units unknown) (unknown) (unknown) (no date) (unknown) (unknown) Maternal care for breech presentation, not applicable or unspecified (units unknown) (unknown) (unknown) (no date) (unknown) (unknown) Medical Histor y (Updated 10/10/22 @ 14:02 by Olivia Marshall MD) (units unknown) (unknown) (unknown) (no date) (unknown) (unknown) Medication use , Sauna/hot tub use, Dental care, Travel, Seatbelt use and (units unknown) (unknown) (unknown) (no date) (unknown) (unknown) Medications (units unknown) (unknown) (unknown) (no date) (unknown) (unknown) Migraine with aura ( units unknown) (unknown) (unknown) (no date) (unknown) (unknown) Migraines (units unknown) (unknown) (unknown) (no date) (unknown) (unknown) Mother d Alcoholism (units unknown) (unknown) (unknown) (no date) (unknown) (unknown) N No no 1,661 7 N/A absent long/closed (units unknown) (unknown) (unknown) (no date) (unknown) (unknown) N No no 166 12 N/A absent 4 wks (units unknown) (unknown) (unknown) (no date) (unknown) (unknown) N Yes no 140 2 9 Breech 1+ 3 wks (units unknown) (unknown) (unknown) (no date) (unknown) (unknown) N Yes no 144 2 5 Breech 1+ Feels better sin (units unknown) (unknown) (unknown) (no date) (unknown) (unknown) N Yes no 146 2 0 N/A absent flu shot given (units unknown) (unknown) (unknown) (no date) (unknown) (unknown) N Yes no 151 1 8 N/A absent FLETCHER negative (units unknown) (unknown) (unknown) (no date) (unknown) (unknown) Nasal congestion (un its unknown) (unknown) (unknown) (no date) (unknown) (unknown) No Known Drug Allergies Allergy (Verified 10/05/22 09:48) (units unknown) (unknown) (unknown) (no date) (unknown) (unknown) Notes (units unknown) (unknown) (unknown) (no date) (unknown) (unknown) Number of Mandy ng Children 1 (units unknown) (unknown) (unknown) (no date) (unknown) (unknown) Number of fetu ses:: Single (units unknown) (unknown) (unknown) (no date) (unknown) (unknown) Nutrition and weight gain counseling: special diet: discussed (units unknown) (unknown) (unknown) (no date) (unknown) (unknown) OB Office Visit (uni ts unknown) (unknown) (unknown) (no date) (unknown) (unknown) OB Visit Log (units unknown) (unknown) (unknown) (no date) (unknown) (unknown) OB check (units unknown) (unknown) (unknown) (no date) (unknown) (unknown) Other Estimate s 11/15/22 LMP (Uncertain) 34w 6d (units unknown) (unknown) (unknown) (no date) (unknown) (unknown) Other Substanc e abuse (units unknown) (unknown) (unknown) (no date) (unknown) (unknown) Ovarian cyst (units unknown) (unknown) (unknown) (no date) (unknown) (unknown) PCOS (polycyst ic ovarian syndrome) (units unknown) (unknown) (unknown) (no date) (unknown) (unknown) PFSH (units unknown) (unknown) (unknown) (no date) (unknown) (unknown) Painful menstr ual periods (units unknown) (unknown) (unknown) (no date) (unknown) (unknown) Pap performed?: No ( units unknown) (unknown) (unknown) (no date) (unknown) (unknown) Para 1 Spontan eous abortions 1 (units unknown) (unknown) (unknown) (no date) (unknown) (unknown) Partner histor y of STD: denies hx (units unknown) (unknown) (unknown) (no date) (unknown) (unknown) Partner histor y of genital herpes: No (units unknown) (unknown) (unknown) (no date) (unknown) (unknown) Partner: Cheko (units unknown) (unknown) (unknown) (no date) (unknown) (unknown) Past Pregnancies (un its unknown) (unknown) (unknown) (no date) (unknown) (unknown) Patient has be en on levothyroxine 50 mcg now for 2-1/2 weeks and is (units unknown) (unknown) (unknown) (no date) (unknown) (unknown) Patient is bhargavi y concerned about having a scheduled induction of labor as (units unknown) (unknown) (unknown) (no date) (unknown) (unknown) Patient opts f or a routine visit at 11 weeks 5 days. She is (units unknown) (unknown) (unknown) (no date) (unknown) (unknown) Patient presen ts for a routine visit at 28 weeks and 5 days. (units unknown) (unknown) (unknown) (no date) (unknown) (unknown) Patient presen ts for an NOB visit at 7 wks gestation. Had some bleeding (units unknown) (unknown) (unknown) (no date) (unknown) (unknown) Patient's age 35 years or older as of estimated date of delivery: No (units unknown) (unknown) (unknown) (no date) (unknown) (unknown) Patient: Calin Godfrey MR#: (units unknown) (unknown) (unknown) (no date) (unknown) (unknown) Technical Assistant: MELISSA Dallas (units unknown) (unknown) (unknown) (no date) (unknown) (unknown) Personal histo ry of STD: denies hx (units unknown) (unknown) (unknown) (no date) (unknown) (unknown) Personal histo ry of genital herpes: No (oral only) (units unknown) (unknown) (unknown) (no date) (unknown) (unknown) Position Sitting (un its unknown) (unknown) (unknown) (no date) (unknown) (unknown) History (u nits unknown) (unknown) (unknown) (no date) (unknown) (unknown) type :: Other Normal (units unknown) (unknown) (unknown) (no date) (unknown) (unknown) Education ( units unknown) (unknown) (unknown) (no date) (unknown) (unknown) Initi al Assessment (units unknown) (unknown) (unknown) (no date) (unknown) (unknown) Speci fic Issues/Plans (units unknown) (unknown) (unknown) (no date) (unknown) (unknown) Testi ng: discussed (units unknown) (unknown) (unknown) (no date) (unknown) (unknown) Visit (unit s unknown) (unknown) (unknown) (no date) (unknown) (unknown) educa tion packet: symptoms, Vitamins and iron, Diet and (units unknown) (unknown) (unknown) (no date) (unknown) (unknown) Primary Care Provider: [place]ELISSA [place] (units unknown) (unknown) (unknown) (no date) (unknown) (unknown) Primary Ob Provider: Olivia Marshall (units unknown) (unknown) (unknown) (no date) (unknown) (unknown) Prior GBS-Infe cted child: No (units unknown) (unknown) (unknown) (no date) (unknown) (unknown) Providers (units unknown) (unknown) (unknown) (no date) (unknown) (unknown) Psoriasis (units unknown) (unknown) (unknown) (no date) (unknown) (unknown) Qualifiers: (units unknown) (unknown) (unknown) (no date) (unknown) (unknown) Rapid first delivery (units unknown) (unknown) (unknown) (no date) (unknown) (unknown) Rash or viral illness since last menstrual period: No (units unknown) (unknown) (unknown) (no date) (unknown) (unknown) Reason For Visit (un its unknown) (unknown) (unknown) (no date) (unknown) (unknown) Recent travel outside of country?: No (units unknown) (unknown) (unknown) (no date) (unknown) (unknown) Reports Mental Retardation/Autism (sister had three very disabled children); (units unknown) (unknown) (unknown) (no date) (unknown) (unknown) S/P ACL repair (unit s unknown) (unknown) (unknown) (no date) (unknown) (unknown) Safety (units unknown) (unknown) (unknown) (no date) (unknown) (unknown) Second child f or this couple (units unknown) (unknown) (unknown) (no date) (unknown) (unknown) Severe PCOS (units unknown) (unknown) (unknown) (no date) (unknown) (unknown) She reports so me right sided hip pain and sciatica. She has a history of left (units unknown) (unknown) (unknown) (no date) (unknown) (unknown) She reports ur inary frequency, but denies painful urination, bladder pain, (units unknown) (unknown) (unknown) (no date) (unknown) (unknown) Shingles (units unknown) (unknown) (unknown) (no date) (unknown) (unknown) Shoulder pain (units unknown) (unknown) (unknown) (no date) (unknown) (unknown) Signed By: <Electronically signed by Olivia Marshall MD> (units unknown) (unknown) (unknown) (no date) (unknown) (unknown) Signed (units unknown) (unknown) (unknown) (no date) (unknown) (unknown) JAVIER Hussein 10 (u nits unknown) (unknown) (unknown) (no date) (unknown) (unknown) Smoking Status : Current some day smoker (units unknown) (unknown) (unknown) (no date) (unknown) (unknown) Social History (unit s unknown) (unknown) (unknown) (no date) (unknown) (unknown) Status: Acute (units unknown) (unknown) (unknown) (no date) (unknown) (unknown) Support Person (s):: Reagan (units unknown) (unknown) (unknown) (no date) (unknown) (unknown) Surgical Histo ry (Updated 04/30/22 @ 08:16 by Krystina Lantigua RN) (units unknown) (unknown) (unknown) (no date) (unknown) (unknown) Surrogate ?: no (units unknown) (unknown) (unknown) (no date) (unknown) (unknown) Symptoms come on randomly and based on her description seem to be related to (units unknown) (unknown) (unknown) (no date) (unknown) (unknown) Symptoms since LMP: Reports amenorrhea, nausea, fatigue, breast tenderness, (units unknown) (unknown) (unknown) (no date) (unknown) (unknown) Teratogen Expo sures since LMP/Conception: Denies prescription medications, (units unknown) (unknown) (unknown) (no date) (unknown) (unknown) Testing Education (u nits unknown) (unknown) (unknown) (no date) (unknown) (unknown) Testing educat ion completed: group B strep and Spina bifida testing (units unknown) (unknown) (unknown) (no date) (unknown) (unknown) This note may have been all or partially generated using voice recognition (units unknown) (unknown) (unknown) (no date) (unknown) (unknown) Tobacco + Subs tance Use (units unknown) (unknown) (unknown) (no date) (unknown) (unknown) Tobacco Status (unit s unknown) (unknown) (unknown) (no date) (unknown) (unknown) Trimester:: 3r d Trimester (28wks-Del) (units unknown) (unknown) (unknown) (no date) (unknown) (unknown) Type(s) of exercise: walking (-7 miles/day), weight lifting and yoga (units unknown) (unknown) (unknown) (no date) (unknown) (unknown) UProtein Movem ent PreLabor FHR Fndl Ht Pres Edema Cerv Exam US/Comment Next Appt (units unknown) (unknown) (unknown) (no date) (unknown) (unknown) Ultrasound performed?: Yes (units unknown) (unknown) (unknown) (no date) (unknown) (unknown) Varicella/[place] pox status: immunized (Hx shingles) (units unknown) (unknown) (unknown) (no date) (unknown) (unknown) Vertigo (units unknown) (unknown) (unknown) (no date) (unknown) (unknown) Visit Date: 07/12/22 Last Updated by: Frances Espinal P.A-C (units unknown) (unknown) (unknown) (no date) (unknown) (unknown) Visit Date: 08/09/22 Last Updated by: Frances Espinal P.A-C (units unknown) (unknown) (unknown) (no date) (unknown) (unknown) Visit Date: 08/31/22 Last Updated by: Bert Roque MD (units unknown) (unknown) (unknown) (no date) (unknown) (unknown) Visit Date: 10/05/22 Last Updated by: Olivia Marshall MD (units unknown) (unknown) (unknown) (no date) (unknown) (unknown) Visit Date: 05/11/22 Last Updated by: Olivia Marshall MD (units unknown) (unknown) (unknown) (no date) (unknown) (unknown) Visit Date: 06/08/22 Last Updated by: Olivia Marshall MD (units unknown) (unknown) (unknown) (no date) (unknown) (unknown) Visit Reasons: OB w/3D (units unknown) (unknown) (unknown) (no date) (unknown) (unknown) Vitals (units unknown) (unknown) (unknown) (no date) (unknown) (unknown) WG (units unknown) (unknown) (unknown) (no date) (unknown) (unknown) Warning signs reviewed. Follow-up in 3 weeks. (units unknown) (unknown) (unknown) (no date) (unknown) (unknown) Weeks gestatio n:: 28 (units unknown) (unknown) (unknown) (no date) (unknown) (unknown) Weight 257 lb (units unknown) (unknown) (unknown) (no date) (unknown) (unknown) Zika virus exposure: No (units unknown) (unknown) (unknown) (no date) (unknown) (unknown) [History Confi rmed 10/05/22] (units unknown) (unknown) (unknown) (no date) (unknown) (unknown) activity, work/environmental/ hazards, Sexual activity, X-ray exposure, (units unknown) (unknown) (unknown) (no date) (unknown) (unknown) additional soc ial history: Pt reports that she and her almost split up (units unknown) (unknown) (unknown) (no date) (unknown) (unknown) alcohol intake : former (very rarely when not ) (units unknown) (unknown) (unknown) (no date) (unknown) (unknown) amniotic fluid volume. Grade 0 placenta. Plan: Will add to induction list. (units unknown) (unknown) (unknown) (no date) (unknown) (unknown) and had an u/s on 05/08/22. Viable IUP at 7 wks. No further BRP. Plan: Pap, (units unknown) (unknown) (unknown) (no date) (unknown) (unknown) and is at a healthier size. Hx depression and anxiety, did not do well on (units unknown) (unknown) (unknown) (no date) (unknown) (unknown) antidepressant s, 'I was a zombie for a while.' Not currently medicated or (units unknown) (unknown) (unknown) (no date) (unknown) (unknown) anxiety is lik mali not particularly well controlled at present. (units unknown) (unknown) (unknown) (no date) (unknown) (unknown) [facility] with: (units unknown) (unknown) (unknown) (no date) (unknown) (unknown) azithromycin 2 50 mg tablet 1,000 mg PO ONCE Chlamydia #4 tabs 05/17/22 [Rx (units unknown) (unknown) (unknown) (no date) (unknown) (unknown) bilingual; boby sangeeta language is Marshallese, has spoken Andorran for-18 years. Also (units unknown) (unknown) (unknown) (no date) (unknown) (unknown) defects not listed above and Denies Other (units unknown) (unknown) (unknown) (no date) (unknown) (unknown) c/o migraine w / aura 'I smell blood when I'm going to have a migraine. It used (units unknown) (unknown) (unknown) (no date) (unknown) (unknown) cab attend (units unknown) (unknown) (unknown) (no date) (unknown) (unknown) caffeine: Yes (aware of 200mg limit) (units unknown) (unknown) (unknown) (no date) (unknown) (unknown) carbon monox detector in home: Yes (units unknown) (unknown) (unknown) (no date) (unknown) (unknown) caregiver/supp ort person: Yes (units unknown) (unknown) (unknown) (no date) (unknown) (unknown) ce s 4wks (units unknown) (unknown) (unknown) (no date) (unknown) (unknown) cf DNA and MSA FP ordered. NRL female, AFP negative (units unknown) (unknown) (unknown) (no date) (unknown) (unknown) cramping and contractions. Chlamydia test of cure from last visit was negative. (units unknown) (unknown) (unknown) (no date) (unknown) (unknown) current occupational exposures/hazards: No (units unknown) (unknown) (unknown) (no date) (unknown) (unknown) daily servings fruits/ve or more times/day (units unknown) (unknown) (unknown) (no date) (unknown) (unknown) deployed. On ultrasound: AGA 29 weeks 1 day. 2 lb 14 oz. 53%ile. Normal (units unknown) (unknown) (unknown) (no date) (unknown) (unknown) described, vis it schedule reviewed, ultrasounds policy reviewed, coverage 24 (units unknown) (unknown) (unknown) (no date) (unknown) (unknown) desires to hav e genetic testing so cell free DNA testing and MSAFP were ordered (units unknown) (unknown) (unknown) (no date) (unknown) (unknown) discussed, tuberculosis exposure discussed, CMV discussed, Toxoplasmosis (units unknown) (unknown) (unknown) (no date) (unknown) (unknown) disorders, Den ies Cystic Fibrosis, Denies Terrell's Chorea, Denies Other (units unknown) (unknown) (unknown) (no date) (unknown) (unknown) do you feel sa fe at home: Yes (units unknown) (unknown) (unknown) (no date) (unknown) (unknown) does complain of left breast tenderness. Plan: Test of cure for chlamydia (units unknown) (unknown) (unknown) (no date) (unknown) (unknown) drug abuse and pt is very concerned about how this may affect her children. (units unknown) (unknown) (unknown) (no date) (unknown) (unknown) during the pas t year weight has: decreased > 10 lbs (intentional w/ diet and (units unknown) (unknown) (unknown) (no date) (unknown) (unknown) education leve l: college (some college) (units unknown) (unknown) (unknown) (no date) (unknown) (unknown) erk (units unknown) (unknown) (unknown) (no date) (unknown) (unknown) exercise) (units unknown) (unknown) (unknown) (no date) (unknown) (unknown) wali/religious : U[place]din (units unknown) (unknown) (unknown) (no date) (unknown) (unknown) feeling much b vikas with less hair loss fatigue and dry skin (units unknown) (unknown) (unknown) (no date) (unknown) (unknown) ferrous sulfat e 325 mg (65 mg iron) tablet (Feosol) 325 mg PO DAILY 04/30/22 (units unknown) (unknown) (unknown) (no date) (unknown) (unknown) fevers. UA was normal in the office today. No nit or leuks. Very mild CVAT on (units unknown) (unknown) (unknown) (no date) (unknown) (unknown) fire extinguis her in home: Yes (units unknown) (unknown) (unknown) (no date) (unknown) (unknown) firearms in me: No (units unknown) (unknown) (unknown) (no date) (unknown) (unknown) fluconazole 15 0 mg tablet (Diflucan) 150 mg PO DAILY #1 tab 07/30/22 [Rx (units unknown) (unknown) (unknown) (no date) (unknown) (unknown) folic acid 400 mcg tablet 0.4 mg PO DAILY 04/30/22 [History Confirmed 10/05/22] (units unknown) (unknown) (unknown) (no date) (unknown) (unknown) for about the last 3 years, has not ever discussed this w/ her PCP so far. (units unknown) (unknown) (unknown) (no date) (unknown) (unknown) frequency: daily (un its unknown) (unknown) (unknown) (no date) (unknown) (unknown) have occurred. If there are any questions, please contact the Medical Records (units unknown) (unknown) (unknown) (no date) (unknown) (unknown) her wi ll be stationed in [facility]. We discussed that she would need to be (units unknown) (unknown) (unknown) (no date) (unknown) (unknown) home, no flo rns about violence or infidelity. Long family Hx of alcohol and (units unknown) (unknown) (unknown) (no date) (unknown) (unknown) hours a day an d participation of father in care and office visits (units unknown) (unknown) (unknown) (no date) (unknown) (unknown) household memb ers: spouse, family (brother) and children (units unknown) (unknown) (unknown) (no date) (unknown) (unknown) housing: apartment ( units unknown) (unknown) (unknown) (no date) (unknown) (unknown) induction January 20, 2023 due to a history of a fast delivery and being (units unknown) (unknown) (unknown) (no date) (unknown) (unknown) inherited gene tic or chromosomal disorder, Denies Maternal Metabolic Disorder (units unknown) (unknown) (unknown) (no date) (unknown) (unknown) intake. Kathie berman precautions reviewed. F/u in 4 wks. (units unknown) (unknown) (unknown) (no date) (unknown) (unknown) kag (units unknown) (unknown) (unknown) (no date) (unknown) (unknown) levothyroxine 50 mcg capsule 75 mcg PO DAILY #90 caps 10/05/22 [Rx] (units unknown) (unknown) (unknown) (no date) (unknown) (unknown) lives independently: Yes (units unknown) (unknown) (unknown) (no date) (unknown) (unknown) marital status : (units unknown) (unknown) (unknown) (no date) (unknown) (unknown) may occur. Occasional wrong-word or 'sound-alike' substitutions may have (units unknown) (unknown) (unknown) (no date) (unknown) (unknown) months none [place] ( units unknown) (unknown) (unknown) (no date) (unknown) (unknown) movement and d enies VB, LOF, cramping, contractions and abnormal discharge. She (units unknown) (unknown) (unknown) (no date) (unknown) (unknown) number of chil dren: 3 (includes 2 stepchildren) (units unknown) (unknown) (unknown) (no date) (unknown) (unknown) occupational status: employed (desk/office job) (units unknown) (unknown) (unknown) (no date) (unknown) (unknown) occurred due t o the inherent limitations of voice recognition software. Please (units unknown) (unknown) (unknown) (no date) (unknown) (unknown) omega 1-gee-rdl-fish oil 100 mg-160 mg-1,000 mg capsule (Fish Oil) 1 cap PO (units unknown) (unknown) (unknown) (no date) (unknown) (unknown) oxymetazoline 0.05 % nasal spray 1 spray intranasal BID 04/30/22 [History (units unknown) (unknown) (unknown) (no date) (unknown) (unknown) pets and anima ls: No (units unknown) (unknown) (unknown) (no date) (unknown) (unknown) precautions, Listeriosis prevention and Rubella Immunization (units unknown) (unknown) (unknown) (no date) (unknown) (unknown) prenat.vits,ca l,min -iron-folic 1 tab PO DAILY 04/30/22 [History Confirmed (units unknown) (unknown) (unknown) (no date) (unknown) (unknown) r/o kidney pathology. ED precautions reviewed. Advised to increase fluid (units unknown) (unknown) (unknown) (no date) (unknown) (unknown) read the note carefully and recognize, using context, where these substitutions (units unknown) (unknown) (unknown) (no date) (unknown) (unknown) recently but madi diana decided to stay together in light of this . She (units unknown) (unknown) (unknown) (no date) (unknown) (unknown) reports some r ight sided flank pain x 4 days. She reports it is achy and dull. (units unknown) (unknown) (unknown) (no date) (unknown) (unknown) reports that is nervous and excited, confirms that she is safe in her (units unknown) (unknown) (unknown) (no date) (unknown) (unknown) required D+C (units unknown) (unknown) (unknown) (no date) (unknown) (unknown) reviewed. Foll ow-up in 4 weeks or as needed. (units unknown) (unknown) (unknown) (no date) (unknown) (unknown) seatbelt use: always (units unknown) (unknown) (unknown) (no date) (unknown) (unknown) second hand exposure: Yes ( also smokes) (units unknown) (unknown) (unknown) (no date) (unknown) (unknown) seeing funeral counselor or, although her affect during intake call indicates that her (units unknown) (unknown) (unknown) (no date) (unknown) (unknown) shot but we wi ll consider getting 1 next visit. Warning precautions were (units unknown) (unknown) (unknown) (no date) (unknown) (unknown) sided sciatica . She desires PT referral for hip pain. Referral sent. She (units unknown) (unknown) (unknown) (no date) (unknown) (unknown) skin and scalp . Slightly enlarged thyroid on exam. CBC and TSH refulx to T4 (units unknown) (unknown) (unknown) (no date) (unknown) (unknown) software. Alth ough every effort is made to edit content, direct service professional errors (units unknown) (unknown) (unknown) (no date) (unknown) (unknown) special wali needs: No (units unknown) (unknown) (unknown) (no date) (unknown) (unknown) still having s ome nausea and vomiting. She does not want any medication for (units unknown) (unknown) (unknown) (no date) (unknown) (unknown) stress and anx iety. Worse since she has been , 'This is much worse than (units unknown) (unknown) (unknown) (no date) (unknown) (unknown) substance use type: does not use (units unknown) (unknown) (unknown) (no date) (unknown) (unknown) the right on e xam. Discussed MSK cause vs kidney stones. Ordered kidney US to (units unknown) (unknown) (unknown) (no date) (unknown) (unknown) the week befor e she found out), Denies illicit drugs and Denies other (units unknown) (unknown) (unknown) (no date) (unknown) (unknown) this. Her Pap smear came back positive for chlamydia. She was treated. She (units unknown) (unknown) (unknown) (no date) (unknown) (unknown) to be a sweet smell, but the last few years it's been blood.' Migraines appear (units unknown) (unknown) (unknown) (no date) (unknown) (unknown) to be largely hormonal and are worse when pt is heavy than when she loses weight (units unknown) (unknown) (unknown) (no date) (unknown) (unknown) today. Follow- up in 4-5 weeks. Warning signs reviewed. (units unknown) (unknown) (unknown) (no date) (unknown) (unknown) today. Ordered 20 week anatomy ultrasound. She is unsure if she wants a flu (units unknown) (unknown) (unknown) (no date) (unknown) (unknown) travel history : recent (domestic only) (units unknown) (unknown) (unknown) (no date) (unknown) (unknown) urinary freque ncy, irritability and other (headaches, heartburn) (units unknown) (unknown) (unknown) (no date) (unknown) (unknown) was recently treated for a yeast infection and reports it resolved with (units unknown) (unknown) (unknown) (no date) (unknown) (unknown) water heater t emp set < 120 deg: Yes (units unknown) (unknown) (unknown) (no date) (unknown) (unknown) weeks 4 days. She reports some fluttering movement and denies VB, LOF, (units unknown) (unknown) (unknown) (no date) (unknown) (unknown) weight gain, F marci and mercury intake, Smoking, Caffeine use, Exercise and (units unknown) (unknown) (unknown) (no date) (unknown) (unknown) well-balanced diet: daily or most days (units unknown) (unknown) (unknown) (no date) (unknown) (unknown) were ordered. Pt will have labs drawn after the visit. Flu shot given. She also (units unknown) (unknown) (unknown) (no date) (unknown) (unknown) working smoke detector in home: Yes (units unknown) (unknown) (unknown) (no date) (unknown) (unknown) yet available. She reports hair loss, brittle hair and nails, fatigue, and dry (units unknown) (unknown) Result panel 83 (unknown) (no date) (unknown) (unknown) (no value) (units unknown) (unknown) (unknown) (no date) (unknown) (unknown) 'mama brain,' I'm worried I have early onset dementia.' Notably, pt is (units unknown) (unknown) (unknown) (no date) (unknown) (unknown) (+19 lb) 108/64 N (u nits unknown) (unknown) (unknown) (no date) (unknown) (unknown) (+26 lb) 116/64 N (u nits unknown) (unknown) (unknown) (no date) (unknown) (unknown) (+36 lb) 106/66 N (u nits unknown) (unknown) (unknown) (no date) (unknown) (unknown) (+42 lb) 120/66 N (u nits unknown) (unknown) (unknown) (no date) (unknown) (unknown) (+48 lb) 118/72 N (u nits unknown) (unknown) (unknown) (no date) (unknown) (unknown) (+57 lb) 112/72 N (u nits unknown) (unknown) (unknown) (no date) (unknown) (unknown) (EG,TYPE 1 Diabetes, PKU), Denies Patient or baby's father had a child with (units unknown) (unknown) (unknown) (no date) (unknown) (unknown) Genetic Screening/Teratolog y Counseling - Includes patient, baby's father, or (units unknown) (unknown) (unknown) (no date) (unknown) (unknown) +CTElizabeth ds FLETCHER. FLETCHER negative. (units unknown) (unknown) (unknown) (no date) (unknown) (unknown) -?-?-?-?-?-?-? -?-?- ?-?-? (units unknown) (unknown) (unknown) (no date) (unknown) (unknown) .COMPLEX 04/30 [History Confirmed 10/26/22] (units unknown) (unknown) (unknown) (no date) (unknown) (unknown) 07/12/22 (units unknown) (unknown) (unknown) (no date) (unknown) (unknown) 08/09/22 (units unknown) (unknown) (unknown) (no date) (unknown) (unknown) 08/31/22 (units unknown) (unknown) (unknown) (no date) (unknown) (unknown) 09/25/10 14 spontaneous (units unknown) (unknown) (unknown) (no date) (unknown) (unknown) 10/05/22 (units unknown) (unknown) (unknown) (no date) (unknown) (unknown) 10/26/22 (units unknown) (unknown) (unknown) (no date) (unknown) (unknown) 10/26/22] (units unknown) (unknown) (unknown) (no date) (unknown) (unknown) 12/23/22 Ultra sound #2 31w 5d (units unknown) (unknown) (unknown) (no date) (unknown) (unknown) 02/25/15 41.3 5 9 lb 8 oz Male vaginal live - full term (units unknown) (unknown) (unknown) (no date) (unknown) (unknown) 10:37 (units unknown) (unknown) (unknown) (no date) (unknown) (unknown) 05/11/22 (units unknown) (unknown) (unknown) (no date) (unknown) (unknown) 11w 5d 226 lb (units unknown) (unknown) (unknown) (no date) (unknown) (unknown) 06/08/22 (units unknown) (unknown) (unknown) (no date) (unknown) (unknown) 16w 4d 236 lb (units unknown) (unknown) (unknown) (no date) (unknown) (unknown) 20w 4d 242 lb (units unknown) (unknown) (unknown) (no date) (unknown) (unknown) 23w 5d 248 lb (units unknown) (unknown) (unknown) (no date) (unknown) (unknown) 28w 5d 257 lb (units unknown) (unknown) (unknown) (no date) (unknown) (unknown) 39 weeks and t hat this can be most likely arranged closer to her due date (units unknown) (unknown) (unknown) (no date) (unknown) (unknown) 4 wks (units unknown) (unknown) (unknown) (no date) (unknown) (unknown) 7w 5d 219 lb (units unknown) (unknown) (unknown) (no date) (unknown) (unknown) Abnormal lab v alues 1st trimester: discussed (units unknown) (unknown) (unknown) (no date) (unknown) (unknown) Acne (units unknown) (unknown) (unknown) (no date) (unknown) (unknown) Add'l Plan Details ( units unknown) (unknown) (unknown) (no date) (unknown) (unknown) Additional Details:: Pt reports concerns about memory and word finding issues (units unknown) (unknown) (unknown) (no date) (unknown) (unknown) Additional Soc ial History (units unknown) (unknown) (unknown) (no date) (unknown) (unknown) Age/Sex: 32 / F Date of Service: (units unknown) (unknown) (unknown) (no date) (unknown) (unknown) Allergies (units unknown) (unknown) (unknown) (no date) (unknown) (unknown) JAVIER Harding [id number] (units unknown) (unknown) (unknown) (no date) (unknown) (unknown) Anemia (units unknown) (unknown) (unknown) (no date) (unknown) (unknown) Aneuploidy Screening Offered: Accepted (likely will do quad screen, undecided) (units unknown) (unknown) (unknown) (no date) (unknown) (unknown) Anticipated co urse of care: discussed (units unknown) (unknown) (unknown) (no date) (unknown) (unknown) Anxiety (units unknown) (unknown) (unknown) (no date) (unknown) (unknown) Anxiety/depres marcy not very well managed, has not tolerated meds in the past. (units unknown) (unknown) (unknown) (no date) (unknown) (unknown) Assessment and Plan (units unknown) (unknown) (unknown) (no date) (unknown) (unknown) Attending Dr: Olivia Marshall MD (units unknown) (unknown) (unknown) (no date) (unknown) (unknown) Plan/Preferences (units unknown) (unknown) (unknown) (no date) (unknown) (unknown) Planning (unit s unknown) (unknown) (unknown) (no date) (unknown) (unknown) Bleeding in fi rst trimester (units unknown) (unknown) (unknown) (no date) (unknown) (unknown) Blood transfusions?: yes (Never had but would accept) (units unknown) (unknown) (unknown) (no date) (unknown) (unknown) Breastfeed Pre g Comp Name (units unknown) (unknown) (unknown) (no date) (unknown) (unknown) Brother Alcoholism ( units unknown) (unknown) (unknown) (no date) (unknown) (unknown) Carpal tunnel syndrome (units unknown) (unknown) (unknown) (no date) (unknown) (unknown) Calin present s today for routine OB f/u at 20w4d. She reports good (units unknown) (unknown) (unknown) (no date) (unknown) (unknown) Calin present s with her today for routine OB follow-up at 16 (units unknown) (unknown) (unknown) (no date) (unknown) (unknown) Confirmed 10/26/22] (units unknown) (unknown) (unknown) (no date) (unknown) (unknown) Current Estima te 12/23/22 Ultrasound #1 31w 5d (units unknown) (unknown) (unknown) (no date) (unknown) (unknown) Current Pregna ncy History (units unknown) (unknown) (unknown) (no date) (unknown) (unknown) : 0 Acct:[id number] (units unknown) (unknown) (unknown) (no date) (unknown) (unknown) Date of positi ve home test: 04/17/22 (units unknown) (unknown) (unknown) (no date) (unknown) (unknown) Date (units unknown) (unknown) (unknown) (no date) (unknown) (unknown) Del. Date GA/W eeks Labor Lgth Wt Sex Route Outcome Anesthesia Place (units unknown) (unknown) (unknown) (no date) (unknown) (unknown) Delivery Date: 09/25/10 Last Updated by: Krystina Lantigua RN (units unknown) (unknown) (unknown) (no date) (unknown) (unknown) Delv (units unknown) (unknown) (unknown) (no date) (unknown) (unknown) Denies Congeni gerard Heart Defect, Denies Down Syndrome, Denies Muscular Dystrophy, (units unknown) (unknown) (unknown) (no date) (unknown) (unknown) Denies Neural Tube Defect (Meningomyelocele, Spina Bifida, or Anencephaly), (units unknown) (unknown) (unknown) (no date) (unknown) (unknown) Denies Sickle Cell Disease or Trait (), Denies Hemophilia or other blood (units unknown) (unknown) (unknown) (no date) (unknown) (unknown) Denies Rodney-Sac hs (Ashkenazi Lutheran, Cajun, [place] Islander Singaporean), Denies Kayy (units unknown) (unknown) (unknown) (no date) (unknown) (unknown) Denies over th e counter medications, Reports alcohol (drank 2 bottles of wine (units unknown) (unknown) (unknown) (no date) (unknown) (unknown) Depression (units unknown) (unknown) (unknown) (no date) (unknown) (unknown) Depression: discussed (units unknown) (unknown) (unknown) (no date) (unknown) (unknown) Dept at . (units unknown) (unknown) (unknown) (no date) (unknown) (unknown) Diet and Exercise (u nits unknown) (unknown) (unknown) (no date) (unknown) (unknown) Diflucan. cfDN A and AFP were normal. Anatomy US was done today, but report not (units unknown) (unknown) (unknown) (no date) (unknown) (unknown) Disease (Ashke nazi Lutheran), Denies Familial Dysautonomia (Ashkenazi Lutheran), (units unknown) (unknown) (unknown) (no date) (unknown) (unknown) Documented By: Olivia Marshall MD 10/26/22 1036 (units unknown) (unknown) (unknown) (no date) (unknown) (unknown) Draft (units unknown) (unknown) (unknown) (no date) (unknown) (unknown) MADISYN Calculator (unit s unknown) (unknown) (unknown) (no date) (unknown) (unknown) EGA Weight BP UGlucose (units unknown) (unknown) (unknown) (no date) (unknown) (unknown) Eczema (units unknown) (unknown) (unknown) (no date) (unknown) (unknown) Estimated Deli very Date Method Current (units unknown) (unknown) (unknown) (no date) (unknown) (unknown) F/U 4 wks. War raven signs reviewed. (units unknown) (unknown) (unknown) (no date) (unknown) (unknown) Family History (Updated 04/30/22 @ 08:33 by Krystina Lantigua RN) (units unknown) (unknown) (unknown) (no date) (unknown) (unknown) Family/Other Neurological abnormality (units unknown) (unknown) (unknown) (no date) (unknown) (unknown) Family/Other Obsessive compulsive disorder (units unknown) (unknown) (unknown) (no date) (unknown) (unknown) Father d Alcoholism (units unknown) (unknown) (unknown) (no date) (unknown) (unknown) Father of Baby : same (units unknown) (unknown) (unknown) (no date) (unknown) (unknown) [facility] (units unknown) (unknown) (unknown) (no date) (unknown) (unknown) First Trimeste r Education Checklist (units unknown) (unknown) (unknown) (no date) (unknown) (unknown) (units unknown) (unknown) (unknown) (no date) (unknown) (unknown) GERD (gastroesophageal reflux disease) (units unknown) (unknown) (unknown) (no date) (unknown) (unknown) Genetic Screen ing + Counseling (units unknown) (unknown) (unknown) (no date) (unknown) (unknown) Genetic Screening (u nits unknown) (unknown) (unknown) (no date) (unknown) (unknown) Good movement. No leakage of fluid or vaginal bleeding. She requests (units unknown) (unknown) (unknown) (no date) (unknown) (unknown) Grandfather No problems noted. (units unknown) (unknown) (unknown) (no date) (unknown) (unknown) Grandmother Coagulopathy (units unknown) (unknown) (unknown) (no date) (unknown) (unknown) Grandmother Leukemia (units unknown) (unknown) (unknown) (no date) (unknown) (unknown) 3 Mult iple births (units unknown) (unknown) (unknown) (no date) (unknown) (unknown) HIV risk evaluation: low risk (units unknown) (unknown) (unknown) (no date) (unknown) (unknown) HSV-1 infection (uni ts unknown) (unknown) (unknown) (no date) (unknown) (unknown) Headache (units unknown) (unknown) (unknown) (no date) (unknown) (unknown) Health Center Education (units unknown) (unknown) (unknown) (no date) (unknown) (unknown) Health center information: nature of practice discussed, personnel (units unknown) (unknown) (unknown) (no date) (unknown) (unknown) Height 5 ft 5 in (un its unknown) (unknown) (unknown) (no date) (unknown) (unknown) Hemorrhoids (units unknown) (unknown) (unknown) (no date) (unknown) (unknown) Hepatitis C ri sk evaluation: low risk (units unknown) (unknown) (unknown) (no date) (unknown) (unknown) History of Hepatitis B: No (units unknown) (unknown) (unknown) (no date) (unknown) (unknown) History of Hepatitis C: No (units unknown) (unknown) (unknown) (no date) (unknown) (unknown) History of rem oval of skin mole (units unknown) (unknown) (unknown) (no date) (unknown) (unknown) [facility] ([facility]) (unknown) (unknown) (no date) (unknown) (unknown) Reagan stationed in [facility], and requests IOL between 39-40 wks, so (units unknown) (unknown) (unknown) (no date) (unknown) (unknown) Hx # Pregnancies 0 Elective abortions 0 (units unknown) (unknown) (unknown) (no date) (unknown) (unknown) Hx # Term Pregnancies 1 Ectopic pregnancies 0 (units unknown) (unknown) (unknown) (no date) (unknown) (unknown) Hypothyroid, Levothyroxine 25mcg (units unknown) (unknown) (unknown) (no date) (unknown) (unknown) Infant will be adopted?: no (units unknown) (unknown) (unknown) (no date) (unknown) (unknown) Infection History (u nits unknown) (unknown) (unknown) (no date) (unknown) (unknown) Infectious Dis ease Education (units unknown) (unknown) (unknown) (no date) (unknown) (unknown) Infectious dis ease exposure: chicken pox immunity discussed, hepatitis risk (units unknown) (unknown) (unknown) (no date) (unknown) (unknown) Influenza vacc ine (declines flu, undecided on Covid booster) (units unknown) (unknown) (unknown) (no date) (unknown) (unknown) Initial Weight : 200 lb (units unknown) (unknown) (unknown) (no date) (unknown) (unknown) Initials (units unknown) (unknown) (unknown) (no date) (unknown) (unknown) Intake Clinica l Staff (units unknown) (unknown) (unknown) (no date) (unknown) (unknown) Intake Note: (units unknown) (unknown) (unknown) (no date) (unknown) (unknown) Intake perform ed by: Noelle Cain (units unknown) (unknown) (unknown) (no date) (unknown) (unknown) Intake (units unknown) (unknown) (unknown) (no date) (unknown) (unknown) LM (units unknown) (unknown) (unknown) (no date) (unknown) (unknown) Live with some one with TB or exposed to TB: No (units unknown) (unknown) (unknown) (no date) (unknown) (unknown) Loc: [facility] (units unknown) (unknown) (unknown) (no date) (unknown) (unknown) [id number] (units unknown) (unknown) (unknown) (no date) (unknown) (unknown) Marital status : (units unknown) (unknown) (unknown) (no date) (unknown) (unknown) Medical Histor y (Updated 10/10/22 @ 14:02 by Olivia Marshall MD) (units unknown) (unknown) (unknown) (no date) (unknown) (unknown) Medication use , Sauna/hot tub use, Dental care, Travel, Seatbelt use and (units unknown) (unknown) (unknown) (no date) (unknown) (unknown) Medications (units unknown) (unknown) (unknown) (no date) (unknown) (unknown) Migraine with aura ( units unknown) (unknown) (unknown) (no date) (unknown) (unknown) Migraines (units unknown) (unknown) (unknown) (no date) (unknown) (unknown) Mother d Alcoholism (units unknown) (unknown) (unknown) (no date) (unknown) (unknown) N No no 1,661 7 N/A absent long/closed (units unknown) (unknown) (unknown) (no date) (unknown) (unknown) N No no 166 12 N/A absent 4 wks (units unknown) (unknown) (unknown) (no date) (unknown) (unknown) N Yes no 140 2 9 Breech 1+ 3 wks (units unknown) (unknown) (unknown) (no date) (unknown) (unknown) N Yes no 144 2 5 Breech 1+ Feels better sin (units unknown) (unknown) (unknown) (no date) (unknown) (unknown) N Yes no 146 2 0 N/A absent flu shot given (units unknown) (unknown) (unknown) (no date) (unknown) (unknown) N Yes no 151 1 8 N/A absent FLETCHER negative (units unknown) (unknown) (unknown) (no date) (unknown) (unknown) Nasal congestion (un its unknown) (unknown) (unknown) (no date) (unknown) (unknown) No Known Drug Allergies Allergy (Verified 10/26/22 10:37) (units unknown) (unknown) (unknown) (no date) (unknown) (unknown) Notes (units unknown) (unknown) (unknown) (no date) (unknown) (unknown) Number of Mandy ng Children 1 (units unknown) (unknown) (unknown) (no date) (unknown) (unknown) Number of fetu ses:: Single (units unknown) (unknown) (unknown) (no date) (unknown) (unknown) Nutrition and weight gain counseling: special diet: discussed (units unknown) (unknown) (unknown) (no date) (unknown) (unknown) OB Office Visit (uni ts unknown) (unknown) (unknown) (no date) (unknown) (unknown) OB Visit Log (units unknown) (unknown) (unknown) (no date) (unknown) (unknown) OB check (units unknown) (unknown) (unknown) (no date) (unknown) (unknown) Other Estimate s 11/15/22 LMP (Uncertain) 37w 1d (units unknown) (unknown) (unknown) (no date) (unknown) (unknown) Other Substanc e abuse (units unknown) (unknown) (unknown) (no date) (unknown) (unknown) Ovarian cyst (units unknown) (unknown) (unknown) (no date) (unknown) (unknown) PCOS (polycyst ic ovarian syndrome) (units unknown) (unknown) (unknown) (no date) (unknown) (unknown) PFSH (units unknown) (unknown) (unknown) (no date) (unknown) (unknown) Painful menstr ual periods (units unknown) (unknown) (unknown) (no date) (unknown) (unknown) Pap performed?: No ( units unknown) (unknown) (unknown) (no date) (unknown) (unknown) Para 1 Spontan eous abortions 1 (units unknown) (unknown) (unknown) (no date) (unknown) (unknown) Partner histor y of STD: denies hx (units unknown) (unknown) (unknown) (no date) (unknown) (unknown) Partner histor y of genital herpes: No (units unknown) (unknown) (unknown) (no date) (unknown) (unknown) Partner: Cheko (units unknown) (unknown) (unknown) (no date) (unknown) (unknown) Past Pregnancies (un its unknown) (unknown) (unknown) (no date) (unknown) (unknown) Patient has be en on levothyroxine 50 mcg now for 2-1/2 weeks and is (units unknown) (unknown) (unknown) (no date) (unknown) (unknown) Patient is bhargavi y concerned about having a scheduled induction of labor as (units unknown) (unknown) (unknown) (no date) (unknown) (unknown) Patient opts f or a routine visit at 11 weeks 5 days. She is (units unknown) (unknown) (unknown) (no date) (unknown) (unknown) Patient presen ts for a routine visit at 28 weeks and 5 days. (units unknown) (unknown) (unknown) (no date) (unknown) (unknown) Patient presen ts for an NOB visit at 7 wks gestation. Had some bleeding (units unknown) (unknown) (unknown) (no date) (unknown) (unknown) Patient's age 35 years or older as of estimated date of delivery: No (units unknown) (unknown) (unknown) (no date) (unknown) (unknown) Patient: Calin Godfrey MR#: (units unknown) (unknown) (unknown) (no date) (unknown) (unknown) Technical Assistant: MELISSA Dallas (units unknown) (unknown) (unknown) (no date) (unknown) (unknown) Personal histo ry of STD: denies hx (units unknown) (unknown) (unknown) (no date) (unknown) (unknown) Personal histo ry of genital herpes: No (oral only) (units unknown) (unknown) (unknown) (no date) (unknown) (unknown) History (u nits unknown) (unknown) (unknown) (no date) (unknown) (unknown) type :: Other Normal (units unknown) (unknown) (unknown) (no date) (unknown) (unknown) Education ( units unknown) (unknown) (unknown) (no date) (unknown) (unknown) Initi al Assessment (units unknown) (unknown) (unknown) (no date) (unknown) (unknown) Speci fic Issues/Plans (units unknown) (unknown) (unknown) (no date) (unknown) (unknown) Testi ng: discussed (units unknown) (unknown) (unknown) (no date) (unknown) (unknown) Visit (unit s unknown) (unknown) (unknown) (no date) (unknown) (unknown) educa tion packet: symptoms, Vitamins and iron, Diet and (units unknown) (unknown) (unknown) (no date) (unknown) (unknown) Primary Care Provider: [facility] (units unknown) (unknown) (unknown) (no date) (unknown) (unknown) Primary Ob Provider: Olivia Marshall (units unknown) (unknown) (unknown) (no date) (unknown) (unknown) Prior GBS-Infe cted child: No (units unknown) (unknown) (unknown) (no date) (unknown) (unknown) Providers (units unknown) (unknown) (unknown) (no date) (unknown) (unknown) Psoriasis (units unknown) (unknown) (unknown) (no date) (unknown) (unknown) Rapid first delivery (units unknown) (unknown) (unknown) (no date) (unknown) (unknown) Rash or viral illness since last menstrual period: No (units unknown) (unknown) (unknown) (no date) (unknown) (unknown) Reason For Visit (un its unknown) (unknown) (unknown) (no date) (unknown) (unknown) Recent travel outside of country?: No (units unknown) (unknown) (unknown) (no date) (unknown) (unknown) Reports Mental Retardation/Autism (sister had three very disabled children); (units unknown) (unknown) (unknown) (no date) (unknown) (unknown) S/P ACL repair (unit s unknown) (unknown) (unknown) (no date) (unknown) (unknown) Safety (units unknown) (unknown) (unknown) (no date) (unknown) (unknown) Second child f or this couple (units unknown) (unknown) (unknown) (no date) (unknown) (unknown) Severe PCOS (units unknown) (unknown) (unknown) (no date) (unknown) (unknown) She reports so me right sided hip pain and sciatica. She has a history of left (units unknown) (unknown) (unknown) (no date) (unknown) (unknown) She reports ur inary frequency, but denies painful urination, bladder pain, (units unknown) (unknown) (unknown) (no date) (unknown) (unknown) Shingles (units unknown) (unknown) (unknown) (no date) (unknown) (unknown) Shoulder pain (units unknown) (unknown) (unknown) (no date) (unknown) (unknown) Signed By: (units unknown) (unknown) (unknown) (no date) (unknown) (unknown) JAVIER Hussein 10 (u nits unknown) (unknown) (unknown) (no date) (unknown) (unknown) Smoking Status : Current some day smoker (units unknown) (unknown) (unknown) (no date) (unknown) (unknown) Social History (unit s unknown) (unknown) (unknown) (no date) (unknown) (unknown) Support Person (s):: Reagan (units unknown) (unknown) (unknown) (no date) (unknown) (unknown) Surgical Histo ry (Updated 04/30/22 @ 08:16 by Krystina Lantigua RN) (units unknown) (unknown) (unknown) (no date) (unknown) (unknown) Surrogate ?: no (units unknown) (unknown) (unknown) (no date) (unknown) (unknown) Symptoms come on randomly and based on her description seem to be related to (units unknown) (unknown) (unknown) (no date) (unknown) (unknown) Symptoms since LMP: Reports amenorrhea, nausea, fatigue, breast tenderness, (units unknown) (unknown) (unknown) (no date) (unknown) (unknown) Teratogen Expo sures since LMP/Conception: Denies prescription medications, (units unknown) (unknown) (unknown) (no date) (unknown) (unknown) Testing Education (u nits unknown) (unknown) (unknown) (no date) (unknown) (unknown) Testing educat ion completed: group B strep and Spina bifida testing (units unknown) (unknown) (unknown) (no date) (unknown) (unknown) This note may have been all or partially generated using voice recognition (units unknown) (unknown) (unknown) (no date) (unknown) (unknown) Tobacco + Subs tance Use (units unknown) (unknown) (unknown) (no date) (unknown) (unknown) Tobacco Status (unit s unknown) (unknown) (unknown) (no date) (unknown) (unknown) Trimester:: 3r d Trimester (28wks-Del) (units unknown) (unknown) (unknown) (no date) (unknown) (unknown) Type(s) of exercise: walking (-7 miles/day), weight lifting and yoga (units unknown) (unknown) (unknown) (no date) (unknown) (unknown) UProtein Movem ent PreLabor FHR Fndl Ht Pres Edema Cerv Exam US/Comment Next Appt (units unknown) (unknown) (unknown) (no date) (unknown) (unknown) Ultrasound performed?: Yes (units unknown) (unknown) (unknown) (no date) (unknown) (unknown) Varicella/chic delonte pox status: immunized (Hx shingles) (units unknown) (unknown) (unknown) (no date) (unknown) (unknown) Vertigo (units unknown) (unknown) (unknown) (no date) (unknown) (unknown) Visit Date: 07/12/22 Last Updated by: Frances Espinal P.A-C (units unknown) (unknown) (unknown) (no date) (unknown) (unknown) Visit Date: 08/09/22 Last Updated by: Frances Espinal P.A-C (units unknown) (unknown) (unknown) (no date) (unknown) (unknown) Visit Date: 08/31/22 Last Updated by: Bert Roque MD (units unknown) (unknown) (unknown) (no date) (unknown) (unknown) Visit Date: 10/05/22 Last Updated by: Olivia Marshall MD (units unknown) (unknown) (unknown) (no date) (unknown) (unknown) Visit Date: 05/11/22 Last Updated by: Olivia Marshall MD (units unknown) (unknown) (unknown) (no date) (unknown) (unknown) Visit Date: 06/08/22 Last Updated by: Olivia Marshall MD (units unknown) (unknown) (unknown) (no date) (unknown) (unknown) Visit Reasons: OB Check US Position (units unknown) (unknown) (unknown) (no date) (unknown) (unknown) Vitals (units unknown) (unknown) (unknown) (no date) (unknown) (unknown) WG (units unknown) (unknown) (unknown) (no date) (unknown) (unknown) Warning signs reviewed. Follow-up in 3 weeks. (units unknown) (unknown) (unknown) (no date) (unknown) (unknown) Weeks gestatio n:: 31 (units unknown) (unknown) (unknown) (no date) (unknown) (unknown) Zika virus exposure: No (units unknown) (unknown) (unknown) (no date) (unknown) (unknown) [History Confi rmed 10/26/22] (units unknown) (unknown) (unknown) (no date) (unknown) (unknown) activity, work/environmental/ hazards, Sexual activity, X-ray exposure, (units unknown) (unknown) (unknown) (no date) (unknown) (unknown) additional soc ial history: Pt reports that she and her almost split up (units unknown) (unknown) (unknown) (no date) (unknown) (unknown) alcohol intake : former (very rarely when not ) (units unknown) (unknown) (unknown) (no date) (unknown) (unknown) amniotic fluid volume. Grade 0 placenta. Plan: Will add to induction list. (units unknown) (unknown) (unknown) (no date) (unknown) (unknown) and had an u/s on 05/08/22. Viable IUP at 7 wks. No further BRP. Plan: Pap, (units unknown) (unknown) (unknown) (no date) (unknown) (unknown) and is at a healthier size. Hx depression and anxiety, did not do well on (units unknown) (unknown) (unknown) (no date) (unknown) (unknown) antidepressant s, 'I was a zombie for a while.' Not currently medicated or (units unknown) (unknown) (unknown) (no date) (unknown) (unknown) anxiety is lik mali not particularly well controlled at present. (units unknown) (unknown) (unknown) (no date) (unknown) (unknown) anyone in [facility] with: (units unknown) (unknown) (unknown) (no date) (unknown) (unknown) azithromycin 2 50 mg tablet 1,000 mg PO ONCE Chlamydia #4 tabs 05/17/22 [Rx (units unknown) (unknown) (unknown) (no date) (unknown) (unknown) bilingual; boby [place] language is Marshallese, has spoken Andorran for-18 years. Also (units unknown) (unknown) (unknown) (no date) (unknown) (unknown) defects not listed above and Denies Other (units unknown) (unknown) (unknown) (no date) (unknown) (unknown) c/o migraine w / aura 'I smell blood when I'm going to have a migraine. It used (units unknown) (unknown) (unknown) (no date) (unknown) (unknown) cab attend (units unknown) (unknown) (unknown) (no date) (unknown) (unknown) caffeine: Yes (aware of 200mg limit) (units unknown) (unknown) (unknown) (no date) (unknown) (unknown) carbon monox detector in home: Yes (units unknown) (unknown) (unknown) (no date) (unknown) (unknown) caregiver/supp ort person: Yes (units unknown) (unknown) (unknown) (no date) (unknown) (unknown) ce s 4wks (units unknown) (unknown) (unknown) (no date) (unknown) (unknown) cf DNA and MSA FP ordered. NRL female, AFP negative (units unknown) (unknown) (unknown) (no date) (unknown) (unknown) cramping and contractions. Chlamydia test of cure from last visit was negative. (units unknown) (unknown) (unknown) (no date) (unknown) (unknown) current occupational exposures/hazards: No (units unknown) (unknown) (unknown) (no date) (unknown) (unknown) daily servings fruits/ve or more times/day (units unknown) (unknown) (unknown) (no date) (unknown) (unknown) deployed. On ultrasound: AGA 29 weeks 1 day. 2 lb 14 oz. 53%ile. Normal (units unknown) (unknown) (unknown) (no date) (unknown) (unknown) described, vis it schedule reviewed, ultrasounds policy reviewed, coverage 24 (units unknown) (unknown) (unknown) (no date) (unknown) (unknown) desires to hav e genetic testing so cell free DNA testing and MSAFP were ordered (units unknown) (unknown) (unknown) (no date) (unknown) (unknown) discussed, tuberculosis exposure discussed, CMV discussed, Toxoplasmosis (units unknown) (unknown) (unknown) (no date) (unknown) (unknown) disorders, Den ies Cystic Fibrosis, Denies Terrell's Chorea, Denies Other (units unknown) (unknown) (unknown) (no date) (unknown) (unknown) do you feel sa fe at home: Yes (units unknown) (unknown) (unknown) (no date) (unknown) (unknown) does complain of left breast tenderness. Plan: Test of cure for chlamydia (units unknown) (unknown) (unknown) (no date) (unknown) (unknown) drug abuse and pt is very concerned about how this may affect her children. (units unknown) (unknown) (unknown) (no date) (unknown) (unknown) during the pas t year weight has: decreased > 10 lbs (intentional w/ diet and (units unknown) (unknown) (unknown) (no date) (unknown) (unknown) education leve l: college (some college) (units unknown) (unknown) (unknown) (no date) (unknown) (unknown) erk (units unknown) (unknown) (unknown) (no date) (unknown) (unknown) exercise) (units unknown) (unknown) (unknown) (no date) (unknown) (unknown) wali/religious : [place] (units unknown) (unknown) (unknown) (no date) (unknown) (unknown) feeling much b vikas with less hair loss fatigue and dry skin (units unknown) (unknown) (unknown) (no date) (unknown) (unknown) ferrous sulfat e 325 mg (65 mg iron) tablet (Feosol) 325 mg PO DAILY 04/30/22 (units unknown) (unknown) (unknown) (no date) (unknown) (unknown) fevers. UA was normal in the office today. No nit or leuks. Very mild CVAT on (units unknown) (unknown) (unknown) (no date) (unknown) (unknown) fire extinguis her in home: Yes (units unknown) (unknown) (unknown) (no date) (unknown) (unknown) firearms in ho me: No (units unknown) (unknown) (unknown) (no date) (unknown) (unknown) fluconazole 15 0 mg tablet (Diflucan) 150 mg PO DAILY #1 tab 07/30/22 [Rx (units unknown) (unknown) (unknown) (no date) (unknown) (unknown) folic acid 400 mcg tablet 0.4 mg PO DAILY 04/30/22 [History Confirmed 10/26/22] (units unknown) (unknown) (unknown) (no date) (unknown) (unknown) for about the last 3 years, has not ever discussed this w/ her PCP so far. (units unknown) (unknown) (unknown) (no date) (unknown) (unknown) frequency: daily (un its unknown) (unknown) (unknown) (no date) (unknown) (unknown) have occurred. If there are any questions, please contact the Medical Records (units unknown) (unknown) (unknown) (no date) (unknown) (unknown) her wi ll be stationed in [place]. We discussed that she would need to be (units unknown) (unknown) (unknown) (no date) (unknown) (unknown) home, no flo rns about violence or infidelity. Long family Hx of alcohol and (units unknown) (unknown) (unknown) (no date) (unknown) (unknown) hours a day an d participation of father in care and office visits (units unknown) (unknown) (unknown) (no date) (unknown) (unknown) household memb ers: spouse, family (brother) and children (units unknown) (unknown) (unknown) (no date) (unknown) (unknown) housing: apartment ( units unknown) (unknown) (unknown) (no date) (unknown) (unknown) induction January 20, 2023 due to a history of a fast delivery and being (units unknown) (unknown) (unknown) (no date) (unknown) (unknown) inherited gene tic or chromosomal disorder, Denies Maternal Metabolic Disorder (units unknown) (unknown) (unknown) (no date) (unknown) (unknown) intake. Kathie berman precautions reviewed. F/u in 4 wks. (units unknown) (unknown) (unknown) (no date) (unknown) (unknown) kag (units unknown) (unknown) (unknown) (no date) (unknown) (unknown) levothyroxine 50 mcg capsule 75 mcg PO DAILY #90 caps 10/05/22 [Rx Confirmed (units unknown) (unknown) (unknown) (no date) (unknown) (unknown) lives independently: Yes (units unknown) (unknown) (unknown) (no date) (unknown) (unknown) marital status : (units unknown) (unknown) (unknown) (no date) (unknown) (unknown) may occur. Occasional wrong-word or 'sound-alike' substitutions may have (units unknown) (unknown) (unknown) (no date) (unknown) (unknown) months none [place] ( units unknown) (unknown) (unknown) (no date) (unknown) (unknown) movement and d enies VB, LOF, cramping, contractions and abnormal discharge. She (units unknown) (unknown) (unknown) (no date) (unknown) (unknown) number of chil dren: 3 (includes 2 stepchildren) (units unknown) (unknown) (unknown) (no date) (unknown) (unknown) occupational status: employed (desk/office job) (units unknown) (unknown) (unknown) (no date) (unknown) (unknown) occurred due t o the inherent limitations of voice recognition software. Please (units unknown) (unknown) (unknown) (no date) (unknown) (unknown) omega 3-ihe-tmp-fish oil 100 mg-160 mg-1,000 mg capsule (Fish Oil) 1 cap PO (units unknown) (unknown) (unknown) (no date) (unknown) (unknown) oxymetazoline 0.05 % nasal spray 1 spray intranasal BID 04/30/22 [History (units unknown) (unknown) (unknown) (no date) (unknown) (unknown) pets and anima ls: No (units unknown) (unknown) (unknown) (no date) (unknown) (unknown) precautions, Listeriosis prevention and Rubella Immunization (units unknown) (unknown) (unknown) (no date) (unknown) (unknown) prenat.vits,ca l,min -iron-folic 1 tab PO DAILY 04/30/22 [History Confirmed (units unknown) (unknown) (unknown) (no date) (unknown) (unknown) r/o kidney pathology. ED precautions reviewed. Advised to increase fluid (units unknown) (unknown) (unknown) (no date) (unknown) (unknown) read the note carefully and recognize, using context, where these substitutions (units unknown) (unknown) (unknown) (no date) (unknown) (unknown) recently but madi diana decided to stay together in light of this . She (units unknown) (unknown) (unknown) (no date) (unknown) (unknown) reports some r ight sided flank pain x 4 days. She reports it is achy and dull. (units unknown) (unknown) (unknown) (no date) (unknown) (unknown) reports that is nervous and excited, confirms that she is safe in her (units unknown) (unknown) (unknown) (no date) (unknown) (unknown) required D+C (units unknown) (unknown) (unknown) (no date) (unknown) (unknown) reviewed. Foll ow-up in 4 weeks or as needed. (units unknown) (unknown) (unknown) (no date) (unknown) (unknown) seatbelt use: always (units unknown) (unknown) (unknown) (no date) (unknown) (unknown) second hand exposure: Yes ( also smokes) (units unknown) (unknown) (unknown) (no date) (unknown) (unknown) seeing funeral counselor or, although her affect during intake call indicates that her (units unknown) (unknown) (unknown) (no date) (unknown) (unknown) shot but we wi ll consider getting 1 next visit. Warning precautions were (units unknown) (unknown) (unknown) (no date) (unknown) (unknown) sided sciatica . She desires PT referral for hip pain. Referral sent. She (units unknown) (unknown) (unknown) (no date) (unknown) (unknown) skin and scalp . Slightly enlarged thyroid on exam. CBC and TSH refulx to T4 (units unknown) (unknown) (unknown) (no date) (unknown) (unknown) software. Alth ough every effort is made to edit content, direct service professional errors (units unknown) (unknown) (unknown) (no date) (unknown) (unknown) special wali needs: No (units unknown) (unknown) (unknown) (no date) (unknown) (unknown) still having s ome nausea and vomiting. She does not want any medication for (units unknown) (unknown) (unknown) (no date) (unknown) (unknown) stress and anx iety. Worse since she has been , 'This is much worse than (units unknown) (unknown) (unknown) (no date) (unknown) (unknown) substance use type: does not use (units unknown) (unknown) (unknown) (no date) (unknown) (unknown) the right on e xam. Discussed MSK cause vs kidney stones. Ordered kidney US to (units unknown) (unknown) (unknown) (no date) (unknown) (unknown) the week befor e she found out), Denies illicit drugs and Denies other (units unknown) (unknown) (unknown) (no date) (unknown) (unknown) this. Her Pap smear came back positive for chlamydia. She was treated. She (units unknown) (unknown) (unknown) (no date) (unknown) (unknown) to be a sweet smell, but the last few years it's been blood.' Migraines appear (units unknown) (unknown) (unknown) (no date) (unknown) (unknown) to be largely hormonal and are worse when pt is heavy than when she loses weight (units unknown) (unknown) (unknown) (no date) (unknown) (unknown) today. Follow- up in 4-5 weeks. Warning signs reviewed. (units unknown) (unknown) (unknown) (no date) (unknown) (unknown) today. Ordered 20 week anatomy ultrasound. She is unsure if she wants a flu (units unknown) (unknown) (unknown) (no date) (unknown) (unknown) travel history : recent (domestic only) (units unknown) (unknown) (unknown) (no date) (unknown) (unknown) urinary freque ncy, irritability and other (headaches, heartburn) (units unknown) (unknown) (unknown) (no date) (unknown) (unknown) was recently treated for a yeast infection and reports it resolved with (units unknown) (unknown) (unknown) (no date) (unknown) (unknown) water heater t emp set < 120 deg: Yes (units unknown) (unknown) (unknown) (no date) (unknown) (unknown) weeks 4 days. She reports some fluttering movement and denies VB, LOF, (units unknown) (unknown) (unknown) (no date) (unknown) (unknown) weight gain, F marci and mercury intake, Smoking, Caffeine use, Exercise and (units unknown) (unknown) (unknown) (no date) (unknown) (unknown) well-balanced diet: daily or most days (units unknown) (unknown) (unknown) (no date) (unknown) (unknown) were ordered. Pt will have labs drawn after the visit. Flu shot given. She also (units unknown) (unknown) (unknown) (no date) (unknown) (unknown) working smoke detector in home: Yes (units unknown) (unknown) (unknown) (no date) (unknown) (unknown) yet available. She reports hair loss, brittle hair and nails, fatigue, and dry (units unknown) (unknown) Result panel 84 (unknown) (no date) (unknown) (unknown) (no value) (units unknown) (unknown) (unknown) (no date) (unknown) (unknown) 'mama brain,' I'm worried I have early onset dementia.' Notably, pt is (units unknown) (unknown) (unknown) (no date) (unknown) (unknown) (+19 lb) 108/64 N (u nits unknown) (unknown) (unknown) (no date) (unknown) (unknown) (+26 lb) 116/64 N (u nits unknown) (unknown) (unknown) (no date) (unknown) (unknown) (+36 lb) 106/66 N (u nits unknown) (unknown) (unknown) (no date) (unknown) (unknown) (+42 lb) 120/66 N (u nits unknown) (unknown) (unknown) (no date) (unknown) (unknown) (+48 lb) 118/72 N (u nits unknown) (unknown) (unknown) (no date) (unknown) (unknown) (+57 lb) 112/72 N (u nits unknown) (unknown) (unknown) (no date) (unknown) (unknown) (EG,TYPE 1 Diabetes, PKU), Denies Patient or baby's father had a child with (units unknown) (unknown) (unknown) (no date) (unknown) (unknown) Genetic Screening/Teratolog y Counseling - Includes patient, baby's father, or (units unknown) (unknown) (unknown) (no date) (unknown) (unknown) +CT, Tx'd. Nee ds FLETCHER. FLETCHER negative. (units unknown) (unknown) (unknown) (no date) (unknown) (unknown) -?-?-?-?-?-?-? -?-?- ?-?-? (units unknown) (unknown) (unknown) (no date) (unknown) (unknown) .COMPLEX 04/30 [History Confirmed 10/26/22] (units unknown) (unknown) (unknown) (no date) (unknown) (unknown) 07/12/22 (units unknown) (unknown) (unknown) (no date) (unknown) (unknown) 08/09/22 (units unknown) (unknown) (unknown) (no date) (unknown) (unknown) 08/31/22 (units unknown) (unknown) (unknown) (no date) (unknown) (unknown) 09/25/10 14 spontaneous (units unknown) (unknown) (unknown) (no date) (unknown) (unknown) 10/05/22 (units unknown) (unknown) (unknown) (no date) (unknown) (unknown) 10/26/22 (units unknown) (unknown) (unknown) (no date) (unknown) (unknown) 10/26/22] (units unknown) (unknown) (unknown) (no date) (unknown) (unknown) 12/23/22 Ultra sound #2 31w 5d (units unknown) (unknown) (unknown) (no date) (unknown) (unknown) 02/25/15 41.3 5 9 lb 8 oz Male vaginal live - full term (units unknown) (unknown) (unknown) (no date) (unknown) (unknown) 10:37 (units unknown) (unknown) (unknown) (no date) (unknown) (unknown) 05/11/22 (units unknown) (unknown) (unknown) (no date) (unknown) (unknown) 11w 5d 226 lb (units unknown) (unknown) (unknown) (no date) (unknown) (unknown) 06/08/22 (units unknown) (unknown) (unknown) (no date) (unknown) (unknown) 16w 4d 236 lb (units unknown) (unknown) (unknown) (no date) (unknown) (unknown) 20w 4d 242 lb (units unknown) (unknown) (unknown) (no date) (unknown) (unknown) 23w 5d 248 lb (units unknown) (unknown) (unknown) (no date) (unknown) (unknown) 28w 5d 257 lb (units unknown) (unknown) (unknown) (no date) (unknown) (unknown) 39 weeks and t hat this can be most likely arranged closer to her due date (units unknown) (unknown) (unknown) (no date) (unknown) (unknown) 4 wks (units unknown) (unknown) (unknown) (no date) (unknown) (unknown) 7w 5d 219 lb (units unknown) (unknown) (unknown) (no date) (unknown) (unknown) Abnormal lab v alues 1st trimester: discussed (units unknown) (unknown) (unknown) (no date) (unknown) (unknown) Acne (units unknown) (unknown) (unknown) (no date) (unknown) (unknown) Add'l Plan Details ( units unknown) (unknown) (unknown) (no date) (unknown) (unknown) Additional Details:: Pt reports concerns about memory and word finding issues (units unknown) (unknown) (unknown) (no date) (unknown) (unknown) Additional Soc ial History (units unknown) (unknown) (unknown) (no date) (unknown) (unknown) Age/Sex: 32 / F Date of Service: (units unknown) (unknown) (unknown) (no date) (unknown) (unknown) Allergies (units unknown) (unknown) (unknown) (no date) (unknown) (unknown) [place] [id number] (units unknown) (unknown) (unknown) (no date) (unknown) (unknown) Anemia (units unknown) (unknown) (unknown) (no date) (unknown) (unknown) Aneuploidy Screening Offered: Accepted (likely will do quad screen, undecided) (units unknown) (unknown) (unknown) (no date) (unknown) (unknown) Anticipated co urse of care: discussed (units unknown) (unknown) (unknown) (no date) (unknown) (unknown) Anxiety (units unknown) (unknown) (unknown) (no date) (unknown) (unknown) Anxiety/depres marcy not very well managed, has not tolerated meds in the past. (units unknown) (unknown) (unknown) (no date) (unknown) (unknown) Assessment and Plan (units unknown) (unknown) (unknown) (no date) (unknown) (unknown) Attending Dr: Olivia Marshall MD (units unknown) (unknown) (unknown) (no date) (unknown) (unknown) BMI 42.9 (units unknown) (unknown) (unknown) (no date) (unknown) (unknown) BP 118/70 (units unknown) (unknown) (unknown) (no date) (unknown) (unknown) Plan/Preferences (units unknown) (unknown) (unknown) (no date) (unknown) (unknown) Planning (unit s unknown) (unknown) (unknown) (no date) (unknown) (unknown) Bleeding in fi rst trimester (units unknown) (unknown) (unknown) (no date) (unknown) (unknown) Blood Pressure Location Lt brachial (units unknown) (unknown) (unknown) (no date) (unknown) (unknown) Blood transfusions?: yes (Never had but would accept) (units unknown) (unknown) (unknown) (no date) (unknown) (unknown) Breastfeed Pre g Comp Name (units unknown) (unknown) (unknown) (no date) (unknown) (unknown) Brother Alcoholism ( units unknown) (unknown) (unknown) (no date) (unknown) (unknown) Carpal tunnel syndrome (units unknown) (unknown) (unknown) (no date) (unknown) (unknown) Calin present s today for routine OB f/u at 20w4d. She reports good (units unknown) (unknown) (unknown) (no date) (unknown) (unknown) Calin present s with her today for routine OB follow-up at 16 (units unknown) (unknown) (unknown) (no date) (unknown) (unknown) Confirmed 10/26/22] (units unknown) (unknown) (unknown) (no date) (unknown) (unknown) Current Estima te 12/23/22 Ultrasound #1 31w 5d (units unknown) (unknown) (unknown) (no date) (unknown) (unknown) Current Pregna ncy History (units unknown) (unknown) (unknown) (no date) (unknown) (unknown) : [birth year] 0 Acct:[id number] (units unknown) (unknown) (unknown) (no date) (unknown) (unknown) Date of positi ve home test: 04/17/22 (units unknown) (unknown) (unknown) (no date) (unknown) (unknown) Date (units unknown) (unknown) (unknown) (no date) (unknown) (unknown) Del. Date GA/W eeks Labor Lgth Wt Sex Route Outcome Anesthesia Place (units unknown) (unknown) (unknown) (no date) (unknown) (unknown) Delivery Date: 09/25/10 Last Updated by: Krystina Lantigua RN (units unknown) (unknown) (unknown) (no date) (unknown) (unknown) Delv (units unknown) (unknown) (unknown) (no date) (unknown) (unknown) Denies Congeni gerard Heart Defect, Denies Down Syndrome, Denies Muscular Dystrophy, (units unknown) (unknown) (unknown) (no date) (unknown) (unknown) Denies Neural Tube Defect (Meningomyelocele, Spina Bifida, or Anencephaly), (units unknown) (unknown) (unknown) (no date) (unknown) (unknown) Denies Sickle Cell Disease or Trait (), Denies Hemophilia or other blood (units unknown) (unknown) (unknown) (no date) (unknown) (unknown) Denies Rodney-Sac hs (Ashkenazi Lutheran, Cajun, [place] Islander Singaporean), Denies Kayy (units unknown) (unknown) (unknown) (no date) (unknown) (unknown) Denies over th e counter medications, Reports alcohol (drank 2 bottles of wine (units unknown) (unknown) (unknown) (no date) (unknown) (unknown) Depression (units unknown) (unknown) (unknown) (no date) (unknown) (unknown) Depression: discussed (units unknown) (unknown) (unknown) (no date) (unknown) (unknown) Dept at . (units unknown) (unknown) (unknown) (no date) (unknown) (unknown) Diet and Exercise (u nits unknown) (unknown) (unknown) (no date) (unknown) (unknown) Diflucan. cfDN A and AFP were normal. Anatomy US was done today, but report not (units unknown) (unknown) (unknown) (no date) (unknown) (unknown) Disease (Ashke nazi Lutheran), Denies Familial Dysautonomia (Ashkenazi Lutheran), (units unknown) (unknown) (unknown) (no date) (unknown) (unknown) Documented By: Olivia Marshall MD 10/26/22 1036 (units unknown) (unknown) (unknown) (no date) (unknown) (unknown) Draft (units unknown) (unknown) (unknown) (no date) (unknown) (unknown) MADISYN Calculator (unit s unknown) (unknown) (unknown) (no date) (unknown) (unknown) EGA Weight BP UGlucose (units unknown) (unknown) (unknown) (no date) (unknown) (unknown) Eczema (units unknown) (unknown) (unknown) (no date) (unknown) (unknown) Estimated Deli very Date Method Current (units unknown) (unknown) (unknown) (no date) (unknown) (unknown) F/U 4 wks. War raven signs reviewed. (units unknown) (unknown) (unknown) (no date) (unknown) (unknown) Family History (Updated 04/30/22 @ 08:33 by Krystina Lantigua RN) (units unknown) (unknown) (unknown) (no date) (unknown) (unknown) Family/Other Neurological abnormality (units unknown) (unknown) (unknown) (no date) (unknown) (unknown) Family/Other Obsessive compulsive disorder (units unknown) (unknown) (unknown) (no date) (unknown) (unknown) Father d Alcoholism (units unknown) (unknown) (unknown) (no date) (unknown) (unknown) Father of Baby : same (units unknown) (unknown) (unknown) (no date) (unknown) (unknown) [facility] (units unknown) (unknown) (unknown) (no date) (unknown) (unknown) First Trim[facility] r Education Checklist (units unknown) (unknown) (unknown) (no date) (unknown) (unknown) (units unknown) (unknown) (unknown) (no date) (unknown) (unknown) GERD (gastroesophageal reflux disease) (units unknown) (unknown) (unknown) (no date) (unknown) (unknown) Genetic Screen ing + Counseling (units unknown) (unknown) (unknown) (no date) (unknown) (unknown) Genetic Screening (u nits unknown) (unknown) (unknown) (no date) (unknown) (unknown) Good movement. No leakage of fluid or vaginal bleeding. She requests (units unknown) (unknown) (unknown) (no date) (unknown) (unknown) Grandfather No problems noted. (units unknown) (unknown) (unknown) (no date) (unknown) (unknown) Grandmother Coagulopathy (units unknown) (unknown) (unknown) (no date) (unknown) (unknown) Grandmother Leukemia (units unknown) (unknown) (unknown) (no date) (unknown) (unknown) 3 Mult iple births (units unknown) (unknown) (unknown) (no date) (unknown) (unknown) HIV risk evaluation: low risk (units unknown) (unknown) (unknown) (no date) (unknown) (unknown) HSV-1 infection (uni ts unknown) (unknown) (unknown) (no date) (unknown) (unknown) Headache (units unknown) (unknown) (unknown) (no date) (unknown) (unknown) Health Center Education (units unknown) (unknown) (unknown) (no date) (unknown) (unknown) Health center information: nature of practice discussed, personnel (units unknown) (unknown) (unknown) (no date) (unknown) (unknown) Height 5 ft 5 in (un its unknown) (unknown) (unknown) (no date) (unknown) (unknown) Hemorrhoids (units unknown) (unknown) (unknown) (no date) (unknown) (unknown) Hepatitis C ri sk evaluation: low risk (units unknown) (unknown) (unknown) (no date) (unknown) (unknown) History of Hepatitis B: No (units unknown) (unknown) (unknown) (no date) (unknown) (unknown) History of Hepatitis C: No (units unknown) (unknown) (unknown) (no date) (unknown) (unknown) History of rem oval of skin mole (units unknown) (unknown) (unknown) (no date) (unknown) (unknown) Hospital: [facility] (units unknown) (unknown) (unknown) (no date) (unknown) (unknown) [place] stationed in [facility], and requests IOL between 39-40 wks, so (units unknown) (unknown) (unknown) (no date) (unknown) (unknown) Hx # Pregnancies 0 Elective abortions 0 (units unknown) (unknown) (unknown) (no date) (unknown) (unknown) Hx # Term Pregnancies 1 Ectopic pregnancies 0 (units unknown) (unknown) (unknown) (no date) (unknown) (unknown) Hypothyroid, Levothyroxine 25mcg (units unknown) (unknown) (unknown) (no date) (unknown) (unknown) Infant will be adopted?: no (units unknown) (unknown) (unknown) (no date) (unknown) (unknown) Infection History (u nits unknown) (unknown) (unknown) (no date) (unknown) (unknown) Infectious Dis ease Education (units unknown) (unknown) (unknown) (no date) (unknown) (unknown) Infectious dis ease exposure: chicken pox immunity discussed, hepatitis risk (units unknown) (unknown) (unknown) (no date) (unknown) (unknown) Influenza vacc ine (declines flu, undecided on Covid booster) (units unknown) (unknown) (unknown) (no date) (unknown) (unknown) Initial Weight : 200 lb (units unknown) (unknown) (unknown) (no date) (unknown) (unknown) Initials (units unknown) (unknown) (unknown) (no date) (unknown) (unknown) Intake Clinica l Staff (units unknown) (unknown) (unknown) (no date) (unknown) (unknown) Intake Note: (units unknown) (unknown) (unknown) (no date) (unknown) (unknown) Intake perform ed by: Noelle Cain (units unknown) (unknown) (unknown) (no date) (unknown) (unknown) Intake (units unknown) (unknown) (unknown) (no date) (unknown) (unknown) LM (units unknown) (unknown) (unknown) (no date) (unknown) (unknown) Live with some one with TB or exposed to TB: No (units unknown) (unknown) (unknown) (no date) (unknown) (unknown) Loc: [facility] (units unknown) (unknown) (unknown) (no date) (unknown) (unknown) [id number] (units unknown) (unknown) (unknown) (no date) (unknown) (unknown) Marital status : (units unknown) (unknown) (unknown) (no date) (unknown) (unknown) Medical Histor y (Updated 10/10/22 @ 14:02 by Olivia Marshall MD) (units unknown) (unknown) (unknown) (no date) (unknown) (unknown) Medication use , Sauna/hot tub use, Dental care, Travel, Seatbelt use and (units unknown) (unknown) (unknown) (no date) (unknown) (unknown) Medications (units unknown) (unknown) (unknown) (no date) (unknown) (unknown) Migraine with aura ( units unknown) (unknown) (unknown) (no date) (unknown) (unknown) Migraines (units unknown) (unknown) (unknown) (no date) (unknown) (unknown) Mother d Alcoholism (units unknown) (unknown) (unknown) (no date) (unknown) (unknown) N No no 1,661 7 N/A absent long/closed (units unknown) (unknown) (unknown) (no date) (unknown) (unknown) N No no 166 12 N/A absent 4 wks (units unknown) (unknown) (unknown) (no date) (unknown) (unknown) N Yes no 140 2 9 Breech 1+ 3 wks (units unknown) (unknown) (unknown) (no date) (unknown) (unknown) N Yes no 144 2 5 Breech 1+ Feels better sin (units unknown) (unknown) (unknown) (no date) (unknown) (unknown) N Yes no 146 2 0 N/A absent flu shot given (units unknown) (unknown) (unknown) (no date) (unknown) (unknown) N Yes no 151 1 8 N/A absent FLETCHER negative (units unknown) (unknown) (unknown) (no date) (unknown) (unknown) Nasal congestion (un its unknown) (unknown) (unknown) (no date) (unknown) (unknown) No Known Drug Allergies Allergy (Verified 10/26/22 10:37) (units unknown) (unknown) (unknown) (no date) (unknown) (unknown) Notes (units unknown) (unknown) (unknown) (no date) (unknown) (unknown) Number of Mandy ng Children 1 (units unknown) (unknown) (unknown) (no date) (unknown) (unknown) Number of fetu ses:: Single (units unknown) (unknown) (unknown) (no date) (unknown) (unknown) Nutrition and weight gain counseling: special diet: discussed (units unknown) (unknown) (unknown) (no date) (unknown) (unknown) OB Office Visit (uni ts unknown) (unknown) (unknown) (no date) (unknown) (unknown) OB Visit Log (units unknown) (unknown) (unknown) (no date) (unknown) (unknown) OB check (units unknown) (unknown) (unknown) (no date) (unknown) (unknown) Other Estimate s 11/15/22 LMP (Uncertain) 37w 1d (units unknown) (unknown) (unknown) (no date) (unknown) (unknown) Other Substanc e abuse (units unknown) (unknown) (unknown) (no date) (unknown) (unknown) Ovarian cyst (units unknown) (unknown) (unknown) (no date) (unknown) (unknown) PCOS (polycyst ic ovarian syndrome) (units unknown) (unknown) (unknown) (no date) (unknown) (unknown) PFSH (units unknown) (unknown) (unknown) (no date) (unknown) (unknown) Painful menstr ual periods (units unknown) (unknown) (unknown) (no date) (unknown) (unknown) Pap performed?: No ( units unknown) (unknown) (unknown) (no date) (unknown) (unknown) Para 1 Spontan eous abortions 1 (units unknown) (unknown) (unknown) (no date) (unknown) (unknown) Partner histor y of STD: denies hx (units unknown) (unknown) (unknown) (no date) (unknown) (unknown) Partner histor y of genital herpes: No (units unknown) (unknown) (unknown) (no date) (unknown) (unknown) Partner: Cheko (units unknown) (unknown) (unknown) (no date) (unknown) (unknown) Past Pregnancies (un its unknown) (unknown) (unknown) (no date) (unknown) (unknown) Patient has be en on levothyroxine 50 mcg now for 2-1/2 weeks and is (units unknown) (unknown) (unknown) (no date) (unknown) (unknown) Patient is bhargavi y concerned about having a scheduled induction of labor as (units unknown) (unknown) (unknown) (no date) (unknown) (unknown) Patient opts f or a routine visit at 11 weeks 5 days. She is (units unknown) (unknown) (unknown) (no date) (unknown) (unknown) Patient presen ts for a routine visit at 28 weeks and 5 days. (units unknown) (unknown) (unknown) (no date) (unknown) (unknown) Patient presen ts for an NOB visit at 7 wks gestation. Had some bleeding (units unknown) (unknown) (unknown) (no date) (unknown) (unknown) Patient's age 35 years or older as of estimated date of delivery: No (units unknown) (unknown) (unknown) (no date) (unknown) (unknown) Patient: Calin Godfrey MR#: (units unknown) (unknown) (unknown) (no date) (unknown) (unknown) Technical Assistant: MELISSA [place] (units unknown) (unknown) (unknown) (no date) (unknown) (unknown) Personal histo ry of STD: denies hx (units unknown) (unknown) (unknown) (no date) (unknown) (unknown) Personal histo ry of genital herpes: No (oral only) (units unknown) (unknown) (unknown) (no date) (unknown) (unknown) Position Sitting (un its unknown) (unknown) (unknown) (no date) (unknown) (unknown) History (u nits unknown) (unknown) (unknown) (no date) (unknown) (unknown) type :: Other Normal (units unknown) (unknown) (unknown) (no date) (unknown) (unknown) Education ( units unknown) (unknown) (unknown) (no date) (unknown) (unknown) Initi al Assessment (units unknown) (unknown) (unknown) (no date) (unknown) (unknown) Speci fic Issues/Plans (units unknown) (unknown) (unknown) (no date) (unknown) (unknown) Testi ng: discussed (units unknown) (unknown) (unknown) (no date) (unknown) (unknown) Visit (unit s unknown) (unknown) (unknown) (no date) (unknown) (unknown) educa tion packet: symptoms, Vitamins and iron, Diet and (units unknown) (unknown) (unknown) (no date) (unknown) (unknown) Primary Care Provider: MELISSA [place] (units unknown) (unknown) (unknown) (no date) (unknown) (unknown) Primary Ob Provider: Olivia Marshall (units unknown) (unknown) (unknown) (no date) (unknown) (unknown) Prior GBS-Infe cted child: No (units unknown) (unknown) (unknown) (no date) (unknown) (unknown) Providers (units unknown) (unknown) (unknown) (no date) (unknown) (unknown) Psoriasis (units unknown) (unknown) (unknown) (no date) (unknown) (unknown) Rapid first delivery (units unknown) (unknown) (unknown) (no date) (unknown) (unknown) Rash or viral illness since last menstrual period: No (units unknown) (unknown) (unknown) (no date) (unknown) (unknown) Reason For Visit (un its unknown) (unknown) (unknown) (no date) (unknown) (unknown) Recent travel outside of country?: No (units unknown) (unknown) (unknown) (no date) (unknown) (unknown) Reports Mental Retardation/Autism (sister had three very disabled children); (units unknown) (unknown) (unknown) (no date) (unknown) (unknown) S/P ACL repair (unit s unknown) (unknown) (unknown) (no date) (unknown) (unknown) Safety (units unknown) (unknown) (unknown) (no date) (unknown) (unknown) Second child f or this couple (units unknown) (unknown) (unknown) (no date) (unknown) (unknown) Severe PCOS (units unknown) (unknown) (unknown) (no date) (unknown) (unknown) She reports so me right sided hip pain and sciatica. She has a history of left (units unknown) (unknown) (unknown) (no date) (unknown) (unknown) She reports ur inary frequency, but denies painful urination, bladder pain, (units unknown) (unknown) (unknown) (no date) (unknown) (unknown) Shingles (units unknown) (unknown) (unknown) (no date) (unknown) (unknown) Shoulder pain (units unknown) (unknown) (unknown) (no date) (unknown) (unknown) Signed By: (units unknown) (unknown) (unknown) (no date) (unknown) (unknown) [place], [place] [address] (u nits unknown) (unknown) (unknown) (no date) (unknown) (unknown) Smoking Status : Current some day smoker (units unknown) (unknown) (unknown) (no date) (unknown) (unknown) Social History (unit s unknown) (unknown) (unknown) (no date) (unknown) (unknown) Support Person (s):: Reagan (units unknown) (unknown) (unknown) (no date) (unknown) (unknown) Surgical Histo ry (Updated 04/30/22 @ 08:16 by Krystina Lantigua RN) (units unknown) (unknown) (unknown) (no date) (unknown) (unknown) Surrogate ?: no (units unknown) (unknown) (unknown) (no date) (unknown) (unknown) Symptoms come on randomly and based on her description seem to be related to (units unknown) (unknown) (unknown) (no date) (unknown) (unknown) Symptoms since LMP: Reports amenorrhea, nausea, fatigue, breast tenderness, (units unknown) (unknown) (unknown) (no date) (unknown) (unknown) Teratogen Expo sures since LMP/Conception: Denies prescription medications, (units unknown) (unknown) (unknown) (no date) (unknown) (unknown) Testing Education (u nits unknown) (unknown) (unknown) (no date) (unknown) (unknown) Testing educat ion completed: group B strep and Spina bifida testing (units unknown) (unknown) (unknown) (no date) (unknown) (unknown) This note may have been all or partially generated using voice recognition (units unknown) (unknown) (unknown) (no date) (unknown) (unknown) Tobacco + Subs tance Use (units unknown) (unknown) (unknown) (no date) (unknown) (unknown) Tobacco Status (unit s unknown) (unknown) (unknown) (no date) (unknown) (unknown) Trimester:: 3r d Trimester (28wks-Del) (units unknown) (unknown) (unknown) (no date) (unknown) (unknown) Type(s) of exercise: walking (-7 miles/day), weight lifting and yoga (units unknown) (unknown) (unknown) (no date) (unknown) (unknown) UProtein Movem ent PreLabor FHR Fndl Ht Pres Edema Cerv Exam US/Comment Next Appt (units unknown) (unknown) (unknown) (no date) (unknown) (unknown) Ultrasound performed?: Yes (units unknown) (unknown) (unknown) (no date) (unknown) (unknown) Varicella/chic [place] pox status: immunized (Hx shingles) (units unknown) (unknown) (unknown) (no date) (unknown) (unknown) Vertigo (units unknown) (unknown) (unknown) (no date) (unknown) (unknown) Visit Date: 07/12/22 Last Updated by: Frances Espinal P.A-C (units unknown) (unknown) (unknown) (no date) (unknown) (unknown) Visit Date: 08/09/22 Last Updated by: Frances Espinal P.A-C (units unknown) (unknown) (unknown) (no date) (unknown) (unknown) Visit Date: 08/31/22 Last Updated by: Bert Roque MD (units unknown) (unknown) (unknown) (no date) (unknown) (unknown) Visit Date: 10/05/22 Last Updated by: Olivia Marshall MD (units unknown) (unknown) (unknown) (no date) (unknown) (unknown) Visit Date: 05/11/22 Last Updated by: Olivia Marshall MD (units unknown) (unknown) (unknown) (no date) (unknown) (unknown) Visit Date: 06/08/22 Last Updated by: Olivia Marshall MD (units unknown) (unknown) (unknown) (no date) (unknown) (unknown) Visit Reasons: OB Check US Position (units unknown) (unknown) (unknown) (no date) (unknown) (unknown) Vitals (units unknown) (unknown) (unknown) (no date) (unknown) (unknown) WG (units unknown) (unknown) (unknown) (no date) (unknown) (unknown) Warning signs reviewed. Follow-up in 3 weeks. (units unknown) (unknown) (unknown) (no date) (unknown) (unknown) Weeks gestatio n:: 31 (units unknown) (unknown) (unknown) (no date) (unknown) (unknown) Weight 258 lb (units unknown) (unknown) (unknown) (no date) (unknown) (unknown) Zika virus exposure: No (units unknown) (unknown) (unknown) (no date) (unknown) (unknown) [History Confi rmed 10/26/22] (units unknown) (unknown) (unknown) (no date) (unknown) (unknown) activity, work/environmental/ hazards, Sexual activity, X-ray exposure, (units unknown) (unknown) (unknown) (no date) (unknown) (unknown) additional soc ial history: Pt reports that she and her almost split up (units unknown) (unknown) (unknown) (no date) (unknown) (unknown) alcohol intake : former (very rarely when not ) (units unknown) (unknown) (unknown) (no date) (unknown) (unknown) amniotic fluid volume. Grade 0 placenta. Plan: Will add to induction list. (units unknown) (unknown) (unknown) (no date) (unknown) (unknown) and had an u/s on 05/08/22. Viable IUP at 7 wks. No further BRP. Plan: Pap, (units unknown) (unknown) (unknown) (no date) (unknown) (unknown) and is at a healthier size. Hx depression and anxiety, did not do well on (units unknown) (unknown) (unknown) (no date) (unknown) (unknown) antidepressant s, 'I was a zombie for a while.' Not currently medicated or (units unknown) (unknown) (unknown) (no date) (unknown) (unknown) anxiety is lik mali not particularly well controlled at present. (units unknown) (unknown) (unknown) (no date) (unknown) (unknown) [facility] with: (units unknown) (unknown) (unknown) (no date) (unknown) (unknown) azithromycin 2 50 mg tablet 1,000 mg PO ONCE Chlamydia #4 tabs 05/17/22 [Rx (units unknown) (unknown) (unknown) (no date) (unknown) (unknown) bilingual; boby sangeeta language is Marshallese, has spoken Andorran for-18 years. Also (units unknown) (unknown) (unknown) (no date) (unknown) (unknown) defects not listed above and Denies Other (units unknown) (unknown) (unknown) (no date) (unknown) (unknown) c/o migraine w / aura 'I smell blood when I'm going to have a migraine. It used (units unknown) (unknown) (unknown) (no date) (unknown) (unknown) cab attend (units unknown) (unknown) (unknown) (no date) (unknown) (unknown) caffeine: Yes (aware of 200mg limit) (units unknown) (unknown) (unknown) (no date) (unknown) (unknown) carbon monox detector in home: Yes (units unknown) (unknown) (unknown) (no date) (unknown) (unknown) caregiver/supp ort person: Yes (units unknown) (unknown) (unknown) (no date) (unknown) (unknown) ce s 4wks (units unknown) (unknown) (unknown) (no date) (unknown) (unknown) cf DNA and MSA FP ordered. NRL female, AFP negative (units unknown) (unknown) (unknown) (no date) (unknown) (unknown) cramping and contractions. Chlamydia test of cure from last visit was negative. (units unknown) (unknown) (unknown) (no date) (unknown) (unknown) current occupational exposures/hazards: No (units unknown) (unknown) (unknown) (no date) (unknown) (unknown) daily servings fruits/ve or more times/day (units unknown) (unknown) (unknown) (no date) (unknown) (unknown) deployed. On ultrasound: AGA 29 weeks 1 day. 2 lb 14 oz. 53%ile. Normal (units unknown) (unknown) (unknown) (no date) (unknown) (unknown) described, vis it schedule reviewed, ultrasounds policy reviewed, coverage 24 (units unknown) (unknown) (unknown) (no date) (unknown) (unknown) desires to hav e genetic testing so cell free DNA testing and MSAFP were ordered (units unknown) (unknown) (unknown) (no date) (unknown) (unknown) discussed, tuberculosis exposure discussed, CMV discussed, Toxoplasmosis (units unknown) (unknown) (unknown) (no date) (unknown) (unknown) disorders, Den ies Cystic Fibrosis, Denies Brynn's Chorea, Denies Other (units unknown) (unknown) (unknown) (no date) (unknown) (unknown) do you feel sa fe at home: Yes (units unknown) (unknown) (unknown) (no date) (unknown) (unknown) does complain of left breast tenderness. Plan: Test of cure for chlamydia (units unknown) (unknown) (unknown) (no date) (unknown) (unknown) drug abuse and pt is very concerned about how this may affect her children. (units unknown) (unknown) (unknown) (no date) (unknown) (unknown) during the pas t year weight has: decreased > 10 lbs (intentional w/ diet and (units unknown) (unknown) (unknown) (no date) (unknown) (unknown) education leve l: college (some college) (units unknown) (unknown) (unknown) (no date) (unknown) (unknown) erk (units unknown) (unknown) (unknown) (no date) (unknown) (unknown) exercise) (units unknown) (unknown) (unknown) (no date) (unknown) (unknown) wali/religious : U[place]din (units unknown) (unknown) (unknown) (no date) (unknown) (unknown) feeling much b vikas with less hair loss fatigue and dry skin (units unknown) (unknown) (unknown) (no date) (unknown) (unknown) ferrous sulfat e 325 mg (65 mg iron) tablet (Feosol) 325 mg PO DAILY 04/30/22 (units unknown) (unknown) (unknown) (no date) (unknown) (unknown) fevers. UA was normal in the office today. No nit or leuks. Very mild CVAT on (units unknown) (unknown) (unknown) (no date) (unknown) (unknown) fire extinguis her in home: Yes (units unknown) (unknown) (unknown) (no date) (unknown) (unknown) firearms in ho me: No (units unknown) (unknown) (unknown) (no date) (unknown) (unknown) fluconazole 15 0 mg tablet (Diflucan) 150 mg PO DAILY #1 tab 07/30/22 [Rx (units unknown) (unknown) (unknown) (no date) (unknown) (unknown) folic acid 400 mcg tablet 0.4 mg PO DAILY 04/30/22 [History Confirmed 10/26/22] (units unknown) (unknown) (unknown) (no date) (unknown) (unknown) for about the last 3 years, has not ever discussed this w/ her PCP so far. (units unknown) (unknown) (unknown) (no date) (unknown) (unknown) frequency: daily (un its unknown) (unknown) (unknown) (no date) (unknown) (unknown) have occurred. If there are any questions, please contact the Medical Records (units unknown) (unknown) (unknown) (no date) (unknown) (unknown) her wi ll be stationed in [place]. We discussed that she would need to be (units unknown) (unknown) (unknown) (no date) (unknown) (unknown) home, no flo rns about violence or infidelity. Long family Hx of alcohol and (units unknown) (unknown) (unknown) (no date) (unknown) (unknown) hours a day an d participation of father in care and office visits (units unknown) (unknown) (unknown) (no date) (unknown) (unknown) household memb ers: spouse, family (brother) and children (units unknown) (unknown) (unknown) (no date) (unknown) (unknown) housing: apartment ( units unknown) (unknown) (unknown) (no date) (unknown) (unknown) induction January 20, 2023 due to a history of a fast delivery and being (units unknown) (unknown) (unknown) (no date) (unknown) (unknown) inherited gene tic or chromosomal disorder, Denies Maternal Metabolic Disorder (units unknown) (unknown) (unknown) (no date) (unknown) (unknown) intake. Kathie robb reviewed. F/u in 4 wks. (units unknown) (unknown) (unknown) (no date) (unknown) (unknown) kag (units unknown) (unknown) (unknown) (no date) (unknown) (unknown) levothyroxine 50 mcg capsule 75 mcg PO DAILY #90 caps 10/05/22 [Rx Confirmed (units unknown) (unknown) (unknown) (no date) (unknown) (unknown) lives independently: Yes (units unknown) (unknown) (unknown) (no date) (unknown) (unknown) marital status : (units unknown) (unknown) (unknown) (no date) (unknown) (unknown) may occur. Occasional wrong-word or 'sound-alike' substitutions may have (units unknown) (unknown) (unknown) (no date) (unknown) (unknown) months none [place] ( units unknown) (unknown) (unknown) (no date) (unknown) (unknown) movement and d enies VB, LOF, cramping, contractions and abnormal discharge. She (units unknown) (unknown) (unknown) (no date) (unknown) (unknown) number of chil dren: 3 (includes 2 stepchildren) (units unknown) (unknown) (unknown) (no date) (unknown) (unknown) occupational status: employed (desk/office job) (units unknown) (unknown) (unknown) (no date) (unknown) (unknown) occurred due t o the inherent limitations of voice recognition software. Please (units unknown) (unknown) (unknown) (no date) (unknown) (unknown) omega 3-asp-yfw-fish oil 100 mg-160 mg-1,000 mg capsule (Fish Oil) 1 cap PO (units unknown) (unknown) (unknown) (no date) (unknown) (unknown) oxymetazoline 0.05 % nasal spray 1 spray intranasal BID 04/30/22 [History (units unknown) (unknown) (unknown) (no date) (unknown) (unknown) pets and anima ls: No (units unknown) (unknown) (unknown) (no date) (unknown) (unknown) precautions, Listeriosis prevention and Rubella Immunization (units unknown) (unknown) (unknown) (no date) (unknown) (unknown) prenat.vits,ca l,min -iron-folic 1 tab PO DAILY 04/30/22 [History Confirmed (units unknown) (unknown) (unknown) (no date) (unknown) (unknown) r/o kidney pathology. ED precautions reviewed. Advised to increase fluid (units unknown) (unknown) (unknown) (no date) (unknown) (unknown) read the note carefully and recognize, using context, where these substitutions (units unknown) (unknown) (unknown) (no date) (unknown) (unknown) recently but madi diana decided to stay together in light of this . She (units unknown) (unknown) (unknown) (no date) (unknown) (unknown) reports some r ight sided flank pain x 4 days. She reports it is achy and dull. (units unknown) (unknown) (unknown) (no date) (unknown) (unknown) reports that is nervous and excited, confirms that she is safe in her (units unknown) (unknown) (unknown) (no date) (unknown) (unknown) required D+C (units unknown) (unknown) (unknown) (no date) (unknown) (unknown) reviewed. Foll ow-up in 4 weeks or as needed. (units unknown) (unknown) (unknown) (no date) (unknown) (unknown) seatbelt use: always (units unknown) (unknown) (unknown) (no date) (unknown) (unknown) second hand exposure: Yes ( also smokes) (units unknown) (unknown) (unknown) (no date) (unknown) (unknown) seeing funeral counselor or, although her affect during intake call indicates that her (units unknown) (unknown) (unknown) (no date) (unknown) (unknown) shot but we wi ll consider getting 1 next visit. Warning precautions were (units unknown) (unknown) (unknown) (no date) (unknown) (unknown) sided sciatica . She desires PT referral for hip pain. Referral sent. She (units unknown) (unknown) (unknown) (no date) (unknown) (unknown) skin and scalp . Slightly enlarged thyroid on exam. CBC and TSH refulx to T4 (units unknown) (unknown) (unknown) (no date) (unknown) (unknown) software. Alth ough every effort is made to edit content, direct service professional errors (units unknown) (unknown) (unknown) (no date) (unknown) (unknown) special wali needs: No (units unknown) (unknown) (unknown) (no date) (unknown) (unknown) still having s ome nausea and vomiting. She does not want any medication for (units unknown) (unknown) (unknown) (no date) (unknown) (unknown) stress and anx iety. Worse since she has been , 'This is much worse than (units unknown) (unknown) (unknown) (no date) (unknown) (unknown) substance use type: does not use (units unknown) (unknown) (unknown) (no date) (unknown) (unknown) the right on e xam. Discussed MSK cause vs kidney stones. Ordered kidney US to (units unknown) (unknown) (unknown) (no date) (unknown) (unknown) the week befor e she found out), Denies illicit drugs and Denies other (units unknown) (unknown) (unknown) (no date) (unknown) (unknown) this. Her Pap smear came back positive for chlamydia. She was treated. She (units unknown) (unknown) (unknown) (no date) (unknown) (unknown) to be a sweet smell, but the last few years it's been blood.' Migraines appear (units unknown) (unknown) (unknown) (no date) (unknown) (unknown) to be largely hormonal and are worse when pt is heavy than when she loses weight (units unknown) (unknown) (unknown) (no date) (unknown) (unknown) today. Follow- up in 4-5 weeks. Warning signs reviewed. (units unknown) (unknown) (unknown) (no date) (unknown) (unknown) today. Ordered 20 week anatomy ultrasound. She is unsure if she wants a flu (units unknown) (unknown) (unknown) (no date) (unknown) (unknown) travel history : recent (domestic only) (units unknown) (unknown) (unknown) (no date) (unknown) (unknown) urinary freque ncy, irritability and other (headaches, heartburn) (units unknown) (unknown) (unknown) (no date) (unknown) (unknown) was recently treated for a yeast infection and reports it resolved with (units unknown) (unknown) (unknown) (no date) (unknown) (unknown) water heater t emp set < 120 deg: Yes (units unknown) (unknown) (unknown) (no date) (unknown) (unknown) weeks 4 days. She reports some fluttering movement and denies VB, LOF, (units unknown) (unknown) (unknown) (no date) (unknown) (unknown) weight gain, F marci and mercury intake, Smoking, Caffeine use, Exercise and (units unknown) (unknown) (unknown) (no date) (unknown) (unknown) well-balanced diet: daily or most days (units unknown) (unknown) (unknown) (no date) (unknown) (unknown) were ordered. Pt will have labs drawn after the visit. Flu shot given. She also (units unknown) (unknown) (unknown) (no date) (unknown) (unknown) working smoke detector in home: Yes (units unknown) (unknown) (unknown) (no date) (unknown) (unknown) yet available. She reports hair loss, brittle hair and nails, fatigue, and dry (units unknown) (unknown) Result panel 85 (unknown) (no date) (unknown) (unknown) (no value) (units unknown) (unknown) (unknown) (no date) (unknown) (unknown) 'mama brain,' I'm worried I have early onset dementia.' Notably, pt is (units unknown) (unknown) (unknown) (no date) (unknown) (unknown) (+19 lb) 108/64 N (u nits unknown) (unknown) (unknown) (no date) (unknown) (unknown) (+26 lb) 116/64 N (u nits unknown) (unknown) (unknown) (no date) (unknown) (unknown) (+36 lb) 106/66 N (u nits unknown) (unknown) (unknown) (no date) (unknown) (unknown) (+42 lb) 120/66 N (u nits unknown) (unknown) (unknown) (no date) (unknown) (unknown) (+48 lb) 118/72 N (u nits unknown) (unknown) (unknown) (no date) (unknown) (unknown) (+57 lb) 112/72 N (u nits unknown) (unknown) (unknown) (no date) (unknown) (unknown) (EG,TYPE 1 Diabetes, PKU), Denies Patient or baby's father had a child with (units unknown) (unknown) (unknown) (no date) (unknown) (unknown) Genetic Screening/Teratolog y Counseling - Includes patient, baby's father, or (units unknown) (unknown) (unknown) (no date) (unknown) (unknown) +CTValente'lissa Dill ds FLETCHER. FLETCHER negative. (units unknown) (unknown) (unknown) (no date) (unknown) (unknown) -?-?-?-?-?-?-? -?-?- ?-?-? (units unknown) (unknown) (unknown) (no date) (unknown) (unknown) .COMPLEX 04/30 [History Confirmed 10/26/22] (units unknown) (unknown) (unknown) (no date) (unknown) (unknown) 0.5 mL IM Left Deltoid [id number] 06/11/24 [id number] [place]-PASTEUR (units unknown) (unknown) (unknown) (no date) (unknown) (unknown) 07/12/22 (units unknown) (unknown) (unknown) (no date) (unknown) (unknown) 08/09/22 (units unknown) (unknown) (unknown) (no date) (unknown) (unknown) 08/31/22 (units unknown) (unknown) (unknown) (no date) (unknown) (unknown) 09/25/10 14 spontaneous (units unknown) (unknown) (unknown) (no date) (unknown) (unknown) 10/05/22 (units unknown) (unknown) (unknown) (no date) (unknown) (unknown) 10/26/22 Singl e Vaccine 21 (units unknown) (unknown) (unknown) (no date) (unknown) (unknown) 10/26/22 (units unknown) (unknown) (unknown) (no date) (unknown) (unknown) 10/26/22] (units unknown) (unknown) (unknown) (no date) (unknown) (unknown) 12/23/22 Ultra sound #2 31w 5d (units unknown) (unknown) (unknown) (no date) (unknown) (unknown) 02/25/15 41.3 5 9 lb 8 oz Male vaginal live - full term (units unknown) (unknown) (unknown) (no date) (unknown) (unknown) 10:37 (units unknown) (unknown) (unknown) (no date) (unknown) (unknown) 05/11/22 (units unknown) (unknown) (unknown) (no date) (unknown) (unknown) 11w 5d 226 lb (units unknown) (unknown) (unknown) (no date) (unknown) (unknown) 06/08/22 (units unknown) (unknown) (unknown) (no date) (unknown) (unknown) 16w 4d 236 lb (units unknown) (unknown) (unknown) (no date) (unknown) (unknown) 20w 4d 242 lb (units unknown) (unknown) (unknown) (no date) (unknown) (unknown) 23w 5d 248 lb (units unknown) (unknown) (unknown) (no date) (unknown) (unknown) 28w 5d 257 lb (units unknown) (unknown) (unknown) (no date) (unknown) (unknown) 39 weeks and t hat this can be most likely arranged closer to her due date (units unknown) (unknown) (unknown) (no date) (unknown) (unknown) 4 wks (units unknown) (unknown) (unknown) (no date) (unknown) (unknown) 7w 5d 219 lb (units unknown) (unknown) (unknown) (no date) (unknown) (unknown) Abnormal lab v alues 1st trimester: discussed (units unknown) (unknown) (unknown) (no date) (unknown) (unknown) Acne (units unknown) (unknown) (unknown) (no date) (unknown) (unknown) Adacel(Tdap Adolesn/Adult)(PF) (units unknown) (unknown) (unknown) (no date) (unknown) (unknown) Add'l Plan Details ( units unknown) (unknown) (unknown) (no date) (unknown) (unknown) Additional Details:: Pt reports concerns about memory and word finding issues (units unknown) (unknown) (unknown) (no date) (unknown) (unknown) Additional Soc ial History (units unknown) (unknown) (unknown) (no date) (unknown) (unknown) Administered b y: Noelle Cain MA on 10/26/22 10:49 (units unknown) (unknown) (unknown) (no date) (unknown) (unknown) Age/Sex: 32 / F Date of Service: (units unknown) (unknown) (unknown) (no date) (unknown) (unknown) Allergies (units unknown) (unknown) (unknown) (no date) (unknown) (unknown) [place], [place] [id number] (units unknown) (unknown) (unknown) (no date) (unknown) (unknown) Anemia (units unknown) (unknown) (unknown) (no date) (unknown) (unknown) Aneuploidy Screening Offered: Accepted (likely will do quad screen, undecided) (units unknown) (unknown) (unknown) (no date) (unknown) (unknown) Anticipated co urse of care: discussed (units unknown) (unknown) (unknown) (no date) (unknown) (unknown) Anxiety (units unknown) (unknown) (unknown) (no date) (unknown) (unknown) Anxiety/depres marcy not very well managed, has not tolerated meds in the past. (units unknown) (unknown) (unknown) (no date) (unknown) (unknown) Assessment and Plan (units unknown) (unknown) (unknown) (no date) (unknown) (unknown) Attending Dr: Olivia Marshall MD (units unknown) (unknown) (unknown) (no date) (unknown) (unknown) BMI 42.9 (units unknown) (unknown) (unknown) (no date) (unknown) (unknown) BP 118/70 (units unknown) (unknown) (unknown) (no date) (unknown) (unknown) Plan/Preferences (units unknown) (unknown) (unknown) (no date) (unknown) (unknown) Planning (unit s unknown) (unknown) (unknown) (no date) (unknown) (unknown) Bleeding in fi rst trimester (units unknown) (unknown) (unknown) (no date) (unknown) (unknown) Blood Pressure Location Lt brachial (units unknown) (unknown) (unknown) (no date) (unknown) (unknown) Blood transfusions?: yes (Never had but would accept) (units unknown) (unknown) (unknown) (no date) (unknown) (unknown) Breastfeed Pre g Comp Name (units unknown) (unknown) (unknown) (no date) (unknown) (unknown) Brother Alcoholism ( units unknown) (unknown) (unknown) (no date) (unknown) (unknown) Carpal tunnel syndrome (units unknown) (unknown) (unknown) (no date) (unknown) (unknown) Calin present s today for routine OB f/u at 20w4d. She reports good (units unknown) (unknown) (unknown) (no date) (unknown) (unknown) Calin present s with her today for routine OB follow-up at 16 (units unknown) (unknown) (unknown) (no date) (unknown) (unknown) Confirmed 10/26/22] (units unknown) (unknown) (unknown) (no date) (unknown) (unknown) Current Estima te 12/23/22 Ultrasound #1 31w 5d (units unknown) (unknown) (unknown) (no date) (unknown) (unknown) Current Pregna ncy History (units unknown) (unknown) (unknown) (no date) (unknown) (unknown) : 0 Acct:[id number] (units unknown) (unknown) (unknown) (no date) (unknown) (unknown) Date of positi ve home test: 04/17/22 (units unknown) (unknown) (unknown) (no date) (unknown) (unknown) Date (units unknown) (unknown) (unknown) (no date) (unknown) (unknown) Del. Date GA/W eeks Labor Lgth Wt Sex Route Outcome Anesthesia Place (units unknown) (unknown) (unknown) (no date) (unknown) (unknown) Delivery Date: 09/25/10 Last Updated by: Krystina Lantigua RN (units unknown) (unknown) (unknown) (no date) (unknown) (unknown) Delv (units unknown) (unknown) (unknown) (no date) (unknown) (unknown) Denies Congeni gerard Heart Defect, Denies Down Syndrome, Denies Muscular Dystrophy, (units unknown) (unknown) (unknown) (no date) (unknown) (unknown) Denies Neural Tube Defect (Meningomyelocele, Spina Bifida, or Anencephaly), (units unknown) (unknown) (unknown) (no date) (unknown) (unknown) Denies Sickle Cell Disease or Trait (), Denies Hemophilia or other blood (units unknown) (unknown) (unknown) (no date) (unknown) (unknown) Denies Rodney-Sac hs (Ashkenazi Lutheran, [facility], [place] Island[place]an), Denies Kayy (units unknown) (unknown) (unknown) (no date) (unknown) (unknown) Denies over th e counter medications, Reports alcohol (drank 2 bottles of wine (units unknown) (unknown) (unknown) (no date) (unknown) (unknown) Depression (units unknown) (unknown) (unknown) (no date) (unknown) (unknown) Depression: discussed (units unknown) (unknown) (unknown) (no date) (unknown) (unknown) Dept at . (units unknown) (unknown) (unknown) (no date) (unknown) (unknown) Diet and Exercise (u nits unknown) (unknown) (unknown) (no date) (unknown) (unknown) Diflucan. cfDN A and AFP were normal. Anatomy US was done today, but report not (units unknown) (unknown) (unknown) (no date) (unknown) (unknown) Disease (Ash[place] nazi Lutheran), Denies Familial Dysautonomia (Ashkenazi Lutheran), (units unknown) (unknown) (unknown) (no date) (unknown) (unknown) Documented By: Olivia Marshall MD 10/26/22 1036 (units unknown) (unknown) (unknown) (no date) (unknown) (unknown) Dose Route Adm in Location Lot Number Expiration Date NDC (units unknown) (unknown) (unknown) (no date) (unknown) (unknown) Draft (units unknown) (unknown) (unknown) (no date) (unknown) (unknown) MADISYN Calculator (unit s unknown) (unknown) (unknown) (no date) (unknown) (unknown) EGA Weight BP UGlucose (units unknown) (unknown) (unknown) (no date) (unknown) (unknown) Eczema (units unknown) (unknown) (unknown) (no date) (unknown) (unknown) Eligibility Eligibility Date Funding Source (units unknown) (unknown) (unknown) (no date) (unknown) (unknown) Estimated Deli very Date Method Current (units unknown) (unknown) (unknown) (no date) (unknown) (unknown) F/U 4 wks. Haresh carbajal signs reviewed. (units unknown) (unknown) (unknown) (no date) (unknown) (unknown) Family History (Updated 04/30/22 @ 08:33 by Krytsina Lantigua RN) (units unknown) (unknown) (unknown) (no date) (unknown) (unknown) Family/Other Neurological abnormality (units unknown) (unknown) (unknown) (no date) (unknown) (unknown) Family/Other Obsessive compulsive disorder (units unknown) (unknown) (unknown) (no date) (unknown) (unknown) Father d Alcoholism (units unknown) (unknown) (unknown) (no date) (unknown) (unknown) Father of Baby : same (units unknown) (unknown) (unknown) (no date) (unknown) (unknown) [facility] (units unknown) (unknown) (unknown) (no date) (unknown) (unknown) First Trimeste r Education Checklist (units unknown) (unknown) (unknown) (no date) (unknown) (unknown) (units unknown) (unknown) (unknown) (no date) (unknown) (unknown) GERD (gastroesophageal reflux disease) (units unknown) (unknown) (unknown) (no date) (unknown) (unknown) Genetic Screen ing + Counseling (units unknown) (unknown) (unknown) (no date) (unknown) (unknown) Genetic Screening (u nits unknown) (unknown) (unknown) (no date) (unknown) (unknown) Good movement. No leakage of fluid or vaginal bleeding. She requests (units unknown) (unknown) (unknown) (no date) (unknown) (unknown) Grandfather No problems noted. (units unknown) (unknown) (unknown) (no date) (unknown) (unknown) Grandmother Coagulopathy (units unknown) (unknown) (unknown) (no date) (unknown) (unknown) Grandmother Leukemia (units unknown) (unknown) (unknown) (no date) (unknown) (unknown) 3 Mult iple births (units unknown) (unknown) (unknown) (no date) (unknown) (unknown) HIV risk evaluation: low risk (units unknown) (unknown) (unknown) (no date) (unknown) (unknown) HSV-1 infection (uni ts unknown) (unknown) (unknown) (no date) (unknown) (unknown) Headache (units unknown) (unknown) (unknown) (no date) (unknown) (unknown) Health Center Education (units unknown) (unknown) (unknown) (no date) (unknown) (unknown) Health center information: nature of practice discussed, personnel (units unknown) (unknown) (unknown) (no date) (unknown) (unknown) Height 5 ft 5 in (un its unknown) (unknown) (unknown) (no date) (unknown) (unknown) Hemorrhoids (units unknown) (unknown) (unknown) (no date) (unknown) (unknown) Hepatitis C ri sk evaluation: low risk (units unknown) (unknown) (unknown) (no date) (unknown) (unknown) History of Hepatitis B: No (units unknown) (unknown) (unknown) (no date) (unknown) (unknown) History of Hepatitis C: No (units unknown) (unknown) (unknown) (no date) (unknown) (unknown) History of rem oval of skin mole (units unknown) (unknown) (unknown) (no date) (unknown) (unknown) [facility] (units unknown) (unknown) (unknown) (no date) (unknown) (unknown) Reagan stationed in [facility], and requests IOL between 39-40 wks, so (units unknown) (unknown) (unknown) (no date) (unknown) (unknown) Hx # Pregnancies 0 Elective abortions 0 (units unknown) (unknown) (unknown) (no date) (unknown) (unknown) Hx # Term Pregnancies 1 Ectopic pregnancies 0 (units unknown) (unknown) (unknown) (no date) (unknown) (unknown) Hypothyroid, Levothyroxine 25mcg (units unknown) (unknown) (unknown) (no date) (unknown) (unknown) Immunizations (units unknown) (unknown) (unknown) (no date) (unknown) (unknown) Infant will be adopted?: no (units unknown) (unknown) (unknown) (no date) (unknown) (unknown) Infection History (u nits unknown) (unknown) (unknown) (no date) (unknown) (unknown) Infectious Dis ease Education (units unknown) (unknown) (unknown) (no date) (unknown) (unknown) Infectious dis ease exposure: chicken pox immunity discussed, hepatitis risk (units unknown) (unknown) (unknown) (no date) (unknown) (unknown) Influenza vacc ine (declines flu, undecided on Covid booster) (units unknown) (unknown) (unknown) (no date) (unknown) (unknown) Initial Weight : 200 lb (units unknown) (unknown) (unknown) (no date) (unknown) (unknown) Initials (units unknown) (unknown) (unknown) (no date) (unknown) (unknown) Intake Clinica l Staff (units unknown) (unknown) (unknown) (no date) (unknown) (unknown) Intake Note: (units unknown) (unknown) (unknown) (no date) (unknown) (unknown) Intake perform ed by: Noelle Cain (units unknown) (unknown) (unknown) (no date) (unknown) (unknown) Intake (units unknown) (unknown) (unknown) (no date) (unknown) (unknown) LM (units unknown) (unknown) (unknown) (no date) (unknown) (unknown) Live with some one with TB or exposed to TB: No (units unknown) (unknown) (unknown) (no date) (unknown) (unknown) Loc: [facility] (units unknown) (unknown) (unknown) (no date) (unknown) (unknown) [id number] (units unknown) (unknown) (unknown) (no date) (unknown) (unknown) Manager Nicu (units unknown) (unknown) (unknown) (no date) (unknown) (unknown) Marital status : (units unknown) (unknown) (unknown) (no date) (unknown) (unknown) Medical Histor y (Updated 10/10/22 @ 14:02 by Olivia Marshall MD) (units unknown) (unknown) (unknown) (no date) (unknown) (unknown) Medication use , Sauna/hot tub use, Dental care, Travel, Seatbelt use and (units unknown) (unknown) (unknown) (no date) (unknown) (unknown) Medications (units unknown) (unknown) (unknown) (no date) (unknown) (unknown) Migraine with aura ( units unknown) (unknown) (unknown) (no date) (unknown) (unknown) Migraines (units unknown) (unknown) (unknown) (no date) (unknown) (unknown) Mother d Alcoholism (units unknown) (unknown) (unknown) (no date) (unknown) (unknown) N No no 1,661 7 N/A absent long/closed (units unknown) (unknown) (unknown) (no date) (unknown) (unknown) N No no 166 12 N/A absent 4 wks (units unknown) (unknown) (unknown) (no date) (unknown) (unknown) N Yes no 140 2 9 Breech 1+ 3 wks (units unknown) (unknown) (unknown) (no date) (unknown) (unknown) N Yes no 144 2 5 Breech 1+ Feels better sin (units unknown) (unknown) (unknown) (no date) (unknown) (unknown) N Yes no 146 2 0 N/A absent flu shot given (units unknown) (unknown) (unknown) (no date) (unknown) (unknown) N Yes no 151 1 8 N/A absent FLETCHER negative (units unknown) (unknown) (unknown) (no date) (unknown) (unknown) Nasal congestion (un its unknown) (unknown) (unknown) (no date) (unknown) (unknown) No Known Drug Allergies Allergy (Verified 10/26/22 10:37) (units unknown) (unknown) (unknown) (no date) (unknown) (unknown) Not VFC Eligib le 10/26/22 Private Funds (units unknown) (unknown) (unknown) (no date) (unknown) (unknown) Notes (units unknown) (unknown) (unknown) (no date) (unknown) (unknown) Number of Mandy ng Children 1 (units unknown) (unknown) (unknown) (no date) (unknown) (unknown) Number of fetu ses:: Single (units unknown) (unknown) (unknown) (no date) (unknown) (unknown) Nutrition and weight gain counseling: special diet: discussed (units unknown) (unknown) (unknown) (no date) (unknown) (unknown) OB Office Visit (uni ts unknown) (unknown) (unknown) (no date) (unknown) (unknown) OB Visit Log (units unknown) (unknown) (unknown) (no date) (unknown) (unknown) OB check (units unknown) (unknown) (unknown) (no date) (unknown) (unknown) Orders (units unknown) (unknown) (unknown) (no date) (unknown) (unknown) Orders: (units unknown) (unknown) (unknown) (no date) (unknown) (unknown) Other Estimate s 11/15/22 LMP (Uncertain) 37w 1d (units unknown) (unknown) (unknown) (no date) (unknown) (unknown) Other Substanc e abuse (units unknown) (unknown) (unknown) (no date) (unknown) (unknown) Ovarian cyst (units unknown) (unknown) (unknown) (no date) (unknown) (unknown) PCOS (polycyst ic ovarian syndrome) (units unknown) (unknown) (unknown) (no date) (unknown) (unknown) PFSH (units unknown) (unknown) (unknown) (no date) (unknown) (unknown) Painful menstr ual periods (units unknown) (unknown) (unknown) (no date) (unknown) (unknown) Pap performed?: No ( units unknown) (unknown) (unknown) (no date) (unknown) (unknown) Para 1 Spontan eous abortions 1 (units unknown) (unknown) (unknown) (no date) (unknown) (unknown) Partner histor y of STD: denies hx (units unknown) (unknown) (unknown) (no date) (unknown) (unknown) Partner histor y of genital herpes: No (units unknown) (unknown) (unknown) (no date) (unknown) (unknown) Partner: Christopher (units unknown) (unknown) (unknown) (no date) (unknown) (unknown) Past Pregnancies (un its unknown) (unknown) (unknown) (no date) (unknown) (unknown) Patient has be en on levothyroxine 50 mcg now for 2-1/2 weeks and is (units unknown) (unknown) (unknown) (no date) (unknown) (unknown) Patient is bhargavi y concerned about having a scheduled induction of labor as (units unknown) (unknown) (unknown) (no date) (unknown) (unknown) Patient opts f or a routine visit at 11 weeks 5 days. She is (units unknown) (unknown) (unknown) (no date) (unknown) (unknown) Patient presen ts for a routine visit at 28 weeks and 5 days. (units unknown) (unknown) (unknown) (no date) (unknown) (unknown) Patient presen ts for an NOB visit at 7 wks gestation. Had some bleeding (units unknown) (unknown) (unknown) (no date) (unknown) (unknown) Patient's age 35 years or older as of estimated date of delivery: No (units unknown) (unknown) (unknown) (no date) (unknown) (unknown) Patient: Calin Godfrey MR#: (units unknown) (unknown) (unknown) (no date) (unknown) (unknown) Technical Assistant: MELISSA Dallas (units unknown) (unknown) (unknown) (no date) (unknown) (unknown) Performing Provider: Olivia Marshall MD (units unknown) (unknown) (unknown) (no date) (unknown) (unknown) Personal histo ry of STD: denies hx (units unknown) (unknown) (unknown) (no date) (unknown) (unknown) Personal histo ry of genital herpes: No (oral only) (units unknown) (unknown) (unknown) (no date) (unknown) (unknown) Position Sitting (un its unknown) (unknown) (unknown) (no date) (unknown) (unknown) History (u nits unknown) (unknown) (unknown) (no date) (unknown) (unknown) type :: Other Normal (units unknown) (unknown) (unknown) (no date) (unknown) (unknown) Education ( units unknown) (unknown) (unknown) (no date) (unknown) (unknown) Initi al Assessment (units unknown) (unknown) (unknown) (no date) (unknown) (unknown) Speci fic Issues/Plans (units unknown) (unknown) (unknown) (no date) (unknown) (unknown) Testi ng: discussed (units unknown) (unknown) (unknown) (no date) (unknown) (unknown) Visit (unit s unknown) (unknown) (unknown) (no date) (unknown) (unknown) educa tion packet: symptoms, Vitamins and iron, Diet and (units unknown) (unknown) (unknown) (no date) (unknown) (unknown) Primary Care Provider: MELISSA Dallas (units unknown) (unknown) (unknown) (no date) (unknown) (unknown) Primary Ob Provider: Olivia Marshall (units unknown) (unknown) (unknown) (no date) (unknown) (unknown) Prior GBS-Infe cted child: No (units unknown) (unknown) (unknown) (no date) (unknown) (unknown) Providers (units unknown) (unknown) (unknown) (no date) (unknown) (unknown) Psoriasis (units unknown) (unknown) (unknown) (no date) (unknown) (unknown) Rapid first delivery (units unknown) (unknown) (unknown) (no date) (unknown) (unknown) Rash or viral illness since last menstrual period: No (units unknown) (unknown) (unknown) (no date) (unknown) (unknown) Reason For Visit (un its unknown) (unknown) (unknown) (no date) (unknown) (unknown) Recent travel outside of country?: No (units unknown) (unknown) (unknown) (no date) (unknown) (unknown) Reports Mental Retardation/Autism (sister had three very disabled children); (units unknown) (unknown) (unknown) (no date) (unknown) (unknown) S/P ACL repair (unit s unknown) (unknown) (unknown) (no date) (unknown) (unknown) Safety (units unknown) (unknown) (unknown) (no date) (unknown) (unknown) Second child f or this couple (units unknown) (unknown) (unknown) (no date) (unknown) (unknown) Severe PCOS (units unknown) (unknown) (unknown) (no date) (unknown) (unknown) She reports so me right sided hip pain and sciatica. She has a history of left (units unknown) (unknown) (unknown) (no date) (unknown) (unknown) She reports ur inary frequency, but denies painful urination, bladder pain, (units unknown) (unknown) (unknown) (no date) (unknown) (unknown) Shingles (units unknown) (unknown) (unknown) (no date) (unknown) (unknown) Shoulder pain (units unknown) (unknown) (unknown) (no date) (unknown) (unknown) Signed By: (units unknown) (unknown) (unknown) (no date) (unknown) (unknown) JAVIER Hussein 10 (u nits unknown) (unknown) (unknown) (no date) (unknown) (unknown) Smoking Status : Current some day smoker (units unknown) (unknown) (unknown) (no date) (unknown) (unknown) Social History (unit s unknown) (unknown) (unknown) (no date) (unknown) (unknown) Support Person (s):: Reagan (units unknown) (unknown) (unknown) (no date) (unknown) (unknown) Surgical Histo ry (Updated 04/30/22 @ 08:16 by Krystina Lantigua RN) (units unknown) (unknown) (unknown) (no date) (unknown) (unknown) Surrogate ?: no (units unknown) (unknown) (unknown) (no date) (unknown) (unknown) Symptoms come on randomly and based on her description seem to be related to (units unknown) (unknown) (unknown) (no date) (unknown) (unknown) Symptoms since LMP: Reports amenorrhea, nausea, fatigue, breast tenderness, (units unknown) (unknown) (unknown) (no date) (unknown) (unknown) Tdap Adult (Ad acel) Today Z23 - Encounter for immunization (units unknown) (unknown) (unknown) (no date) (unknown) (unknown) Teratogen Expo sures since LMP/Conception: Denies prescription medications, (units unknown) (unknown) (unknown) (no date) (unknown) (unknown) Testing Education (u nits unknown) (unknown) (unknown) (no date) (unknown) (unknown) Testing educat ion completed: group B strep and Spina bifida testing (units unknown) (unknown) (unknown) (no date) (unknown) (unknown) This note may have been all or partially generated using voice recognition (units unknown) (unknown) (unknown) (no date) (unknown) (unknown) Tobacco + Subs tance Use (units unknown) (unknown) (unknown) (no date) (unknown) (unknown) Tobacco Status (unit s unknown) (unknown) (unknown) (no date) (unknown) (unknown) Trimester:: 3r d Trimester (28wks-Del) (units unknown) (unknown) (unknown) (no date) (unknown) (unknown) Type(s) of exercise: walking (-7 miles/day), weight lifting and yoga (units unknown) (unknown) (unknown) (no date) (unknown) (unknown) UProtein Movem ent PreLabor FHR Fndl Ht Pres Edema Cerv Exam US/Comment Next Appt (units unknown) (unknown) (unknown) (no date) (unknown) (unknown) Ultrasound performed?: Yes (units unknown) (unknown) (unknown) (no date) (unknown) (unknown) VIS Given Date VIS Provided VIS Publication Date (units unknown) (unknown) (unknown) (no date) (unknown) (unknown) Varicella/chic delonte pox status: immunized (Hx shingles) (units unknown) (unknown) (unknown) (no date) (unknown) (unknown) Vertigo (units unknown) (unknown) (unknown) (no date) (unknown) (unknown) Visit Date: 07/12/22 Last Updated by: Frances Espinal P.A-C (units unknown) (unknown) (unknown) (no date) (unknown) (unknown) Visit Date: 08/09/22 Last Updated by: Frances Espinal P.A-C (units unknown) (unknown) (unknown) (no date) (unknown) (unknown) Visit Date: 08/31/22 Last Updated by: Bert Roque MD (units unknown) (unknown) (unknown) (no date) (unknown) (unknown) Visit Date: 10/05/22 Last Updated by: Olivia Marshall MD (units unknown) (unknown) (unknown) (no date) (unknown) (unknown) Visit Date: 05/11/22 Last Updated by: Olivia Marshall MD (units unknown) (unknown) (unknown) (no date) (unknown) (unknown) Visit Date: 06/08/22 Last Updated by: Olivia Marshall MD (units unknown) (unknown) (unknown) (no date) (unknown) (unknown) Visit Reasons: OB Check US Position (units unknown) (unknown) (unknown) (no date) (unknown) (unknown) Vitals (units unknown) (unknown) (unknown) (no date) (unknown) (unknown) WG (units unknown) (unknown) (unknown) (no date) (unknown) (unknown) Warning signs reviewed. Follow-up in 3 weeks. (units unknown) (unknown) (unknown) (no date) (unknown) (unknown) Weeks gestatio n:: 31 (units unknown) (unknown) (unknown) (no date) (unknown) (unknown) Weight 258 lb (units unknown) (unknown) (unknown) (no date) (unknown) (unknown) Zika virus exposure: No (units unknown) (unknown) (unknown) (no date) (unknown) (unknown) [History Confi rmed 10/26/22] (units unknown) (unknown) (unknown) (no date) (unknown) (unknown) activity, work/environmental/ hazards, Sexual activity, X-ray exposure, (units unknown) (unknown) (unknown) (no date) (unknown) (unknown) additional soc ial history: Pt reports that she and her almost split up (units unknown) (unknown) (unknown) (no date) (unknown) (unknown) alcohol intake : former (very rarely when not ) (units unknown) (unknown) (unknown) (no date) (unknown) (unknown) amniotic fluid volume. Grade 0 placenta. Plan: Will add to induction list. (units unknown) (unknown) (unknown) (no date) (unknown) (unknown) and had an u/s on 05/08/22. Viable IUP at 7 wks. No further BRP. Plan: Pap, (units unknown) (unknown) (unknown) (no date) (unknown) (unknown) and is at a healthier size. Hx depression and anxiety, did not do well on (units unknown) (unknown) (unknown) (no date) (unknown) (unknown) antidepressant s, 'I was a zombie for a while.' Not currently medicated or (units unknown) (unknown) (unknown) (no date) (unknown) (unknown) anxiety is lik mali not particularly well controlled at present. (units unknown) (unknown) (unknown) (no date) (unknown) (unknown) [facility] in [facility] family with: (units unknown) (unknown) (unknown) (no date) (unknown) (unknown) azithromycin 2 50 mg tablet 1,000 mg PO ONCE Chlamydia #4 tabs 05/17/22 [Rx (units unknown) (unknown) (unknown) (no date) (unknown) (unknown) bilingual; boby sangeeta language is Marshallese, has spoken Andorran for-18 years. Also (units unknown) (unknown) (unknown) (no date) (unknown) (unknown) defects not listed above and Denies Other (units unknown) (unknown) (unknown) (no date) (unknown) (unknown) c/o migraine w / aura 'I smell blood when I'm going to have a migraine. It used (units unknown) (unknown) (unknown) (no date) (unknown) (unknown) cab attend (units unknown) (unknown) (unknown) (no date) (unknown) (unknown) caffeine: Yes (aware of 200mg limit) (units unknown) (unknown) (unknown) (no date) (unknown) (unknown) carbon monox detector in home: Yes (units unknown) (unknown) (unknown) (no date) (unknown) (unknown) caregiver/supp ort person: Yes (units unknown) (unknown) (unknown) (no date) (unknown) (unknown) ce s 4wks (units unknown) (unknown) (unknown) (no date) (unknown) (unknown) cf DNA and MSA FP ordered. NRL female, AFP negative (units unknown) (unknown) (unknown) (no date) (unknown) (unknown) cramping and contractions. Chlamydia test of cure from last visit was negative. (units unknown) (unknown) (unknown) (no date) (unknown) (unknown) current occupational exposures/hazards: No (units unknown) (unknown) (unknown) (no date) (unknown) (unknown) daily servings fruits/ve or more times/day (units unknown) (unknown) (unknown) (no date) (unknown) (unknown) deployed. On ultrasound: AGA 29 weeks 1 day. 2 lb 14 oz. 53%ile. Normal (units unknown) (unknown) (unknown) (no date) (unknown) (unknown) described, vis it schedule reviewed, ultrasounds policy reviewed, coverage 24 (units unknown) (unknown) (unknown) (no date) (unknown) (unknown) desires to hav e genetic testing so cell free DNA testing and MSAFP were ordered (units unknown) (unknown) (unknown) (no date) (unknown) (unknown) discussed, tuberculosis exposure discussed, CMV discussed, Toxoplasmosis (units unknown) (unknown) (unknown) (no date) (unknown) (unknown) disorders, Den ies Cystic Fibrosis, Denies Brynn's Chorea, Denies Other (units unknown) (unknown) (unknown) (no date) (unknown) (unknown) do you feel sa fe at home: Yes (units unknown) (unknown) (unknown) (no date) (unknown) (unknown) does complain of left breast tenderness. Plan: Test of cure for chlamydia (units unknown) (unknown) (unknown) (no date) (unknown) (unknown) drug abuse and pt is very concerned about how this may affect her children. (units unknown) (unknown) (unknown) (no date) (unknown) (unknown) during the pas t year weight has: decreased > 10 lbs (intentional w/ diet and (units unknown) (unknown) (unknown) (no date) (unknown) (unknown) education leve l: college (some college) (units unknown) (unknown) (unknown) (no date) (unknown) (unknown) erk (units unknown) (unknown) (unknown) (no date) (unknown) (unknown) exercise) (units unknown) (unknown) (unknown) (no date) (unknown) (unknown) wali/religious : Uatsdin (units unknown) (unknown) (unknown) (no date) (unknown) (unknown) feeling much b vikas with less hair loss fatigue and dry skin (units unknown) (unknown) (unknown) (no date) (unknown) (unknown) ferrous sulfat e 325 mg (65 mg iron) tablet (Feosol) 325 mg PO DAILY 04/30/22 (units unknown) (unknown) (unknown) (no date) (unknown) (unknown) fevers. UA was normal in the office today. No nit or leuks. Very mild CVAT on (units unknown) (unknown) (unknown) (no date) (unknown) (unknown) fire extinguis her in home: Yes (units unknown) (unknown) (unknown) (no date) (unknown) (unknown) firearms in me: No (units unknown) (unknown) (unknown) (no date) (unknown) (unknown) fluconazole 15 0 mg tablet (Diflucan) 150 mg PO DAILY #1 tab 07/30/22 [Rx (units unknown) (unknown) (unknown) (no date) (unknown) (unknown) folic acid 400 mcg tablet 0.4 mg PO DAILY 04/30/22 [History Confirmed 10/26/22] (units unknown) (unknown) (unknown) (no date) (unknown) (unknown) for about the last 3 years, has not ever discussed this w/ her PCP so far. (units unknown) (unknown) (unknown) (no date) (unknown) (unknown) frequency: daily (un its unknown) (unknown) (unknown) (no date) (unknown) (unknown) have occurred. If there are any questions, please contact the Medical Records (units unknown) (unknown) (unknown) (no date) (unknown) (unknown) her wi ll be stationed in [facility]. We discussed that she would need to be (units unknown) (unknown) (unknown) (no date) (unknown) (unknown) home, no flo rns about violence or infidelity. Long family Hx of alcohol and (units unknown) (unknown) (unknown) (no date) (unknown) (unknown) hours a day an d participation of father in care and office visits (units unknown) (unknown) (unknown) (no date) (unknown) (unknown) household memb ers: spouse, family (brother) and children (units unknown) (unknown) (unknown) (no date) (unknown) (unknown) housing: apartment ( units unknown) (unknown) (unknown) (no date) (unknown) (unknown) induction January 20, 2023 due to a history of a fast delivery and being (units unknown) (unknown) (unknown) (no date) (unknown) (unknown) inherited gene tic or chromosomal disorder, Denies Maternal Metabolic Disorder (units unknown) (unknown) (unknown) (no date) (unknown) (unknown) intake. Kathie berman precautions reviewed. F/u in 4 wks. (units unknown) (unknown) (unknown) (no date) (unknown) (unknown) kag (units unknown) (unknown) (unknown) (no date) (unknown) (unknown) levothyroxine 50 mcg capsule 75 mcg PO DAILY #90 caps 10/05/22 [Rx Confirmed (units unknown) (unknown) (unknown) (no date) (unknown) (unknown) lives independently: Yes (units unknown) (unknown) (unknown) (no date) (unknown) (unknown) marital status : (units unknown) (unknown) (unknown) (no date) (unknown) (unknown) may occur. Occasional wrong-word or 'sound-alike' substitutions may have (units unknown) (unknown) (unknown) (no date) (unknown) (unknown) months none [place] ( units unknown) (unknown) (unknown) (no date) (unknown) (unknown) movement and d enies VB, LOF, cramping, contractions and abnormal discharge. She (units unknown) (unknown) (unknown) (no date) (unknown) (unknown) number of chil dren: 3 (includes 2 stepchildren) (units unknown) (unknown) (unknown) (no date) (unknown) (unknown) occupational status: employed (desk/office job) (units unknown) (unknown) (unknown) (no date) (unknown) (unknown) occurred due t o the inherent limitations of voice recognition software. Please (units unknown) (unknown) (unknown) (no date) (unknown) (unknown) omega 7-ydu-flb-fish oil 100 mg-160 mg-1,000 mg capsule (Fish Oil) 1 cap PO (units unknown) (unknown) (unknown) (no date) (unknown) (unknown) oxymetazoline 0.05 % nasal spray 1 spray intranasal BID 04/30/22 [History (units unknown) (unknown) (unknown) (no date) (unknown) (unknown) pets and anima ls: No (units unknown) (unknown) (unknown) (no date) (unknown) (unknown) precautions, Listeriosis prevention and Rubella Immunization (units unknown) (unknown) (unknown) (no date) (unknown) (unknown) prenat.vits,ca l,min -iron-folic 1 tab PO DAILY 04/30/22 [History Confirmed (units unknown) (unknown) (unknown) (no date) (unknown) (unknown) r/o kidney pathology. ED precautions reviewed. Advised to increase fluid (units unknown) (unknown) (unknown) (no date) (unknown) (unknown) read the note carefully and recognize, using context, where these substitutions (units unknown) (unknown) (unknown) (no date) (unknown) (unknown) recently but h lebron decided to stay together in light of this . She (units unknown) (unknown) (unknown) (no date) (unknown) (unknown) reports some r ight sided flank pain x 4 days. She reports it is achy and dull. (units unknown) (unknown) (unknown) (no date) (unknown) (unknown) reports that is nervous and excited, confirms that she is safe in her (units unknown) (unknown) (unknown) (no date) (unknown) (unknown) required D+C (units unknown) (unknown) (unknown) (no date) (unknown) (unknown) reviewed. Foll ow-up in 4 weeks or as needed. (units unknown) (unknown) (unknown) (no date) (unknown) (unknown) seatbelt use: always (units unknown) (unknown) (unknown) (no date) (unknown) (unknown) second hand exposure: Yes ( also smokes) (units unknown) (unknown) (unknown) (no date) (unknown) (unknown) seeing funeral counselor or, although her affect during intake call indicates that her (units unknown) (unknown) (unknown) (no date) (unknown) (unknown) shot but we wi ll consider getting 1 next visit. Warning precautions were (units unknown) (unknown) (unknown) (no date) (unknown) (unknown) sided sciatica . She desires PT referral for hip pain. Referral sent. She (units unknown) (unknown) (unknown) (no date) (unknown) (unknown) skin and scalp . Slightly enlarged thyroid on exam. CBC and TSH refulx to T4 (units unknown) (unknown) (unknown) (no date) (unknown) (unknown) software. Alth ough every effort is made to edit content, direct service professional errors (units unknown) (unknown) (unknown) (no date) (unknown) (unknown) special wali needs: No (units unknown) (unknown) (unknown) (no date) (unknown) (unknown) still having s ome nausea and vomiting. She does not want any medication for (units unknown) (unknown) (unknown) (no date) (unknown) (unknown) stress and anx iety. Worse since she has been , 'This is much worse than (units unknown) (unknown) (unknown) (no date) (unknown) (unknown) substance use type: does not use (units unknown) (unknown) (unknown) (no date) (unknown) (unknown) the right on e xam. Discussed MSK cause vs kidney stones. Ordered kidney US to (units unknown) (unknown) (unknown) (no date) (unknown) (unknown) the week befor e she found out), Denies illicit drugs and Denies other (units unknown) (unknown) (unknown) (no date) (unknown) (unknown) this. Her Pap smear came back positive for chlamydia. She was treated. She (units unknown) (unknown) (unknown) (no date) (unknown) (unknown) to be a sweet smell, but the last few years it's been blood.' Migraines appear (units unknown) (unknown) (unknown) (no date) (unknown) (unknown) to be largely hormonal and are worse when pt is heavy than when she loses weight (units unknown) (unknown) (unknown) (no date) (unknown) (unknown) today. Follow- up in 4-5 weeks. Warning signs reviewed. (units unknown) (unknown) (unknown) (no date) (unknown) (unknown) today. Ordered 20 week anatomy ultrasound. She is unsure if she wants a flu (units unknown) (unknown) (unknown) (no date) (unknown) (unknown) travel history : recent (domestic only) (units unknown) (unknown) (unknown) (no date) (unknown) (unknown) urinary freque ncy, irritability and other (headaches, heartburn) (units unknown) (unknown) (unknown) (no date) (unknown) (unknown) was recently treated for a yeast infection and reports it resolved with (units unknown) (unknown) (unknown) (no date) (unknown) (unknown) water heater t emp set < 120 deg: Yes (units unknown) (unknown) (unknown) (no date) (unknown) (unknown) weeks 4 days. She reports some fluttering movement and denies VB, LOF, (units unknown) (unknown) (unknown) (no date) (unknown) (unknown) weight gain, F marci and mercury intake, Smoking, Caffeine use, Exercise and (units unknown) (unknown) (unknown) (no date) (unknown) (unknown) well-balanced diet: daily or most days (units unknown) (unknown) (unknown) (no date) (unknown) (unknown) were ordered. Pt will have labs drawn after the visit. Flu shot given. She also (units unknown) (unknown) (unknown) (no date) (unknown) (unknown) working smoke detector in home: Yes (units unknown) (unknown) (unknown) (no date) (unknown) (unknown) yet available. She reports hair loss, brittle hair and nails, fatigue, and dry (units unknown) (unknown) Result panel 86 (unknown) (no date) (unknown) (unknown) (no value) (units unknown) (unknown) (unknown) (no date) (unknown) (unknown) 'mama brain,' I'm worried I have early onset dementia.' Notably, pt is (units unknown) (unknown) (unknown) (no date) (unknown) (unknown) (+19 lb) 108/64 N (u nits unknown) (unknown) (unknown) (no date) (unknown) (unknown) (+26 lb) 116/64 N (u nits unknown) (unknown) (unknown) (no date) (unknown) (unknown) (+36 lb) 106/66 N (u nits unknown) (unknown) (unknown) (no date) (unknown) (unknown) (+42 lb) 120/66 N (u nits unknown) (unknown) (unknown) (no date) (unknown) (unknown) (+48 lb) 118/72 N (u nits unknown) (unknown) (unknown) (no date) (unknown) (unknown) (+57 lb) 112/72 N (u nits unknown) (unknown) (unknown) (no date) (unknown) (unknown) (+58 lb) 118/70 (uni ts unknown) (unknown) (unknown) (no date) (unknown) (unknown) (EG,TYPE 1 Diabetes, PKU), Denies Patient or baby's father had a child with (units unknown) (unknown) (unknown) (no date) (unknown) (unknown) Genetic Screening/Teratolog y Counseling - Includes patient, baby's father, or (units unknown) (unknown) (unknown) (no date) (unknown) (unknown) +CT, Tx'd. Nee ds FLETCHER. FLETCHER negative. (units unknown) (unknown) (unknown) (no date) (unknown) (unknown) -?-?-?-?-?-?-? -?-?- ?-?-? (units unknown) (unknown) (unknown) (no date) (unknown) (unknown) .COMPLEX 04/30 [History Confirmed 10/26/22] (units unknown) (unknown) (unknown) (no date) (unknown) (unknown) /U 4 wks. Warn ing signs reviewed. (units unknown) (unknown) (unknown) (no date) (unknown) (unknown) 0.5 mL IM Left Deltoid [id number] 06/11/24 [id number] SANOFI-PASTEUR (units unknown) (unknown) (unknown) (no date) (unknown) (unknown) 07/12/22 (units unknown) (unknown) (unknown) (no date) (unknown) (unknown) 08/09/22 (units unknown) (unknown) (unknown) (no date) (unknown) (unknown) 08/31/22 (units unknown) (unknown) (unknown) (no date) (unknown) (unknown) 09/25/10 14 spontaneous (units unknown) (unknown) (unknown) (no date) (unknown) (unknown) 10/05/22 (units unknown) (unknown) (unknown) (no date) (unknown) (unknown) 10/26/22 Singl e Vaccine 21 (units unknown) (unknown) (unknown) (no date) (unknown) (unknown) 10/26/22 (units unknown) (unknown) (unknown) (no date) (unknown) (unknown) 10/26/22] (units unknown) (unknown) (unknown) (no date) (unknown) (unknown) 12/23/22 Ultra sound #2 31w 5d (units unknown) (unknown) (unknown) (no date) (unknown) (unknown) 02/25/15 41.3 5 9 lb 8 oz Male vaginal live - full term (units unknown) (unknown) (unknown) (no date) (unknown) (unknown) 10:37 (units unknown) (unknown) (unknown) (no date) (unknown) (unknown) 05/11/22 (units unknown) (unknown) (unknown) (no date) (unknown) (unknown) 11w 5d 226 lb (units unknown) (unknown) (unknown) (no date) (unknown) (unknown) 06/08/22 (units unknown) (unknown) (unknown) (no date) (unknown) (unknown) 16w 4d 236 lb (units unknown) (unknown) (unknown) (no date) (unknown) (unknown) 20w 4d 242 lb (units unknown) (unknown) (unknown) (no date) (unknown) (unknown) 23w 5d 248 lb (units unknown) (unknown) (unknown) (no date) (unknown) (unknown) 28w 5d 257 lb (units unknown) (unknown) (unknown) (no date) (unknown) (unknown) 31w 5d 258 lb (units unknown) (unknown) (unknown) (no date) (unknown) (unknown) 39 weeks and t hat this can be most likely arranged closer to her due date (units unknown) (unknown) (unknown) (no date) (unknown) (unknown) 4 wks (units unknown) (unknown) (unknown) (no date) (unknown) (unknown) 7w 5d 219 lb (units unknown) (unknown) (unknown) (no date) (unknown) (unknown) Abnormal lab v alues 1st trimester: discussed (units unknown) (unknown) (unknown) (no date) (unknown) (unknown) Acne (units unknown) (unknown) (unknown) (no date) (unknown) (unknown) Adacel(Tdap Adolesn/Adult)(PF) (units unknown) (unknown) (unknown) (no date) (unknown) (unknown) Add'l Plan Details ( units unknown) (unknown) (unknown) (no date) (unknown) (unknown) Additional Details:: Pt reports concerns about memory and word finding issues (units unknown) (unknown) (unknown) (no date) (unknown) (unknown) Additional Soc ial History (units unknown) (unknown) (unknown) (no date) (unknown) (unknown) Administered b y: Noelle Cain MA on 10/26/22 10:49 (units unknown) (unknown) (unknown) (no date) (unknown) (unknown) Age/Sex: 32 / F Date of Service: (units unknown) (unknown) (unknown) (no date) (unknown) (unknown) Allergies (units unknown) (unknown) (unknown) (no date) (unknown) (unknown) JAVIER Harding [id number] (units unknown) (unknown) (unknown) (no date) (unknown) (unknown) Anemia (units unknown) (unknown) (unknown) (no date) (unknown) (unknown) Aneuploidy Screening Offered: Accepted (likely will do quad screen, undecided) (units unknown) (unknown) (unknown) (no date) (unknown) (unknown) Anticipated co urse of care: discussed (units unknown) (unknown) (unknown) (no date) (unknown) (unknown) Anxiety (units unknown) (unknown) (unknown) (no date) (unknown) (unknown) Anxiety/depres marcy not very well managed, has not tolerated meds in the past. (units unknown) (unknown) (unknown) (no date) (unknown) (unknown) Assessment and Plan (units unknown) (unknown) (unknown) (no date) (unknown) (unknown) Attending Dr: Olivia Marshall MD (units unknown) (unknown) (unknown) (no date) (unknown) (unknown) BMI 42.9 (units unknown) (unknown) (unknown) (no date) (unknown) (unknown) BP 118/70 (units unknown) (unknown) (unknown) (no date) (unknown) (unknown) Plan/Preferences (units unknown) (unknown) (unknown) (no date) (unknown) (unknown) Planning (unit s unknown) (unknown) (unknown) (no date) (unknown) (unknown) Bleeding in fi rst trimester (units unknown) (unknown) (unknown) (no date) (unknown) (unknown) Blood Pressure Location Lt brachial (units unknown) (unknown) (unknown) (no date) (unknown) (unknown) Blood transfusions?: yes (Never had but would accept) (units unknown) (unknown) (unknown) (no date) (unknown) (unknown) Breastfeed Pre g Comp Name (units unknown) (unknown) (unknown) (no date) (unknown) (unknown) Brother Alcoholism ( units unknown) (unknown) (unknown) (no date) (unknown) (unknown) Carpal tunnel syndrome (units unknown) (unknown) (unknown) (no date) (unknown) (unknown) Calin present s today for routine OB f/u at 20w4d. She reports good (units unknown) (unknown) (unknown) (no date) (unknown) (unknown) Calin present s with her today for routine OB follow-up at 16 (units unknown) (unknown) (unknown) (no date) (unknown) (unknown) Confirmed 10/26/22] (units unknown) (unknown) (unknown) (no date) (unknown) (unknown) Current Estima te 12/23/22 Ultrasound #1 31w 5d (units unknown) (unknown) (unknown) (no date) (unknown) (unknown) Current Pregna ncy History (units unknown) (unknown) (unknown) (no date) (unknown) (unknown) : 01[birth year]/199 0 Acct:[id number] (units unknown) (unknown) (unknown) (no date) (unknown) (unknown) Date of positi ve home test: 04/17/22 (units unknown) (unknown) (unknown) (no date) (unknown) (unknown) Date (units unknown) (unknown) (unknown) (no date) (unknown) (unknown) Del. Date GA/W eeks Labor Lgth Wt Sex Route Outcome Anesthesia Place (units unknown) (unknown) (unknown) (no date) (unknown) (unknown) Delivery Date: 09/25/10 Last Updated by: Krystina Lantigua RN (units unknown) (unknown) (unknown) (no date) (unknown) (unknown) Delv (units unknown) (unknown) (unknown) (no date) (unknown) (unknown) Denies Congeni gerard Heart Defect, Denies Down Syndrome, Denies Muscular Dystrophy, (units unknown) (unknown) (unknown) (no date) (unknown) (unknown) Denies Neural Tube Defect (Meningomyelocele, Spina Bifida, or Anencephaly), (units unknown) (unknown) (unknown) (no date) (unknown) (unknown) Denies Sickle Cell Disease or Trait (), Denies Hemophilia or other blood (units unknown) (unknown) (unknown) (no date) (unknown) (unknown) Denies Rodney-Sac hs (Ashkenazi Lutheran, [facility], [place] Island[place]an), Denies Kayy (units unknown) (unknown) (unknown) (no date) (unknown) (unknown) Denies over th e counter medications, Reports alcohol (drank 2 bottles of wine (units unknown) (unknown) (unknown) (no date) (unknown) (unknown) Depression (units unknown) (unknown) (unknown) (no date) (unknown) (unknown) Depression: discussed (units unknown) (unknown) (unknown) (no date) (unknown) (unknown) Dept at . (units unknown) (unknown) (unknown) (no date) (unknown) (unknown) Diet and Exercise (u nits unknown) (unknown) (unknown) (no date) (unknown) (unknown) Diflucan. cfDN A and AFP were normal. Anatomy US was done today, but report not (units unknown) (unknown) (unknown) (no date) (unknown) (unknown) Disease (Ash[place] nazi Lutheran), Denies Familial Dysautonomia (Ashkenazi Lutheran), (units unknown) (unknown) (unknown) (no date) (unknown) (unknown) Documented By: Olivia Marshall MD 10/26/22 1036 (units unknown) (unknown) (unknown) (no date) (unknown) (unknown) Dose Route Adm in Location Lot Number Expiration Date NDC (units unknown) (unknown) (unknown) (no date) (unknown) (unknown) Draft (units unknown) (unknown) (unknown) (no date) (unknown) (unknown) MADISYN Calculator (unit s unknown) (unknown) (unknown) (no date) (unknown) (unknown) EGA Weight BP UGlucose (units unknown) (unknown) (unknown) (no date) (unknown) (unknown) Eczema (units unknown) (unknown) (unknown) (no date) (unknown) (unknown) Eligibility Eligibility Date Funding Source (units unknown) (unknown) (unknown) (no date) (unknown) (unknown) Estimated Deli very Date Method Current (units unknown) (unknown) (unknown) (no date) (unknown) (unknown) Family History (Updated 04/30/22 @ 08:33 by Krystina Lantigua RN) (units unknown) (unknown) (unknown) (no date) (unknown) (unknown) Family/Other Neurological abnormality (units unknown) (unknown) (unknown) (no date) (unknown) (unknown) Family/Other Obsessive compulsive disorder (units unknown) (unknown) (unknown) (no date) (unknown) (unknown) Father d Alcoholism (units unknown) (unknown) (unknown) (no date) (unknown) (unknown) Father of Baby : same (units unknown) (unknown) (unknown) (no date) (unknown) (unknown) [facility] (units unknown) (unknown) (unknown) (no date) (unknown) (unknown) First Tr[employer] r Education Checklist (units unknown) (unknown) (unknown) (no date) (unknown) (unknown) (units unknown) (unknown) (unknown) (no date) (unknown) (unknown) GERD (gastroesophageal reflux disease) (units unknown) (unknown) (unknown) (no date) (unknown) (unknown) Genetic Screen ing + Counseling (units unknown) (unknown) (unknown) (no date) (unknown) (unknown) Genetic Screening (u nits unknown) (unknown) (unknown) (no date) (unknown) (unknown) Good movement. No leakage of fluid or vaginal bleeding. She requests (units unknown) (unknown) (unknown) (no date) (unknown) (unknown) Grandfather No problems noted. (units unknown) (unknown) (unknown) (no date) (unknown) (unknown) Grandmother Coagulopathy (units unknown) (unknown) (unknown) (no date) (unknown) (unknown) Grandmother Leukemia (units unknown) (unknown) (unknown) (no date) (unknown) (unknown) 3 Mult iple births (units unknown) (unknown) (unknown) (no date) (unknown) (unknown) HIV risk evaluation: low risk (units unknown) (unknown) (unknown) (no date) (unknown) (unknown) HSV-1 infection (uni ts unknown) (unknown) (unknown) (no date) (unknown) (unknown) Headache (units unknown) (unknown) (unknown) (no date) (unknown) (unknown) Health Center Education (units unknown) (unknown) (unknown) (no date) (unknown) (unknown) Health center information: nature of practice discussed, personnel (units unknown) (unknown) (unknown) (no date) (unknown) (unknown) Height 5 ft 5 in (un its unknown) (unknown) (unknown) (no date) (unknown) (unknown) Hemorrhoids (units unknown) (unknown) (unknown) (no date) (unknown) (unknown) Hepatitis C ri sk evaluation: low risk (units unknown) (unknown) (unknown) (no date) (unknown) (unknown) History of Hepatitis B: No (units unknown) (unknown) (unknown) (no date) (unknown) (unknown) History of Hepatitis C: No (units unknown) (unknown) (unknown) (no date) (unknown) (unknown) History of rem oval of skin mole (units unknown) (unknown) (unknown) (no date) (unknown) (unknown) [facility] ([facility]) (unknown) (no date) (unknown) (unknown) Reagan stationed in [facility], and requests IOL between 39-40 wks, so (units unknown) (unknown) (unknown) (no date) (unknown) (unknown) Hx # Pregnancies 0 Elective abortions 0 (units unknown) (unknown) (unknown) (no date) (unknown) (unknown) Hx # Term Pregnancies 1 Ectopic pregnancies 0 (units unknown) (unknown) (unknown) (no date) (unknown) (unknown) Hypothyroid, Levothyroxine 25mcg (units unknown) (unknown) (unknown) (no date) (unknown) (unknown) Immunizations (units unknown) (unknown) (unknown) (no date) (unknown) (unknown) Infant will be adopted?: no (units unknown) (unknown) (unknown) (no date) (unknown) (unknown) Infection History (u nits unknown) (unknown) (unknown) (no date) (unknown) (unknown) Infectious Dis ease Education (units unknown) (unknown) (unknown) (no date) (unknown) (unknown) Infectious dis ease exposure: chicken pox immunity discussed, hepatitis risk (units unknown) (unknown) (unknown) (no date) (unknown) (unknown) Influenza vacc ine (declines flu, undecided on Covid booster) (units unknown) (unknown) (unknown) (no date) (unknown) (unknown) Initial Weight : 200 lb (units unknown) (unknown) (unknown) (no date) (unknown) (unknown) Initials (units unknown) (unknown) (unknown) (no date) (unknown) (unknown) Intake Clinica l Staff (units unknown) (unknown) (unknown) (no date) (unknown) (unknown) Intake Note: (units unknown) (unknown) (unknown) (no date) (unknown) (unknown) Intake perform ed by: Noelle Cain (units unknown) (unknown) (unknown) (no date) (unknown) (unknown) Intake (units unknown) (unknown) (unknown) (no date) (unknown) (unknown) LM (units unknown) (unknown) (unknown) (no date) (unknown) (unknown) Live with some one with TB or exposed to TB: No (units unknown) (unknown) (unknown) (no date) (unknown) (unknown) Loc: [facility] (units unknown) (unknown) (unknown) (no date) (unknown) (unknown) [phone] (units unknown) (unknown) (unknown) (no date) (unknown) (unknown) Manager Nicu (units unknown) (unknown) (unknown) (no date) (unknown) (unknown) Marital status : (units unknown) (unknown) (unknown) (no date) (unknown) (unknown) Medical Histor y (Updated 10/10/22 @ 14:02 by Olivia Marshall MD) (units unknown) (unknown) (unknown) (no date) (unknown) (unknown) Medication use , Sauna/hot tub use, Dental care, Travel, Seatbelt use and (units unknown) (unknown) (unknown) (no date) (unknown) (unknown) Medications (units unknown) (unknown) (unknown) (no date) (unknown) (unknown) Migraine with aura ( units unknown) (unknown) (unknown) (no date) (unknown) (unknown) Migraines (units unknown) (unknown) (unknown) (no date) (unknown) (unknown) Mother d Alcoholism (units unknown) (unknown) (unknown) (no date) (unknown) (unknown) N No no 1,661 7 N/A absent long/closed (units unknown) (unknown) (unknown) (no date) (unknown) (unknown) N No no 166 12 N/A absent 4 wks (units unknown) (unknown) (unknown) (no date) (unknown) (unknown) N Yes no 140 2 9 Breech 1+ 3 wks (units unknown) (unknown) (unknown) (no date) (unknown) (unknown) N Yes no 144 2 5 Breech 1+ Feels better sin (units unknown) (unknown) (unknown) (no date) (unknown) (unknown) N Yes no 146 2 0 N/A absent flu shot given (units unknown) (unknown) (unknown) (no date) (unknown) (unknown) N Yes no 151 1 8 N/A absent FLETCHER negative (units unknown) (unknown) (unknown) (no date) (unknown) (unknown) Nasal congestion (un its unknown) (unknown) (unknown) (no date) (unknown) (unknown) No Known Drug Allergies Allergy (Verified 10/26/22 10:37) (units unknown) (unknown) (unknown) (no date) (unknown) (unknown) Not VFC Eligib le 10/26/22 Private Funds (units unknown) (unknown) (unknown) (no date) (unknown) (unknown) Notes (units unknown) (unknown) (unknown) (no date) (unknown) (unknown) Number of Mandy ng Children 1 (units unknown) (unknown) (unknown) (no date) (unknown) (unknown) Number of fetu ses:: Single (units unknown) (unknown) (unknown) (no date) (unknown) (unknown) Nutrition and weight gain counseling: special diet: discussed (units unknown) (unknown) (unknown) (no date) (unknown) (unknown) OB Office Visit (uni ts unknown) (unknown) (unknown) (no date) (unknown) (unknown) OB Visit Log (units unknown) (unknown) (unknown) (no date) (unknown) (unknown) OB check (units unknown) (unknown) (unknown) (no date) (unknown) (unknown) Orders (units unknown) (unknown) (unknown) (no date) (unknown) (unknown) Orders: (units unknown) (unknown) (unknown) (no date) (unknown) (unknown) Other Estimate s 11/15/22 LMP (Uncertain) 37w 1d (units unknown) (unknown) (unknown) (no date) (unknown) (unknown) Other Substanc e abuse (units unknown) (unknown) (unknown) (no date) (unknown) (unknown) Ovarian cyst (units unknown) (unknown) (unknown) (no date) (unknown) (unknown) PCOS (polycyst ic ovarian syndrome) (units unknown) (unknown) (unknown) (no date) (unknown) (unknown) PFSH (units unknown) (unknown) (unknown) (no date) (unknown) (unknown) Painful menstr ual periods (units unknown) (unknown) (unknown) (no date) (unknown) (unknown) Pap performed?: No ( units unknown) (unknown) (unknown) (no date) (unknown) (unknown) Para 1 Spontan eous abortions 1 (units unknown) (unknown) (unknown) (no date) (unknown) (unknown) Partner histor y of STD: denies hx (units unknown) (unknown) (unknown) (no date) (unknown) (unknown) Partner histor y of genital herpes: No (units unknown) (unknown) (unknown) (no date) (unknown) (unknown) Partner: Cheko (units unknown) (unknown) (unknown) (no date) (unknown) (unknown) Past Pregnancies (un its unknown) (unknown) (unknown) (no date) (unknown) (unknown) Patient has be en on levothyroxine 50 mcg now for 2-1/2 weeks and is (units unknown) (unknown) (unknown) (no date) (unknown) (unknown) Patient is bhargavi y concerned about having a scheduled induction of labor as (units unknown) (unknown) (unknown) (no date) (unknown) (unknown) Patient opts f or a routine visit at 11 weeks 5 days. She is (units unknown) (unknown) (unknown) (no date) (unknown) (unknown) Patient presen ts for a routine visit at 28 weeks and 5 days. (units unknown) (unknown) (unknown) (no date) (unknown) (unknown) Patient presen ts for an NOB visit at 7 wks gestation. Had some bleeding (units unknown) (unknown) (unknown) (no date) (unknown) (unknown) Patient's age 35 years or older as of estimated date of delivery: No (units unknown) (unknown) (unknown) (no date) (unknown) (unknown) Patient: Calin Godfrey MR#: (units unknown) (unknown) (unknown) (no date) (unknown) (unknown) Technical Assistant: MELISSA Dallas (units unknown) (unknown) (unknown) (no date) (unknown) (unknown) Performing Provider: Olivia aMrshall MD (units unknown) (unknown) (unknown) (no date) (unknown) (unknown) Personal histo ry of STD: denies hx (units unknown) (unknown) (unknown) (no date) (unknown) (unknown) Personal histo ry of genital herpes: No (oral only) (units unknown) (unknown) (unknown) (no date) (unknown) (unknown) Position Sitting (un its unknown) (unknown) (unknown) (no date) (unknown) (unknown) History (u nits unknown) (unknown) (unknown) (no date) (unknown) (unknown) type :: Other Normal (units unknown) (unknown) (unknown) (no date) (unknown) (unknown) Education ( units unknown) (unknown) (unknown) (no date) (unknown) (unknown) Initi al Assessment (units unknown) (unknown) (unknown) (no date) (unknown) (unknown) Speci fic Issues/Plans (units unknown) (unknown) (unknown) (no date) (unknown) (unknown) Testi ng: discussed (units unknown) (unknown) (unknown) (no date) (unknown) (unknown) Visit (unit s unknown) (unknown) (unknown) (no date) (unknown) (unknown) educa tion packet: symptoms, Vitamins and iron, Diet and (units unknown) (unknown) (unknown) (no date) (unknown) (unknown) Primary Care Provider: MELISSA Dallas (units unknown) (unknown) (unknown) (no date) (unknown) (unknown) Primary Ob Provider: Olivia Marshall (units unknown) (unknown) (unknown) (no date) (unknown) (unknown) Prior GBS-Infe cted child: No (units unknown) (unknown) (unknown) (no date) (unknown) (unknown) Providers (units unknown) (unknown) (unknown) (no date) (unknown) (unknown) Psoriasis (units unknown) (unknown) (unknown) (no date) (unknown) (unknown) Rapid first delivery (units unknown) (unknown) (unknown) (no date) (unknown) (unknown) Rash or viral illness since last menstrual period: No (units unknown) (unknown) (unknown) (no date) (unknown) (unknown) Reason For Visit (un its unknown) (unknown) (unknown) (no date) (unknown) (unknown) Recent travel outside of country?: No (units unknown) (unknown) (unknown) (no date) (unknown) (unknown) Reports Mental Retardation/Autism (sister had three very disabled children); (units unknown) (unknown) (unknown) (no date) (unknown) (unknown) S/P ACL repair (unit s unknown) (unknown) (unknown) (no date) (unknown) (unknown) Safety (units unknown) (unknown) (unknown) (no date) (unknown) (unknown) Second child f or this couple (units unknown) (unknown) (unknown) (no date) (unknown) (unknown) Severe PCOS (units unknown) (unknown) (unknown) (no date) (unknown) (unknown) She reports so me right sided hip pain and sciatica. She has a history of left (units unknown) (unknown) (unknown) (no date) (unknown) (unknown) She reports ur inary frequency, but denies painful urination, bladder pain, (units unknown) (unknown) (unknown) (no date) (unknown) (unknown) Shingles (units unknown) (unknown) (unknown) (no date) (unknown) (unknown) Shoulder pain (units unknown) (unknown) (unknown) (no date) (unknown) (unknown) Signed By: (units unknown) (unknown) (unknown) (no date) (unknown) (unknown) JAVIER Hussein 10 (u nits unknown) (unknown) (unknown) (no date) (unknown) (unknown) Smoking Status : Current some day smoker (units unknown) (unknown) (unknown) (no date) (unknown) (unknown) Social History (unit s unknown) (unknown) (unknown) (no date) (unknown) (unknown) Support Person (s):: Reagan (units unknown) (unknown) (unknown) (no date) (unknown) (unknown) Surgical Histo ry (Updated 04/30/22 @ 08:16 by Krystina Lantigua RN) (units unknown) (unknown) (unknown) (no date) (unknown) (unknown) Surrogate ?: no (units unknown) (unknown) (unknown) (no date) (unknown) (unknown) Symptoms come on randomly and based on her description seem to be related to (units unknown) (unknown) (unknown) (no date) (unknown) (unknown) Symptoms since LMP: Reports amenorrhea, nausea, fatigue, breast tenderness, (units unknown) (unknown) (unknown) (no date) (unknown) (unknown) Tdap Adult (Ad acel) Today Z23 - Encounter for immunization (units unknown) (unknown) (unknown) (no date) (unknown) (unknown) Teratogen Expo sures since LMP/Conception: Denies prescription medications, (units unknown) (unknown) (unknown) (no date) (unknown) (unknown) Testing Education (u nits unknown) (unknown) (unknown) (no date) (unknown) (unknown) Testing educat ion completed: group B strep and Spina bifida testing (units unknown) (unknown) (unknown) (no date) (unknown) (unknown) This note may have been all or partially generated using voice recognition (units unknown) (unknown) (unknown) (no date) (unknown) (unknown) Tobacco + Subs tance Use (units unknown) (unknown) (unknown) (no date) (unknown) (unknown) Tobacco Status (unit s unknown) (unknown) (unknown) (no date) (unknown) (unknown) Trimester:: 3r d Trimester (28wks-Del) (units unknown) (unknown) (unknown) (no date) (unknown) (unknown) Type(s) of exercise: walking (-7 miles/day), weight lifting and yoga (units unknown) (unknown) (unknown) (no date) (unknown) (unknown) UProtein Movem ent PreLabor FHR Fndl Ht Pres Edema Cerv Exam US/Comment Next Appt (units unknown) (unknown) (unknown) (no date) (unknown) (unknown) Ultrasound performed?: Yes (units unknown) (unknown) (unknown) (no date) (unknown) (unknown) VIS Given Date VIS Provided VIS Publication Date (units unknown) (unknown) (unknown) (no date) (unknown) (unknown) Varicella/chic delonte pox status: immunized (Hx shingles) (units unknown) (unknown) (unknown) (no date) (unknown) (unknown) Vertigo (units unknown) (unknown) (unknown) (no date) (unknown) (unknown) Visit Date: 07/12/22 Last Updated by: Frances Espinal P.A-C (units unknown) (unknown) (unknown) (no date) (unknown) (unknown) Visit Date: 08/09/22 Last Updated by: Frances Espinal P.A-C (units unknown) (unknown) (unknown) (no date) (unknown) (unknown) Visit Date: 08/31/22 Last Updated by: Bert Roque MD (units unknown) (unknown) (unknown) (no date) (unknown) (unknown) Visit Date: 10/05/22 Last Updated by: Olivia Marshall MD (units unknown) (unknown) (unknown) (no date) (unknown) (unknown) Visit Date: 05/11/22 Last Updated by: Olivia Marshall MD (units unknown) (unknown) (unknown) (no date) (unknown) (unknown) Visit Date: 06/08/22 Last Updated by: Olivia Marshall MD (units unknown) (unknown) (unknown) (no date) (unknown) (unknown) Visit Reasons: OB Check US Position (units unknown) (unknown) (unknown) (no date) (unknown) (unknown) Vitals (units unknown) (unknown) (unknown) (no date) (unknown) (unknown) WG (units unknown) (unknown) (unknown) (no date) (unknown) (unknown) Warning signs reviewed. Follow-up in 3 weeks. (units unknown) (unknown) (unknown) (no date) (unknown) (unknown) Weeks gestatio n:: 31 (units unknown) (unknown) (unknown) (no date) (unknown) (unknown) Weight 258 lb (units unknown) (unknown) (unknown) (no date) (unknown) (unknown) Yes no 33 1+ 2 wk (u nits unknown) (unknown) (unknown) (no date) (unknown) (unknown) Zika virus exposure: No (units unknown) (unknown) (unknown) (no date) (unknown) (unknown) [History Confi rmed 10/26/22] (units unknown) (unknown) (unknown) (no date) (unknown) (unknown) activity, work/environmental/ hazards, Sexual activity, X-ray exposure, (units unknown) (unknown) (unknown) (no date) (unknown) (unknown) additional soc ial history: Pt reports that she and her almost split up (units unknown) (unknown) (unknown) (no date) (unknown) (unknown) alcohol intake : former (very rarely when not ) (units unknown) (unknown) (unknown) (no date) (unknown) (unknown) amniotic fluid volume. Grade 0 placenta. Plan: Will add to induction list. (units unknown) (unknown) (unknown) (no date) (unknown) (unknown) and had an u/s on 05/08/22. Viable IUP at 7 wks. No further BRP. Plan: Pap, F (units unknown) (unknown) (unknown) (no date) (unknown) (unknown) and is at a healthier size. Hx depression and anxiety, did not do well on (units unknown) (unknown) (unknown) (no date) (unknown) (unknown) antidepressant s, 'I was a zombie for a while.' Not currently medicated or (units unknown) (unknown) (unknown) (no date) (unknown) (unknown) anxiety is lik mali not particularly well controlled at present. (units unknown) (unknown) (unknown) (no date) (unknown) (unknown) [facility] family with: (units unknown) (unknown) (unknown) (no date) (unknown) (unknown) azithromycin 2 50 mg tablet 1,000 mg PO ONCE Chlamydia #4 tabs 05/17/22 [Rx (units unknown) (unknown) (unknown) (no date) (unknown) (unknown) bilingual; boby sangeeta language is Marshallese, has spoken Andorran for-18 years. Also (units unknown) (unknown) (unknown) (no date) (unknown) (unknown) defects not listed above and Denies Other (units unknown) (unknown) (unknown) (no date) (unknown) (unknown) c/o migraine w / aura 'I smell blood when I'm going to have a migraine. It used (units unknown) (unknown) (unknown) (no date) (unknown) (unknown) cab attend (units unknown) (unknown) (unknown) (no date) (unknown) (unknown) caffeine: Yes (aware of 200mg limit) (units unknown) (unknown) (unknown) (no date) (unknown) (unknown) carbon monox detector in home: Yes (units unknown) (unknown) (unknown) (no date) (unknown) (unknown) caregiver/supp ort person: Yes (units unknown) (unknown) (unknown) (no date) (unknown) (unknown) ce s 4wks (units unknown) (unknown) (unknown) (no date) (unknown) (unknown) cf DNA and MSA FP ordered. NRL female, AFP negative (units unknown) (unknown) (unknown) (no date) (unknown) (unknown) cramping and contractions. Chlamydia test of cure from last visit was negative. (units unknown) (unknown) (unknown) (no date) (unknown) (unknown) current occupational exposures/hazards: No (units unknown) (unknown) (unknown) (no date) (unknown) (unknown) daily servings fruits/ve or more times/day (units unknown) (unknown) (unknown) (no date) (unknown) (unknown) deployed. On ultrasound: AGA 29 weeks 1 day. 2 lb 14 oz. 53%ile. Normal (units unknown) (unknown) (unknown) (no date) (unknown) (unknown) described, vis it schedule reviewed, ultrasounds policy reviewed, coverage 24 (units unknown) (unknown) (unknown) (no date) (unknown) (unknown) desires to hav e genetic testing so cell free DNA testing and MSAFP were ordered (units unknown) (unknown) (unknown) (no date) (unknown) (unknown) discussed, tuberculosis exposure discussed, CMV discussed, Toxoplasmosis (units unknown) (unknown) (unknown) (no date) (unknown) (unknown) disorders, Den ies Cystic Fibrosis, Denies Terrell's Chorea, Denies Other (units unknown) (unknown) (unknown) (no date) (unknown) (unknown) do you feel sa fe at home: Yes (units unknown) (unknown) (unknown) (no date) (unknown) (unknown) does complain of left breast tenderness. Plan: Test of cure for chlamydia (units unknown) (unknown) (unknown) (no date) (unknown) (unknown) drug abuse and pt is very concerned about how this may affect her children. (units unknown) (unknown) (unknown) (no date) (unknown) (unknown) during the pas t year weight has: decreased > 10 lbs (intentional w/ diet and (units unknown) (unknown) (unknown) (no date) (unknown) (unknown) education leve l: college (some college) (units unknown) (unknown) (unknown) (no date) (unknown) (unknown) erk (units unknown) (unknown) (unknown) (no date) (unknown) (unknown) exercise) (units unknown) (unknown) (unknown) (no date) (unknown) (unknown) wali/religious : Uatsdin (units unknown) (unknown) (unknown) (no date) (unknown) (unknown) feeling much b vikas with less hair loss fatigue and dry skin (units unknown) (unknown) (unknown) (no date) (unknown) (unknown) ferrous sulfat e 325 mg (65 mg iron) tablet (Feosol) 325 mg PO DAILY 04/30/22 (units unknown) (unknown) (unknown) (no date) (unknown) (unknown) fevers. UA was normal in the office today. No nit or leuks. Very mild CVAT on (units unknown) (unknown) (unknown) (no date) (unknown) (unknown) fire extinguis her in home: Yes (units unknown) (unknown) (unknown) (no date) (unknown) (unknown) firearms in me: No (units unknown) (unknown) (unknown) (no date) (unknown) (unknown) fluconazole 15 0 mg tablet (Diflucan) 150 mg PO DAILY #1 tab 07/30/22 [Rx (units unknown) (unknown) (unknown) (no date) (unknown) (unknown) folic acid 400 mcg tablet 0.4 mg PO DAILY 04/30/22 [History Confirmed 10/26/22] (units unknown) (unknown) (unknown) (no date) (unknown) (unknown) for about the last 3 years, has not ever discussed this w/ her PCP so far. (units unknown) (unknown) (unknown) (no date) (unknown) (unknown) frequency: daily (un its unknown) (unknown) (unknown) (no date) (unknown) (unknown) have occurred. If there are any questions, please contact the Medical Records (units unknown) (unknown) (unknown) (no date) (unknown) (unknown) her wi ll be stationed in [facility]. We discussed that she would need to be (units unknown) (unknown) (unknown) (no date) (unknown) (unknown) home, no flo rns about violence or infidelity. Long family Hx of alcohol and (units unknown) (unknown) (unknown) (no date) (unknown) (unknown) hours a day an d participation of father in care and office visits (units unknown) (unknown) (unknown) (no date) (unknown) (unknown) household memb ers: spouse, family (brother) and children (units unknown) (unknown) (unknown) (no date) (unknown) (unknown) housing: apartment ( units unknown) (unknown) (unknown) (no date) (unknown) (unknown) induction January 20, 2023 due to a history of a fast delivery and being (units unknown) (unknown) (unknown) (no date) (unknown) (unknown) inherited gene tic or chromosomal disorder, Denies Maternal Metabolic Disorder (units unknown) (unknown) (unknown) (no date) (unknown) (unknown) intake. Kathie berman precautions reviewed. F/u in 4 wks. (units unknown) (unknown) (unknown) (no date) (unknown) (unknown) kag (units unknown) (unknown) (unknown) (no date) (unknown) (unknown) levothyroxine 50 mcg capsule 75 mcg PO DAILY #90 caps 10/05/22 [Rx Confirmed (units unknown) (unknown) (unknown) (no date) (unknown) (unknown) lives independently: Yes (units unknown) (unknown) (unknown) (no date) (unknown) (unknown) marital status : (units unknown) (unknown) (unknown) (no date) (unknown) (unknown) may occur. Occasional wrong-word or 'sound-alike' substitutions may have (units unknown) (unknown) (unknown) (no date) (unknown) (unknown) months none [place] ( units unknown) (unknown) (unknown) (no date) (unknown) (unknown) movement and d enies VB, LOF, cramping, contractions and abnormal discharge. She (units unknown) (unknown) (unknown) (no date) (unknown) (unknown) number of chil dren: 3 (includes 2 stepchildren) (units unknown) (unknown) (unknown) (no date) (unknown) (unknown) occupational status: employed (desk/office job) (units unknown) (unknown) (unknown) (no date) (unknown) (unknown) occurred due t o the inherent limitations of voice recognition software. Please (units unknown) (unknown) (unknown) (no date) (unknown) (unknown) omega 2-kzc-ora-fish oil 100 mg-160 mg-1,000 mg capsule (Fish Oil) 1 cap PO (units unknown) (unknown) (unknown) (no date) (unknown) (unknown) oxymetazoline 0.05 % nasal spray 1 spray intranasal BID 04/30/22 [History (units unknown) (unknown) (unknown) (no date) (unknown) (unknown) pets and anima ls: No (units unknown) (unknown) (unknown) (no date) (unknown) (unknown) precautions, Listeriosis prevention and Rubella Immunization (units unknown) (unknown) (unknown) (no date) (unknown) (unknown) prenat.vits,ca l,min -iron-folic 1 tab PO DAILY 04/30/22 [History Confirmed (units unknown) (unknown) (unknown) (no date) (unknown) (unknown) r/o kidney pathology. ED precautions reviewed. Advised to increase fluid (units unknown) (unknown) (unknown) (no date) (unknown) (unknown) read the note carefully and recognize, using context, where these substitutions (units unknown) (unknown) (unknown) (no date) (unknown) (unknown) recently but madi diana decided to stay together in light of this . She (units unknown) (unknown) (unknown) (no date) (unknown) (unknown) reports some r ight sided flank pain x 4 days. She reports it is achy and dull. (units unknown) (unknown) (unknown) (no date) (unknown) (unknown) reports that is nervous and excited, confirms that she is safe in her (units unknown) (unknown) (unknown) (no date) (unknown) (unknown) required D+C (units unknown) (unknown) (unknown) (no date) (unknown) (unknown) reviewed. Foll ow-up in 4 weeks or as needed. (units unknown) (unknown) (unknown) (no date) (unknown) (unknown) s (units unknown) (unknown) (unknown) (no date) (unknown) (unknown) seatbelt use: always (units unknown) (unknown) (unknown) (no date) (unknown) (unknown) second hand exposure: Yes ( also smokes) (units unknown) (unknown) (unknown) (no date) (unknown) (unknown) seeing funeral counselor or, although her affect during intake call indicates that her (units unknown) (unknown) (unknown) (no date) (unknown) (unknown) shot but we wi ll consider getting 1 next visit. Warning precautions were (units unknown) (unknown) (unknown) (no date) (unknown) (unknown) sided sciatica . She desires PT referral for hip pain. Referral sent. She (units unknown) (unknown) (unknown) (no date) (unknown) (unknown) skin and scalp . Slightly enlarged thyroid on exam. CBC and TSH refulx to T4 (units unknown) (unknown) (unknown) (no date) (unknown) (unknown) software. Alth ough every effort is made to edit content, direct service professional errors (units unknown) (unknown) (unknown) (no date) (unknown) (unknown) special wali needs: No (units unknown) (unknown) (unknown) (no date) (unknown) (unknown) still having s ome nausea and vomiting. She does not want any medication for (units unknown) (unknown) (unknown) (no date) (unknown) (unknown) stress and anx iety. Worse since she has been , 'This is much worse than (units unknown) (unknown) (unknown) (no date) (unknown) (unknown) substance use type: does not use (units unknown) (unknown) (unknown) (no date) (unknown) (unknown) the right on e xam. Discussed MSK cause vs kidney stones. Ordered kidney US to (units unknown) (unknown) (unknown) (no date) (unknown) (unknown) the week befor e she found out), Denies illicit drugs and Denies other (units unknown) (unknown) (unknown) (no date) (unknown) (unknown) this. Her Pap smear came back positive for chlamydia. She was treated. She (units unknown) (unknown) (unknown) (no date) (unknown) (unknown) to be a sweet smell, but the last few years it's been blood.' Migraines appear (units unknown) (unknown) (unknown) (no date) (unknown) (unknown) to be largely hormonal and are worse when pt is heavy than when she loses weight (units unknown) (unknown) (unknown) (no date) (unknown) (unknown) today. Follow- up in 4-5 weeks. Warning signs reviewed. (units unknown) (unknown) (unknown) (no date) (unknown) (unknown) today. Ordered 20 week anatomy ultrasound. She is unsure if she wants a flu (units unknown) (unknown) (unknown) (no date) (unknown) (unknown) travel history : recent (domestic only) (units unknown) (unknown) (unknown) (no date) (unknown) (unknown) urinary freque ncy, irritability and other (headaches, heartburn) (units unknown) (unknown) (unknown) (no date) (unknown) (unknown) was recently treated for a yeast infection and reports it resolved with (units unknown) (unknown) (unknown) (no date) (unknown) (unknown) water heater t emp set < 120 deg: Yes (units unknown) (unknown) (unknown) (no date) (unknown) (unknown) weeks 4 days. She reports some fluttering movement and denies VB, LOF, (units unknown) (unknown) (unknown) (no date) (unknown) (unknown) weight gain, F marci and mercury intake, Smoking, Caffeine use, Exercise and (units unknown) (unknown) (unknown) (no date) (unknown) (unknown) well-balanced diet: daily or most days (units unknown) (unknown) (unknown) (no date) (unknown) (unknown) were ordered. Pt will have labs drawn after the visit. Flu shot given. She also (units unknown) (unknown) (unknown) (no date) (unknown) (unknown) working smoke detector in home: Yes (units unknown) (unknown) (unknown) (no date) (unknown) (unknown) yet available. She reports hair loss, brittle hair and nails, fatigue, and dry (units unknown) (unknown) Social History date description facility 2022-08-09 00:00 Current some day smoker [facility] 2022-08-31 00:00 Current some day [facility] 2022-10-05 00:00 Current some day [facility] 2022-10-26 00:00 Current some day [facility] Vital Signs date measurement value units 2022-08-09 00:00 BMI 40.2 kg/m2 2022-08-09 00:00 BP_diastolic 66 mmHg 2022-08-09 00:00 BP_systolic 120 mmHg 2022-08-09 00:00 height_metric 165.1 cm 2022-08-09 00:00 height_standard 65 in 2022-08-09 00:00 weight_metric 109.76 kg 2022-08-09 00:00 weight_standard 241.98 lb 2022-08-31 00:00 BMI 41.2 kg/m2 2022-08-31 00:00 BP_diastolic 72 mmHg 2022-08-31 00:00 BP_systolic 118 mmHg 2022-08-31 00:00 height_metric 165.1 cm 2022-08-31 00:00 height_standard 65 in 2022-08-31 00:00 weight_metric 112.49 kg 2022-08-31 00:00 weight_standard 248 lb 2022-10-05 00:00 BMI 42.7 kg/m2 2022-10-05 00:00 BP_diastolic 72 mmHg 2022-10-05 00:00 BP_systolic 112 mmHg 2022-10-05 00:00 height_metric 165.1 cm 2022-10-05 00:00 height_standard 65 in 2022-10-05 00:00 weight_metric 116.57 kg 2022-10-05 00:00 weight_standard 256.99 lb 2022-10-26 00:00 BMI 42.9 kg/m2 2022-10-26 00:00 BP_diastolic 70 mmHg 2022-10-26 00:00 BP_systolic 118 mmHg 2022-10-26 00:00 height_metric 165.1 cm 2022-10-26 00:00 height_standard 65 in 2022-10-26 00:00 weight_metric 117.02 kg 2022-10-26 00:00 weight_standard 257.98 lb
--- NOTE | 2022-11-06 06:08 | ED Physician Documentation ---
PD HPI HEENT - Stated complaint Stated Complaint: THROAT/EYE PX - Chief complaint Chief Complaint: General - History obtained from History obtained from: Patient - Additional information Additional information: HPI from patient. Patient c/o sore throat, bilateral red eyes with mild purulent discharge. Tmax at home 100.3 (earlier today). Mild, nonproductive cough. Symptoms began 5-6 days ago. She is , mid-third trimester. She was seen at ED a few days ago for these symptoms, baby was monitored and she was told the monitoring was normal/reassuring. No other testing performed. Review of Systems Constitutional: denies: Fever (Tmax 100.3) Ears: denies: Ear pain Nose: reports: Rhinorrhea / runny nose. denies: Congestion Throat: reports: Sore throat Respiratory: reports: Cough. denies: Dyspnea GI: reports: Reviewed and negative PD PAST MEDICAL HISTORY - Past Medical History Past Medical History: No - Past Surgical History Past Surgical History: No - Present Medications Home Medications: Ambulatory Orders Medication Instructions Recorded Confirmed No Known Home Medications 04/22/22 11/06/22 - Allergies Allergies/Adverse Reactions: Allergies Allergy/AdvReac Type Severity Reaction Status Date / Time No Known Drug Allergies Allergy Verified 04/22/22 18:28 - Social History Does the pt smoke?: No Smoking Status: Never smoker Does the pt drink ETOH?: No - Immunizations Immunizations are current?: Yes - POLST Patient has POLST: No PD ED PE NORMAL - Vitals Vital signs reviewed: Yes - General General: Alert and oriented X 3, No acute distress, Well developed/nourished - HEENT HEENT: Moist mucous membranes - Neck Neck: Supple, no meningeal sign - Cardiac Cardiac: RRR, No murmur - Respiratory Respiratory: No respiratory distress, Clear bilaterally PD ED PE EXPANDED - HEENT HEENT: Pharyngeal erythema (trace bilateral posterior o/p erythema without swelling or exudate) - Eyes Eyes: PERRL, Normal eyelids, Injected conj/sclera (bilaterally, L>R), Exudate (trace bilateral thick exudate) Results - Vitals Vitals: Vital Signs - 24 hr 11/06/22 08:10 Heart Rate 91 Respiratory 16 Rate Blood Pressure 119/79 O2 Saturation 96 Oxygen O2 Source Room air - Labs Labs: Laboratory Tests 11/06/22 11/06/22 06:23 06:23 Nasal Adenovirus (PCR) NOT DETECTED Nasal B. parapertussis DNA (PCR) NOT DETECTED Nasal Coronavir 229E PCR NOT DETECTED Nasal Coronavir HKU1 PCR NOT DETECTED Nasal Coronavir NL63 PCR NOT DETECTED Nasal Coronavir OC43 PCR NOT DETECTED Nasal Enterovir/Rhinovir PCR NOT DETECTED Nasal Influenza B PCR NOT DETECTED Nasal Influenza A PCR NOT DETECTED Nasal Parainfluen 1 PCR NOT DETECTED Nasal Parainfluen 2 PCR NOT DETECTED Nasal Parainfluen 3 PCR NOT DETECTED Nasal Parainfluen 4 PCR NOT DETECTED Nasal RSV (PCR) NOT DETECTED Nasal B.pertussis DNA PCR NOT DETECTED Nasal C.pneumoniae (PCR) NOT DETECTED Darrian Human Metapneumo PCR NOT DETECTED Nasal M.pneumoniae (PCR) NOT DETECTED Nasal SARS-CoV-2 (PCR) NOT DETECTED Group A Strep Rapid Negative PD Medical Decision Making - ED course Complexity details: reviewed results, re-evaluated patient, considered differential, d/w patient ED course: URI symptoms including sore throat. Rapid strep is negative as is the respiratory PCR panel (including COVID, influenza, RSV). lungs are clear and thus chest xray is not indicated at this time. I explained that there is no specific treatment at this time, that her symptoms are likely of viral etiology , and that she needs to stay hydrated and give more time for the illness to work its way out. She asks about the eyes and whether there are any drops for them. While there are no "soothing" drops that are effective, I do think it is reasonable to try a 5-7 day course of polytrim abx. drops for the eyes, given the (mild) purulent exudate from the bilateral red eyes. She is provided this medication with instruction on frequency and number of days of use. return precautions discussed. Departure - Departure Disposition: 01 Home, Self Care Clinical Impression: Conjunctivitis Qualifiers: Conjunctivitis type: acute Acute conjunctivitis type: unspecified Laterality: bilateral Qualified Code(s): H10.33 - Unspecified acute conjunctivitis, bilateral Pharyngitis Qualifiers: Pharyngitis/tonsillitis etiology: unspecified etiology Qualified Code(s): J02.9 - Acute pharyngitis, unspecified Condition: Good Instructions: ED Conjunctivitis Nonspecific, ED Pharyngitis Viral Report Pending Comments: The strep test is negative. The nasal swab was tested for several different viruses and all the viruses tested came up negative; this includes COVID, influenza, and several other viruses. Based on your symptoms, I still strongly suspect a viral cause of your symptoms. You are being provided with antibiotic drops for your eyes in case there is a bacterial component to the conjunctivitis ("pinkeye"). Use the drops as follows: 1 drop in both eyes 3 times a day for 5 to 7 days. You can stop using the drops after 5 days if the symptoms resolve, otherwise continue on today 6 and, if need be, day 7. Do not use the drops for more than 1 week. Discharge Date/Time: 11/06/22 08:11
[2022-11-06 06:41] LABS: RAPID STREP SCREEN Negative (Negative)
[2022-11-06 07:33] LABS: B. PARAPERTUSSIS- RESP PCR PAN NOT DETECTED; B. PERTUSSIS- RESP PCR PANEL NOT DETECTED; C. PNEUMONIAE- RESP PCR PANEL NOT DETECTED; CORONAVIRUS 229E-RESP PCR NOT DETECTED; CORONAVIRUS HKU1-RESP PCR NOT DETECTED; CORONAVIRUS NL63-RESP PCR NOT DETECTED; CORONAVIRUS OC43-RESP PCR NOT DETECTED; HUMAN METAPNEUMOVIRUS NOT DETECTED; INFLUENZA A- RESP PCR PANEL NOT DETECTED; INFLUENZA B - RESP PCR PANEL NOT DETECTED; M. PNEUMONIAE- RESP PCR PANEL NOT DETECTED; PARAINFLUENZA VIRUS 1 NOT DETECTED; PARAINFLUENZA VIRUS 2 NOT DETECTED; PARAINFLUENZA VIRUS 3 NOT DETECTED; PARAINFLUENZA VIRUS 4 NOT DETECTED; RHINOVIRUS/ENTEROVIRUS NOT DETECTED; RSV- RESP PCR PANEL NOT DETECTED; SARS-CoV-2 -RESP PCR PANEL NOT DETECTED
[2022-11-06] MEDS ORDERED: POLYMYXIN B/TRIMETH OPHTH DROPS EACHEYE STA (07:54)
[2022-11-06 08:12] VITALS: BP 119/79
--- NOTE | 2022-11-08 16:11 | ED Physician Documentation ---
ED Addendum - Addendum Addendum: 11/08/22 16:11 Patient seen by my colleague few days ago for URI symptoms. Rapid strep negative. Subsequent culture is grown strep group C. Prescription for penicillin has been sent to the [facility] in [place]. Nursing staff tasked with notifying patient
== END 2022-11-06 08:11 | disposition home or self-care (01) ==
LOC: ED 05:22
DX: H10.33 Unspecified acute conjunctivitis, bilateral (principal); J02.9 Acute pharyngitis, unspecified; Z20.822 Contact with and (suspected) exposure to COVID-19
CPT/HCPCS: 87070; 87430; 87633; 99283; A9270